=== PATIENT | female | born 1990 | race Caucasian/White ===

== ENCOUNTER → 2020-04-17 09:07 | Outpatient (CLI) | payer OTHER, SELFPAY ==
[2020-04-17 20:53] LABS: SARS-CoV-2 RNA PCR Negative
== END ==
PROVIDERS: PCP Family Medicine; Visit Provider Physician Assistant
DX: Z20.822 Contact with and (suspected) exposure to COVID-19 (principal); J02.9 Acute pharyngitis, unspecified; R05 Cough; R06.02 Shortness of breath; R07.89 Other chest pain; R09.81 Nasal congestion; R51.9 Headache, unspecified; R53.83 Other fatigue; R68.83 Chills (without fever)
CPT/HCPCS: C9803; U0003; U0005

== ENCOUNTER 2020-07-08 08:58 | Emergency (ER) | payer OTHER, SELFPAY ==
[2020-07-08 09:07] VITALS: BP 126/75; PULSE 73; RESP 16; TEMP 36.8; O2SAT 98
--- NOTE | 2020-07-08 09:12 | ED.URI ---
HPI - URI/Sore Throat General Chief Complaint: Upper Respiratory Infection Stated Complaint: SORE THROAT Time Seen by Provider: 07/08/20 09:12 Source: patient, RN notes reviewed and old records reviewed Mode of arrival: ambulatory Limitations: no limitations History of Present Illness HPI Narrative: 30 year old female accompanied by daughter presents to express care with complaints of sore throat discomfort for about 1 week duration, states usually mainly sore at night and in mornings. Patient admits to some sinus drainage, denies any cough, ear pain, sinus pressure, or headache pain. Patient reports that grandmother recently tested positive for strep pharyngitis about 2 weeks ago and had visited her during that time. Patient denies any known history of asthma, sinusitis, or history of allergies, does use tobacco daily. MD elicited complaint: sore throat and rhinorrhea Pertinent past history: other (tobacco use) Onset (ago): week(s) Consistency: progressively worsening Severity: mild Description of mucous: clear Able to tolerate fluids by mouth: Yes Exacerbating factors: nothing Relieving factors: nothing Context: sick contacts Associated symptoms: rhinorrhea, nasal congestion and sore throat Treatments prior to arrival: none Related Data Allergies Allergy/AdvReac Type Severity Reaction Status Date / Time cephalexin Allergy Unknown Unknown Verified 04/25/20 10:28 No Known Allergies Allergy Verified 04/25/20 10:28 Review of Systems Review of Systems: Narrative: CONSTITUTIONAL: Denies fever, chills, or sweats. EYES: Denies visual changes, redness, or discharge. ENT: positive rhinorrhea, no sinus congestion, positive sore throat, no otalgia. CARDIOVASCULAR: Denies chest pain, palpitations, or edema. RESPIRATORY: Denies cough or dyspnea. GASTROINTESTINAL: Denies abdominal pain, nausea, vomiting, or diarrhea. GENITOURINARY: Denies dysuria or hematuria. SKIN: Denies rash or itching. MUSCULOSKELETAL: Denies back pain, joint pain, or myalgia. NEUROLOGIC: Denies headache, numbness, or weakness. PSYCHIATRIC: Positive for history of anxiety or depression. All systems reviewed & are unremarkable except as noted in HPI and below PMFSH Past Medical History Medical History (Updated 07/08/20 @ 09:42 by Marian Morocho NP) Anxiety and depression Surgical History Surgical History (Updated 07/08/20 @ 09:17 by Marian Morocho NP) History of wisdom tooth extraction, class I edentulism Family History Family History Mother Depression Father Acute myocardial infarction, Onset Age: 50 Family history of cardiovascular disease Grandparent Family history of malignant neoplasm of breast Social History Social History (Updated 07/08/20 @ 09:40 by Marian Morocho NP) Smoking status: Current every day smoker Tobacco type: cigarettes Additional smoking assessment comments: 1 pack per day Alcohol intake: current Alcohol use details: social Substance use: never Living arrangements: with family Gender identity (if verbalized by the patient): Female Comments At time of signature, agree with nursing past medical, surgical, social and family history. There is no relevant family history pertinent to the presenting complaint Exam Narrative: Exam Narrative: GENERAL: Well-appearing, well-nourished, and in no acute distress. HEAD: Normocephalic, atraumatic. EYES: PERRLA and EOMI. ENT: Nares red with swollen turbinates, clear rhinorrhea no epistaxis. Mucous membranes moist.TM's normal with good light reflex, throat red with no lesions or exudates, no swelling of tonsils, moderate amount of post nasal drainage noted in back of throat. NECK: Supple. no lymphadenopathy CHEST: Clear to auscultation. No respiratory distress. no cough. SAO2 98% on room air HEART: Regular rate and rhythm. No murmur heard. Normal peripheral pulses. ABDOMEN: Soft, nontender, nondistended, n
== END 2020-07-08 09:49 | disposition home or self-care (01) ==
PROVIDERS: Emergency Provider Registered Nurse; PCP Family Medicine
DX: J06.9 Acute upper respiratory infection, unspecified (principal); F17.210 Nicotine dependence, cigarettes, uncomplicated; F41.9 Anxiety disorder, unspecified; F32.9 Major depressive disorder, single episode, unspecified
CPT/HCPCS: 87081; 87880; 99213; G0463

== ENCOUNTER → 2021-05-01 02:31 | Outpatient (CLI) | payer OTHER, SELFPAY ==
[2021-05-01 17:14] LABS: SARS-CoV-2 RNA PCR Negative
== END ==
PROVIDERS: PCP Family Medicine; Visit Provider Physician Assistant
DX: R06.02 Shortness of breath (principal); Z20.822 Contact with and (suspected) exposure to COVID-19
CPT/HCPCS: 71046; C9803; U0003; U0005

== ENCOUNTER 2021-05-01 09:19 | Outpatient (CLI) | payer OTHER, SELFPAY ==
--- NOTE | ~2021-05-01 | XR_ITS ---
EXAMINATION: XR chest 2V 05/01/2021 09:40 INDICATION: Shortness of breath. Chest pressure. PROCEDURE: 2 view chest COMPARISON: No prior studies for comparison. FINDINGS: The lungs are clear. The cardiomediastinal silhouette is within normal limits. There are no pleural effusions. There is no pneumothorax suspected. IMPRESSION: 1: NO ACUTE CARDIOPULMONARY DISEASE. Reviewed, dictated and finalized at location B. [employer]
== END 2021-05-01 09:20 | disposition home or self-care (01) ==
PROVIDERS: PCP Family Medicine; Visit Provider Physician Assistant
DX: R06.02 Shortness of breath (principal)
CPT/HCPCS: 71046

== ENCOUNTER 2023-01-03 14:38 | Outpatient (CLI) | payer OTHER, SELFPAY ==
[2023-01-06 14:26] LABS: FSH 6.5 mIU/mL (***)
[2023-01-09 22:47] LABS: Estradiol, Ultrasensitive 34 pg/mL
== END 2023-01-03 14:39 | disposition home or self-care (01) ==
LOC: ANHGOSHLAB 14:39
PROVIDERS: PCP Family Medicine; Visit Provider Obstetrics & Gynecology
DX: N92.6 Irregular menstruation, unspecified (principal)
CPT/HCPCS: 36415; 82670; 83001

== ENCOUNTER 2023-03-25 09:17 | Outpatient (CLI) | payer OTHER, SELFPAY ==
[2023-03-25 09:40] LABS: Hematocrit 45.7 % (37.0-47.0); Hemoglobin 14.5 g/dL (12.0-15.0); Mean Corpuscular HGB Conc 31.7 g/dl (32-36); Mean Corpuscular Volume 97.6 fl (80-100); Mean Platelet Volume 10.6 fl (7.4-10.4); Platelet Count Result 193 k/mm3 (150-375); Red Blood Count 4.68 M/mm3 (4.2-5.4); Red Cell Distribution Width 12.8 % (11.5-14.5); White Blood Count 7.7 K/mm3 (4.5-10.0)
== END 2023-03-25 09:18 | disposition home or self-care (01) ==
LOC: ANHSURGERY 09:18
PROVIDERS: PCP Family Medicine; Visit Provider Obstetrics & Gynecology
DX: Z01.818 Encounter for other preprocedural examination (principal); N94.89 Other specified conditions associated with female genital organs and menstrual cycle
CPT/HCPCS: 36415; 85027; 86850; 86900; 86901

== ENCOUNTER 2023-03-31 00:42 | Day surgery (SDC) | payer OTHER, SELFPAY ==
--- NOTE | 2023-03-22 17:32 | PC.NURSE ---
Report to the Outpatient Waiting Room, entrance under the green pavilion located off [facility], at time 0730 on date 03/31/23. Planned Procedure Time: 0930. Time changes happen often and if your time is changed the preop area will call you the afternoon before. - You and your visitor will be asked to self-screen and do not enter if you have any COVID symptoms. - A mask is optional within the hospital at this time. Patients may have clear liquids (water, carbonated beverages, clear teas, apple juice) until 3 hours prior to surgery with a maximum of 20 ounces. 0630 - No food from midnight until time of surgery - Infants may have breast milk until 4 hours before surgery, formula 6 hours prior to surgery. - Children will be allowed to drink immediately following surgery. If applicable, please bring a bottle or sippy cup to assist with drinking. Juice, water, soda, and popsicles are readily available. For infants on formula, please bring formula the day of surgery. Pacifiers are allowed. Take the following medications with a SIP of water the morning of surgery: buspirone DO NOT STOP ANY OF YOUR OTHER PRESCRIPTION MEDICATIONS PRIOR TO SURGERY ?EXCEPT THE FOLLOWING Medications to discontinue per physician none Date to take last dose Please no make-up, nail turkmen, hairspray, perfume, deodorant, or body powder the day of surgery. No jewelry (including any body piercings) or valuables the day of surgery, leave them at home. Please take a shower or bath the night before, or the morning of, surgery with an antibacterial soap. Wear comfortable, loose fitting clothing. Children are encouraged to wear pajamas. - Jewelry must be removed prior to entering the operating room. Rings and piercings that are not removed may be cut off. - The hospital will not accept responsibility for valuables. - Please leave all valuables, including medications, at home the day of surgery. If you are going home after surgery, a licensed local intermodal truck driver must drive you home. - NO public transportation without another adult if you receive anesthesia. - We recommend that an adult stay with you for 24 hours following discharge. - We also recommend that you do not drive, make important decision, drink alcoholic beverages, or take any drugs that were not prescribed by your health care provider for at least 24 hours after your discharge time. For Pediatric surgeries, we recommend two adults accompany the child home. Follow any additional instructions given to you from your surgeon. If you or anyone in your household have experienced Covid symptoms in the past week, please notify your surgeon or the nurse liaison at the phone number below for possible testing. Telephone instructions given to Patient- Ana Celaya and asked if any additional questions and then verbalized understanding. Patient advised to call surgeon office or pre surgery nurse liaison [phone] if any additional questions.
[2023-03-22 17:39] VITALS: BMI 31.0
--- NOTE | 2023-03-29 14:53 | PM.IMHP ---
H&P: HPI History of Present Illness Date/Time: 03/29/23 14:53 32-year-old 1 para 1001 female presents with complaints of pelvic pain and adnexal mass. She has had a longstanding history of midline cramping and discomfort as well as severe pelvic pain throughout the month, no relation to menstrual cycle (has minimal bleeding due to IUD in place) significant amount of left lower quadrant pain as well. Also has seen Urology for mixed incontinence picture, on medication currently. otherwise denies any urinary tract symptoms or change in bowel function. Ultrasound revealed uterus with no significant abnormalities, and left adnexal solid mass on the ovary of 1cm, unchanged over multiple exams. Chief Complaint: Pelvic pain Review of Systems Review of Systems: All systems reviewed & are unremarkable except as noted in HPI and below PMFSH Past Medical History Medical History (Updated 02/15/23 @ 08:42 by JIMMY Coburn) Abnormal Pap smear of cervix 08/08/2017 HGSIL +HPV; 08/15/2018 Lgsil +hpv 08-26-2020 Ascus hpv neg rpt pap in 1 year @ [facility] Anxiety and depression BRCA negative BRCA 1& 2 negative Encounter for IUD insertion 08/21/14 Mirena insertion 10/10/19 Mirena removal/reinsertion Encounter for IUD removal 10/10/19 Mirena removal/reinsertion Encounter for screening examination for sexually transmitted disease 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) Polyp at cervical os Surgical History Surgical History History of breast biopsy 10/24/19 MRI guided left breast biopsy--benign History of colposcopy with cervical biopsy 08/24/17 benign 09/13/18 benign History of wisdom tooth extraction, class I edentulism Family History Family History Mother Depression Family history of malignant neoplasm of breast Alcoholism Father Acute myocardial infarction, Onset Age: 50 Family history of cardiovascular disease Hypertension Grandparent Family history of malignant neoplasm of breast maternal grandmother Family history of cardiovascular disease paternal grandfather Malignant neoplasm of lung maternal grandfather Other Diabetes mellitus paternal aunt Hypertension paternal aunt Family history of cardiovascular disease paternal uncle Malignant tumor of ovary paternal aunt Family history of malignant neoplasm of breast paternal aunt maternal aunt Social History Social History (Updated 03/22/23 @ 17:41 by Violeta Nunez RN) Smoking packs per day: 0.5 Smoking cigarettes per day: 10.0 Years smoked: 18 Smoking pack-years: 9.00 Smoking status: Current every day smoker Tobacco type: cigarettes Second hand tobacco smoke exposure: No Additional smoking assessment comments: 1/2 pack per day Alcohol intake: current Alcohol use details: rare- 2x per month Substance use: former Substance use type: marijuana Last use: 3 months ago Lack of Transportation: No Lack of Food: Never True Current Housing: I Have Housing Concerned About Future Housing: No Difficulty Paying Gas/Electric Bills: No Difficulty Paying for Meds: No Currently Unemployed: No Education: High School Diploma/GED Difficulty w/ Childcare or Family Care: No Living arrangements: with family Additional living arrangements comments: single Occupation/Education: occupation Additional occupation/education comments: [employer] Gender identity (if verbalized by the patient): Female Sexual Orientation (if Verbalized by the Patient): Straight or Heterosexual Spiritual care concerns: No Meds Home Medications and Allergies Home Medications Medication Instructions Recorded Confirmed Type oxybutynin chloride 10 mg 10 mg PO HS 02/15/23 03/22/23 History tablet,extended release 24 hr buspirone 10 mg table
[2023-03-31] VITALS (14 sets, daily range): BP systolic 97–139; BP diastolic 52–92; PULSE 62–89; RESP 12–19; TEMP 36.1–36.9; O2SAT 94–100
--- NOTE | 2023-03-31 04:25 | WPDHPUPDATE1 ---
History and Physical Update Update Date/Time: 03/31/23 04:25 History and Physical has been reviewed, including an updated exam of the patient. There are NO changes in the patient's condition. Risks, benefits, and alternatives have been discussed and questions answered. Patient agrees to proceed with procedure.
[2023-03-31] MEDS: ACETAMINOPHEN 500 MG TABLET 1000 MG PO (06:24)
[2023-03-31] MEDS: LACTATED RINGERS 1,000 ML 30 ML IV CONT ×2 (07:06→09:27)
[2023-03-31] MEDS: KETOROLAC 15 MG/ML VIAL (*BKC) IV PUSH ×2 (07:07→10:34)
--- NOTE | 2023-03-31 07:31 | WPDANESEPPF ---
Anes - Initial Pre Proc Eval Procedure: Operation Date: 03/31/23 08:00 Proposed Procedures p Robotic Assisted Total Laparoscopic Hysterectomy, Right Salpingectomy, Left Salpingo-Oophorectomy - Phillip Stiles MD Date/Time: 03/31/23 07:31 Surgeon: Phillip Stiles MD Pre Op Diagnosis: pelvic pain, Left adnexal mass Patient Data Age: 32 Gender: F Height: 1.6 m Weight: 80.2 kg Last Vital Signs Temp 98.4 F 03/31/23 07:10 Pulse 62 03/31/23 07:10 Resp 16 03/31/23 07:10 BP 119/66 03/31/23 07:10 Pulse Ox 100 03/31/23 07:10 O2 Del Method Room Air 03/31/23 07:10 Allergies Allergy/AdvReac Type Severity Reaction Status Date / Time cephalexin AdvReac Severe Other Verified 03/31/23 06:22 Home Medications Medication Instructions Recorded Confirmed Type oxybutynin chloride 10 mg 10 mg PO HS 02/15/23 03/31/23 History tablet,extended release 24 hr buspirone 10 mg tablet 10 mg PO BID 03/22/23 03/31/23 History escitalopram oxalate 20 mg tablet 20 mg PO HS 03/22/23 03/31/23 History (Lexapro) ziprasidone HCl 20 mg capsule 40 mg PO HS 03/22/23 03/31/23 History Patient hx anesthesia problems: none Family hx anesthesia problems: none Results Review: All pre-operative results and documents have been reviewed as part of the pre-operative evaluation. [facility] Past Medical History Medical History (Updated 02/15/23 @ 08:42 by Hermila Schuler [facility]) Abnormal Pap smear of cervix 08/08/2017 HGSIL +HPV; 08/15/2018 Lgsil +hpv 08-26-2020 Ascus hpv neg rpt pap in 1 year @ [facility] Anxiety and depression BRCA negative BRCA 1& 2 negative Encounter for IUD insertion 08/21/14 Mirena insertion 10/10/19 Mirena removal/reinsertion Encounter for IUD removal 10/10/19 Mirena removal/reinsertion Encounter for screening examination for sexually transmitted disease 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) Polyp at cervical os Surgical History Surgical History History of breast biopsy 10/24/19 MRI guided left breast biopsy--benign History of colposcopy with cervical biopsy 08/24/17 benign 09/13/18 benign History of wisdom tooth extraction, class I edentulism Family History Family History Mother Depression Family history of malignant neoplasm of breast Alcoholism Father Acute myocardial infarction, Onset Age: 50 Family history of cardiovascular disease Hypertension Grandparent Family history of malignant neoplasm of breast maternal grandmother Family history of cardiovascular disease paternal grandfather Malignant neoplasm of lung maternal grandfather Other Diabetes mellitus paternal aunt Hypertension paternal aunt Family history of cardiovascular disease paternal uncle Malignant tumor of ovary paternal aunt Family history of malignant neoplasm of breast paternal aunt maternal aunt Social History Social History (Updated 03/22/23 @ 17:41 by Violeta Nunez RN) Smoking packs per day: 0.5 Smoking cigarettes per day: 10.0 Years smoked: 18 Smoking pack-years: 9.00 Smoking status: Current every day smoker Tobacco type: cigarettes Second hand tobacco smoke exposure: No Additional smoking assessment comments: 1/2 pack per day Alcohol intake: current Alcohol use details: rare- 2x per month Substance use: former Substance use type: marijuana Last use: 3 months ago Lack of Transportation: No Lack of Food: Never True Current Housing: I Have Housing Concerned About Future Housing: No Difficulty Paying Gas/Electric Bills: No Difficulty Paying for Meds: No Currently Unemployed: No Education: High School Diploma/GED Difficulty w/ Childcare or Family Care: No Living arrangements: with family Additional living arrangements comments: single Occupation/[employer]
[2023-03-31] MEDS: ceFAZolin 2 GM/D5W 50 ML 2 GM/50 ML BAG IVPB (08:02)
--- NOTE | 2023-03-31 09:08 | P.OP_ITS ---
Procedure Note - Detailed Date of Procedure 03/31/23 Pre-op Diagnosis pelvic pain, Left adnexal mass Post-op Diagnosis Same Procedure Performed 1. robotic hysterectomy with R salpingectomy 2. L salpingoophorectomy Surgeon Phillip Stiles MD Anesthesia General Findings Mildly enlarged uterus small left ovarian cyst Description of Procedure Patient prepped and draped in usual manner for this procedure. Cervical instruments were placed for uterine mobility throughout the case. Attention was then placed the abdomen and trocar sites were marked and placed under direct visualization and then attached to the de Felice system. Instruments were then placed through these trocars again under direct visualization. Attention was placed to the pelvis and findings were noted as above. Left infundibulopelvic ligament was cauterized and cut, and the right mesial salpinx was cauterized and cut and the right tube was removed separately. Round ligament was then cauterized cut and bladder flap was developed as well as the posterior leaf the broad ligament was incised. Uterine vessels were skeletonized cauterized and cut and once this was done the colpotomy incision was made posteriorly. This was carried circumferentially to separate the cervix from the vagina. Uterus was then delivered into the vagina without difficulty as well as the left tube and ovary. Vaginal cuff was then closed using V lock suture from the right angle to the left past midline. Right angle was then secured using V lock suture and this was again in a running manner carried past the midline to the right. Irrigation was undertaken, Brice was laced empirically. Gas was allow ed to escape incisions were approximated using 4-0 Monocryl after the trocars removed and the patient was sent to recovery room in stable condition. Estimated Blood Loss 100 Drains No Packing No Pathology Yes Complications No immediate complications Condition Stable Disposition PACU [facility] Billing Surgery - Charge Forward: Surgery Billing
[2023-03-31] MEDS: fentaNYL CITRATE INJ (*CRX) 100 MCG/2 ML VIAL 25 MCG IV PUSH ×8 (09:48→11:02)
[2023-03-31] MEDS: ONDANSETRON INJ 4 MG/2 ML VIAL IV PUSH (10:01)
[2023-03-31] MEDS: HYDROmorphone HCL INJ (*CRX) 1 MG/ML SYR 0.5 MG IV PUSH (11:10)
[2023-03-31] MEDS: diphenhydrAMINE HCl INJ 50 MG/ML VIAL 12.5 MG IV PUSH (12:15)
[2023-03-31] MEDS: HYDROcodone/acetaminophen (*CRX) 10-325 MG TABLET 1 TAB PO ×4 (13:37→23:38)
[2023-03-31] MEDS: IBUPROFEN 600 MG TABLET PO ×2 (13:37→19:44)
[2023-03-31] MEDS: SIMETHICONE 80 MG TAB.CHEW PO ×2 (15:40→18:48)
[2023-03-31] MEDS: ESCITALOPRAM OXALATE 10 MG TABLET 20 MG PO (19:45)
[2023-03-31] MEDS: busPIRone HCL 10 MG TABLET PO (19:45)
[2023-03-31] MEDS: ZIPRASIDONE HCL 20 MG CAPSULE 40 MG PO (19:45)
[2023-03-31] MEDS: oxyBUTYnin CHLORIDE XL 5 MG TAB.ER.24 10 MG PO (19:46)
[2023-04-01] MEDS: SIMETHICONE 80 MG TAB.CHEW PO ×2 (00:03→06:25)
[2023-04-01] MEDS: IBUPROFEN 600 MG TABLET PO (03:41)
[2023-04-01 03:50] VITALS: BP 99/54; PULSE 71; RESP 16; TEMP 37; O2SAT 93
[2023-04-01 04:46] LABS: Basophils Percent Auto 0.2 % (0.2-1.2); Eosinophils Absolute Auto 0.1 K/mm3 (0-0.3); Eosinophils Percent Auto 0.6 % (0-4.4); Hematocrit 38.2 % (37.0-47.0); Hemoglobin 12.4 g/dL (12.0-15.0); Immature Granulocyte Absolute 0.04 K/mm3 (0.00-0.031); Immature Granulocyte Percent A 0.3 % (0-0.5); Lymphocytes Absolute Auto 2.83 K/mm3 (0.9-3.2); Lymphocytes Percent Auto 19.6 % (18.3-44.2); Mean Corpuscular HGB Conc 32.5 g/dl (32-36); Mean Corpuscular Hemoglobin 31.5 pg (26-34); Mean Platelet Volume 10.8 fl (7.4-10.4); Monocytes Absolute Auto 0.6 K/mm3 (0.1-0.6); Monocytes Percent Auto 4.4 % (2.6-8.5); Neutrophils Absolute Auto 10.8 K/mm3 (1.3-6.7); Neutrophils Percent Auto 74.9 % (45.5-73.1); Platelet Count Result 209 k/mm3 (150-375); Red Blood Count 3.94 M/mm3 (4.2-5.4); Red Cell Distribution Width 12.2 % (11.5-14.5); White Blood Count 14.4 K/mm3 (4.5-10.0)
[2023-04-01] MEDS: HYDROcodone/acetaminophen (*CRX) 5-325 MG TABLET 1 TAB PO (06:25)
[2023-04-01 07:35] VITALS: BP 105/48; PULSE 68; RESP 16; TEMP 36.6; O2SAT 98
[2023-04-01] MEDS: busPIRone HCL 10 MG TABLET PO (07:39)
[2023-04-01 08:30] VITALS: BP 111/61; PULSE 77; RESP 18
== END 2023-04-01 08:40 | disposition home or self-care (01) ==
LOC: ANHSURGERY 06:10 → ANHOB2 11:33
PROVIDERS: PCP Family Medicine; Visit Provider Obstetrics & Gynecology
PROC: (CPT 58571; principal; 2023-03-31 08:00)
DX: N83.02 Follicular cyst of left ovary (principal); N72 Inflammatory disease of cervix uteri; R10.2 Pelvic and perineal pain; N92.6 Irregular menstruation, unspecified; N39.41 Urge incontinence; F41.8 Other specified anxiety disorders; F17.210 Nicotine dependence, cigarettes, uncomplicated
CPT/HCPCS: 58571; S2900; 36415; 85025; 88307; 99199; A9270; J0690; J1100; J1170; J1200; J1596; J1885; J2250; J2405; J2704; J2710; J3010; J7030; J7120

== ENCOUNTER 2023-04-07 19:01 | Inpatient (IN) | payer OTHER, SELFPAY ==
--- NOTE | ~2023-04-07 | CT_ITS ---
EXAMINATION: CT abdomen pelvis w con DATE: 04/07/2023 22:12 INDICATION: Vaginal discharge post hysterectomy TECHNIQUE: Computed tomography (CT) of the abdomen and pelvis was performed with 100 mL Omnipaque-350 intravenous contrast. Automated exposure control and iterative reconstruction technique were employe d. The dose-length product was 528.46 mGy-cm. COMPARISON: None FINDINGS: Minimal dependent atelectasis in the bilateral lower lobes. Heart size is normal. No pericardial or p leural effusion. Liver, gallbladder, spleen, pancreas, bilateral adrenal glands and kidneys are starla l. No bowel obstruction. Normal appendix. Uterus is not visualized consistent with reported history o f recent hysterectomy. There is mild peripheral enhancement surrounding a 5.4 x 6.2 x 4.1 cm fluid co llection with multiple small foci of gas at the hysterectomy bed which could represent a postoperativ e hematoma or abscess in the appropriate clinical setting. There are few small follicles at the right ovary. The left ovary is not visualized and may also be surgically absent. The there is wall thicken ing of the decompressed bladder with stranding to the immediately surrounding fat which raises concer n for cystitis. Tiny fat-containing umbilical hernia. No pathologically enlarged abdominal or pelvic lymphadenopathy. Bones are unremarkable. IMPRESSION: 1. 6.2 x 5.4 x 4.1 cm loculated fluid collection with multiple small foci of gas in the uterine fossa post reported recent hysterectomy which could represent a postoperative hematoma or abscess in the a ppropriate clinical setting. 2. Bladder is decompressed with wall thickening and prominent surrounding stranding which raises conc [place] for cystitis. Reviewed, dictated and finalized at location A. [employer]PER[employer] IMPRESSION: 1. 6.2 x 5.4 x 4.1 cm loculated fluid collection with multiple small foci of ga s in the uterine fossa post reported recent hysterectomy which could represent a postoperative hematoma or abscess in the appropriate clinical setting. 2. Bladder is decompressed with wall thickening and prominent surrounding stran ding which raises concern for cystitis.
--- NOTE | ~2023-04-07 | CT_ITS ---
EXAMINATION: CT guide absc cath placement DATE: 04/08/2023 13:26 INDICATION: Pelvic abscess. TECHNIQUE: The procedure including the risks, benefits, and alternatives was discussed with the patie nt. Risks discussed included bleeding and infection. The patient understood the risks and benefits an d agreed to proceed. The patient was confirmed to be receiving appropriate antibiotic coverage. The skin overlying the abdomen was prepped and draped in usual sterile fashion. Anesthetic was administe red with 1% lidocaine subcutaneously. Moderate sedation was achieved with 1 mg Versed IV and 100 mcg fentanyl IV. An 18 gauge trochar needle was inserted into the pelvic abscess with CT guidance. The ne edle was exchanged over a wire for 6 Congolese, 8 Congolese, and 9 Congolese dilators and then for an 8.5 Fren ch pigtail catheter. The catheter was stitched to the skin, and a sterile dressing was applied. The m A was adjusted according to patient size. Iterative reconstruction technique was employed. The dose-l ength product was 354.48 mGy-cm. There were no immediate complications. FINDINGS: CT images demonstrate the catheter within the fluid collection. 10 mL fluid was aspirated f or testing. IMPRESSION: 1. Successful CT-guided pelvic abscess drainage. 2. 10 mL yellow fluid was sent for aerobic and anaerobic cultures. Reviewed, dictated and finalized at location A. [employer]
[2023-04-07 19:08] VITALS: BP 141/64; PULSE 92; RESP 16; TEMP 36.9; O2SAT 99
[2023-04-07 19:49] LABS: Appearance Urine Clear (Clear); Bacteria Urine None Seen /hpf; Bilirubin Urine Negative (Negative); Blood Urine 2+ (Negative); Color Urine Yellow (Yellow); Glucose Urine UA Negative (Negative); Ketones Urine Negative (Negative); Leukocyte Esterase Ur 3+ LEU/UL (Negative); Nitrate Urine Negative (Negative); Non Pathogenic Casts 0-2; Protein Urine 1+ mg/dL (Negative); RBC Urine 0-2 /hpf (0-2); Specific Grav Ur 1.007 (1.001-1.035); Squamous Epithelial Cell Urine None seen /hpf (Few); Urobilinogen Urine 0.2 mg/dL (<2.0); WBC Urine 51-100 /hpf; pH Urine 6.5 (5.0-9.0)
[2023-04-07 19:51] LABS: Add Urine Microscopic? YES
--- NOTE | 2023-04-07 20:28 | ED.RECABL ---
HPI - Recheck/Abnormal Lab/Rx General Chief Complaint: Recheck/Abnormal Lab/Rx Stated Complaint: POST OP DRAINAGE S/P HYST Time Seen by Provider: 04/07/23 19:54 History of Present Illness HPI narrative: Patient is a 32-year-old female presenting with vaginal discharge. Patient states that she had a laparoscopic hysterectomy 1 week ago. States that she seemed to be doing well until this afternoon when she developed profuse vaginal discharge. States that it is watery and foul smelling. Complains of mild lower back pain that she has had since the procedure. No fevers or chills. No vaginal bleeding. Complain of mild right-sided abdominal pain. No further complaints. Related Data Home Medications Medication Instructions Recorded Confirmed oxybutynin chloride 10 mg 10 mg PO HS 02/15/23 04/08/23 tablet,extended release 24 hr buspirone 10 mg tablet 10 mg PO BID 03/22/23 04/08/23 escitalopram oxalate 20 mg tablet 20 mg PO HS 03/22/23 04/08/23 (Lexapro) ziprasidone HCl 20 mg capsule 40 mg PO HS 03/22/23 04/08/23 Allergies Allergy/AdvReac Type Severity Reaction Status Date / Time cephalexin AdvReac Severe Other Verified 04/07/23 19:55 Review of Systems Review of Systems: All systems reviewed & are unremarkable except as noted in HPI and below PMFSH Past Medical History Medical History Abnormal Pap smear of cervix 08/08/2017 HGSIL +HPV; 08/15/2018 Lgsil +hpv 08-26-2020 Ascus hpv neg rpt pap in 1 year @ [facility] Anxiety and depression BRCA negative BRCA 1& 2 negative Encounter for IUD insertion 08/21/14 Mirena insertion 10/10/19 Mirena removal/reinsertion Encounter for IUD removal 10/10/19 Mirena removal/reinsertion Encounter for screening examination for sexually transmitted disease Hematuria, unspecified 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) Polyp at cervical os Surgical History Surgical History History of breast biopsy 10/24/19 MRI guided left breast biopsy--benign History of colposcopy with cervical biopsy 08/24/17 benign 09/13/18 benign History of left oophorectomy History of left salpingo-oophorectomy History of robot-assisted laparoscopic hysterectomy History of wisdom tooth extraction, class I edentulism Family History Family History Mother Depression Family history of malignant neoplasm of breast Alcoholism Father Acute myocardial infarction, Onset Age: 50 Family history of cardiovascular disease Hypertension Grandparent Family history of malignant neoplasm of breast maternal grandmother Family history of cardiovascular disease paternal grandfather Malignant neoplasm of lung maternal grandfather Other Diabetes mellitus paternal aunt Hypertension paternal aunt Family history of cardiovascular disease paternal uncle Malignant tumor of ovary paternal aunt Family history of malignant neoplasm of breast paternal aunt maternal aunt Social History Social History Smoking packs per day: 0.5 Smoking cigarettes per day: 10.0 Years smoked: 18 Smoking pack-years: 9.00 Smoking status: Current every day smoker Second hand tobacco smoke exposure: No Additional smoking assessment comments: 1/2 pack per day Alcohol intake: current Alcohol use details: rare- 2x per month Substance use: former Substance use type: marijuana Last use: 3 months ago, socially Do You Feel Safe in your Home?: Yes Lack of Transportation: No Lack of Food: Never True Current Housing: I Have Housing Concerned About Future Housing: No Difficulty Paying Gas/Electric Bills: No Difficulty Paying for Meds: No Currently Unemployed: No Education: Don't Know Difficulty w/ Childcare or Family Car
[2023-04-07] MEDS: ONDANSETRON INJ 4 MG/2 ML VIAL IV PUSH (21:31)
[2023-04-07] MEDS: MORPHINE SULFATE (*CRX) 4 MG/ML INJ IV PUSH (21:32)
[2023-04-07] MEDS: KETOROLAC 30 MG/ML VIAL (*BKC) IV PUSH (21:32)
[2023-04-07] MEDS: SODIUM CHLORIDE 0.9% IV 1,000 ML 999 ML IV CONT ×2 (21:32→23:26)
[2023-04-07 21:43] LABS: Basophils Percent Auto 0.3 % (0.2-1.2); Eosinophils Absolute Auto 0.1 K/mm3 (0-0.3); Hematocrit 39.9 % (37.0-47.0); Hemoglobin 13.2 g/dL (12.0-15.0); Immature Granulocyte Absolute 0.05 K/mm3 (0.00-0.031); Immature Granulocyte Percent A 0.4 % (0-0.5); Lymphocytes Absolute Auto 2.11 K/mm3 (0.9-3.2); Lymphocytes Percent Auto 15.2 % (18.3-44.2); Mean Corpuscular HGB Conc 33.1 g/dl (32-36); Mean Corpuscular Hemoglobin 31.4 pg (26-34); Mean Corpuscular Volume 94.8 fl (80-100); Monocytes Absolute Auto 0.8 K/mm3 (0.1-0.6); Monocytes Percent Auto 5.9 % (2.6-8.5); Neutrophils Absolute Auto 10.7 K/mm3 (1.3-6.7); Neutrophils Percent Auto 77.2 % (45.5-73.1); Platelet Count Result 239 k/mm3 (150-375); Red Blood Count 4.21 M/mm3 (4.2-5.4); Red Cell Distribution Width 12.5 % (11.5-14.5); White Blood Count 13.9 K/mm3 (4.5-10.0)
[2023-04-07 21:53] LABS: Alanine Aminotransferase 20 U/L (6-35); Albumin Level 3.9 g/dL (3.5-5.1); Alkaline Phosphatase 89 U/L (38-126); Anion Gap 7 mmol/L (8-16); Aspartate Amino Transferase 21 U/L (14-36); Bilirubin,Total 0.4 mg/dL (0.2-1.3); Blood Urea Nitrogen 9 mg/dL (7-17); Calcium 9.6 mg/dL (8.4-10.2); Carbon Dioxide 29 mmol/L (22-30); Chloride 102 mmol/L (98-107); Estimated CRCL calculation 97 ml/min; Estimated Glomerular Filt Rate > 60; Glucose 96 mg/dL (65-110); Potassium 3.8 mmol/L (3.4-5.0); Sodium 138 mmol/L (137-145)
[2023-04-07] MEDS: PIPERACILLN/TAZ 3.375GM/NS50ML 3.375 GM/50 ML BAG IVPB (23:27)
[2023-04-08] VITALS (19 sets, daily range): BP systolic 98–122; BP diastolic 36–82; PULSE 61–85; RESP 14–184; TEMP 35.9–36.4; O2SAT 92–100; BMI 30.1; BMI 31.8
[2023-04-08] MEDS: HYDROmorphone HCL INJ (*CRX) 1 MG/ML SYR 0.5 MG IV PUSH (00:13)
--- NOTE | 2023-04-08 01:01 | ADMGEN ---
This patient, Monae Celaya, was admitted to 2 Medical Room 260-. Patient/family oriented to hospital policies and general routines including ID bracelet, bed and alarms, visiting hours, pain management, procedures, bathroom and other care routines, personal items, smoking policy, room service/diet, and visiting hours. Information on how to activate the Rapid Response Team has been discussed. Patient/Family are encouraged to report perceived risks to care and to ask questions if they do not understand what they are told or what they should do.
[2023-04-08] MEDS: ESCITALOPRAM OXALATE 10 MG TABLET 20 MG PO ×2 (02:56→20:40)
[2023-04-08] MEDS: HYDROcodone/acetaminophen (*CRX) 10-325 MG TABLET 1 TAB PO ×4 (02:56→21:37)
[2023-04-08] MEDS: busPIRone HCL 10 MG TABLET PO ×3 (02:56→17:50)
[2023-04-08] MEDS: oxyBUTYnin CHLORIDE XL 5 MG TAB.ER.24 10 MG PO ×2 (02:56→20:40)
[2023-04-08] MEDS: ZIPRASIDONE HCL 20 MG CAPSULE 40 MG PO ×2 (03:37→20:40)
[2023-04-08 05:42] LABS: Hematocrit 35.2 % (37.0-47.0); Mean Corpuscular HGB Conc 31.3 g/dl (32-36); Mean Corpuscular Hemoglobin 30.7 pg (26-34); Mean Corpuscular Volume 98.3 fl (80-100); Mean Platelet Volume 10.7 fl (7.4-10.4); Platelet Count Result 211 k/mm3 (150-375); Red Blood Count 3.58 M/mm3 (4.2-5.4); Red Cell Distribution Width 12.4 % (11.5-14.5); White Blood Count 10.2 K/mm3 (4.5-10.0)
[2023-04-08 10:01] LABS: INR 1.1; Prothrombin Time 14.4 Seconds (11.1-14.7)
--- NOTE | 2023-04-08 10:47 | PM.IMHP ---
H&P: HPI History of Present Illness Date/Time: 04/08/23 10:47 32-year-old female admitted to the hospital last night. She is 1 week status post laparoscopic hysterectomy. Underwent hysterectomy without issue and was discharged the 1st postoperative day with essentially normal white count and doing well. In the interim since that time had also been doing well until noted a significant amount of vaginal discharge, foul odor with no bleeding, 1st few hours prior to admission. No nausea vomiting constipation diarrhea though it has been a couple of days since her last bowel movement, and no urinary tract symptoms. Denies fevers chills. Chief Complaint: abdominal pain Review of Systems Review of Systems: All systems reviewed & are unremarkable except as noted in HPI and below PMFSH Past Medical History Medical History Abnormal Pap smear of cervix 08/08/2017 HGSIL +HPV; 08/15/2018 Lgsil +hpv 08-26-2020 Ascus hpv neg rpt pap in 1 year @ [facility] Anxiety and depression BRCA negative BRCA 1& 2 negative Encounter for IUD insertion 08/21/14 Mirena insertion 10/10/19 Mirena removal/reinsertion Encounter for IUD removal 10/10/19 Mirena removal/reinsertion Encounter for screening examination for sexually transmitted disease Hematuria, unspecified 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) Polyp at cervical os Surgical History Surgical History History of breast biopsy 10/24/19 MRI guided left breast biopsy--benign History of colposcopy with cervical biopsy 08/24/17 benign 09/13/18 benign History of left oophorectomy History of left salpingo-oophorectomy History of robot-assisted laparoscopic hysterectomy History of wisdom tooth extraction, class I edentulism Family History Family History Mother Depression Family history of malignant neoplasm of breast Alcoholism Father Acute myocardial infarction, Onset Age: 50 Family history of cardiovascular disease Hypertension Grandparent Family history of malignant neoplasm of breast maternal grandmother Family history of cardiovascular disease paternal grandfather Malignant neoplasm of lung maternal grandfather Other Diabetes mellitus paternal aunt Hypertension paternal aunt Family history of cardiovascular disease paternal uncle Malignant tumor of ovary paternal aunt Family history of malignant neoplasm of breast paternal aunt maternal aunt Social History Social History Smoking packs per day: 0.5 Smoking cigarettes per day: 10.0 Years smoked: 18 Smoking pack-years: 9.00 Smoking status: Current every day smoker Second hand tobacco smoke exposure: No Additional smoking assessment comments: 1/2 pack per day Alcohol intake: current Alcohol use details: rare- 2x per month Substance use: former Substance use type: marijuana Last use: 3 months ago, socially Do You Feel Safe in your Home?: Yes Lack of Transportation: No Lack of Food: Never True Current Housing: I Have Housing Concerned About Future Housing: No Difficulty Paying Gas/Electric Bills: No Difficulty Paying for Meds: No Currently Unemployed: No Education: Don't Know Difficulty w/ Childcare or Family Care: No Living arrangements: with family Additional living arrangements comments: single Occupation/Education: occupation Additional occupation/education comments: [employer] Gender identity (if verbalized by the patient): Female Sexual Orientation (if Verbalized by the Patient): Straight or Heterosexual Spiritual care concerns: No Meds Home Medications and Allergies Home Medications Medication Instructions Recorded Confirmed Type oxybutynin chloride 10 mg
--- NOTE | 2023-04-08 12:20 | WPDMODSED ---
Moderate Sedation Note-Pt Data Patient Data Diagnosis: Pelvic abscess. Present Complaint: Pelvic abscess. Procedure to be performed/Plan: CT-guided pelvis abscess drainage. Allergies Allergy/AdvReac Type Severity Reaction Status Date / Time cephalexin AdvReac Severe Other Verified 04/07/23 19:55 Home Medications Medication Instructions Recorded Confirmed Type oxybutynin chloride 10 mg 10 mg PO HS 02/15/23 04/08/23 History tablet,extended release 24 hr buspirone 10 mg tablet 10 mg PO BID 03/22/23 04/08/23 History escitalopram oxalate 20 mg tablet 20 mg PO HS 03/22/23 04/08/23 History (Lexapro) ziprasidone HCl 20 mg capsule 40 mg PO HS 03/22/23 04/08/23 History hydrocodone 5 mg-acetaminophen 325 1 tablet PO Q3H PRN Pain Rated 5 04/01/23 04/08/23 Rx mg tablet Or Less #20 tabs ibuprofen 600 mg tablet 600 mg PO Q6H PRN Cramping #30 tabs 04/01/23 04/08/23 Rx ondansetron 4 mg disintegrating 4 mg PO Q6H PRN nausea and 04/02/23 04/08/23 Rx tablet vomiting #30 tabs Current Medications: Active Medications Hydrocodone Bitart/Acetaminophen (Hydrocodone/Acetaminophen (*Crx) 5-325 Mg Tablet) 1 tab PO Q3H PRN PRN Reason: Pain Rated 5 Or Less Hydrocodone Bitart/Acetaminophen (Hydrocodone/Acetaminophen (*Crx) 10-325 Mg Tablet) 1 tab PO Q4H PRN PRN Reason: Pain Rated 7-10 Stop: 04/15/23 23:59 Last Admin: 04/08/23 08:55 Dose: 1 tab Buspirone HCl (Buspirone Hcl 10 Mg Tablet) 10 mg PO BID [facility] Last Admin: 04/08/23 08:56 Dose: 10 mg Escitalopram Oxalate (Escitalopram Oxalate 10 Mg Tablet) 20 mg PO HS [facility] Last Admin: 04/08/23 02:56 Dose: 20 mg Piperacillin/Tazobactam/Dextrose (Zosyn 3.375 Gm/Ns 50 Ml) 3.375 gm in 50 mls @ 100 mls/hr IVPB Q6H [facility] Ibuprofen (Ibuprofen 600 Mg Tablet) 600 mg PO Q6H PRN PRN Reason: Cramping Ondansetron HCl (Ondansetron Inj 4 Mg/2 Ml Vial) 4 mg IV PUSH Q4H PRN PRN Reason: Nausea Oxybutynin Chloride (Oxybutynin Chloride Xl 5 Mg Tab.Er.24) 10 mg PO HS [facility] Last Admin: 04/08/23 02:56 Dose: 10 mg Ziprasidone (Ziprasidone Hcl 20 Mg Capsule) 40 mg PO HS [facility] Last Admin: 04/08/23 03:37 Dose: 40 mg Sedation/Anesthesia: No previous sedation/anesthesia problems (including family history). 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) Polyp at cervical os Surgical History Surgical History History of breast biopsy 10/24/19 MRI guided left breast biopsy--benign History of colposcopy with cervical biopsy 08/24/17 benign 09/13/18 benign History of left oophorectomy History of left salpingo-oophorectomy History of robot-assisted laparoscopic hysterectomy History of wisdom tooth extraction, class I edentulism Family History Family History Mother Depression Family history of malignant neoplasm of breast Alcoholism Father Acute myocardial infarction, Onset Age: 50 Family history of cardiovascular disease Hypertension Grandparent Family history of malignant neoplasm of breast maternal grandmother Family history of cardiovascular disease paternal grandfather Malignant neoplasm of lung maternal grandfather Other Diabetes mellitus paternal aunt Hypertension paternal aunt Family history of cardiovascular disease paternal uncle Malignant tumor of ovary paternal aunt Famil
[2023-04-08] MEDS: ONDANSETRON INJ 4 MG/2 ML VIAL IV PUSH ×2 (13:34→23:15)
[2023-04-08] MEDS: PIPERACILLN/TAZ 3.375GM/NS50ML 3.375 GM/50 ML BAG IVPB ×3 (13:35→21:33)
[2023-04-08] MEDS: IBUPROFEN 600 MG TABLET PO ×2 (14:25→20:15)
[2023-04-08] MEDS: DEXTROSE 5%/0.45% SOD CHL 1,000 ML 999 ML IV CONT (20:06)
[2023-04-08] MEDS: DEXTROSE 5%/0.45% SOD CHL 1,000 ML 125 ML IV CONT (21:33)
[2023-04-09] MEDS: HYDROcodone/acetaminophen (*CRX) 5-325 MG TABLET 1 TAB PO ×4 (03:06→20:34)
[2023-04-09 06:09] LABS: Basophils Percent Auto 0.2 % (0.2-1.2); Eosinophils Absolute Auto 0.2 K/mm3 (0-0.3); Eosinophils Percent Auto 1.9 % (0-4.4); Hematocrit 33.4 % (37.0-47.0); Hemoglobin 10.6 g/dL (12.0-15.0); Immature Granulocyte Absolute 0.03 K/mm3 (0.00-0.031); Immature Granulocyte Percent A 0.3 % (0-0.5); Lymphocytes Percent Auto 22.3 % (18.3-44.2); Mean Corpuscular HGB Conc 31.7 g/dl (32-36); Mean Corpuscular Hemoglobin 31.4 pg (26-34); Mean Corpuscular Volume 98.8 fl (80-100); Mean Platelet Volume 10.5 fl (7.4-10.4); Monocytes Absolute Auto 0.5 K/mm3 (0.1-0.6); Monocytes Percent Auto 4.8 % (2.6-8.5); Neutrophils Absolute Auto 6.6 K/mm3 (1.3-6.7); Neutrophils Percent Auto 70.5 % (45.5-73.1); Platelet Count Result 215 k/mm3 (150-375); Red Blood Count 3.38 M/mm3 (4.2-5.4); Red Cell Distribution Width 12.2 % (11.5-14.5); White Blood Count 9.4 K/mm3 (4.5-10.0)
--- NOTE | 2023-04-09 07:59 | PM.GYNPNOP ---
DOUPER - A/P Postoperative Procedures: Procedures Operation Date: 04/08/23 12:00 Actual Procedure Side Surgeon p Radiology Procedure Mod.Sed.Rn- CT Abscess Drain Placement Ronald Yu MD Time Spent With Patient Time: Total time spent is greater than 50% in coordination of care (as documented) at patient's floor/unit and/or counseling patient: Time with patient: 15 - 25 minutes DOUPER- PN:Subj Post-Op Subjective Date/time seen: 04/09/23 07:59 Interval history: S: Tolerating regular diet, ambulation. Improved regarding abdominal/pelvic pain, as well as no longer with discharge, since drain placed/antibiotics. O: VSS afebrile abd soft nondistended good BS. Minimal tenderness labs noted A: HD2 posthysterectomy pelvic abscess...improving clinically, WBC N and drain continues with significant return purulent fluid P: continue current plan of drain/antibiotics DOUPER - PN: Obj Data Vital Signs Vital Signs: Vital Signs - 24 hr 04/08/23 12:10 04/08/23 12:40 04/08/23 13:00 Temperature Pulse Rate 65 64 66 Respiratory Rate 18 24 H 17 Blood Pressure 118/71 109/56 L 117/70 Pulse Oximetry 95 100 96 Oxygen Delivery Room Air Nasal Cannula Room Air Oxygen Flow Rate 4 04/08/23 12:25 04/08/23 12:30 04/08/23 12:35 Temperature Pulse Rate 66 67 61 Respiratory Rate 14 20 24 H Blood Pressure 112/57 L 116/60 107/53 L Pulse Oximetry 97 92 100 Oxygen Delivery Nasal Cannula Nasal Cannula Nasal Cannula Oxygen Flow Rate 2 4 4 04/08/23 12:45 04/08/23 12:50 04/08/23 12:55 Temperature Pulse Rate 65 64 63 Respiratory Rate 22 H 22 H 18 Blood Pressure 108/55 L 109/49 L 106/52 L Pulse Oximetry 100 100 100 Oxygen Delivery Nasal Cannula Nasal Cannula Nasal Cannula Oxygen Flow Rate 4 4 4 04/08/23 13:15 04/08/23 14:40 04/08/23 09:25 Temperature 97.5 F L Pulse Rate 69 70 Respiratory Rate 20 18 Blood Pressure 116/82 100/42 L Pulse Oximetry 95 92 Oxygen Delivery Room Air Room Air Oxygen Flow Rate 04/08/23 20:04 04/08/23 20:00 04/08/23 21:30 Temperature 97.6 F Pulse Rate 71 71 Respiratory Rate 18 18 Blood Pressure 98/36 L 115/42 L Pulse Oximetry 98 98 Oxygen Delivery Room Air Oxygen Flow Rate Intake/Output Intake/Output: Intake & Output 04/06/23 04/07/23 04/08/23 04/09/23 23:59 23:59 23:59 23:59 Intake Total 1000 1200 1000 Output Total 30 120 Balance 1000 1170 880 Meds/Results Medications: Active Medications Generic Name Dose Route Start Last Admin Trade Name Freq PRN Reason Stop Dose Admin Hydrocodone Bitart/Acetaminophen 1 tab 04/08/23 02:00 04/09/23 03:06 Hydrocodone/Acetaminophen (*Crx) 5-325 Mg Tablet PO 1 tab Q3H PRN Administration Pain Rated 5 Or Less Hydrocodone Bitart/Acetaminophen 1 tab 04/08/23 02:06 04/08/23 21:37 Hydrocodone/Acetaminophen (*Crx) 10-325 Mg Tablet PO 04/15/23 23:59 1 tab Q4H PRN Administration Pain Rated 7-10 Buspirone HCl 10 mg 04/08/23 02:01 04/08/23 17:50 Buspirone Hcl 10 Mg Tablet PO 10 mg BID [facility] Administration Escitalopram Oxalate 20 mg 04/08/23 02:01 04/08/23 20:40 Escitalopram Oxalate 10 Mg Tablet PO 20 mg HS [facility] Administration Piperacillin/Tazobactam/Dextrose 3.375 gm in 50 mls @ 100 mls/hr 04/08/23 14:00 04/08/23 23:10 Zosyn 3.375 Gm/Ns 50 Ml IVPB Infused Q6H [facility] Infusion Dextrose/Sodium Chloride 1,000 mls @ 125 mls/hr 04/08/23 18:55 04/08/23 21:33 Dextrose 5% Sodium Chloride 0.45% IV CONT 125 mls/hr .Q8H [facility] Administration Ibuprofen 600 mg 04/08/23 02:00 04/08/23 20:15 Ibuprofen 600 Mg Tablet PO 600 mg Q6H PRN Administration Cramping Ondansetron HCl 4 mg 04/07/23 23:49 04/08/23 23:15 Ondansetron Inj 4 Mg/2 Ml Vial IV PUSH 4 mg Q4H PRN Administration Nausea Oxybutynin Chloride 10 mg 04/08/23 02:02 04/08/23 20:40 Oxybutynin Chloride Xl 5 Mg Tab.Er.24 PO 10 mg HS [facility] Administration Ziprasidone 40 mg 02
[2023-04-09] MEDS: busPIRone HCL 10 MG TABLET PO ×2 (08:19→16:43)
[2023-04-09] MEDS: IBUPROFEN 600 MG TABLET PO ×2 (08:19→14:06)
[2023-04-09] MEDS: PIPERACILLN/TAZ 3.375GM/NS50ML 3.375 GM/50 ML BAG IVPB ×3 (08:19→20:33)
[2023-04-09] MEDS: DEXTROSE 5%/0.45% SOD CHL 1,000 ML 125 ML IV CONT ×2 (08:21→19:25)
[2023-04-09 09:45] VITALS: O2SAT 97
[2023-04-09 09:49] VITALS: BP 103/52; PULSE 56; RESP 16; TEMP 36.6; O2SAT 95
[2023-04-09 14:00] VITALS: BP 103/55; PULSE 71; RESP 16; TEMP 36.4; O2SAT 97
[2023-04-09] MEDS: oxyBUTYnin CHLORIDE XL 5 MG TAB.ER.24 10 MG PO (20:34)
[2023-04-09] MEDS: ESCITALOPRAM OXALATE 10 MG TABLET 20 MG PO (20:34)
[2023-04-09] MEDS: ZIPRASIDONE HCL 20 MG CAPSULE 40 MG PO (20:34)
[2023-04-09 21:35] VITALS: BP 114/64; PULSE 51; RESP 16; TEMP 36.4; O2SAT 99
[2023-04-10] MEDS: PIPERACILLN/TAZ 3.375GM/NS50ML 3.375 GM/50 ML BAG IVPB ×4 (02:10→19:10)
[2023-04-10] MEDS: HYDROcodone/acetaminophen (*CRX) 5-325 MG TABLET 1 TAB PO ×5 (02:16→20:56)
[2023-04-10] MEDS: DEXTROSE 5%/0.45% SOD CHL 1,000 ML 125 ML IV CONT (05:17)
[2023-04-10 06:00] VITALS: BP 113/63; PULSE 60; RESP 18; TEMP 36.6; O2SAT 99
[2023-04-10 06:05] LABS: Basophils Percent Auto 0.4 % (0.2-1.2); Eosinophils Absolute Auto 0.2 K/mm3 (0-0.3); Eosinophils Percent Auto 2.9 % (0-4.4); Hematocrit 32.9 % (37.0-47.0); Hemoglobin 10.6 g/dL (12.0-15.0); Immature Granulocyte Absolute 0.03 K/mm3 (0.00-0.031); Immature Granulocyte Percent A 0.4 % (0-0.5); Lymphocytes Percent Auto 31.4 % (18.3-44.2); Mean Corpuscular HGB Conc 32.2 g/dl (32-36); Mean Corpuscular Hemoglobin 31.3 pg (26-34); Mean Corpuscular Volume 97.1 fl (80-100); Mean Platelet Volume 10.9 fl (7.4-10.4); Monocytes Absolute Auto 0.4 K/mm3 (0.1-0.6); Monocytes Percent Auto 4.8 % (2.6-8.5); Neutrophils Absolute Auto 4.8 K/mm3 (1.3-6.7); Neutrophils Percent Auto 60.1 % (45.5-73.1); Platelet Count Result 226 k/mm3 (150-375); Red Blood Count 3.39 M/mm3 (4.2-5.4); Red Cell Distribution Width 12.2 % (11.5-14.5)
[2023-04-10] MEDS: busPIRone HCL 10 MG TABLET PO ×2 (08:22→17:08)
[2023-04-10] MEDS: ONDANSETRON INJ 4 MG/2 ML VIAL IV PUSH ×2 (09:47→19:09)
[2023-04-10 14:00] VITALS: BP 119/69; PULSE 60; RESP 16; TEMP 36.6; O2SAT 99
[2023-04-10] MEDS: IBUPROFEN 600 MG TABLET PO (14:45)
--- NOTE | 2023-04-10 15:07 | PM.GYNPNOP ---
[employer] - A/P Postoperative Procedures: Procedures Operation Date: 04/08/23 12:00 Actual Procedure Side Surgeon p Radiology Procedure Mod.Sed.Rn- CT Abscess Drain Placement Ronald Yu MD Time Spent With Patient Time: Total time spent is greater than 50% in coordination of care (as documented) at patient's floor/unit and/or counseling patient: Time with patient: 15 - 25 minutes [employer]- PN:Subj Post-Op Subjective Date/time seen: 04/10/23 15:07 S: Overall doing well. Some pressure/discomfort at drain site. O: VSS afebrile abd: soft/non distended. Inc c/d/i. drain site without erythema/mass A: doing well. Gm- , to be ID'ed, in wound culture as expected. P: cointinue current, will pull drain tomorrow and send home on oral antibiotics with close f/u. Discussed with patient and will await culture results which should be today/tomorrow. Interval history: S: Tolerating regular diet, ambulation. Improved regarding abdominal/pelvic pain, as well as no longer with discharge, since drain placed/antibiotics. O: VSS afebrile abd soft nondistended good BS. Minimal tenderness labs noted A: HD2 posthysterectomy pelvic abscess...improving clinically, WBC N and drain continues with significant return purulent fluid P: continue current plan of drain/antibiotics [employer] - PN: Obj Data Vital Signs Vital Signs: Vital Signs - 24 hr 04/09/23 21:35 04/10/23 06:00 Temperature 97.6 F 97.8 F Pulse Rate 51 L 60 Respiratory Rate 16 18 Blood Pressure 114/64 113/63 Pulse Oximetry 99 99 Intake/Output Intake/Output: Intake & Output 04/07/23 04/08/23 04/09/23 04/10/23 23:59 23:59 23:59 23:59 Intake Total 1000 1200 3390 1690 Output Total 30 150 Balance 1000 1170 3240 1690 Meds/Results Medications: Active Medications Generic Name Dose Route Start Last Admin Trade Name Freq PRN Reason Stop Dose Admin Hydrocodone Bitart/Acetaminophen 1 tab 04/08/23 02:00 04/10/23 12:14 Hydrocodone/Acetaminophen (*Crx) 5-325 Mg Tablet PO 1 tab Q3H PRN Administration Pain Rated 5 Or Less Hydrocodone Bitart/Acetaminophen 1 tab 04/08/23 02:06 04/08/23 21:37 Hydrocodone/Acetaminophen (*Crx) 10-325 Mg Tablet PO 04/15/23 23:59 1 tab Q4H PRN Administration Pain Rated 7-10 Buspirone HCl 10 mg 04/08/23 02:01 04/10/23 08:22 Buspirone Hcl 10 Mg Tablet PO 10 mg BID [facility] Administration Escitalopram Oxalate 20 mg 04/08/23 02:01 04/09/23 20:34 Escitalopram Oxalate 10 Mg Tablet PO 20 mg HS [facility] Administration Piperacillin/Tazobactam/Dextrose 3.375 gm in 50 mls @ 100 mls/hr 04/08/23 14:00 04/10/23 14:46 Zosyn 3.375 Gm/Ns 50 Ml IVPB 100 mls/hr Q6H [facility] Administration Ibuprofen 600 mg 04/08/23 02:00 04/10/23 14:45 Ibuprofen 600 Mg Tablet PO 600 mg Q6H PRN Administration Cramping Ondansetron HCl 4 mg 04/07/23 23:49 04/10/23 09:47 Ondansetron Inj 4 Mg/2 Ml Vial IV PUSH 4 mg Q4H PRN Administration Nausea Oxybutynin Chloride 10 mg 04/08/23 02:02 04/09/23 20:34 Oxybutynin Chloride Xl 5 Mg Tab.Er.24 PO 10 mg HS [facility] Administration Ziprasidone 40 mg 04/08/23 02:02 04/09/23 20:34 Ziprasidone Hcl 20 Mg Capsule PO 40 mg HS [facility] Administration Zolpidem Tartrate 5 mg 04/08/23 18:54 Zolpidem Tartrate (*Crx) 5 Mg Tablet PO HS PRN Insomnia Radiology Results: ITS Impressions Abdomen/Pelvis CT 04/07/23 22:16 IMPRESSION: 1. 6.2 x 5.4 x 4.1 cm loculated fluid collection with multiple small foci of gas in the uterine fossa post reported recent hysterectomy which could represent a postoperative hematoma or abscess in the appropriate clinical setting. 2. Bladder is decompressed with wall thickening and prominent surrounding stranding which raises concern for cystitis. Catheter Placement CT 04/08/23 13:51 IMPRESSION: 1. Successful CT-guided pelvic abscess drainage. 2. 10 mL yellow fluid was sent for aerobic and anaerobic cultures.
[2023-04-10] MEDS: oxyBUTYnin CHLORIDE XL 5 MG TAB.ER.24 10 MG PO (20:50)
[2023-04-10] MEDS: ESCITALOPRAM OXALATE 10 MG TABLET 20 MG PO (20:50)
[2023-04-10] MEDS: ZIPRASIDONE HCL 20 MG CAPSULE 40 MG PO (20:50)
[2023-04-10 22:00] VITALS: BP 117/63; PULSE 61; RESP 20; TEMP 36.4; O2SAT 97
[2023-04-11] MEDS: PIPERACILLN/TAZ 3.375GM/NS50ML 3.375 GM/50 ML BAG IVPB ×3 (02:04→15:05)
[2023-04-11 05:37] LABS: Basophils Percent Auto 0.6 % (0.2-1.2); Eosinophils Absolute Auto 0.3 K/mm3 (0-0.3); Eosinophils Percent Auto 3.6 % (0-4.4); Hematocrit 34.3 % (37.0-47.0); Immature Granulocyte Absolute 0.02 K/mm3 (0.00-0.031); Immature Granulocyte Percent A 0.3 % (0-0.5); Lymphocytes Absolute Auto 2.45 K/mm3 (0.9-3.2); Mean Corpuscular HGB Conc 32.1 g/dl (32-36); Mean Corpuscular Hemoglobin 31.2 pg (26-34); Mean Corpuscular Volume 97.2 fl (80-100); Mean Platelet Volume 10.2 fl (7.4-10.4); Monocytes Absolute Auto 0.3 K/mm3 (0.1-0.6); Monocytes Percent Auto 4.7 % (2.6-8.5); Neutrophils Absolute Auto 3.9 K/mm3 (1.3-6.7); Neutrophils Percent Auto 55.8 % (45.5-73.1); Platelet Count Result 239 k/mm3 (150-375); Red Blood Count 3.53 M/mm3 (4.2-5.4); Red Cell Distribution Width 12.2 % (11.5-14.5)
[2023-04-11 06:00] VITALS: BP 107/58; PULSE 60; RESP 20; TEMP 36; O2SAT 96
[2023-04-11] MEDS: HYDROcodone/acetaminophen (*CRX) 5-325 MG TABLET 1 TAB PO ×2 (06:06→10:26)
[2023-04-11] MEDS: busPIRone HCL 10 MG TABLET PO (10:27)
--- NOTE | 2023-04-11 10:41 | PM.DS ---
DS: Admitting Diagnosis Discharge Date 04/11/2023 Admitting Diagnosis post hysterectomy pelvic abscess DS: Discharge Diagnosis Discharge Diagnosis (1) Postoperative abscess of pelvis in female: Code(s): T81.49XA - Infection following a procedure, other surgical site, initial encounter; N73.9 - Female pelvic inflammatory disease, unspecified Status: Acute Plan 1. Discharge home today after drain is pulled 2. Bactrim DS and Flagyl b.i.d. for 10 days 3. Keep follow-up appointment in 1 week 4. Call for any significant increase in symptoms of fever discharge or pain DS: Summary Hospital Course Reason for hospitalization: antibiotics and percutaneous abscess drainage Hospital Course: 32-year-old female admitted 1 week status post robotic hysterectomy with diagnosis of pelvic abscess. During hospitalization she was on Zosyn every 6hours and on the 1st admission day had a drain placed in the abscess, which did drain over 200 cc of purulent fluid during the time the drain was in place. patient did well clinically once had been on antibiotics for 24hours, this was continued for 72hours. Drain was pulled prior to discharge with minimal output. Time Spent with Patient Time attestation: Total time spent providing and/or coordinating discharge services: DS: Data Data Completed and Pending Labs on day of discharge: Labs from last 24 hours 04/11/23 05:29 WBC 7.0 RBC 3.53 L Hgb 11.0 L Hct 34.3 L MCV 97.2 MCH 31.2 MCHC 32.1 RDW 12.2 Plt Count 239 MPV 10.2 Immature Gran % (Auto) 0.3 Neut % (Auto) 55.8 Lymph % (Auto) 35.0 [place] % (Auto) 4.7 Eos % (Auto) 3.6 Baso % (Auto) 0.6 Lymph # (Auto) 2.45 [place] # (Auto) 0.3 Eos # (Auto) 0.3 Baso # (Auto) 0.0 Abs Immat Gran (auto) 0.02 Absolute Neuts (auto) 3.9 Absolute Nucleated RBC 0.0 Nucleated RBC % 0.0 Preliminary micro results at discharge 04/08/23 13:11 Anaerobic Culture - Preliminary Abscess 04/07/23 23:54 Blood Culture - Preliminary Blood 04/07/23 23:54 Blood Culture - Preliminary Blood Discharge Plan Discharge Consulting providers: Hurford,Phillip M. Discharging Clinician: Phillip Stiles Patient Disposition: Home, Self-Care Activity: may shower, no straining and pelvic rest Diet: as tolerated Patient Instructions: Antibiotic Form, Pain Management (DC), Hemovac Drain Care (DC), Hysterectomy (DC) Stand Alone Forms: General Discharge Information Follow-up/Referrals: Phillip Stiles MD [Physician] - 1 Week Discharge Medications: Continued oxybutynin chloride 10 mg tablet extended release 24hr 10 mg PO HS ziprasidone HCl 20 mg capsule 40 mg PO HS Rx Instructions: give with food (meal/snack) buspirone 10 mg tablet 10 mg PO BID escitalopram oxalate [Lexapro] 20 mg tablet 20 mg PO HS hydrocodone-acetaminophen 5-325 mg Tablet 1 tablet PO Q3H PRN (Reason: Pain Rated 5 Or Less) Qty: 20 0RF ibuprofen 600 mg Tablet 600 mg PO Q6H PRN (Reason: Cramping) Qty: 30 0RF ondansetron 4 mg tablet,disintegrating 4 mg PO Q6H PRN (Reason: nausea and vomiting) Qty: 30 0RF sulfamethoxazole-trimethoprim [Bactrim DS] 800-160 mg tablet 1 tablet PO Q12H Qty: 20 0RF metronidazole 500 mg tablet 500 mg PO Q12H Qty: 20 0RF Date of admission: 04/10/23 15:14 Primary Care Provider: Gilberto Gupta Admitting Provider: Isabella Stanley Attending physician on admission: Isabella Stanley Condition: Stable [facility] Discharge Billing [facility] Discharge Hospital Discharge: 04126 Hosp D/C 30 Min
[2023-04-11 14:00] VITALS: BP 108/68; PULSE 60; RESP 16; TEMP 36.7; O2SAT 96
== END 2023-04-11 16:00 | disposition home or self-care (01) | DRG 711 ==
LOC: ANHED 04-08 00:45 → ANH2MED 04-08 00:50
PROVIDERS: Emergency Medicine; Obstetrics & Gynecology; Radiology Diagnostic Radiology; Admitting Provider Obstetrics & Gynecology; Emergency Provider Emergency Medicine; PCP Family Medicine; Visit Provider Obstetrics & Gynecology
PROC: 0W9J40Z Drainage of Pelvic Cavity with Drainage Device, Percutaneous Endoscopic Approach (ICD-10-PCS; principal; 2023-04-08 12:00)
DX: T81.43XA Infection following a procedure, organ and space surgical site, initial encounter (principal); K65.1 Peritoneal abscess; Z90.710 Acquired absence of both cervix and uterus; F41.8 Other specified anxiety disorders; F17.210 Nicotine dependence, cigarettes, uncomplicated
CPT/HCPCS: 36415; 74177; 75989; 80053; 81001; 85025; 85027; 85610; 85730; 87040; 87070; 87075; 87086; 87205; 96361; 96365; 96375; 99285; A9270; C1729; G0378; G0379; J1170; J1885; J2250; J2270; J2405; J2543; J3010; J7030; J7040; Q9967

== ENCOUNTER 2023-09-03 20:51 | Emergency (ER) | payer OTHER, SELFPAY ==
--- NOTE | ~2023-09-03 | XR_ITS ---
EXAMINATION: XR chest 2V DATE: 09/03/2023 21:46 INDICATION: Chest pain. Shortness of breath. TECHNIQUE: Frontal and lateral views of the chest were obtained. COMPARISON: Chest 2 views 05/01/2021 FINDINGS: There is no pneumonia, pleural effusion, or pneumothorax. The heart size is normal. IMPRESSION: 1. No acute cardiopulmonary disease. Reviewed, dictated and finalized at location E.
--- NOTE | 2023-09-03 20:51 | ECG_ITS ---
Test Date: 2023-09-03 20:58:25 Measurements Intervals [place] Rate: 62 P: 22 [place]: 132 QRS: 58 QRSD: 79 T: 32 QT: 372 QTc: 379 Interpretive Statements SINUS RHYTHM WITH SINUS ARRHYTHMIA No previous ECG available for comparison Electronically Signed On 09-04-2023 16:12:14 CDT by Mario Riley M.D.
[2023-09-03 20:56] VITALS: BP 149/92; PULSE 64; RESP 14; TEMP 36.7; O2SAT 98
[2023-09-03 21:08] LABS: Basophils Absolute Auto 0.1 K/mm3 (0.0-0.1); Basophils Percent Auto 0.5 % (0.2-1.2); Eosinophils Absolute Auto 0.2 K/mm3 (0-0.3); Eosinophils Percent Auto 1.4 % (0-4.4); Hematocrit 40.7 % (37.0-47.0); Immature Granulocyte Absolute 0.04 K/mm3 (0.00-0.031); Immature Granulocyte Percent A 0.3 % (0-0.5); Lymphocytes Percent Auto 32.1 % (18.3-44.2); Mean Corpuscular HGB Conc 34.4 g/dl (32-36); Mean Corpuscular Hemoglobin 32.8 pg (26-34); Mean Corpuscular Volume 95.3 fl (80-100); Mean Platelet Volume 10.8 fl (7.4-10.4); Monocytes Absolute Auto 0.7 K/mm3 (0.1-0.6); Monocytes Percent Auto 5.6 % (2.6-8.5); Neutrophils Absolute Auto 7.1 K/mm3 (1.3-6.7); Neutrophils Percent Auto 60.1 % (45.5-73.1); Platelet Count Result 214 k/mm3 (150-375); Red Blood Count 4.27 M/mm3 (4.2-5.4); Red Cell Distribution Width 13.2 % (11.5-14.5); White Blood Count 11.8 K/mm3 (4.5-10.0)
[2023-09-03 21:19] LABS: INR 0.9; Partial Thromboplastin Time 28.4 Seconds (22.3-36.8); Prothrombin Time 12.4 Seconds (11.1-14.7)
[2023-09-03 21:20] LABS: Alanine Aminotransferase 24 U/L (6-35); Albumin Level 4.2 g/dL (3.5-5.1); Alkaline Phosphatase 59 U/L (38-126); Anion Gap 6 mmol/L (4-12); Aspartate Amino Transferase 26 U/L (14-36); Bilirubin,Total 0.4 mg/dL (0.2-1.3); Blood Urea Nitrogen 12 mg/dL (7-17); Calcium 9.3 mg/dL (8.4-10.2); Carbon Dioxide 23 mmol/L (22-30); Chloride 108 mmol/L (98-107); Estimated CRCL calculation 87 ml/min; Estimated Glomerular Filt Rate > 60; Glucose 98 mg/dL (65-110); Lipase 63 U/L (23-300); Potassium 4.2 mmol/L (3.4-5.0); Sodium 137 mmol/L (137-145)
[2023-09-03 21:29] LABS: Troponin I < 0.012 ng/mL (0.000-0.034)
[2023-09-03] MEDS: BELLADONNA ALK/PHENOB ELIX 10 ML, MAG HYDROX/ALUMINUM HYD/SIMETH 30 ML, LIDOCAINE HCL 2... PO (21:32)
[2023-09-03 22:00] VITALS: BP 123/80; PULSE 66; PULSE 71; RESP 19; O2SAT 97
[2023-09-03 23:13] VITALS: BP 122/82; PULSE 65; RESP 19; O2SAT 97
--- NOTE | 2023-09-03 23:28 | ED.GENADULT ---
HPI - General Adult General Chief complaint: Chest Pain Stated complaint: chest pain Time Seen by Provider: 09/03/23 21:08 History of Present Illness HPI narrative: Patient 33-year-old female who presents emergency department with chief complaint of chest pain. Patient reports all throughout the day she has been having discomfort in her chest. The patient states that it feels like a pressure-like sensation and also had a sharp type component to it as well patient reports that it is some of the worst pain that she has felt similar to whenever she had a drain removed after she had a surgery in her pelvis. Patient does report that she still has her gallbladder patient reports that the symptoms are not improved by anything at home. Patient does report that she has family history for cardiac disease but she personally has not had any cardiac disease Related Data Home Medications Medication Instructions Recorded Confirmed oxybutynin chloride 10 mg 10 mg PO HS 02/15/23 05/30/23 tablet,extended release 24 hr buspirone 10 mg tablet 10 mg PO BID 03/22/23 05/30/23 escitalopram oxalate 20 mg tablet 20 mg PO HS 03/22/23 05/30/23 (Lexapro) ziprasidone HCl 20 mg capsule 40 mg PO HS 03/22/23 05/30/23 Allergies Allergy/AdvReac Type Severity Reaction Status Date / Time adhesive tape Allergy Severe Other Verified 05/30/23 10:31 sulfamethoxazole Allergy Severe Other Verified 05/30/23 10:31 [From Bactrim] trimethoprim [From Bactrim] Allergy Severe Other Verified 05/30/23 10:31 cephalexin AdvReac Severe Other Verified 05/30/23 10:31 Review of Systems Review of Systems: A 10 system review of systems was completed on the patient and is negative except for what is stated in the HPI. Nursing and ancillary documentation was reviewed. 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 L salpingoophorectomy History of wisdom tooth extraction, class I edentulism Family History Family History Mother Depression Family history of malignant neoplasm of breast Alcoholism Father Acute myocardial infarction, Onset Age: 50 Family history of cardiovascular disease Hypertension Grandparent Family history of malignant neoplasm of breast maternal grandmother Family history of cardiovascular disease paternal grandfather Malignant neoplasm of lung maternal grandfather Other Diabetes mellitus paternal aunt Hypertension paternal aunt Family history of cardiovascular disease paternal uncle Malignant tumor of ovary paternal aunt Family history of malignant neoplasm of breast paternal aunt maternal aunt Social History Social History Smoking packs per day: 0.5 Smoking cigarettes per day: 10.0 Years smoked: 18 Smoking pack-years: 9.00 Smoking status: Current every day smoker Second hand t
--- NOTE | 2023-09-03 23:51 | ECG_ITS ---
Test Date: 2023-09-03 23:44:51 Measurements Intervals Parker Rate: 59 P: 15 LA: 151 QRS: 62 QRSD: 95 T: 39 QT: 385 QTc: 383 Interpretive Statements SINUS BRADYCARDIA Compared to ECG 09/03/2023 20:58:25 Sinus rhythm no longer present Sinus arrhythmia no longer present Electronically Signed On 09-04-2023 16:14:01 CDT by Mario Riley M.D.
[2023-09-04 00:13] LABS: Troponin I < 0.012 ng/mL (0.000-0.034)
== END 2023-09-04 00:33 | disposition home or self-care (01) ==
PROVIDERS: Emergency Provider Emergency Medicine; PCP Family Medicine
DX: R07.89 Other chest pain (principal); F41.9 Anxiety disorder, unspecified; F32.A Depression, unspecified; F17.210 Nicotine dependence, cigarettes, uncomplicated; Z90.721 Acquired absence of ovaries, unilateral; Z90.79 Acquired absence of other genital organ(s); Z90.710 Acquired absence of both cervix and uterus; Z79.899 Other long term (current) drug therapy; R00.1 Bradycardia, unspecified
CPT/HCPCS: 36415; 71046; 80053; 83690; 84484; 85025; 85610; 85730; 93005; 99284; A9270

== ENCOUNTER 2023-10-25 08:23 | Outpatient (CLI) | payer OTHER, SELFPAY ==
--- NOTE | 2023-10-25 08:27 | EST_ITS ---
Patient Info Name: Monae Celaya Age: 33 years : 1990 Gender: Female Ht: 63 in Wt: 185 lbs BSA: 1.96 m2 HR: 74 bpm BP: 122 / 62 mmHg Exam Date: 10/25/2023 8:40 AM Exam Location: Echo Lab Patient Status: Outpatient Admit Date: 10/25/2023 Staff Ordering Physician: Ramona Gupta MD Wire Galvanizer: Mirtha Viera RDCS Attending Provider: TIARRA BLISS DO Referring Physician: Candy PRINCE; Exercise Technologist: Mirtha Viera RDCS Exercise Physician: Tiarra Bliss DO Exam Type: CA stress echo Study Info Treadmill exercise stress echocardiogram is performed. Summary 1. 1. Negative Nacho exercise stress test for ischemic ST changes by ECG criteria. 2. 2. Good functional capacity, achieving 10 METs of workload. 3. 3. Appropriate HR response to exercise. 4. 4. Appropriate HR recovery at 1 minute post exercise. 5. 5. Negative stress echocardiogram for ischemia by wall motion analysis. 6. 6. Patient informed of the above results. Stress Echo Findings Left Ventricle Appropriate increase in LV endocardial thickening with systole. Appropriate augmentation of contractility with systole. No wall motion abnormality. Left Ventricle Normal LV systolic function, no wall motion abnormality. Protocol: Nacho Stress ECG Details Stage: REST Duration (min): 0 min : 51 sec Speed (mph): 0.0 Grade (%): 0 HR (bpm): 71 SBP (mmHg): 122 DBP (mmHg): 62 METS: --- Stage: REST Duration (min): 1 min : 8 sec Speed (mph): 0.0 Grade (%): 0 HR (bpm): 77 SBP (mmHg): 122 DBP (mmHg): 62 METS: --- Stage: REST Duration (min): 6 min : 51 sec Speed (mph): 1.0 Grade (%): 0 HR (bpm): 70 SBP (mmHg): 122 DBP (mmHg): 62 METS: --- Stage: STAGE 1 Duration (min): 1 min : 0 sec Speed (mph): 1.7 Grade (%): 10 HR (bpm): 103 SBP (mmHg): 122 DBP (mmHg): 62 METS: --- Stage: STAGE 1 Duration (min): 2 min : 0 sec Speed (mph): 1.7 Grade (%): 10 HR (bpm): 108 SBP (mmHg): 122 DBP (mmHg): 62 METS: --- Stage: STAGE 1 Duration (min): 3 min : 0 sec Speed (mph): 1.7 Grade (%): 10 HR (bpm): 106 SBP (mmHg): 122 DBP (mmHg): 43 METS: --- Stage: STAGE 2 Duration (min): 1 min : 0 sec Speed (mph): 2.5 Grade (%): 12 HR (bpm): 126 SBP (mmHg): 122 DBP (mmHg): 43 METS: --- Stage: STAGE 2 Duration (min): 2 min : 0 sec Speed (mph): 2.5 Grade (%): 12 HR (bpm): 135 SBP (mmHg): 143 DBP (mmHg): 46 METS: --- Stage: STAGE 2 Duration (min): 3 min : 0 sec Speed (mph): 2.5 Grade (%): 12 HR (bpm): 139 SBP (mmHg): 143 DBP (mmHg): 46 METS: --- Stage: STAGE 3 Duration (min): 1 min : 0 sec Speed (mph): 3.4 Grade (%): 14 HR (bpm): 158 SBP (mmHg): 168 DBP (mmHg): 52 METS: --- Stage: STAGE 3 Duration (min): 2 min : 0 sec Speed (mph): 3.4 Grade (%): 14 HR (bpm): 168 SBP (mmHg): 168 DBP (mmHg): 52 METS: --- Stage: STAGE 3 Duration (min): 2 min : 1
== END 2023-10-25 08:24 | disposition home or self-care (01) ==
LOC: ANHCARD 08:24
PROVIDERS: PCP Family Medicine; Visit Provider Family Medicine
DX: R07.89 Other chest pain (principal); Z82.49 Family history of ischemic heart disease and other diseases of the circulatory system
CPT/HCPCS: 93351

== ENCOUNTER 2023-12-09 12:09 | Outpatient (CLI) | payer OTHER, SELFPAY ==
--- NOTE | ~2023-12-09 | XR_ITS ---
EXAMINATION: XR abdomen/kub 1V DATE: 12/09/2023 12:19 INDICATION: Change in bowel habits. TECHNIQUE: A supine view of the abdomen on 2 radiographs was obtained. COMPARISON: CT abdomen and pelvis 04/07/2023 FINDINGS: There are no dilated loops of bowel. There is a small volume of stool in the colon. There i s a phlebolith in the pelvis. IMPRESSION: 1. Normal bowel gas pattern. Reviewed, dictated and finalized at location A.
== END 2023-12-09 12:10 | disposition home or self-care (01) ==
LOC: ANHIMG 12:10
PROVIDERS: PCP Family Medicine; Visit Provider Nurse Practitioner Family
DX: R19.4 Change in bowel habit (principal); R19.7 Diarrhea, unspecified; R10.9 Unspecified abdominal pain; Z90.710 Acquired absence of both cervix and uterus
CPT/HCPCS: 74018

== ENCOUNTER 2023-12-09 12:41 | Outpatient (CLI) | payer OTHER, SELFPAY ==
[2023-12-09 16:14] LABS: Hemoglobin 14.3 g/dL (12.0-15.0); Mean Corpuscular HGB Conc 33.3 g/dl (32-36); Mean Corpuscular Hemoglobin 32.4 pg (26-34); Mean Corpuscular Volume 97.5 fl (80-100); Mean Platelet Volume 11.1 fl (7.4-10.4); Platelet Count Result 231 k/mm3 (150-375); Red Blood Count 4.41 M/mm3 (4.2-5.4); Red Cell Distribution Width 13.2 % (11.5-14.5); White Blood Count 12.3 K/mm3 (4.5-10.0)
[2023-12-09 16:24] LABS: Alanine Aminotransferase 41 U/L (6-35); Albumin Level 4.5 g/dL (3.5-5.1); Alkaline Phosphatase 60 U/L (38-126); Anion Gap 6 mmol/L (4-12); Aspartate Amino Transferase 30 U/L (14-36); Bilirubin,Total 0.4 mg/dL (0.2-1.3); Blood Urea Nitrogen 9 mg/dL (7-17); CRP < 0.5 mg/dL (<1.0); Calcium 9.4 mg/dL (8.4-10.2); Carbon Dioxide 28 mmol/L (22-30); Chloride 102 mmol/L (98-107); Estimated Glomerular Filt Rate > 60; Glucose 85 mg/dL (65-110); Potassium 3.9 mmol/L (3.4-5.0); Sodium 136 mmol/L (137-145)
[2023-12-09 17:07] LABS: Erythrocyte Sedimentation Rate 14 mm/hr (0-20)
[2023-12-14 03:38] LABS: Tissue Transglutaminase IgA Ab <1.0 U/mL; Tissue Transglutaminase IgG Ab <1.0 U/mL
== END 2023-12-09 12:42 | disposition home or self-care (01) ==
LOC: ANHGOSHLAB 12:43
PROVIDERS: PCP Family Medicine; Visit Provider Nurse Practitioner Family
DX: R10.9 Unspecified abdominal pain (principal); R19.4 Change in bowel habit; R19.7 Diarrhea, unspecified
CPT/HCPCS: 36415; 74018; 80053; 84443; 85027; 85652; 86140; 86364

== ENCOUNTER 2024-01-18 08:27 | Day surgery (SDC) | payer OTHER, SELFPAY ==
[2023-12-12 12:04] VITALS: BMI 32.6
[2024-01-02 11:33] VITALS: BMI 32.8
--- NOTE | 2024-01-18 06:45 | P.PNAN_ITS ---
Anes - Initial Pre Proc Eval Procedure: Operation Date: 01/18/24 10:30 Proposed Procedures p Diagnostic Colonoscopy - John Hernandez MD Date/Time: 01/18/24 06:45 Surgeon: John Hernandez MD Pre Op Diagnosis: Other Specified Diseases of Anus/Rectum.Unspec Abd Patient Data Age: 33 Gender: F Height: 1.6 m Weight: 84 kg Allergies Allergy/AdvReac Type Severity Reaction Status Date / Time adhesive tape Allergy Severe Other Verified 01/18/24 09:08 sulfamethoxazole Allergy Severe Other Verified 01/18/24 09:08 [From Bactrim] trimethoprim [From Bactrim] Allergy Severe Other Verified 01/18/24 09:08 cephalexin AdvReac Severe Other Verified 01/18/24 09:08 Home Medications Medication Instructions Recorded Confirmed Type oxybutynin chloride 10 mg 10 mg PO HS 02/15/23 01/18/24 History tablet,extended release 24 hr buspirone 10 mg tablet 10 mg PO BID 03/22/23 01/18/24 History escitalopram oxalate 20 mg tablet 20 mg PO HS 03/22/23 01/18/24 History (Lexapro) ibuprofen 600 mg tablet 600 mg PO Q6H PRN Cramping #30 tabs 04/01/23 01/18/24 Rx omeprazole 40 mg capsule,delayed 40 mg PO DAILY #90 caps 09/07/23 01/18/24 Rx release ziprasidone HCl 60 mg capsule 60 mg PO DAILY 12/08/23 01/18/24 History fluticasone propionate 50 2 spray intranasal DAILY PRN 01/02/24 01/18/24 History mcg/actuation nasal Allergy Symptoms spray,suspension (Flonase Allergy Relief) diclofenac sodium 50 mg 50 mg PO TID PRN pain #90 tabs 01/17/24 01/17/24 Rx tablet,delayed release methocarbamol 750 mg tablet 750 mg PO TID PRN muscle pain #30 01/17/24 01/17/24 Rx tabs Patient hx anesthesia problems: none Family hx anesthesia problems: none Results Review: All pre-operative results and documents have been reviewed as part of the pre-operative evaluation. 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 L salpingoophorectomy History of wisdom tooth extraction, class I edentulism Family History Family History Mother Depression Family history of malignant neoplasm of breast Alcoholism Father Acute myocardial infarction, Onset Age: 50 Family history of cardiovascular disease Hypertension Grandparent Family history of malignant neoplasm of breast maternal grandmother Family history of cardiovascular disease paternal grandfather Malignant neoplasm of lung maternal grandfather Other Diabetes mellitus paternal aunt Hypertension paternal aunt Family history of cardiovascular disease paternal uncle Malignant tumor of ovary paternal aunt Family history of malignant neoplasm of breast paternal aunt maternal aunt Social History Social History Smoking packs per day: 0.75 Smoking cigarettes per day: 15.0 Years smoked: 19 Smoking pack-years: 14.25 Smoking status: Current every day smoker Tobacco type: cigarettes Second hand tobacco smoke exposure: No Additional smoking assessment comments: 1/2 pack per day Alcohol intake: current Alcohol use details: 5 per month Substance use: current Substance use type: marijuana Other substance usage details: occasional Last use: 3 months ago, socially Do You Feel Safe in your Home?: Yes Lack of Transportation: No Lack of Food: Never True Current Housing: I Have Housing Concerned About Future Housing: No Difficulty Paying Gas/Electric Bills: No Difficulty Paying for Meds: No Currently Unemployed: No Education: Don't Know Difficulty w/ Childcare or Family Care: No Living arrangements: with family Additional living arrangements comments: single Occupation/Education: occupation Additional occupation/education comments: [employer] Gender identity (if verbalized by the patient): Female Sexual Orientation (if Verbalized by the Patient): Straight or Heterosexual Spiritual care concerns: No Anes - Eval Final PreProcedure Day of Procedure 01/18/24 06:45 Patient weight: obese Heart: regular rate and rhythm Lungs: clear to auscultation Airway: Mallampati scale class II Neurological: alert and oriented Last oral intake: >/= 8 hours ASA classification: III Emergent: no Anesthetic plan: proceed Anesthesia type and monitoring: general GIVS and standard monitoring Results Review: All pre-operative results and documents have been reviewed as part of the pre- operative evaluation. Informed Consent: The patient's anesthetic plan and its attendant risks and benefits were discussed with the patient/family/POA. Questions were solicited and answers provided to the satisfaction of the patient/family/POA.
[2024-01-18 09:12] VITALS: BP 127/79; PULSE 76; RESP 18; TEMP 36.6; O2SAT 98; BMI 32.3
--- NOTE | 2024-01-18 09:15 | PM.HPGS ---
History of Present Illness History of Present Illness Consent: Risks, benefits, and alternatives have been discussed and questions answered. Patient agrees to proceed with procedure. Chief complaint: Other Specified Diseases of Anus/Rectum.Unspec Abd Narrative: Monae Celaya is a 33 year old female this can be. Patient has a hysterectomy in March 1999 since then she has had some irregularity to her bowel habits with frequent diarrhea. She has low abdominal discomfort some rectal pain. Seen in GI office recently. A colonoscopy was requested. Patient denies any bleeding. She states diarrhea has begun to lessen over the last 2 weeks. Family history is noncontributory. 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 L salpingoophorectomy History of wisdom tooth extraction, class I edentulism Family History Family History Mother Depression Family history of malignant neoplasm of breast Alcoholism Father Acute myocardial infarction, Onset Age: 50 Family history of cardiovascular disease Hypertension Grandparent Family history of malignant neoplasm of breast maternal grandmother Family history of cardiovascular disease paternal grandfather Malignant neoplasm of lung maternal grandfather Other Diabetes mellitus paternal aunt Hypertension paternal aunt Family history of cardiovascular disease paternal uncle Malignant tumor of ovary paternal aunt Family history of malignant neoplasm of breast paternal aunt maternal aunt Social History Social History Smoking packs per day: 0.75 Smoking cigarettes per day: 15.0 Years smoked: 19 Smoking pack-years: 14.25 Smoking status: Current every day smoker Tobacco type: cigarettes Second hand tobacco smoke exposure: No Additional smoking assessment comments: 1/2 pack per day Alcohol intake: current Alcohol use details: 5 per month Substance use: current Substance use type: marijuana Other substance usage details: occasional Last use: 3 months ago, socially Do You Feel Safe in your Home?: Yes Lack of Transportation: No Lack of Food: Never True Current Housing: I Have Housing Concerned About Future Housing: No Difficulty Paying Gas/Electric Bills: No Difficulty Paying for Meds: No Currently Unemployed: No Education: Don't Know Difficulty w/ Childcare or Family Care: No Living arrangements: with family Additional living arrangements comments: single Occupation/Education: occupation Additional occupation/education comments: [employer] Gender identity (if verbalized by the patient): Female Sexual Orientation (if Verbalized by the Patient): Straight or Heterosexual Spiritual care concerns: No Meds Home Medications and Allergies Home Medications Medication Instructions Recorded Confirmed Type oxybutynin chloride 10 mg 10 mg PO HS 02/15/23 01/18/24 History tablet,extended release 24 hr buspirone 10 mg tablet 10 mg PO BID 03/22/23 01/18/24 History escitalopram oxalate 20 mg tablet 20 mg PO HS 03/22/23 01/18/24 History (Lexapro) ibuprofen 600 mg tablet 600 mg PO Q6H PRN Cramping #30 tabs 04/01/23 01/18/24 Rx omeprazole 40 mg capsule,delayed 40 mg PO DAILY #90 caps 09/07/23 01/18/24 Rx release ziprasidone HCl 60 mg capsule 60 mg PO DAILY 12/08/23 01/18/24 History fluticasone propionate 50 2 spray intranasal DAILY PRN 01/02/24 01/18/24 History mcg/actuation nasal Allergy Symptoms spray,suspension (Flonase Allergy Relief) diclofenac sodium 50 mg 50 mg PO TID PRN pain #90 tabs 01/17/24 01/17/24 Rx tablet,delayed release methocarbamol 750 mg tablet 750 mg PO TID PRN muscle pain #30 01/17/24 01/17/24 Rx tabs Allergies Allergy/AdvReac Type Severity Reaction Status Date / Time adhesive tape Allergy Severe Other Verified 01/18/24 09:08 sulfamethoxazole Allergy Severe Other Verified 01/18/24 09:08 [From Bactrim] trimethoprim [From Bactrim] Allergy Severe Other Verified 01/18/24 09:08 cephalexin AdvReac Severe Other Verified 01/18/24 09:08 Exam Narrative: Physical exam reveals patient signs stable. Exam is unremarkable. Patient is anicteric. Lungs are clear to auscultation and to percussion is without murmur or extra sounds. Abdomen bowel sounds are present soft nontender with no organomegaly. Digital external rectal exam normal. Assessment and Plan Assessment and plan (1) Rectal pain: Code(s): K62.89 - Other specified diseases of anus and rectum Status: Acute Assessment and Plan: Patient with rectal discomfort will be evaluated by colonoscopy. (2) Abdominal pain: Code(s): R10.9 - Unspecified abdominal pain Status: Acute Assessment and Plan: Abdominal pain since reported hysterectomy that persist. colonoscopy requested to investigate thoroughly. (3) Change in bowel habits: Code(s): R19.4 - Change in bowel habit Status: Acute Assessment and Plan: Patient with alteration of bowel habits since hysterectomy. May represent irritable bowel syndrome. Loose dark stools described. High-fiber diet is suggested. Colonoscopy to be performed today.
[2024-01-18] MEDS: LACTATED RINGERS 1,000 ML 150 ML IV CONT (09:24)
[2024-01-18 10:02] VITALS: BP 110/61; PULSE 67; RESP 16; O2SAT 98
[2024-01-18 10:12] VITALS: BP 119/67; PULSE 61; RESP 18; O2SAT 96
[2024-01-18 10:22] VITALS: BP 111/72; PULSE 60; RESP 16; O2SAT 100
--- NOTE | 2024-01-18 12:33 | WPDANESPN ---
Anes - Prog Note Post-Op Date/Time: 01/18/24 12:33 Cardiovascular status: normal Respiratory status: normal Airway patency: baseline Mental status: baseline Post-Op hydration status: normal Vital Signs: Last Vital Signs Temp 36.6 C 01/18/24 09:12 Pulse 60 01/18/24 10:22 Resp 16 01/18/24 10:22 BP 111/72 01/18/24 10:22 Pulse Ox 100 01/18/24 10:22 O2 Del Method Room Air 01/18/24 10:22 Pain Score (VAS): 0 I/O: Intake & Output 01/17/24 01/18/24 01/18/24 23:59 07:59 15:59 Intake Total 150 Balance 150 Post-procedural complaints: none Patient Feedback: Patient satisfied with anesthetic care. Other Findings: Patient vital signs back to baseline. Patient denies nausea and vomiting. Patient's pain under control. Patient OK for discharge.
== END 2024-01-18 10:31 | disposition home or self-care (01) ==
PROVIDERS: PCP Family Medicine; Visit Provider Internal Medicine Gastroenterology
PROC: 0DJD8ZZ Inspection of Lower Intestinal Tract, Via Natural or Artificial Opening Endoscopic (ICD-10-PCS; CPT 45378; principal; 2024-01-18 10:30)
DX: K62.89 Other specified diseases of anus and rectum (principal); R19.4 Change in bowel habit; D12.5 Benign neoplasm of sigmoid colon; K64.8 Other hemorrhoids
CPT/HCPCS: 45385

== ENCOUNTER 2024-01-18 10:50 | Outpatient (NON) | payer OTHER, SELFPAY | END 2024-01-18 10:51 | disposition home or self-care (01) | PROVIDERS: PCP Family Medicine; Visit Provider Internal Medicine Gastroenterology | DX: K63.5 Polyp of colon (principal) | CPT/HCPCS: 88305 ==

== ENCOUNTER 2024-02-13 09:43 | Outpatient (CLI) | payer OTHER, SELFPAY ==
--- NOTE | ~2024-02-13 | XR_ITS ---
Left Shoulder Technique: AP and scapular Y views were obtained. Clinical History: Pain Findings: No fracture or dislocation is seen. Osseous alignment is anatomic. The glenohumeral and acr omioclavicular joint spaces are preserved. Soft tissues are unremarkable. Impression: Unremarkable left shoulder radiographs. Reviewed, dictated and finalized at [facility]. NCIAL MANAGEMENT Impression: Unremarkable left shoulder radiographs.
--- NOTE | ~2024-02-13 | XR_ITS ---
[id number] Ordering provider: Rajni Roger History: . NO RECENT INJURY NECK AND LEFT SHOULDER PAIN FOR YEARS . Comparison: None. FINDINGS: VERTEBRAL BODIES: Normal height and alignment. No visible fracture or subluxation. The dens is intact . DISK SPACES: Well maintained. PARASPINOUS SOFT TISSUES: No prevertebral soft tissue swelling. IMPRESSION: No acute osseous abnormality cervical spine. Reviewed, dictated and finalized at location A. 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
--- NOTE | ~2024-02-13 | MR_ITS ---
MRI of the pelvis CLINICAL HISTORY: Pelvic pain TECHNIQUE: Coronal SSFSE ARC, WATER:coronal LAVA-FLEX, Coronal 2D FIESTA FatSat, Axial SSFSE BH ARC, Axial 3D DualEcho BH, Axial SSFSE-IR, Axial DWI b=500, Axial 2D FIESTA FatSat, pre and dynamic postco ntrast Axial LAVA ARC, postcontrast Coronal In and Opposed phase LAVA FLEX. Following intravenous adm inistration of 17 cc MultiHance gadolinium, T1-weighted fat-sat imaging was performed in the axial an d coronal planes. FINDINGS: Status post hysterectomy. Vaginal cuff appears unremarkable. Right ovary is unremarkable, w ith several small follicular cysts present. Left ovary not visualized. No abnormal adnexal mass seen. Urinary bladder unremarkable. No ascites. No pelvic lymphadenopathy identified. Visualized bowel loops are grossly unremarkable. Visualized osseous structures are intact. No abnormal postcontrast enhancement identified. IMPRESSION: Status post hysterectomy and presumed left oophorectomy. Right ovary unremarkable, with several small follicular cysts. Reviewed, dictated and finalized at location . 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
== END 2024-02-13 09:44 | disposition home or self-care (01) ==
PROVIDERS: PCP Family Medicine; Visit Provider Obstetrics & Gynecology
DX: M25.512 Pain in left shoulder (principal); M54.2 Cervicalgia; R10.2 Pelvic and perineal pain; N83.01 Follicular cyst of right ovary; Z90.710 Acquired absence of both cervix and uterus
CPT/HCPCS: 72040; 72197; 73030; A9577

== ENCOUNTER 2024-02-17 11:18 | Emergency (ER) | payer OTHER, SELFPAY ==
--- NOTE | ~2024-02-17 | CT_ITS ---
EXAMINATION: CT abdomen pelvis w con DATE: 02/17/2024 15:13 INDICATION: Chronic pelvic pain. TECHNIQUE: Computed tomography (CT) of the abdomen and pelvis was performed with 100 mL Omnipaque 350 intravenous contrast. Automated exposure control and iterative reconstruction technique were employe d. The dose-length product was 510.83 mGy-cm. COMPARISON: CT abdomen and pelvis 04/07/2023 FINDINGS: The visualized portions of the lung bases demonstrate mild atelectasis. No pleural effusion . The heart size is normal. No pericardial effusion. There is diffuse hepatic steatosis. The gallblad reba, spleen, pancreas, adrenal glands, and kidneys are normal. There are no dilated loops of bowel. T he appendix is normal. There are no pathologically enlarged lymph nodes. There is no free intraperito dany fluid. There is mild thoracic and lumbar spondylosis. IMPRESSION: 1. Diffuse hepatic steatosis. Reviewed, dictated and finalized at location A. SPOTTER
[2024-02-17 12:01] VITALS: BP 141/76; PULSE 90; RESP 18; TEMP 36.3; O2SAT 99
--- OUTSIDE RECORDS SUMMARY | 2024-02-17 12:37 | XMS_ITS | Continuity of Care Document ---
Author Organization [facility] Address [address] [place] [address] [address] [place] [address] Phone Care Team Providers Care Supply Chain Procurement Manager Name Role Phone Loera OD, John Unavailable Unavailable Procedures Procedure Date Office/outpatient Visit, Est Eye Exam Established Pt Advance Directives Directive Yes / No Effective Date File Name No Information Encounters Encounter Description Practice Location Reason(s) For Visit Diagnoses Date Provider Providers Copied on Encounter Office/outpat ient Visit, Est [facility], [id number] [place] [address] [address], [place], [place], [id number], [place] tel:[phone] [facility] No Information 6-200 7 Loera OD John. [address] , [address], [place], [address], [place]. tel:[phone] [facility], [address] [place] [address] [address], [place], [place], [id number], [place] tel:[phone] [facility] No Information 0-200 7 Loera OD John. [address] , [address], [place], [address], [place]. tel:[phone] Family History Family Member Type Diagnosis Age At Onset No Information Payers Payer name Insurance type Covered constitution party ID Authoriza tion(s) No Information Social History Type Description Quantity Date Captured Comments Sex Female Smoking Status No Information Chief Complaint And Reason For Visit No Information Reason For Referral Reason For Referral No Information History Of Present Illness Encounter Date Complaint History Of Prese nt Illness No Information Functional Status Date Functional Assessmen t No Information Instructions Date Instruction Additional Infor mation No Information Assessments Type Assessment Date No Information Patient Care Teams Name Effective Dates (start - stop) Status Members No Information
[2024-02-17 14:25] VITALS: BP 126/95; PULSE 66; RESP 18; TEMP 36.7; O2SAT 98
[2024-02-17 14:34] LABS: Basophils Percent Auto 0.4 % (0.2-1.2); Eosinophils Absolute Auto 0.1 K/mm3 (0-0.3); Eosinophils Percent Auto 1.4 % (0-4.4); Hematocrit 42.5 % (37.0-47.0); Hemoglobin 14.1 g/dL (12.0-15.0); Immature Granulocyte Absolute 0.03 K/mm3 (0.00-0.031); Immature Granulocyte Percent A 0.3 % (0-0.5); Lymphocytes Absolute Auto 2.62 K/mm3 (0.9-3.2); Lymphocytes Percent Auto 27.5 % (18.3-44.2); Mean Corpuscular HGB Conc 33.2 g/dl (32-36); Mean Corpuscular Volume 96.4 fl (80-100); Mean Platelet Volume 10.9 fl (7.4-10.4); Monocytes Absolute Auto 0.4 K/mm3 (0.1-0.6); Monocytes Percent Auto 4.1 % (2.6-8.5); Neutrophils Absolute Auto 6.3 K/mm3 (1.3-6.7); Neutrophils Percent Auto 66.3 % (45.5-73.1); Platelet Count Result 203 k/mm3 (150-375); Red Blood Count 4.41 M/mm3 (4.2-5.4); Red Cell Distribution Width 12.4 % (11.5-14.5); White Blood Count 9.5 K/mm3 (4.5-10.0)
[2024-02-17 14:38] LABS: Add Urine Microscopic? YES; Appearance Urine Cloudy (Clear); Bacteria Urine Rare /hpf; Bilirubin Urine Negative (Negative); Blood Urine Negative (Negative); Color Urine Yellow (Yellow); Glucose Urine UA Negative (Negative); Ketones Urine Negative (Negative); Leukocyte Esterase Ur Negative LEU/UL (Negative); Nitrate Urine Negative (Negative); Non Pathogenic Casts 0-2; Protein Urine Negative (Negative); RBC Urine 0-2 /hpf (0-2); Specific Grav Ur 1.012 (1.001-1.035); Squamous Epithelial Cell Urine Few /hpf (Few); Urobilinogen Urine 0.2 mg/dL (<2.0); WBC Urine 0-5 /hpf (0-3)
[2024-02-17 14:44] LABS: Alanine Aminotransferase 28 U/L (6-35); Albumin Level 4.2 g/dL (3.5-5.1); Alkaline Phosphatase 58 U/L (38-126); Anion Gap 3 mmol/L (4-12); Aspartate Amino Transferase 23 U/L (14-36); Bilirubin,Total 0.4 mg/dL (0.2-1.3); Blood Urea Nitrogen 9 mg/dL (7-17); Carbon Dioxide 26 mmol/L (22-30); Chloride 106 mmol/L (98-107); Estimated CRCL calculation 98 ml/min; Estimated Glomerular Filt Rate > 60; Glucose 111 mg/dL (65-110); Potassium 3.9 mmol/L (3.4-5.0); Sodium 135 mmol/L (137-145)
--- NOTE | 2024-02-17 14:48 | ED_ITS ---
HPI - Abdominal Pain General Chief Complaint: Abdominal Pain Stated Complaint: pelvic pain x 3 days Time Seen by Provider: 02/17/24 13:44 History of Present Illness HPI narrative: Patient has had abd/pelvic pain for years; underwent hysterectomy to try to fix it earlier this year, now feeling worse pain then ever, in lower abdomen. Had essentially normal pelvic MRI recently. Related Data Home Medications ?Medication ?Instructions ?Recorded ?Confirmed ?Last Taken ?Type oxybutynin chloride 10 mg 10 mg PO HS 02/15/23 01/18/24 01/17/24 History tablet,extended release 24 hr buspirone 10 mg tablet 10 mg PO BID 03/22/23 01/18/24 01/18/24 History escitalopram oxalate 20 mg tablet 20 mg PO HS 03/22/23 01/18/24 01/17/24 History (Lexapro) ziprasidone HCl 60 mg capsule 60 mg PO DAILY 12/08/23 01/18/24 01/17/24 History fluticasone propionate 50 2 spray intranasal DAILY PRN 01/02/24 01/18/24 01/17/24 History mcg/actuation nasal Allergy Symptoms spray,suspension (Flonase Allergy Relief) Allergies Allergy/AdvReac Type Severity Reaction Status Date / Time adhesive tape Allergy Severe Other Verified 01/18/24 09:08 sulfamethoxazole (From Allergy Severe Other Verified 01/18/24 09:08 Bactrim) trimethoprim (From Bactrim) Allergy Severe Other Verified 01/18/24 09:08 cephalexin AdvReac Severe Other Verified 01/18/24 09:08 Review of Systems 2 Review of Systems: All systems reviewed & are unremarkable except as noted in HPI and below PMFSH Past Medical History Medical History Abdominal pain Abnormal Pap smear of cervix 08/08/2017 HGSIL +HPV; 08/15/2018 Lgsil +hpv 08-26-2020 Ascus hpv neg rpt pap in 1 year @ [facility] Anxiety and depression BRCA negative BRCA 1& 2 negative Change in bowel habits Encounter for IUD insertion 08/21/14 Mirena insertion 10/10/19 Mirena removal/reinsertion Encounter for IUD removal 10/10/19 Mirena removal/reinsertion Hematuria, unspecified 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 L salpingoophorectomy History of wisdom tooth extraction, class I edentulism Family History Family History Mother Depression Family history of malignant neoplasm of breast Alcoholism Father Acute myocardial infarction, Onset Age: 50 Family history of cardiovascular disease Hypertension Grandparent Family history of malignant neoplasm of breast maternal grandmother Family history of cardiovascular disease paternal grandfather Malignant neoplasm of lung maternal grandfather Other Diabetes mellitus paternal aunt Hypertension paternal aunt Family history of cardiovascular disease paternal uncle Malignant tumor of ovary paternal aunt Family history of malignant neoplasm of breast paternal aunt maternal aunt Social History Social History Smoking packs per day: 0.75 Smoking cigarettes per day: 15.0 Years smoked: 19 Smoking pack-years: 14.25 Smoking status: Current every day smoker Tobacco type: cigarettes Second hand tobacco smoke exposure: No Additional smoking assessment comments: 1/2 pack per day Alcohol intake: current Alcohol use details: 5 per month Substance use: current Substance use type: marijuana Other substance usage details: occasional Last use: 3 months ago, socially Do You Feel Safe in your Home?: Yes Lack of Transportation: No Lack of Food: Never True Current Housing: I Have Housing Concerned About Future Housing: No Difficulty Paying Gas/Electric Bills: No Difficulty Paying for Meds: No Currently Unemployed: No Education: Don't Know Difficulty w/ Childcare or Family Care: No Living arrangements: with family Additional living arrangements comments: single Occupation/Education: occupation Additional occupation/education comments: [employer] Gender identity (if verbalized by the patient): Female Sexual Orientation (if Verbalized by the Patient): Straight or Heterosexual Spiritual care concerns: No Exam 2 Narrative: EXAMINATION OF ORGAN SYSTEMS/BODY AREAS: Constitutional: Vital signs per nursing GENERAL:[No acute distress, non-toxic appearing.] HEAD: Normal with no signs of head trauma. EYES: EOMI, conjunctiva normal ENT: Hearing grossly intact LUNGS: Nonlabored breathing. HEART: [Regular rate and rhythm] ABD: [Soft], [nontender to palpation] EXT: Normal range of motion SKIN: [No rashes or lesions.] NEURO: [Alert and oriented x 3. No gross focal sensory or strength deficits.] PSYCH: Normal affect Course Vital Signs Vital signs: Vital Signs Temperature 97.4 F L 02/17/24 12:01 Pulse Rate 90 02/17/24 12:01 Respiratory Rate 18 02/17/24 12:01 Blood Pressure 141/76 H 02/17/24 12:01 Pulse Oximetry 99 02/17/24 12:01 Oxygen Delivery Room Air 02/17/24 12:01 Temperature 98.0 F 02/17/24 14:25 Pulse Rate 66 02/17/24 14:25 Respiratory Rate 18 02/17/24 14:25 Blood Pressure 126/95 H 02/17/24 14:25 Pulse Oximetry 98 02/17/24 14:25 Oxygen Delivery Room Air 02/17/24 14:25 MDM - Abdominal Pain MDM Narrative Medical decision making narrative: Patient presents here with chronic abdominal pain for years, she wants to have a CT abdomen/pelvis to see if there is anything out of the ordinary. Well-appearing common normal labs including urinalysis, CT abdomen/pelvis only shows fatty liver, have discussed this diagnosis with the patient/ at bedside, doubt this is causing the pain, but that it is important to make lifestyle changes to prevent liver disease in the future. She has follow-up with her OB in the next few days, return precautions discussed Lab Data 02/17/24 14:22 02/17/24 14:22 Labs: Lab Results 02/17/24 Range/Units 14:22 WBC 9.5 (4.5-10.0) K/mm3 RBC 4.41 (4.2-5.4) M/mm3 Hgb 14.1 (12.0-15.0) g/dL Hct 42.5 (37.0-47.0) % MCV 96.4 (80-100) fl MCH 32.0 (26-34) pg MCHC 33.2 (32-36) g/dl RDW 12.4 (11.5-14.5) % Plt Count 203 (150-375) k/mm3 MPV 10.9 H (7.4-10.4) fl Immature Gran % (Auto) 0.3 (0-0.5) % Neut % (Auto) 66.3 (45.5-73.1) % Lymph % (Auto) 27.5 (18.3-44.2) % [place] % (Auto) 4.1 (2.6-8.5) % Eos % (Auto) 1.4 (0-4.4) % Baso % (Auto) 0.4 (0.2-1.2) % Lymph # (Auto) 2.62 (0.9-3.2) K/mm3 [place] # (Auto) 0.4 (0.1-0.6) K/mm3 Eos # (Auto) 0.1 (0-0.3) K/mm3 Baso # (Auto) 0.0 (0.0-0.1) K/mm3 Abs Immat Gran (auto) 0.03 (0.00-0.031) K/mm3 Absolute Neuts (auto) 6.3 (1.3-6.7) K/mm3 Absolute Nucleated RBC 0.000 (0.0-0.012) K/mm3 Nucleated RBC % 0.0 (0.0-0.2) % Sodium 135 L (137-145) mmol/L Potassium 3.9 (3.4-5.0) mmol/L Chloride 106 (98-107) mmol/L Carbon Dioxide 26 (22-30) mmol/L Anion Gap 3 L (4-12) mmol/L BUN 9 (7-17) mg/dL Creatinine 0.70 (0.7-1.0) mg/dL Estim Creat Clear Calc 98 ml/min Estimated GFR > 60 (59 - ) Glucose 111 H (65-110) mg/dL Calcium 9.0 (8.4-10.2) mg/dL Total Bilirubin 0.4 (0.2-1.3) mg/dL AST 23 (14-36) U/L ALT 28 (6-35) U/L Alkaline Phosphatase 58 (38-126) U/L Total Protein 7.0 (6.3-8.2) g/dL Albumin 4.2 (3.5-5.1) g/dL Urine Color Yellow (Yellow) Urine Appearance Cloudy H (Clear) Urine pH 6.0 (5.0-9.0) Ur Specific [place] 1.012 (1.001-1.035) Urine Protein Negative (Negative) mg/dL Urine Glucose (UA) Negative (Negative) mg/dL Urine Ketones Negative (Negative) mg/dL Ur Blood (Man) Negative (Negative) Urine Nitrate Negative (Negative) Urine Bilirubin Negative (Negative) Urine Urobilinogen 0.2 (<2.0) mg/dL Leukocyte Esterase Rfl Negative (Negative) REBECA/UL Urine RBC 0-2 (0-2) /hpf Urine WBC 0-5 (0-3) /hpf Ur Squamous Epith Cells Few (Few) /hpf Urine Bacteria Rare /hpf Urine Casts 0-2 Imaging Data Radiologist's impression: ITS Impressions Abdomen/Pelvis CT 02/17/24 15:14 IMPRESSION: 1. Diffuse hepatic steatosis. Discharge Plan Discharge Clinical Impression: Pelvic pain Patient Disposition: Home, Self-Care Condition: Stable Instructions: Abdominal Pain (ED) Additional Instructions: Please follow up with your OBGYN; you can always return to the ER for any further issues. Patient Language: Mohawk Prescriptions: New dicyclomine 20 mg tablet 20 mg PO TID PRN (Reason: abdominal pain) Qty: 30 0RF No Action oxybutynin chloride 10 mg tablet extended release 24hr 10 mg PO HS omeprazole 40 mg capsule,delayed release(DR/EC) 40 mg PO DAILY Qty: 90 1RF ziprasidone HCl 60 mg capsule 60 mg PO DAILY diclofenac sodium 50 mg tablet,delayed release (DR/EC) 50 mg PO TID PRN (Reason: pain) Qty: 90 2RF methocarbamol 750 mg tablet 750 mg PO TID PRN (Reason: muscle pain) Qty: 30 0RF buspirone 10 mg tablet 10 mg PO BID escitalopram oxalate [Lexapro] 20 mg tablet 20 mg PO HS ibuprofen 600 mg Tablet 600 mg PO Q6H PRN (Reason: Cramping) Qty: 30 0RF fluticasone propionate [Flonase Allergy Relief] 50 mcg/actuation spray,suspension 2 spray intranasal DAILY PRN (Reason: Allergy Symptoms) Rx Instructions: administer into each nostril Follow-up/Referrals: Gilberto Gupta MD [Primary Care Provider] -
--- OUTSIDE RECORDS SUMMARY | 2024-02-21 01:55 | XMS_ITS | Encounter Summary ---
Author Organization [facility] Address [address] [facility] [place] [address] Care Team Providers Care Cafe Helper Name Role Phone Gilberto Gupta MD Primary Care Provider [phone] Encounter Details Date Type Department Care Team (Latest Contact Info) Description 01/09/2024 Travel Social History Tobacco Use Types Packs/Day Years Used Date Smoking Tobacco: Every Day Cigarettes 1 11 Smokeless Tobacco: Never Alcohol Use Standard Drinks/Week Comments Yes 5 (1 standard drink = 0.6 oz pur e alcohol) socially Sex and Gender Information Value Date Recorded Sex Assigned at Not on file Gender Identity Not on file Sexual Orientation Not on file documented as of this encounter Plan of Treatment Upcoming Encounters Date Type Department Care Team (Late st Contact Info) Description 03/05/2024 1:00 PM SYSTEM SAFETY ENGINEER Office Visit [facility] - Urology [address] [facility] [facility] [place] [id number] Joshua Del Angel PA [address] [place] [id number] documented as of this encounter Visit Diagnoses Not on filedocumented in this encounter Care Teams Cafe Helper Relationship Specialty Start Date End Date Gilberto Gupta MD [address] [place] [id number] PCP - General Family Medicine 11/02/23 documented as of this encounter
--- OUTSIDE RECORDS SUMMARY | 2024-02-21 01:55 | XMS_ITS | Continuity of Care Document ---
Author Organization [facility] Address [address] [place] [address] [address] [place] [address] Phone Care Team Providers Care Finish Opener Name Role Phone Loera OD, John Unavailable Unavailable Procedures Procedure Date Office/outpatient Visit, Est Eye Exam Established Pt Advance Directives Directive Yes / No Effective Date File Name No Information Encounters Encounter Description Practice Location Reason(s) For Visit Diagnoses Date Provider Providers Copied on Encounter Office/outpat ient Visit, Est [facility], [address], [place], [place], [id number], [place] tel:[phone] [facility] No Information 6-200 7 Loera OD John. [address] , [address], [place], [address], [place]. tel:[phone] [facility], [address] [place] [address] [address], [place], [place], [id number], [place] tel:[phone] [facility] No Information 0-200 7 Loera OD John. [address] , [address], [place], [address], [place]. tel:[phone] Family History Family Member Type Diagnosis Age At Onset No Information Payers Payer name Insurance type Covered green party ID Authoriza tion(s) No Information Social [...]
--- OUTSIDE RECORDS SUMMARY | 2024-02-21 01:55 | XMS_ITS | Patient Health Summary ---
Author Organization [facility] Address [address] [place] [address] Care Team Providers Care Affirmative Action Specialist Name Role Phone Gilberto Gupta MD Primary Care Provider [phone] Note from [facility],non-owned Affiliates and Associated Physician Practices is amultiple site organization consisting of ambulatory clinics and hospital sitesin [place], [place], [place] and [place]. This disclosure is being madepursuant to the Care Everywhere program and may not contain all information available regarding this patient. Last updated 17.[facility] Allergies * Bactrim Ds(Rash) -Medium Criticality * Cephalexin(Other) Medications * Be aware that medications may not be up to date on this document. Alwaysverify current medications with the patient. * busPIRone (BUSPAR) 10 MG tablet(Started 08/28/2018) Take 1 (one) tablet by mouth 2 times daily * ziprasidone (GEODON) 20 MG capsule(Started 08/31/2018) Take 1 (one) capsule by mouth 2 times daily with morning and evening meal * escitalopram (LEXAPRO) 20 MG tablet(Started 02/24/2019) Take 1 (one) tablet by mouth once daily * levonorgestrel (MIRENA) 20 MCG/24HR IUD 1 (one) device by Intrauterine route as directed * oxyBUTYnin CR 24hr (Ditropan-XL) 10 MG tablet(Started 07/27/2023) Take 1 (one) tablet by mouth once daily 3 refills by 07/26/2024 Active Problems Problem Noted Date Diagnosed Date Anxiety 09/06/2018 Depressive disorder 09/06/2018 Bilateral nipple discharge 09/06/2018 Family history of breast cancer in mother Social History Tobacco Use Types Packs/Day Years Used Date Smoking Tobacco: Every Day Cigarettes 1 11 Smokeless Tobacco: Never Tobacco Cessation:Ready to Q uit: Not Asked; Counseling Given: Not Answered Alcohol Use Standard Drinks/Week Comments Yes 5 (1 standard drink = 0.6 oz pur e alcohol) socially Sex and Gender Information Value Date Recorded Sex Assigned at Not on file Gender Identity Not on file Sexual Orientation Not on file Last Filed Vital Signs Vital Sign Reading Time Taken Comments Blood Pressure 125/67 07/27/2023 1:37 PM CDT Pulse 85 07/27/2023 1:37 PM CDT Temperature 36.4 ??C (97.5 ??F) 07/27/2023 1:37 PM CD T Respiratory Rate 19 01/26/2023 2:34 PM [employer] Oxygen Saturation 99% 07/27/2023 1:37 PM CDT Inhaled Oxygen Concentration - - Weight 85.3 kg (188 lb) 07/27/2023 1:37 PM CDT Height 160 cm (5' 3 ) 07/27/2023 1:37 PM CDT Body Mass Index 33.3 07/27/2023 1:37 PM CDT Medical Devices Implanted Type Area Applications Support Engineer Device Identifier Shelf Expiration Date Model / Serial / Lot Mrkr Mri Gd Rgd Trimark Brstbio Cork Ti Implanted:Qty: 1 on 10/22/2020 by Sneha Neal MD at [facility] Right: Breast [employer] 11/12/2021 TRIMARK TD 13MR / / [id number] Procedures * MRI BREAST BILAT SCREENING WWO(Performed 01/09/2024) Performed for Family history of breast cancer in mother * CREATININE - POCT INTERFACED(Performed 01/09/2024) * MAMMO BILAT SCREENING W ALANNA(Performed 06/27/2023) Performed for Family history of breast cancer in mother * MRI BREAST BILAT SCREENING WWO(Performed 12/27/2022) Performed for Family history of breast cancer in mother * CREATININE - POCT INTERFACED(Performed 12/27/2022) * MAMMO BILAT SCREENING W LAANNA(Performed 06/28/2022) Performed for Family history of breast cancer in mother * MRI BREAST BILAT WWO CONTRAST(Performed 11/23/2021) Performed for Family history of breast cancer in mother * CREATININE - POCT INTERFACED(Performed 11/23/2021) * MAMMO BILAT SCREENING W ALANNA(Performed 05/11/2021) Performed for Encounter for screening mammogram for malignant neoplasm of breast * US BREAST LEFT LTD(Performed 04/02/2021) Performed for Left axillary pain * MAMMO RIGHT POST CLIP OR WIRE(Performed 10/22/2020) Performed for Increased risk of breast cancer * MRI BREAST RIGHT BIOPSY(Performed 10/22/2020) Performed for Increased risk of breast cancer * PATHOLOGY TISSUE(Performed 10/22/2020) Performed for Increased risk of breast cancer * US BREAST BILATERAL LTD(Performed 10/02/2020) Performed for Family history of breast cancer in mother * MRI BREAST BILAT WWO CONTRAST(Performed 10/02/2020) Performed for Increased risk of breast cancer * CREATININE - POCT INTERFACED(Performed 10/02/2020) * US BREAST BILATERAL COMPLETE(Performed 06/02/2020) Performed for Family history of breast cancer in mother * MAMMO BILAT SCREENING(Performed 06/02/2020) Performed for Family history of breast cancer in mother * US BREAST RIGHT LTD(Performed 11/20/2019) Performed for Increased risk of breast cancer, Lump or mass in breast * MAMMO RIGHT DIAGNOSTIC(Performed 11/20/2019) Performed for Abnormal mammogram * MAMMO LEFT DIAGNOSTIC(Performed 10/24/2019) Performed for Abnormal mammogram * MRI BREAST LEFT BIOPSY(Performed 10/24/2019) Performed for Increased risk of breast cancer, Lump or mass in breast * PATHOLOGY TISSUE EXAM (STL)(Performed 10/24/2019) Performed for Increased risk of breast cancer, Lump or mass in breast * CREATININE BLOOD - POINT OF CARE (IP)(Performed 10/24/2019) Performed for Lump or mass in breast * US BREAST BILATERAL LTD(Performed 09/24/2019) Performed for Abnormal MRI, breast * MAMMO BILAT DIAGNOSTIC(Performed 09/24/2019) Performed for Abnormal MRI, breast * MRI BREAST BILAT WWO CONTRAST(Performed 09/18/2019) Performed for Bilateral nipple discharge * CREATININE - POCT INTERFACED(Performed 09/18/2019) * MAMMO BILAT DIAGNOSTIC(Performed 03/21/2019) Performed for Increased risk of breast cancer * MRI BREAST BILAT WWO CONTRAST(Performed 09/21/2018) Performed for Bloody discharge from nipple, Bilateral nipple discharge * CREATININE BLOOD - POCT (IP) SLH(Performed 09/21/2018) Performed for Bloody discharge from nipple * US BREAST BILATERAL LTD(Performed 09/06/2018) Performed for Bloody discharge from nipple * MAMMO BILAT DIAGNOSTIC(Performed 09/06/2018) Performed for Bloody discharge from nipple Results * MRI BREAST BILAT SCREENING WWO (01/09/2024 9:03 AM [employer]) Only the most recent of2 resultswithin the time period is included. Anatomical Region Laterality Modality Breast Bilateral Magnetic Resonan ce 01/09/2024 9:38 AM [employer] Impressions 01/09/2024 9:56 AM [employer] IMPRESSION: No bilateral breast MRI evidence of malignancy. ?? RECOMMENDATION: ?? 1. Screening mammography is due in June 2024. 2. Given the elevated lifetime risk of developing breast cancer of greater than 20 %, continued annual breast MRI is recommended for supplemental screening, next due in 1 year. ? Patient will receive breast MRI results from Dr. Carmona. OVERALL ASSESSMENT: ??BI-RADS CATEGORY 2: BENIGN. > Interpreting Provider: Sneha Neal MD, FACR on 01/09/2024 9:56 AM Narrative 01/09/2024 9:56 AM [employer] EXAM: ??BILATERAL SCREENING BREAST MRI WITH AND WITHOUT CONTRAST WITH DYNACAD ANALYSIS LOCATION: [facility] EXAM DATE: ??01/09/2024 HISTORY: High-risk screening. This is a 33-year-old woman with a family history of bilateral breast cancer in her mother at age 61, maternal grandmother at age 50, and 2 maternal great aunts, 2 maternal second cousins, and paternal great aunts as well as BRCA+ breast cancer in paternal aunt at age 50. Patient has history of benign bilateral breast biopsies. Patient has an elevated risk of developing breast cancer of 32% from risk assessment performed 06/27/2023. Last menstrual period: Patient reports she still has cycles. COMPARISON: ?? Mammogram 06/27/2023. Also compare with rest MRI scans 12/27/2022, 11/23/2021, 10/02/2020 and 09/18/2019. CONTRAST: ??16 cc Dotarem IV. TECHNICAL INFORMATION: ??Study performed on a 3.0 Saritha magnet. A breast coil was utilized. ??Bilateral axial T1 and axial STIR series obtained, followed by axial 3-D gradient T1 fat sat and sagittal 3-D gradient T1 fat-sat series precontrast. After the administration of contrast, 2 postcontrasted 3D gradient axial T1 fat sat ??series were obtained dynamically, one at 90 seconds and the other at 5-6 minutes after contrast administration. Between the two 3-D axial T1 weighted fat-sat postcontrasted images, a sagittal 3-D gradient T1 fat-sat series was performed of each breast. Subtraction was performed of the 2 axial 3-D gradient T1 weighted postcontrast images Images were reviewed on a workstation with 3D post processing and Fanvibe was utilized. FINDINGS: Parenchymal breast pattern: Scattered fibroglandular tissue. Background parenchymal enhancement: Mild ?Enhancement is Symmetric. Right breast: In the lower outer quadrant of the breast, posterior depth and best seen on the axial images at table position -38.73 and on the sagittal images at table position -90.10, is susceptibility artifact from prior tissue marker. There is no suspicious enhancement or evidence of malignancy. No abnormal enhancement of the nipple areolar complex or the visualized chest wall. No enlarged axillary or internal mammary lymph nodes. Left breast: In the upper outer quadrant of the breast, best seen on the sagittal images at table position 89.90, is susceptibility artifact from tissue marker. There is no suspicious enhancement or evidence of malignancy. No abnormal enhancement of the nipple areolar complex or the visualized chest wall. No enlarged axillary or internal mammary lymph nodes. Alison Carmona MD MR ORDERABLES * CREATININE - POCT INTERFACED (01/09/2024 8:29 AM [employer]) Only the most recent of5 resultswithin the time period is included. Creatinine POCT 0.47 0.30 - 1.30 mg/dL 01/09/2024 8:31 AM [facility] eGFR >90 >=90 mL/min/1.7 3 m2 01/09/2024 8:31 AM [facility] Blood BLOOD SPECIMEN / Unknown 01/09/2024 8:29 AM [employer] 01/09/2024 8:31 AM [employer] Alison Carmona MD LAB - POINT OF CARE ORDERABLES [facility] [address] [place] [address], [facility] [phone] * MAMMO BILAT SCREENING W ALANNA (06/27/2023 9:15 AM CDT) Only the most recent of3 resultswithin the time period is included. Anatomical Region Laterality Modality Breast Bilateral Mammography 06/27/2023 9:19 AM CDT Impressions 06/27/2023 9:32 AM CDT : ??Benign mammogram, without evidence of malignancy. RECOMMENDATION: ?? 1. Screening mammography in one year, pending no interval breast concerns. 2. Annual screening breast MRI is recommended, given the elevated lifetime risk of breast cancer of greater than 20%, according to the [place] [employer] guidelines. Her next exam is due in December 2023. Patient notified of results at time of exam and has an appointment with Dr. Carmona in the breast clinic today. OVERALL ASSESSMENT: BI-RADS CATEGORY 2: BENIGN. This study was dictated by radiology special procedure tech Eric Barkley MD and reviewed and edited by the attending. Joey Dickson DO (resident) participated in interpretation of this study. I, Sneha Neal MD have personally reviewed and interpreted this examination/study. > Interpreting Provider: Sneha Neal MD on 06/27/2023 9:32 AM Narrative 06/27/2023 9:32 AM CDT EXAMINATIONS: ??BILATERAL DIGITAL SCREENING MAMMOGRAM AND BILATERAL BREAST TOMOSYNTHESIS WITH CAD LOCATION: [facility] EXAM DATE: ??06/27/2023 HISTORY: ??Screening. Patient has history of benign bilateral breast biopsies. Patient has history of bilateral breast cancer in mother at age 61, maternal grandmother at age 50, and 2 maternal great aunts, 2 maternal second cousins, and paternal great aunts as well as BRCA+ breast cancer in paternal aunt at age 50. RISK ASSESSMENT CALCULATION: Patient completed a breast cancer risk assessment during her appointment 06/27/2023. ??Based upon the information she provided and her mammographic breast density, her lifetime risk of developing breast cancer is 32% ??(Average Risk <15%; Intermediate / Moderate Risk 15-19%; High Risk > 20%). Given the elevated lifetime risk of breast cancer greater than 20%, consultation in the [facility] is recommended. Should she wish to schedule an appointment, the phone number [phone]. The [place] [employer] recommends annual screening breast MRI in addition to mammograms for women who have a 20% or greater lifetime risk of developing breast cancer. This can be managed through the high risk breast clinic. Risk assessment based upon the Tyrer-Cuzick v8 model. COMPARISON: Compare with prior breast imaging studies back to 07/25/2015., with the most recent dated 06/28/2022. TECHNIQUE: Tomosynthesis (3D) and reconstructed synthetic 2-D images acquired and reviewed in the bilateral craniocaudal and mediolateral oblique projections. ??A total of 4 images obtained. Computer-aided detection (CAD) was utilized. ?? BREAST PARENCHYMAL COMPOSITION: Category B: There are scattered areas of fibroglandular density. FINDINGS: There are no suspicious findings or evidence of malignancy on mammography. Biopsy clips are noted in both breasts. ??There is no significant change from the prior. Alison Carmona MD MAMMO ORDERABLES * MRI BREAST BILAT WWO CONTRAST (11/23/2021 11:19 AM CDT) Only the most recent of4 resultswithin the time period is included. Anatomical Region Laterality Modality Breast Bilateral Magnetic Resonan ce 11/23/2021 12:0 8 PM CDT Impressions 11/23/2021 12:33 PM CDT IMPRESSION: ??No suspicious findings or evidence of malignancy on bilateral breast MRI. ?? RECOMMENDATION: 1. Screening mammography is due in May 2022. 2. Given her elevated lifetime risk of developing breast cancer of greater than 20 %, screening breast MRI is recommended in 1 year. Breast MRI findings discussed with Dr. Carmona at 12:25 PM on 11/23/2021. She will see the patient in the clinic at this time and discuss the results with her. OVERALL ASSESSMENT: ??BI-RADS CATEGORY 2: BENIGN. > Interpreting Provider: Sneha Neal MD on 11/23/2021 12:33 PM Narrative 11/23/2021 12:33 PM CDT EXAM: ??BILATERAL SCREENING BREAST MRI WITH AND WITHOUT CONTRAST WITH DYNACAD ANALYSIS DATE OF EXAM: ??11/23/2021 11:19 AM HISTORY: ?31-year-old female with elevated lifetime risk of developing breast cancer. History of MRI guided breast biopsy 10/22/2020 of the right breast. Family history of breast cancer in her mother as well as to enhance in a cousin. Family history of BRCA2 gene mutation in an aunt and cousin. Last menstrual period: Patient states she is not having menstrual cycles. COMPARISON: ?? Prior breast MRI 10/02/2020 and 09/18/2019 as well as prior breast MRI biopsy 10/22/2020. Compare with the most recent mammogram 05/11/2021. ? CONTRAST: ??16 cc IV Dotarem. TECHNICAL INFORMATION: ??Study performed on a 3.0 Saritha magnet. A breast coil was utilized. ??Bilateral axial T1 and axial STIR images, followed by 3D axial T1 fat sat images precontrast and 3 postcontrasted 3D axial fat sat series dynamically. ??Subtraction was performed on all postcontrast images. Sagittal reformatted images obtained. ??Images were reviewed on a workstation with 3D post processing and DynaCAD was utilized. FINDINGS: Parenchymal breast pattern: Scattered fibroglandular tissue. Background parenchymal enhancement: Minimal ?Enhancement is Symmetric. Right breast: ??Biopsy clip artifact noted in the lower outer quadrant of the breast, seen at table position -33.45. Previously noted small enhancing 0.3 cm mass in this region is no longer identified, status post the interval biopsy. No suspicious enhancement or evidence of malignancy. No enlarged axillary lymph nodes. Left breast: ??No suspicious findings or enhancement. No enlarged axillary lymph nodes. Alison Carmona MD MR ORDERABLES * US BREAST LEFT LTD (04/02/2021 10:00 AM [employer]ELS PL[employer]) Anatomical Region Laterality Modality Breast Left Mammography 04/02/2021 9:28 AM [employer]S [employer] Impressions 04/02/2021 9:41 AM [employer]ELS [employer] IMPRESSION: No targeted sonographic evidence for malignancy with attention to the area of clinical concern in the left axillary region. The targeted ultrasound is normal. RECOMMENDATION: 1. Patient will follow-up with Dr. Carmona in the breast clinic today. 2. Pending no interval breast concerns, screening mammography is due in May 2021. 3. Given her elevated lifetime risk of breast cancer, annual screening breast MRI is recommended and her next exam could be performed in December 2021. Patient was notified of the results. She will see Dr. Carmona in the breast clinic today. OVERALL ASSESSMENT: ??BI-RADS CATEGORY 1: NEGATIVE. Report drafted by Phuc Vanessa (resident). Laurie Skinner (resident) also assisted in the interpretation of this examination. I, Dr. SNEHA NEAL M.D. have personally reviewed and interpreted this examination/study. This report was electronically signed by SNEHA NEAL M.D. ??on 04/02/2021 9:41 AM . Narrative 04/02/2021 9:41 AM [employer] EXAMINATION: LIMITED LEFT BREAST ULTRASOUND DATE OF EXAM: ??04/02/2021 9:09 AM HISTORY: ??This is a 30-year-old female with lumpiness in the left axillary region. Patient has an elevated lifetime risk of developing breast cancer of 51 percent for risk assessment performed 06/02/2020. Patient is status post benign right MRI guided breast biopsy 10/22/2020. COMPARISON: Prior left axillary breast ultrasound 10/02/2020, screening mammogram 06/02/2020 and breast MRI scan 10/02/2020. FINDINGS: ?? Limited ultrasound performed of the left breast. Targeted ultrasound performed of the left axillary tail and left axilla by the bottle and glass inspector. The ultrasound is normal, without mass. There are no enlarged axillary lymph nodes. Alison Carmona MD US ORDERABLES * MAMMO RIGHT POST CLIP OR WIRE (10/22/2020 3:45 PM CDT) Anatomical Region Laterality Modality Breast Right Mammography 10/22/2020 3:29 PM CDT Addenda Addendum by Sneha Neal MD on 10/24/2020 3:15 PM CDT ORIGINAL REPORT EXAM: MRI GUIDED VACUUM-ASSISTED CORE NEEDLE BIOPSY AND POST BIOPSY DIGITAL MAMMOGRAM ??RIGHT BREAST HISTORY: 0.3 cm enhancing focus in the lower outer quadrant of the right breast. Elevated lifetime risk of developing breast cancer. COMPARISON: Prior breast MRI scan 10/02/2020. CONTRAST: 8 cc of Gadovist. TECHNIQUE AND FINDINGS: Preprocedure images were reviewed. The procedure and its risks and benefits were discussed with the patient, including, but not limited to, bleeding, infection, allergy, and a nondiagnostic specimen. Written and verbal informed consent was obtained and documented. After confirming the correct breast for biopsy, this breast was marked with a marking pen. ??Prior to the procedure a hospital ??timeout procedure was performed, including verification of the laterality of the breast for biopsy. The patient was then placed in a prone position on the MRI table. Patient was imaged in the dedicated breast coil with a compression side plate and localization grid in place. Fiducial marker was placed in the appropriate region of the grid for localization. Multiplanar multisequence MR imaging of both breasts before and following the administration of intravenous gadolinium contrast was performed. Dynamic phase imaging was performed. The exam was processed and interpreted on the MRI HiperScanacad workstation for biopsy purposes. MRI FINDINGS: Contrast exam again demonstrates a tiny 0.3 cm enhancing focus/lesion in the lower outer quadrant of the right breast, best seen at table position -45.14. This is in the mid to posterior depth. Utilizing the DynaCAD workstation, the appropriate location on the sideplate grid was calculated and identified. The overlying skin was cleaned with ChloraPrep and and draped in the usual sterile fashion. Local anesthesia was given with 5 cc of 1% Lidocaine buffered with Sodium Bicarbonate ??within the skin and deeper anesthesia with 20 cc of 1% Lidocaine with Epinephrine, buffered withSodium Bicarbonate. Through the compression grid guidance device, a trocar introducer was inserted to the calculated depth. An MR visible blunt tipped trocar was inserted through the introducer. Axial acquisition and sagittal reconstruction MRI was obtained to confirm location of the trocar within the targeted lesion. Subsequently, the trocar was removed and the 9-gauge vacuum assisted core biopsy device was inserted to the appropriate depth. ??Multiple samples were obtained through the area of concern. A post biopsy axial T1 weighted series demonstrated a biopsy cavity within the area of the enhancement and no significant hematoma. Through the introducer, a phil marker clip was placed within the biopsy cavity. The tissue samples were placed in formalin and delivered to the pathology department by the technologist. Hemostasis was achieved, and the small wound was closed with Exofin. The patient was then accompanied by our nurse to the breast imaging department for her postprocedure mammogram. Estimated blood loss: Minimal Postbiopsy mammogram for clip placement: A two-view right digital mammogram with craniocaudal and true lateral projections was obtained to check clip placement. Breast Composition: Category B: Scattered areas of fibroglandular density. The clip is in good position at the biopsy site. Assessment: Post procedure mammogram for marker placement An ice pack was applied over the dressing on the breast. The patient tolerated the procedures well, with no immediate post biopsy complications. The patient was given verbal, as well as written post-procedure instructions (including Exofin instructions) and was released from the department in good condition. The attending physician, Sneha Neal MD, was present for and performed the entire procedure. IMPRESSION: 1. ??Technically successful, uncomplicated diagnostic MRI and subsequent MRI guided vacuum assisted core needle biopsy of a 0.3 cm enhancing lesion/focus in the lower outer quadrant of the right breast. 2. ??Phil-shaped tissue marker clip placed at the biopsy site. 3. ??Pathology results are pending. Patient will receive her pathology results from and follow up with Dr. Carmona. ??An addendum will be rendered to this report when the pathology results are made available. This report was electronically signed by SNEHA NEAL M.D. ??on 10/22/2020 3:33 PM . ADDENDUM #1 ADDENDUM: PATHOLOGY RESULTS Pathology report per Dr. Olivia Ojeda demonstrates benign breast tissue. ??There is no atypia or malignancy. This is a benign lesion. The pathology report is concordant with the imaging findings. Recommend screening mammography is due in May 2021 and screening breast MRI is recommended in [address] Carmona will notify the patient of the biopsy findings and recommendations. Results were also provided to the referring physician via [employer]. This report was electronically signed by SNEHA NEAL M.D. ??on 10/24/2020 3:12 PM . Impressions 10/22/2020 3:33 PM CDT IMPRESSION: 1. ??Technically successful, uncomplicated diagnostic MRI and subsequent MRI guided vacuum assisted core needle biopsy of a 0.3 cm enhancing lesion/focus in the lower outer quadrant of the right breast. 2. ??Phil-shaped tissue marker clip placed at the biopsy site. 3. ??Pathology results are pending. Patient will receive her pathology results from and follow up with Dr. Carmona. ??An addendum will be rendered to this report when the pathology results are made available. This report was electronically signed by SNEHA NEAL M.D. ??on 10/22/2020 3:33 PM . Narrative 10/22/2020 3:33 PM CDT EXAM: MRI GUIDED VACUUM-ASSISTED CORE NEEDLE BIOPSY AND POST BIOPSY DIGITAL MAMMOGRAM ??RIGHT BREAST HISTORY: 0.3 cm enhancing focus in the lower outer quadrant of the right breast. Elevated lifetime risk of developing breast cancer. COMPARISON: Prior breast MRI scan 10/02/2020. CONTRAST: 8 cc of Gadovist. TECHNIQUE AND FINDINGS: Preprocedure images were reviewed. The procedure and its risks and benefits were discussed with the patient, including, but not limited to, bleeding, infection, allergy, and a nondiagnostic specimen. Written and verbal informed consent was obtained and documented. After confirming the correct breast for biopsy, this breast was marked with a marking pen. ??Prior to the procedure a hospital ??timeout procedure was performed, including verification of the laterality of the breast for biopsy. The patient was then placed in a prone position on the MRI table. Patient was imaged in the dedicated breast coil with a compression side plate and localization grid in place. Fiducial marker was placed in the appropriate region of the grid for localization. Multiplanar multisequence MR imaging of both breasts before and following the administration of intravenous gadolinium contrast was performed. Dynamic phase imaging was performed. The exam was processed and interpreted on the MRI Dynacad workstation for biopsy purposes. MRI FINDINGS: Contrast exam again demonstrates a tiny 0.3 cm enhancing focus/lesion in the lower outer quadrant of the right breast, best seen at table position -45.14. This is in the mid to posterior depth. Utilizing the DynaCAD workstation, the appropriate location on the sideplate grid was calculated and identified. The overlying skin was cleaned with ChloraPrep and and draped in the usual sterile fashion. Local anesthesia was given with 5 cc of 1% Lidocaine buffered with Sodium Bicarbonate ??within the skin and deeper anesthesia with 20 cc of 1% Lidocaine with Epinephrine, buffered withSodium Bicarbonate. Through the compression grid guidance device, a trocar introducer was inserted to the calculated depth. An MR visible blunt tipped trocar was inserted through the introducer. Axial acquisition and sagittal reconstruction MRI was obtained to confirm location of the trocar within the targeted lesion. Subsequently, the trocar was removed and the 9-gauge vacuum assisted core biopsy device was inserted to the appropriate depth. ??Multiple samples were obtained through the area of concern. A post biopsy axial T1 weighted series demonstrated a biopsy cavity within the area of the enhancement and no significant hematoma. Through the introducer, a phil marker clip was placed within the biopsy cavity. The tissue samples were placed in formalin and delivered to the pathology department by the technologist. Hemostasis was achieved, and the small wound was closed with Exofin. The patient was then accompanied by our nurse to the breast imaging department for her postprocedure mammogram. Estimated blood loss: Minimal Postbiopsy mammogram for clip placement: A two-view right digital mammogram with craniocaudal and true lateral projections was obtained to check clip placement. Breast Composition: Category B: Scattered areas of fibroglandular density. The clip is in good position at the biopsy site. Assessment: Post procedure mammogram for marker placement An ice pack was applied over the dressing on the breast. The patient tolerated the procedures well, with no immediate post biopsy complications. The patient was given verbal, as well as written post-procedure instructions (including Exofin instructions) and was released from the department in good condition. The attending physician, Sneha Neal MD, was present for and performed the entire procedure. Procedure Note Sneha Neal MD - 10/22/2020 EXAM: MRI GUIDED VACUUM-ASSISTED CORE NEEDLE BIOPSY AND POST BIOPSY DIGITAL MAMMOGRAM RIGHT BREAST HISTORY: 0.3 cm enhancing focus in the lower outer quadrant of the right breast. Elevated lifetime risk of developing breast cancer. COMPARISON: Prior breast MRI scan 10/02/2020. CONTRAST: 8 cc of Gadovist. TECHNIQUE AND FINDINGS: Preprocedure images were reviewed. The procedure and its risks and benefits were discussed with the patient, including,but not limited to, bleeding, infection, allergy, and a nondiagnostic specimen. Written and verbal informed consent was obtained anddocumented. After confirming the correct breast for biopsy, this breast was marked with a marking pen. Prior to the procedure a hospital timeoutprocedure was performed, including verification of the laterality of the breastfor biopsy. The patient was then placed in a prone position on the MRI table.Patient was imaged in the dedicated breast coil with a compression side plateand localization grid in place. Fiducial marker was placed in theappropriate region of the grid for localization. Multiplanar multisequence MR imaging of both breasts before andfollowing the administration of intravenous gadolinium contrast was performed. Dynamic phase imaging was performed. The exam was processed and interpreted on the MRI Dynacad workstation for biopsy purposes. MRI FINDINGS: Contrast exam again demonstrates a tiny 0.3 cm enhancing focus/lesion in the lower outer quadrant of the right breast, best seenat table position -45.14. This is in the mid to posterior depth. Utilizing the DynaCAD workstation, the appropriate location on the sideplate grid was calculated and identified. The overlying skin was cleaned with ChloraPrep and and draped in theusual sterile fashion. Local anesthesia was given with 5 cc of 1% Lidocaine buffered with Sodium Bicarbonate within the skin and deeper anesthesia with 20 cc of 1% Lidocaine with Epinephrine, buffered withSodium Bicarbonate. Through the compression grid guidance device, a trocar introducer was inserted to the calculated depth. An MR visible blunt tipped trocar was inserted through the introducer. Axial acquisition and sagittal reconstruction MRI was obtained toconfirm location of the trocar within the targeted lesion. Subsequently, the trocar was removed and the 9-gauge vacuum assisted core biopsy devicewas inserted to the appropriate depth. Multiple samples were obtainedthrough the area of concern. A post biopsy axial T1 weighted series demonstrateda biopsy cavity within the area of the enhancement and no significant hematoma. Through the introducer, a phil marker clip was placed within the biopsy cavity. The tissue samples were placed in formalin and delivered to thepathology department by the technologist. Hemostasis was achieved, and the small wound was closed with Exofin. The patient was then accompanied by our nurse to the breast imagingdepartment for her postprocedure mammogram. Estimated blood loss: Minimal Postbiopsy mammogram for clip placement: A two-view right digital mammogram with craniocaudal and true lateral projections was obtained to check clip placement. Breast Composition: Category B: Scattered areas of fibroglandulardensity. The clip is in good position at the biopsy site. Assessment: Post procedure mammogram for marker placement An ice pack was applied over the dressing on the breast. The patient tolerated the procedures well, with no immediate post biopsy complications. The patient was given verbal, as well as written post-procedure instructions (including Exofin instructions) and was released from the department in good condition. The attending physician, Sneha Neal MD, was present for and performed the entire procedure. IMPRESSION: 1. Technically successful, uncomplicated diagnostic MRI and subsequent MRI guided vacuum assisted core needle biopsy of a 0.3 cm enhancing lesion/focus in the lower outer quadrant of the right breast. 2. Phil-shaped tissue marker clip placed at the biopsy site. 3. Pathology results are pending. Patient will receive her pathology results from and follow up with Dr. Carmona. An addendum will berendered to this report when the pathology results are made available. This report was electronically signed by SNEHA NEAL M.D. on10/22/2020 3:33 PM . Alison Carmona MD MAMMO ORDERABLES * MRI BREAST RIGHT BIOPSY (10/22/2020 3:19 PM CDT) Anatomical Region Laterality Modality Breast Right Magnetic Resonan ce 10/22/2020 3:29 PM CDT Addenda Addendum by Sneha Neal MD on 10/24/2020 3:15 PM CDT ORIGINAL REPORT EXAM: MRI GUIDED VACUUM-ASSISTED CORE NEEDLE BIOPSY AND POST BIOPSY DIGITAL MAMMOGRAM ??RIGHT BREAST HISTORY: 0.3 cm enhancing focus in the lower outer quadrant of the right breast. Elevated lifetime risk of developing breast cancer. COMPARISON: Prior breast MRI scan 10/02/2020. CONTRAST: 8 cc of Gadovist. TECHNIQUE AND FINDINGS: Preprocedure images were reviewed. The procedure and its risks and benefits were discussed with the patient, including, but not limited to, bleeding, infection, allergy, and a nondiagnostic specimen. Written and verbal informed consent was obtained and documented. After confirming the correct breast for biopsy, this breast was marked with a marking pen. ??Prior to the procedure a hospital ??timeout procedure was performed, including verification of the laterality of the breast for biopsy. The patient was then placed in a prone position on the MRI table. Patient was imaged in the dedicated breast coil with a compression side plate and localization grid in place. Fiducial marker was placed in the appropriate region of the grid for localization. Multiplanar multisequence MR imaging of both breasts before and following the administration of intravenous gadolinium contrast was performed. Dynamic phase imaging was performed. The exam was processed and interpreted on the MRI DocRund workstation for biopsy purposes. MRI FINDINGS: Contrast exam again demonstrates a tiny 0.3 cm enhancing focus/lesion in the lower outer quadrant of the right breast, best seen at table position -45.14. This is in the mid to posterior depth. Utilizing the DynaCAD workstation, the appropriate location on the sideplate grid was calculated and identified. The overlying skin was cleaned with ChloraPrep and and draped in the usual sterile fashion. Local anesthesia was given with 5 cc of 1% Lidocaine buffered with Sodium Bicarbonate ??within the skin and deeper anesthesia with 20 cc of 1% Lidocaine with Epinephrine, buffered withSodium Bicarbonate. Through the compression grid guidance device, a trocar introducer was inserted to the calculated depth. An MR visible blunt tipped trocar was inserted through the introducer. Axial acquisition and sagittal reconstruction MRI was obtained to confirm location of the trocar within the targeted lesion. Subsequently, the trocar was removed and the 9-gauge vacuum assisted core biopsy device was inserted to the appropriate depth. ??Multiple samples were obtained through the area of concern. A post biopsy axial T1 weighted series demonstrated a biopsy cavity within the area of the enhancement and no significant hematoma. Through the introducer, a phil marker clip was placed within the biopsy cavity. The tissue samples were placed in formalin and delivered to the pathology department by the technologist. Hemostasis was achieved, and the small wound was closed with Exofin. The patient was then accompanied by our nurse to the breast imaging department for her postprocedure mammogram. Estimated blood loss: Minimal Postbiopsy mammogram for clip placement: A two-view right digital mammogram with craniocaudal and true lateral projections was obtained to check clip placement. Breast Composition: Category B: Scattered areas of fibroglandular density. The clip is in good position at the biopsy site. Assessment: Post procedure mammogram for marker placement An ice pack was applied over the dressing on the breast. The patient tolerated the procedures well, with no immediate post biopsy complications. The patient was given verbal, as well as written post-procedure instructions (including Exofin instructions) and was released from the department in good condition. The attending physician, Sneha Neal MD, was present for and performed the entire procedure. IMPRESSION: 1. ??Technically successful, uncomplicated diagnostic MRI and subsequent MRI guided vacuum assisted core needle biopsy of a 0.3 cm enhancing lesion/focus in the lower outer quadrant of the right breast. 2. ??Phil-shaped tissue marker clip placed at the biopsy site. 3. ??Pathology results are pending. Patient will receive her pathology results from and follow up with Dr. Carmona. ??An addendum will be rendered to this report when the pathology results are made available. This report was electronically signed by SNEHA NEAL M.D. ??on 10/22/2020 3:33 PM . ADDENDUM #1 ADDENDUM: PATHOLOGY RESULTS Pathology report per Dr. Olivia Ojeda demonstrates benign breast tissue. ??There is no atypia or malignancy. This is a benign lesion. The pathology report is concordant with the imaging findings. Recommend screening mammography is due in May 2021 and screening breast MRI is recommended in [address] Carmona will notify the patient of the biopsy findings and recommendations. Results were also provided to the referring physician via [employer]. This report was electronically signed by SNEHA NEAL M.D. ??on 10/24/2020 3:12 PM . Impressions 10/22/2020 3:33 PM CDT IMPRESSION: 1. ??Technically successful, uncomplicated diagnostic MRI and subsequent MRI guided vacuum assisted core needle biopsy of a 0.3 cm enhancing lesion/focus in the lower outer quadrant of the right breast. 2. ??Phil-shaped tissue marker clip placed at the biopsy site. 3. ??Pathology results are pending. Patient will receive her pathology results from and follow up with Dr. Carmona. ??An addendum will be rendered to this report when the pathology results are made available. This report was electronically signed by SNEHA NEAL M.D. ??on 10/22/2020 3:33 PM . Narrative 10/22/2020 3:33 PM CDT EXAM: MRI GUIDED VACUUM-ASSISTED CORE NEEDLE BIOPSY AND POST BIOPSY DIGITAL MAMMOGRAM ??RIGHT BREAST HISTORY: 0.3 cm enhancing focus in the lower outer quadrant of the right breast. Elevated lifetime risk of developing breast cancer. COMPARISON: Prior breast MRI scan 10/02/2020. CONTRAST: 8 cc of Gadovist. TECHNIQUE AND FINDINGS: Preprocedure images were reviewed. The procedure and its risks and benefits were discussed with the patient, including, but not limited to, bleeding, infection, allergy, and a nondiagnostic specimen. Written and verbal informed consent was obtained and documented. After confirming the correct breast for biopsy, this breast was marked with a marking pen. ??Prior to the procedure a hospital ??timeout procedure was performed, including verification of the laterality of the breast for biopsy. The patient was then placed in a prone position on the MRI table. Patient was imaged in the dedicated breast coil with a compression side plate and localization grid in place. Fiducial marker was placed in the appropriate region of the grid for localization. Multiplanar multisequence MR imaging of both breasts before and following the administration of intravenous gadolinium contrast was performed. Dynamic phase imaging was performed. The exam was processed and interpreted on the MRI HiperScanacad workstation for biopsy purposes. MRI FINDINGS: Contrast exam again demonstrates a tiny 0.3 cm enhancing focus/lesion in the lower outer quadrant of the right breast, best seen at table position -45.14. This is in the mid to posterior depth. Utilizing the DynaCAD workstation, the appropriate location on the sideplate grid was calculated and identified. The overlying skin was cleaned with ChloraPrep and and draped in the usual sterile fashion. Local anesthesia was given with 5 cc of 1% Lidocaine buffered with Sodium Bicarbonate ??within the skin and deeper anesthesia with 20 cc of 1% Lidocaine with Epinephrine, buffered withSodium Bicarbonate. Through the compression grid guidance device, a trocar introducer was inserted to the calculated depth. An MR visible blunt tipped trocar was inserted through the introducer. Axial acquisition and sagittal reconstruction MRI was obtained to confirm location of the trocar within the targeted lesion. Subsequently, the trocar was removed and the 9-gauge vacuum assisted core biopsy device was inserted to the appropriate depth. ??Multiple samples were obtained through the area of concern. A post biopsy axial T1 weighted series demonstrated a biopsy cavity within the area of the enhancement and no significant hematoma. Through the introducer, a phil marker clip was placed within the biopsy cavity. The tissue samples were placed in formalin and delivered to the pathology department by the technologist. Hemostasis was achieved, and the small wound was closed with Exofin. The patient was then accompanied by our nurse to the breast imaging department for her postprocedure mammogram. Estimated blood loss: Minimal Postbiopsy mammogram for clip placement: A two-view right digital mammogram with craniocaudal and true lateral projections was obtained to check clip placement. Breast Composition: Category B: Scattered areas of fibroglandular density. The clip is in good position at the biopsy site. Assessment: Post procedure mammogram for marker placement An ice pack was applied over the dressing on the breast. The patient tolerated the procedures well, with no immediate post biopsy complications. The patient was given verbal, as well as written post-procedure instructions (including Exofin instructions) and was released from the department in good condition. The attending physician, Sneha Neal MD, was present for and performed the entire procedure. Alison Carmona MD MR ORDERABLES * PATHOLOGY TISSUE (10/22/2020 3:05 PM CDT) Case Report Surgical Pathology Report ? Case: [id number] ? Authorizing Provider: ??Alison Carmona MD ? Collected: ? 10/22/2020 03:05 PM ? Ordering Location: ? [facility] Received: ?10/23/2020 06:04 AM ? CENTER ? Pathologist: ? Olivia Ojeda MD ? Specimen: ?Breast, Right, CC Dr Sneha Neal/ 0.3 cm enhancing lesion lower outer quadrant right ? breast on MRI low suspicion of malignancy High risk patient MRI Biopsy last year ? 10/24/2020 11:57 AM [facility] Final Diagnosis Breast, right, lower outer quadrant, core biopsy (A): - Benign breast tissue 10/24/2020 11:57 AM [facility] Microscopic Description and Comment Microscopic examination substantiates the final diagnosis. 10/24/2020 11:57 AM [facility] Clinical History The patient is a 30 year old woman with an extensive family history of breast cancer presenting with intermittent bilateral nipple discharge for the last 4 years since the of her daughter (intermittent milky and sometimes bloody nipple discharge) with Mammo showing 0.3 cm enhancing focus in the lower outer quadrant of the right breast. 10/24/2020 11:57 AM [facility] Gross Description The requisition and specimen(s) are identified with the patient's name Monae Celaya. Received in formalin, specimen A , is a 7.5 x 2.5 x 0.3 cm aggregate of yellow-edwards fibroadipose tissue is submitted entirely in cassette [id number]. DF Specimen processing times on 10/22/2020 and 10/23/2020 are as follows: Time of excision 1505 Time specimen is placed in formalin: 1508 Total formalin fixation time: 4 hours 12 min Total cold ischemia time: 3 minutes 10/24/2020 11:57 AM CDT [facility] Disclaimer The performance characteristics of all immunohistochemical and indirect immunofluorescence stains (if any) cited in this report were determined by the [facility]opathology Laboratory of [facility]. Some of these tests were developed by our own laboratory and have not been cleared or approved by the US Food and Drug Administration. The FDA does not require this test to go through premarket FDA review. These tests are used for clinical purposes. They should not be regarded as investigational or for research. This laboratory is certified under the Clinical Laboratory Improvement Amendments (CLIA) as qualified to perform high complexity clinical laboratory testing. This case has been personally reviewed and interpreted by the attending (teaching) pathologist. 10/24/2020 11:57 AM CDT [facility] Embedded Images 10/24/2020 11:57 AM CDT [facility] Pathology/Cytolo gy (Breast, Right) 10/22/2020 3:05 PM CDT 10/23/2020 6:04 AM CDT Alison Carmona MD LAB - PATHOLOGY/CYT OLOGY ORDERABLES Performing Organization Address City/State/[facility] Co de Phone Number [facility] [address] [phone] * (ABNORMAL) US BREAST BILATERAL LTD (10/02/2020 11:28 AM CDT) Only the most recent of3 resultswithin the time period is included. Anatomical Region Laterality Modality Breast Bilateral Mammography 10/02/2020 12:0 5 PM CDT Addenda Addendum by Sneha Neal MD on 10/02/2020 2:02 PM CDT ORIGINAL REPORT EXAMINATION: LIMITED RIGHT BREAST ULTRASOUND DATE OF EXAM: ??10/02/2020 11:28 AM HISTORY: ??Abnormal screening mammogram with small 0.3 cm enhancing focus in the lower outer quadrant of the right breast. COMPARISON: Breast MRI 10/02/2020. FINDINGS: ?? Limited ultrasound performed of the right breast. Ultrasound of the lower outer quadrant of the breast was performed. Scanning performed from the 6-[address] Neal also scanned the patient. The ultrasound is normal. There is no cystic or solid lesion. No abnormalities noted to correspond with the small enhancing focus on the MRI. IMPRESSION: Unremarkable targeted ultrasound of the lower outer quadrant of the right breast. No abnormality is identified in the area of enhancement on the MRI. RECOMMENDATION: ??Given her elevated lifetime risk of developing breast cancer, MRI guided breast biopsy is recommended. Dr. Neal discussed the examination findings and recommendations with the patient at the time of the examination. MRI biopsy is tentatively scheduled for 10/22/2020. Right breast ultrasound BI-RADS Category 1: Negative OVERALL ASSESSMENT: ??BI-RADS CATEGORY 4: SUSPICIOUS. (SUBSET CATEGORY 4A: LOW SUSPICION FOR MALIGNANCY). ?Based on MRI findings This report was electronically signed by SNEHA NEAL M.D. ??on 10/02/2020 12:21 PM . ADDENDUM #1 ADDENDUM: PLEASE SEE UNDERLINED TEXT EXAMINATION: LIMITED BILATERAL - RIGHT AND LEFT BREAST ULTRASOUND DATE OF EXAM: ??10/02/2020 11:28 AM HISTORY: ??Abnormal screening mammogram with small 0.3 cm enhancing focus in the lower outer quadrant of the right breast. COMPARISON: Breast MRI 10/02/2020. FINDINGS: ?? Limited ultrasound performed of the bilateral breast. Right side: Ultrasound of the lower outer quadrant of the breast was performed. Scanning performed from the 6-[address] Neal also scanned the patient. The ultrasound is normal. There is no cystic or solid lesion. No abnormalities noted to correspond with the small enhancing focus on the MRI. Left side: Targeted ultrasound of the left breast: Targeted ultrasound performed with attention to the axillary tail and axilla in the area of pain and clinical concern. The breast was also scanned from the 12-[address] Neal also scanned the patient. The ultrasound is unremarkable. There is no mass or suspicious finding. IMPRESSION: 1. Unremarkable targeted ultrasound of the lower outer quadrant of the right breast. No abnormality is identified in the area of enhancement on the MRI. 2. Normal targeted ultrasound the left breast with attention to the area of clinical concern in the axillary tail and upper outer quadrant. RECOMMENDATION: ??Given her elevated lifetime risk of developing breast cancer, MRI guided breast biopsy is recommended. Dr. Neal discussed the examination findings and recommendations with the patient at the time of the examination. MRI biopsy is tentatively scheduled for 10/22/2020. Bilateral breast ultrasound BI-RADS Category 1: Negative OVERALL ASSESSMENT: ??BI-RADS CATEGORY 4: SUSPICIOUS. (SUBSET CATEGORY 4A: LOW SUSPICION FOR MALIGNANCY). ?Based on MRI findings This report was electronically signed by SNEHA NEAL M.D. ??on 10/02/2020 1:59 PM . Impressions 10/02/2020 12:21 PM CDT IMPRESSION: Unremarkable targeted ultrasound of the lower outer quadrant of the right breast. No abnormality is identified in the area of enhancement on the MRI. RECOMMENDATION: ??Given her elevated lifetime risk of developing breast cancer, MRI guided breast biopsy is recommended. Dr. Neal discussed the examination findings and recommendations with the patient at the time of the examination. MRI biopsy is tentatively scheduled for 10/22/2020. Right breast ultrasound BI-RADS Category 1: Negative OVERALL ASSESSMENT: ??BI-RADS CATEGORY 4: SUSPICIOUS. (SUBSET CATEGORY 4A: LOW SUSPICION FOR MALIGNANCY). ?Based on MRI findings This report was electronically signed by SNEHA NEAL M.D. ??on 10/02/2020 12:21 PM . Narrative 10/02/2020 12:21 PM CDT EXAMINATION: LIMITED RIGHT BREAST ULTRASOUND DATE OF EXAM: ??10/02/2020 11:28 AM HISTORY: ??Abnormal screening mammogram with small 0.3 cm enhancing focus in the lower outer quadrant of the right breast. COMPARISON: Breast MRI 10/02/2020. FINDINGS: ?? Limited ultrasound performed of the right breast. Ultrasound of the lower outer quadrant of the breast was performed. Scanning performed from the 6-[address] Neal also scanned the patient. The ultrasound is normal. There is no cystic or solid lesion. No abnormalities noted to correspond with the small enhancing focus on the MRI. Procedure Note Sneha Neal MD - 10/02/2020 EXAMINATION: LIMITED RIGHT BREAST ULTRASOUND DATE OF EXAM: 10/02/2020 11:28 AM HISTORY: Abnormal screening mammogram with small 0.3 cm enhancing focus in the lower outer quadrant of the right breast. COMPARISON: Breast MRI 10/02/2020. FINDINGS: Limited ultrasound performed of the right breast. Ultrasound of the lower outer quadrant of the breast was performed. Scanning performed from the 6-[address] Neal also scanned the patient. The ultrasound is normal. There is no cystic or solid lesion. No abnormalities noted to correspond with the small enhancing focus on the MRI. IMPRESSION: Unremarkable targeted ultrasound of the lower outer quadrant of the right breast. No abnormality is identified in the area of enhancement on the MRI. RECOMMENDATION: Given her elevated lifetime risk of developing breast cancer, MRI guided breast biopsy is recommended. Dr. Neal discussed the examination findings and recommendations withthe patient at the time of the examination. MRI biopsy is tentatively scheduled for 10/22/2020. Right breast ultrasound BI-RADS Category 1: Negative OVERALL ASSESSMENT: BI-RADS CATEGORY 4: SUSPICIOUS. (SUBSET [id number]: LOW SUSPICION FOR MALIGNANCY). Based on MRI findings This report was electronically signed by SNEHA NEAL M.D. on10/02/2020 12:21 PM . Alison Carmona MD US ORDERABLES * US BREAST BILATERAL COMPLETE (06/02/2020 10:18 AM CDT) Anatomical Region Laterality Modality Breast Bilateral Mammography 06/02/2020 9:59 AM CDT Impressions 06/02/2020 10:20 AM CDT IMPRESSION: ??No bilateral mammographic or sonographic evidence for malignancy. RECOMMENDATION: 1. Screening mammography in one year, pending no interval breast concerns. 2. Breast MRI scan is recommended in September 2020, to follow-up the previously noted enhancement in both the right and left breast on the MRI 09/18/2019. I discussed the mammogram findings and recommendations with the patient the time of her exam. She is scheduled to see Dr. Carmona at this time. OVERALL FINAL BI-RADS CATEGORY 2: BENIGN. This report was electronically signed by SNEHA NEAL M.D. ??on 06/02/2020 10:20 AM . Narrative 06/02/2020 10:20 AM CDT EXAMS: 1. DIGITAL MAMMO BILAT SCREENING WITH 3-D AND WITH CAD AND 2. BILATERAL COMPLETE BREAST ULTRASOUND (RIGHT BREAST AND LEFT BREAST)- COMBINED REPORT DATE OF EXAM: ??06/02/2020 10:03 AM HISTORY: ??Screening. ??Family history of breast cancer. Previous benign right breast biopsy. RISK ASSESSMENT CALCULATION: Patient completed a breast cancer risk assessment during her appointment. Based upon the information she provided and her mammographic breast density, her lifetime risk of developing breast cancer is 51 % ??(Average Risk <15%; Intermediate / Moderate Risk 15-19%; High Risk > 20%). The [place] [employer] recommends MRI screening in addition to mammograms for women who are at increased risk. The patient has been notified and given information for the [facility], should she wish to schedule a consultation. COMPARISON: Prior 09/06/2018, 03/21/2019 and 09/24/2019. MAMMOGRAM TECHNIQUE: ??Tomosynthesis (3-D) and reconstructed C - view (synthetic 2-D) ??images acquired and reviewed in the bilateral craniocaudal and mediolateral oblique projections. Images reviewed with CAD. BREAST COMPOSITION: Category B: Scattered areas of fibroglandular density. FINDINGS: ??No suspicious microcalcifications, focal dominant masses, or areas of architectural distortion on mammography. Biopsy clip in the left breast. A previously noted focal asymmetry in the right breast is no longer identified. No significant change from the prior. BILATERAL COMPLETE BREAST ULTRASOUND TECHNIQUE: Complete bilateral high resolution breast ultrasound performed, including all 4 quadrants, the subareolar regions, and the axillae. Right side: Normal ultrasound, without mass or suspicious finding. ??No enlarged right axillary lymph nodes. Left side: Normal ultrasound, without mass or suspicious finding. No enlarged left axillary lymph nodes. Alison Carmona MD US ORDERABLES * MAMMO BILAT SCREENING (06/02/2020 10:03 AM CDT) Anatomical Region Laterality Modality Breast Bilateral Mammography 06/02/2020 9:59 AM CDT Impressions 06/02/2020 10:20 AM CDT IMPRESSION: ??No bilateral mammographic or sonographic evidence for malignancy. RECOMMENDATION: 1. Screening mammography in one year, pending no interval breast concerns. 2. Breast MRI scan is recommended in September 2020, to follow-up the previously noted enhancement in both the right and left breast on the MRI 09/18/2019. I discussed the mammogram findings and recommendations with the patient the time of her exam. She is scheduled to see Dr. Carmona at this time. OVERALL FINAL BI-RADS CATEGORY 2: BENIGN. This report was electronically signed by NSEHA NEAL M.D. ??on 06/02/2020 10:20 AM . Narrative 06/02/2020 10:20 AM CDT EXAMS: 1. DIGITAL MAMMO BILAT SCREENING WITH 3-D AND WITH CAD AND 2. BILATERAL COMPLETE BREAST ULTRASOUND (RIGHT BREAST AND LEFT BREAST)- COMBINED REPORT DATE OF EXAM: ??06/02/2020 10:03 AM HISTORY: ??Screening. ??Family history of breast cancer. Previous benign right breast biopsy. RISK ASSESSMENT CALCULATION: Patient completed a breast cancer risk assessment during her appointment. Based upon the information she provided and her mammographic breast density, her lifetime risk of developing breast cancer is 51 % ??(Average Risk <15%; Intermediate / Moderate Risk 15-19%; High Risk > 20%). The [place] [employer] recommends MRI screening in addition to mammograms for women who are at increased risk. The patient has been notified and given information for the [facility], should she wish to schedule a consultation. COMPARISON: Prior 09/06/2018, 03/21/2019 and 09/24/2019. MAMMOGRAM TECHNIQUE: ??Tomosynthesis (3-D) and reconstructed C - view (synthetic 2-D) ??images acquired and reviewed in the bilateral craniocaudal and mediolateral oblique projections. Images reviewed with CAD. BREAST COMPOSITION: Category B: Scattered areas of fibroglandular density. FINDINGS: ??No suspicious microcalcifications, focal dominant masses, or areas of architectural distortion on mammography. Biopsy clip in the left breast. A previously noted focal asymmetry in the right breast is no longer identified. No significant change from the prior. BILATERAL COMPLETE BREAST ULTRASOUND TECHNIQUE: Complete bilateral high resolution breast ultrasound performed, including all 4 quadrants, the subareolar regions, and the axillae. Right side: Normal ultrasound, without mass or suspicious finding. ??No enlarged right axillary lymph nodes. Left side: Normal ultrasound, without mass or suspicious finding. No enlarged left axillary lymph nodes. Alison Carmona MD MAMMO ORDERABLES * US BREAST RIGHT LTD (11/20/2019 1:21 PM CDT) Anatomical Region Laterality Modality Breast Right Mammography 11/20/2019 12:5 3 PM CDT Impressions 11/20/2019 1:09 PM CDT IMPRESSION: The right breast hematoma has resolved. No evidence of malignancy in the right breast. ASSESSMENT: BI-RADS Category 2: Benign finding(s). RECOMMENDATION: Attention to this area on annual high risk screening breast MRI September, is recommended. Annual screening mammography also recommended, due to high risk status. Findings discussed with the patient by Dr. Croft. ??Result letter not given to the patient due to COVID contact precautions. This report was electronically signed by ELIO CROFT M.D. ??on 11/20/2019 1:09 PM . Narrative 11/20/2019 1:09 PM CDT RIGHT DIAGNOSTIC MAMMOGRAM LIMITED RIGHT BREAST ULTRASOUND TECHNIQUE: Images were performed using 3D tomosynthesis images with reconstructed/synthetic 2D images. ??CAD analysis was performed. DATE: 11/20/2019. HISTORY: 29-year-old with a family history of breast cancer. She was initially referred for bilateral breast MRI 09/18/2019 for high-risk screening. Breast MRI demonstrated left breast nonmass enhancement. MR guided biopsy was recommended and performed with results of benign breast tissue, no atypia or malignancy. Findings considered benign and concordant with the imaging assessment. The 09/18/2019 breast MRI also demonstrated a mass in the outer right breast. Second look mammography and ultrasound 09/24/2019 demonstrated a mammographic asymmetry in the upper outer right breast with corresponding 1 cm area of echogenicity likely representing hematoma and favored to correspond to the MRI finding. She is referred for follow-up of this finding. COMPARISON: Breast MRI 09/18/2019. Mammogram and ultrasound 09/24/2019. BREAST COMPOSITION: The breasts are heterogeneously dense, which may obscure small masses. FINDINGS: The previously described focal asymmetry in the right breast has resolved. It likely corresponded to a hematoma. Ultrasound performed for confirmation. Follow-up performed by the bottle and glass inspector. In the right breast at 9:30, 7 cm from the nipple, in the area of previously described 1 cm area of echogenicity, there is normal tissue. The previously described echogenic finding has resolved. No suspicious solid or cystic mass. Alison Carmona MD US ORDERABLES * MAMMO RIGHT DIAGNOSTIC (11/20/2019 1:04 PM CDT) Anatomical Region Laterality Modality Breast Right Mammography 11/20/2019 12:5 3 PM CDT Impressions 11/20/2019 1:09 PM CDT IMPRESSION: The right breast hematoma has resolved. No evidence of malignancy in the right breast. ASSESSMENT: BI-RADS Category 2: Benign finding(s). RECOMMENDATION: Attention to this area on annual high risk screening breast MRI September, is recommended. Annual screening mammography also recommended, due to high risk status. Findings discussed with the patient by Dr. Croft. ??Result letter not given to the patient due to COVID contact precautions. This report was electronically signed by ELIO CROFT M.D. ??on 11/20/2019 1:09 PM . Narrative 11/20/2019 1:09 PM CDT RIGHT DIAGNOSTIC MAMMOGRAM LIMITED RIGHT BREAST ULTRASOUND TECHNIQUE: Images were performed using 3D tomosynthesis images with reconstructed/synthetic 2D images. ??CAD analysis was performed. DATE: 11/20/2019. HISTORY: 29-year-old with a family history of breast cancer. She was initially referred for bilateral breast MRI 09/18/2019 for high-risk screening. Breast MRI demonstrated left breast nonmass enhancement. MR guided biopsy was recommended and performed with results of benign breast tissue, no atypia or malignancy. Findings considered benign and concordant with the imaging assessment. The 09/18/2019 breast MRI also demonstrated a mass in the outer right breast. Second look mammography and ultrasound 09/24/2019 demonstrated a mammographic asymmetry in the upper outer right breast with corresponding 1 cm area of echogenicity likely representing hematoma and favored to correspond to the MRI finding. She is referred for follow-up of this finding. COMPARISON: Breast MRI 09/18/2019. Mammogram and ultrasound 09/24/2019. BREAST COMPOSITION: The breasts are heterogeneously dense, which may obscure small masses. FINDINGS: The previously described focal asymmetry in the right breast has resolved. It likely corresponded to a hematoma. Ultrasound performed for confirmation. Follow-up performed by the bottle and glass inspector. In the right breast at 9:30, 7 cm from the nipple, in the area of previously described 1 cm area of echogenicity, there is normal tissue. The previously described echogenic finding has resolved. No suspicious solid or cystic mass. Elio Croft MD MAMMO ORDERABLES * TRACI DIAG DIRECT DIG IMAGE UNI LEFT [id number] (10/24/2019 10:03 AM CDT) Anatomical Region Laterality Modality Breast Left Mammography 10/24/2019 10:5 5 AM CDT Addenda Addendum by Tabatha Virgen MD on 10/29/2019 9:44 AM CDT Pathology is consistent with benign breast tissue. There is no atypia or malignancy. Findings are benign and concordant. Follow-up imaging of the right breast with possible right breast biopsy is recommended for diagnostic mammogram and ultrasound report [facility] 09/24/2019. Patient was informed of these findings and recommendations by Dr. Virgen *Addending Radiologist: Isa Virgen on 10/29/2019 at 9:40 AM Impressions 10/24/2019 11:05 AM CDT Successful MRI guided core biopsy of nonmass enhancement in the upper slightly outer left breast. Samples were sent to pathology; report will be addended when pathology results are available for imaging/pathology concordance. Follow-up recommendations based on pathology report will be given in the addendum. *Reading Radiologist: Isa Virgen on 10/24/2019 at 11:05 AM Narrative 10/24/2019 11:05 AM CDT MRI GUIDED BREAST BIOPSY - LEFT BREAST HISTORY: 29-year-old female at increased risk for breast cancer presents for MRI guided biopsy of nonmass enhancement upper slightly outer left breast. Recent diagnostic mammogram and ultrasound of the left breast demonstrated no mammographic/ultrasound correlate COMPARISON: Prior imaging most recently bilateral diagnostic mammogram and ultrasound [facility] 09/24/2019 and [facility] breast MRI 09/18/2019 TECHNIQUE: ??Sagittal T1 weighted localization images were performed. Subsequently, high resolution 2D axial gradient echo T1 weighted images were obtained prior to and following the intravenous administration of 18 cc of Dotarem using a limited field of view for the purposes of focused target identification. FINDINGS: ??The procedure was explained in detail to the patient, all questions were answered, and written informed consent was obtained. ??A pre-procedure time-out was performed using two patient identifiers, confirming patient identity and procedure to be performed. ??The correct side was marked. The nonmass enhancement seen in the upper slightly outer left breast on the diagnostic study is again identified. Using sterile technique, local anesthesia was achieved with 1% lidocaine. ??Under MR guidance, using a vacuum-assisted biopsy device, multiple core biopsies were obtained of the nonmass enhancement in the left breast and sent to pathology. Approach was from lateral. An X tissue marker was subsequently placed at the site of biopsy. The needle was then removed and hemostasis achieved. Post-procedure mammography of the left breast was performed to document deployment of the tissue marker. Tissue marker lies in the expected position. The patient tolerated the procedure well with no immediate complications and was discharged to home with the standard post-core biopsy instruction sheet. Procedure Note Tabatha Virgen MD - 10/24/2019 MRI GUIDED BREAST BIOPSY - LEFT BREAST HISTORY: 29-year-old female at increased risk for breast cancer presents for MRI guided biopsy of nonmass enhancement upper slightly outer left breast. Recent diagnostic mammogram and ultrasound of the left breast demonstrated no mammographic/ultrasound correlate COMPARISON: Prior imaging most recently bilateral diagnostic mammogram and ultrasound [facility] 09/24/2019 and [facility] breast MRI 09/18/2019 TECHNIQUE: Sagittal T1 weighted localization images were performed. Subsequently, high resolution 2D axial gradient echo T1 weighted images were obtained prior to and following the intravenous administration of 18 cc of Dotarem using a limited field of view for the purposes of focused target identification. FINDINGS: The procedure was explained in detail to the patient, all questions were answered, and written informed consent was obtained. A pre-procedure time-out was performed using two patient identifiers, confirming patient identity and procedure to be performed. The correct side was marked. The nonmass enhancement seen in the upper slightly outer left breast on the diagnostic study is again identified. Using sterile technique, local anesthesia was achieved with 1% lidocaine. Under MR guidance, using a vacuum-assisted biopsy device, multiple core biopsies were obtained of the nonmass enhancement in the left breast and sent to pathology. Approach was from lateral. An X tissue marker was subsequently placed at the site of biopsy. The needle was then removed and hemostasis achieved. Post-procedure mammography of the left breast was performed to document deployment of the tissue marker. Tissue marker lies in the expected position. The patient tolerated the procedure well with no immediate complications and was discharged to home with the standard post-core biopsy instruction sheet. IMPRESSION Successful MRI guided core biopsy of nonmass enhancement in the upper slightly outer left breast. Samples were sent to pathology; report will be addended when pathology results are available for imaging/pathology concordance. Follow-up recommendations based on pathology report will be given in the addendum. *Reading Radiologist: Isa Virgen on 10/24/2019 at 11:05 AM Tabatha Virgen MD MAMMO ORDERABLES * MRI BREAST LEFT BIOPSY (10/24/2019 9:45 AM CDT) Anatomical Region Laterality Modality Breast Left Magnetic Resonan ce 10/24/2019 10:5 5 AM CDT Addenda Addendum by Tabatha Virgen MD on 10/29/2019 9:44 AM CDT Pathology is consistent with benign breast tissue. There is no atypia or malignancy. Findings are benign and concordant. Follow-up imaging of the right breast with possible right breast biopsy is recommended for diagnostic mammogram and ultrasound report [facility] 09/24/2019. Patient was informed of these findings and recommendations by Dr. Virgen *Addending Radiologist: Isa Virgen on 10/29/2019 at 9:40 AM Impressions 10/24/2019 11:05 AM CDT Successful MRI guided core biopsy of nonmass enhancement in the upper slightly outer left breast. Samples were sent to pathology; report will be addended when pathology results are available for imaging/pathology concordance. Follow-up recommendations based on pathology report will be given in the addendum. *Reading Radiologist: Isa Virgen on 10/24/2019 at 11:05 AM Narrative 10/24/2019 11:05 AM CDT MRI GUIDED BREAST BIOPSY - LEFT BREAST HISTORY: 29-year-old female at increased risk for breast cancer presents for MRI guided biopsy of nonmass enhancement upper slightly outer left breast. Recent diagnostic mammogram and ultrasound of the left breast demonstrated no mammographic/ultrasound correlate COMPARISON: Prior imaging most recently bilateral diagnostic mammogram and ultrasound [facility] 09/24/2019 and [facility] breast MRI 09/18/2019 TECHNIQUE: ??Sagittal T1 weighted localization images were performed. Subsequently, high resolution 2D axial gradient echo T1 weighted images were obtained prior to and following the intravenous administration of 18 cc of Dotarem using a limited field of view for the purposes of focused target identification. FINDINGS: ??The procedure was explained in detail to the patient, all questions were answered, and written informed consent was obtained. ??A pre-procedure time-out was performed using two patient identifiers, confirming patient identity and procedure to be performed. ??The correct side was marked. The nonmass enhancement seen in the upper slightly outer left breast on the diagnostic study is again identified. Using sterile technique, local anesthesia was achieved with 1% lidocaine. ??Under MR guidance, using a vacuum-assisted biopsy device, multiple core biopsies were obtained of the nonmass enhancement in the left breast and sent to pathology. Approach was from lateral. An X tissue marker was subsequently placed at the site of biopsy. The needle was then removed and hemostasis achieved. Post-procedure mammography of the left breast was performed to document deployment of the tissue marker. Tissue marker lies in the expected position. The patient tolerated the procedure well with no immediate complications and was discharged to home with the standard post-core biopsy instruction sheet. Procedure Note Tabatha Virgen MD - 10/24/2019 MRI GUIDED BREAST BIOPSY - LEFT BREAST HISTORY: 29-year-old female at increased risk for breast cancer presents for MRI guided biopsy of nonmass enhancement upper slightly outer left breast. Recent diagnostic mammogram and ultrasound of the left breast demonstrated no mammographic/ultrasound correlate COMPARISON: Prior imaging most recently bilateral diagnostic mammogram and ultrasound [facility] 09/24/2019 and [facility] breast MRI 09/18/2019 TECHNIQUE: Sagittal T1 weighted localization images were performed. Subsequently, high resolution 2D axial gradient echo T1 weighted images were obtained prior to and following the intravenous administration of 18 cc of Dotarem using a limited field of view for the purposes of focused target identification. FINDINGS: The procedure was explained in detail to the patient, all questions were answered, and written informed consent was obtained. A pre-procedure time-out was performed using two patient identifiers, confirming patient identity and procedure to be performed. The correct side was marked. The nonmass enhancement seen in the upper slightly outer left breast on the diagnostic study is again identified. Using sterile technique, local anesthesia was achieved with 1% lidocaine. Under MR guidance, using a vacuum-assisted biopsy device, multiple core biopsies were obtained of the nonmass enhancement in the left breast and sent to pathology. Approach was from lateral. An X tissue marker was subsequently placed at the site of biopsy. The needle was then removed and hemostasis achieved. Post-procedure mammography of the left breast was performed to document deployment of the tissue marker. Tissue marker lies in the expected position. The patient tolerated the procedure well with no immediate complications and was discharged to home with the standard post-core biopsy instruction sheet. IMPRESSION Successful MRI guided core biopsy of nonmass enhancement in the upper slightly outer left breast. Samples were sent to pathology; report will be addended when pathology results are available for imaging/pathology concordance. Follow-up recommendations based on pathology report will be given in the addendum. *Reading Radiologist: Isa Virgen on 10/24/2019 at 11:05 AM Alison Carmona MD MR ORDERABLES * PATHOLOGY TISSUE EXAM (STL) (10/24/2019 9:20 AM CDT) Case Report Surgical Pathology Report ? Case: [id number] ? Authorizing Provider: ??Alison Carmona MD ? Collected: ? 10/24/2019 09:20 AM ? Ordering Location: ? [facility] ? Received: ?10/24/2019 10:31 AM ? Pathologist: ? Majo Sabillon MD ? Specimen: ?Breast, Left MRI guided Breast biopsy ? 10/26/2019 3:30 PM T [facility] Final Diagnosis Breast, left, biopsy (A): - Benign breast tissue 10/26/2019 3:30 PM [facility] Clinical History The patient is a 29-year-old female who underwent breast biopsy of a left non-mass enhancement in a high risk female. 10/26/2019 3:30 PM [facility] Gross Description Received in one container for gross and microscopic examination, labeled with the patient's name, Monae Celaya, and left MRI guided breast are multiple fragments of yellow-white fibrofatty breast tissue measuring 3.5 x 2.0 x 0.3 cm in aggregate. The specimen is submitted entirely in cassette A1. / Breast specimen processing times for specimen A. The specimen is collected from the patient at 9:20 am on 10/24/2019 and placed in formalin immediately thereafter. Total cold ischemia time is less than 1 minute. Total formalin fixation time is 9 hours 40 minutes. 10/26/2019 3:30 PM [facility] Microscopic Description Sections of the breast biopsy specimen show benign breast tissue without microcalcifications or proliferative breast epithelium. 10/26/2019 3:30 PM [facility] Disclaimer All histochemical and/or immunohistochemical results are interpreted with controls that demonstrate appropriate staining reactions before reporting results. Note on use of immunocytochemistry reagents: This test was developed and its performance characteristic determined by [facility], Department of Laboratory Medicine. It has not been cleared or approved by the U.S. Food and Drug Administration (FDA). The FDA has determined that such clearance or approval is not necessary. The test is used for clinical purpose. It should not be regarded as investigational or for research. This laboratory is certified to perform high complexity testing. The performance characteristics of the IHC/KEHINDE assays have been validated on formalin-fixed paraffin embedded tissues only. The assays have not been validated on decalcified tissues. Results should be interpreted with caution. 10/26/2019 3:30 PM CDT [facility] Embedded Images 10/26/2019 3:30 PM CDT [facility] Pathology/Cytolo gy ENTIRE BREAST / Unknown 10/24/2019 9:20 AM CDT 10/24/2019 10:31 AM CDT Alison Carmona MD LAB - PATHOLOGY/CYT OLOGY ORDERABLES [facility] [address] [place] [address] * (ABNORMAL) CREATININE BLOOD - POINT OF CARE (IP) (10/24/2019 8:15 AM CDT) Creatinine POCT 0.63(A) 0.7 - 1.2 mg/dL [facility] POCT TEST[facility] QC Verified Yes Yes [facility] POC T TESTING Blood BLOOD SPECIMEN / Unknown 10/24/2019 8:15 AM CDT Alison Carmona MD LAB - POINT OF CARE ORDERABLES Performing Organization Address City/[facility] Co de Phone Number [facility] POCT TESTING [address] [place] [address] * (ABNORMAL) MAMMO BILAT DIAGNOSTIC (09/24/2019 1:45 PM CDT) Only the most recent of3 resultswithin the time period is included. Anatomical Region Laterality Modality Breast Bilateral Mammography 09/24/2019 1:55 PM CDT Impressions 09/24/2019 2:21 PM CDT IMPRESSION: Mammographic asymmetry in the upper outer right breast with corresponding 1 cm area of echogenicity likely represents hematoma. Recommend short-term follow-up in 6-8 weeks with ultrasound to evaluate for resolution. If findings do not resolve, ultrasound guided biopsy is recommended. No mammographic or sonographic findings in the left breast to correspond with the nonmass enhancement seen on recent breast MRI, which may represent hormonal changes, however cannot exclude atypia or DCIS. A short-term left breast MRI follow-up in 3-6 months may be considered for reevaluation, with possible biopsy at that time. If there is high clinical concern, MRI guided biopsy could also be performed at this time. ASSESSMENT: BI-RADS Category 3: ??Probably benign finding, short interval follow up suggested. RECOMMENDATION: Short-term ultrasound follow-up of the right breast in 6-8 weeks. Repeat left breast MRI in 3-6 months versus MRI guided biopsy. Findings discussed with the patient by Dr. Raymundo. Dictated by Emili Lopes MD (vice president of development). I, Dr. MARIE RAYMUNDO M.D. have personally reviewed and interpreted this examination/study. This report was electronically signed by MARIE RAYMUNDO M.D. ??on 09/24/2019 2:21 PM . Narrative 09/24/2019 2:21 PM CDT BILATERALLY DIAGNOSTIC MAMMOGRAM BILATERAL LIMITED BREAST ULTRASOUND TECHNIQUE: Images were performed using 3D tomosynthesis images with reconstructed/synthetic 2D images. ??CAD analysis was performed. The operating room technologist performed limited sonographic evaluation of the bilateral breasts. DATE: 09/24/2019. HISTORY: 29-year-old female with strong family history of breast cancer, prior history of bilateral bloody nipple discharge, and abnormal findings on recent breast MRI. No breast complaints at this time. COMPARISON: Bilateral diagnostic mammogram from 03/21/2019, bilateral breast MRI from 09/18/2019 BREAST COMPOSITION: The breasts are heterogeneously dense, which may obscure small masses. FINDINGS: Bilateral diagnostic mammogram: There is focal asymmetry in the upper outer right breast with partial fat density. This is seen on spot compressed craniocaudal 3-D slice / and spot compressed mediolateral oblique 3-D slice . Otherwise there is no suspicious mass, clustered microcalcification, or architectural distortion in either breast on 2D or 3D images. Limited bilateral breast ultrasound: There is approximately 1 cm area of echogenicity at at the 9:30 position in the right breast, possibly representing hematoma an corresponding to the mammographic finding. This likely corresponds to the focal area of enhancement in the outer right breast on MRI. There are no abnormal sonographic findings in the left breast. Alison Carmona MD MAMMO ORDERABLES * CREATININE BLOOD - POCT (IP) [facility] (09/21/2018 5:17 PM CDT) Creatinine POCT 1.04 0.3 - 1.3 mg/dL [facility] POCT TESTING eGFR POCT 60 60 ml/min [facility] POCT TEST[facility] Blood BLOOD SPECIMEN / Unknown 09/21/2018 5:17 PM CDT Alison Carmona MD LAB - POINT OF CARE ORDERABLES [facility] POCT TESTING [address] [phone] Care Teams Affirmative Action Specialist Relationship Specialty Start Date End Date Gilberto Gupta MD [address] [place] [phone] PCP - General Family Medicine 11/02/23
--- OUTSIDE RECORDS SUMMARY | 2024-02-21 01:55 | XMS_ITS | Encounter Summary ---
Author Organization [facility] Address [address] [facility] [place] [address] Care Team Providers Care Gas Controller Name Role Phone Gilberto Gupta MD Primary Care Provider [phone] Reason for Referral * Radiology Services (Routine) - Closed Specialty Diagnoses / Procedures Referred By Contac t Referred To Contact Mammography Diagnoses Family history of breast cancer in mother Procedures MRI BREAST BILAT SCREENING Alison Naqvi MD [address] [place] [address] [facility] [place] [address] [place] [address] Referral ID Status Reason Start Date Expiration Date Visits Re quested Visits Authorized [id number] Closed 01/02/2024 06/30/2024 1 1 E AIDE Reason for Visit * Radiology Services (Routine) - Closed Specialty Diagnoses / Procedures Referred By Contac t Referred To Contact Mammography Diagnoses Family history of breast cancer in mother Procedures MRI BREAST BILAT SCREENING Alison Naqvi MD [address] [place] [address] [facility] [address] [place] [address] Referral ID Status Reason Start Date Expiration Date Visits Re quested Visits Authorized [id number] Closed 01/02/2024 06/30/2024 1 1 Encounter Details Date Type Department Care Team (Latest Contact Info) Description 01/09/2024 8:08 AM ROUTE AIDE - 01/09/2024 11:59 PM ROUTE AIDE Hospital Encounter [facility] MRI [address] [place] [phone] Alison Carmona MD [address] [facility] [place] [address] Discharge Disposition: Home or Self Care Social History Tobacco Use Types Packs/Day Years [...] on file documented as of this encounter Medications at Time of Discharge Medication Sig Dispensed Refills Start Date End Date busPIRone (BUSPAR) 10 MG tablet Take 1 (one) tablet by mouth 2 times daily 08/28/2018 escitalopram (LEXAPRO) 20 MG tablet Take 1 (one) tablet by mouth once daily 02/24/2019 levonorgestrel (MIRENA) 20 MCG/24HR IUD 1 (one) device by Intrauterine route as directed oxyBUTYnin CR 24hr (Ditropan-XL) 10 MG tablet Take 1 (one) tablet by mouth once daily 90 tablet 3 07/27/2023 ziprasidone (GEODON) 20 MG capsule Take 1 (one) capsule by mouth 2 times daily with morning and evening meal 08/31/2018 documented as of this encounter Plan of Treatment Upcoming Encounters Date Type Department Care Team (Late st Contact Info) Description 03/05/2024 1:00 PM ROUTE AIDE Office Visit [facility] - Urology [address] [facility] [place] [phone] Joshua Del Angel PA [address] [place] [address] documented as of this encounter Procedures Procedure Name Priority Date/Time Associated Diagnosis Comments MRI BREAST BILAT SCREENING WWO Routine 01/09/2024 9:03 AM ROUTE AIDE Family history of breast cancer in mother CREATININE - POCT INTERFACED Routine 01/09/2024 8:29 AM ROUTE AIDE documented in this encounter Results * MRI BREAST BILAT SCREENING WWO (01/09/2024 9:03 AM ROUTE AIDE) Anatomical Region Laterality Modality Breast Bilateral Magnetic Resonan ce 01/09/2024 9:38 AM ROUTE AIDE Impressions 01/09/2024 9:56 AM ROUTE AIDE IMPRESSION: No bilateral breast MRI evidence of [...] CATEGORY 2: BENIGN. > Interpreting Provider: Sneha Buckley MD, FACR on 01/09/2024 9:56 AM Narrative 01/09/2024 9:56 AM ROUTE AIDE EXAM: ??BILATERAL SCREENING BREAST MRI WITH AND WITHOUT CONTRAST WITH DYNACAD ANALYSIS LOCATION: [facility] EXAM DATE: ??01/09/2024 HISTORY: High-risk screening. This [...] a workstation with 3D post processing and [employer] was utilized. FINDINGS: Parenchymal breast pattern: Scattered [...] CREATININE - POCT INTERFACED (01/09/2024 8:29 AM ROUTE AIDE) Creatinine POCT 0.47 0.30 - 1.30 mg/dL 01/09/2024 8:31 AM [facility] eGFR >90 >=90 mL/min/1.7 3 m2 01/09/2024 8:31 AM [facility] Blood BLOOD SPECIMEN / Unknown 01/09/2024 8:29 AM ROUTE AIDE 01/09/2024 8:31 AM ROUTE AIDE Alison Carmona MD LAB - POINT OF CARE ORDERABLES [address] [phone], [facility] [phone] documented in this encounter Visit Diagnoses Diagnosis Family history of breast cancer in mother Family history of malignant neoplasm of breast documented in this encounter Administered Medications Inactive Administered Medications - up to 3 most recent administrations Medication Order MAR Action Action Date Dose Rate Site gadoterate meglumine (Dotarem/Clariscan) injection Intravenous, CONTRAST ONCE, Starting on 01/09/24 at 0839, Until Tue01/10/24 at 0121 $ Given - Contrast 01/09/2024 8:52 AM ROUTE AIDE 16 mL documented in this encounter Care Teams Gas Controller Relationship Specialty Start Date End Date Gilberto Gupta MD [address] [place] [phone] PCP - General Family Medicine 11/02/23 documented as of this encounter
--- OUTSIDE RECORDS SUMMARY | 2024-02-21 01:55 | XMS_ITS | Encounter Summary ---
Author Organization [facility] Address [address] [facility] [place] [address] Care Team Providers Care Information Specialist Name Role Phone Beryl Lynch MD Primary Care Provider [phone] Reason for Visit * Reason Comments Establish Care 3 month follow up Encounter Details Date Type Department Care Team (Late st Contact Info) Description 07/27/2023 1:45 PM CDT Office Visit [facility] - Urology [address] [place] [phone] Dionte Mccoy MD Urge incontinence (Primary Dx); JANIE (stress urinary incontinence, female) Social History Tobacco Use Types Packs/Day Years [...] on file documented as of this encounter Last Filed Vital Signs Vital Sign Reading Time Taken Comments Blood Pressure 125/67 07/27/2023 1:37 PM CDT Pulse 85 07/27/2023 1:37 PM CDT Temperature 36.4 ??C (97.5 ??F) 07/27/2023 1:37 PM CD T Respiratory Rate - - Oxygen Saturation 99% 07/27/2023 1:37 PM CDT Inhaled Oxygen Concentration - - Weight 85.3 kg (188 lb) 07/27/2023 1:37 PM CDT Height 160 cm (5' 3 ) 07/27/2023 1:37 PM CDT Body Mass Index 33.3 07/27/2023 1:37 PM CDT documented in this encounter Patient Instructions * Patient Instructions* Geraldo Hector MD - 07/27/2023 2:01 PM CDT You were seen today for incontinence. You empty your bladder well Continue kegel exercises Continue Ditropan 10mg xL daily Please make appointment in 1 year with Vida Ortiz NP. Call back sooner with any issues or if you would like to change around medications! documented in this encounter Progress Notes * Geraldo Hector MD - 07/27/2023 2:03 PM CDT [facility] Division of Urologic Surgery Dionte Mccoy MD Date of Visit: 07/27/2023 Patient Name: Monae Celaya : 1990 Medical Record: [id number] Contact (home) Age: [age] year old Sex: female Referring Physician: No referring provider defined for this encounter. Chief Complaint: OAB History of Present Illness: Monae Celaya is a 33 year old female seen previously with complaints of urge incontinence (typically after laugh) that had been an issue for her since childhood. Also had some mild janie, but thiswas not bothersome to her. She elected for medical treatment last visit - magda written for jeannette dominguez, eventually ended up on ditropan xl 10 mg daily. Here for f/u. Last seen 04/2023. Incontinence has resolved. Minimal dry mouth only side effect. Still with some urgency and a sensation of incomplete emptying at times, but overall she is currently happy with treatment. No new issues. Continues to work on kegel exercises as well. Has hx of hysterectomy and she has recovered well from this. PVR today 50cc Past Medical History; Past Medical History: Diagnosis Date Anxiety Depression Family history of breast cancer in mother Past Surgical History: Past Surgical History: Procedure Laterality Date BIOPSY BREAST Left 2019 Benign MRI BREAST LEFT BIOPSY Left 10/24/2019 MRI BREAST LEFT BIOPSY 10/24/2019 [facility] MRI MRI BREAST RIGHT BIOPSY Right 10/22/2020 MRI BREAST RIGHT BIOPSY 10/22/[address] [facility] MRI Current Medications: Current Outpatient Medications Medication Sig Dispense Refill busPIRone (BUSPAR) 10 MG tablet Take 1 (one) tablet by mouth 2 times daily escitalopram (LEXAPRO) 20 MG tablet Take 1 (one) tablet by mouth once daily levonorgestrel (MIRENA) 20 MCG/24HR IUD 1 (one) device by Intrauterine route as directed (Patient not taking: Reported on 04/27/2023) oxyBUTYnin CR 24hr (Ditropan-XL) 10 MG tablet Take 1 (one) tablet by mouth once daily 90 tablet 3 ziprasidone (GEODON) 20 MG capsule Take 1 (one) capsule by mouth 2 times daily with morning and evening meal No current facility-administered medications for this visit. Allergies; Keflex [cephalexin] and Bactrim ds Family History: Family History Problem Relation Name Age of Onset Cancer - Breast Mother 61 Bilateral breast cancer, underwent bilateral mastectomies 2017 Alcohol abuse Mother CAD (Coronary Artery Disease) Father Hypertension Father Cancer - Breast Maternal Grandmother 50 Cancer - Lung Maternal Grandfather CAD (Coronary Artery Disease) Paternal Grandfather Cancer - Breast Other Breast cancer in 2 maternal great aunts, 2 maternal second cousins, and paternal great aunts as well Cancer - Breast Paternal Aunt 50 BRCA+ Cancer - Breast Maternal Aunt 42 Cancer - Ovarian Paternal Aunt BRCA+ Diabetes - Type 2 Paternal Aunt Hypertension Paternal Aunt Other - Genetic Cousin Paternal cousin, no cancer, carrier of BRCA gene CAD (Coronary Artery Disease) Paternal Uncle Fam history is noncontributory to this problem. Social History: Social History Socioeconomic History Marital status: Single Spouse name: Not on file Number of children: Not on file Years of education: Not on file Highest education level: Not on file Occupational History Not on file Tobacco Use Smoking status: Every Day Packs/day: 1.00 Years: 11.00 Additional pack years: 0.00 Total pack years: 11.00 Types: Cigarettes Smokeless tobacco: Never Vaping Use Vaping Use: Some days Substance and Sexual Activity Alcohol use: Yes Alcohol/week: 5.0 standard drinks of alcohol Types: 5 Cans of beer per week Comment: socially Drug use: No Sexual activity: Not on file Other Topics Concern Not on file Social History Narrative Not on file Social Determinants of Health Financial Resource Strain: Not on file Food Insecurity: Not on file Transportation Needs: Not on file Stress: Not on file Housing Stability: Not on file Review of Systems: See above Physical Exam: Vital Signs: BP 125/67 (BP Location: Left arm, Patient Position: Sitting) Pulse 85 Temp 97.5 ??F (36.4 ??C) (Temporal) Ht 1.6 m (5' 3 ) Wt 85.3 kg (188 lb) SpO2 99% Gen - WN, WD female in NAD HEENT - NC/AT, EOMI Chest - normal respiratory rate and effort Abd - nondistended Ext - no c/c/e Skin - no rash/erythema noted, good skin turgor Neuro - normal gait, normal speech, A&Ox3 PVR with bladder scanner 50cc Diagnosis: OAB (urgency, urge incontinence, sensation of incomplete emptying) Recommendations: Overall doing well. JANIE now resolved UUI also resolved. For her feelings of incomplete emptying, explained that she empties her bladder well and she likely has some residual urgency/frequency post-void. Offered no intervention, or can increase to Ditropan 15mg xL, knowing that she may have increased anticholinergic side effects Elects to keep same regimen. RTC in 1 year. Call back sooner with any issues. Geraldo Hector MD 07/27/2023 2:03 PM Associated attestation - Dionte Mccoy MD - 07/27/2023 2:11 PM CDT Pt seen/examined. Agree with resident documentation. Pt with mixed incontinence, urge>stress. Has resolved with kegels and introduction of a low dose anticholinergic. Happy with current results. Does have a sensation of incomplete emptying, but pvr is minimal by bladder scan. Discussed with her that this sensation is also a feature of OAB - we could increase her medication at the expense of more side effects (as well as actually causing and increase in pvr). Pt elects for no change at this time. May follow up with urology [employer] in one year. 20 min total spent in patient encounter to include review of records, assessment and counseling of patient, and documentation of patient visit. Dionte Mccoy MD documented in this encounter Plan of Treatment Upcoming Encounters Date Type Department Care Team (Late st Contact Info) Description 03/05/2024 1:00 PM CLINICAL APPLICATION CONSULTANT Office Visit [facility] - Urology [address] [facility] [place] [phone] Joshua Del Angel PA [address] [place] [phone] documented as of this encounter Visit Diagnoses Diagnosis Urge incontinence- Primary JANIE (stress urinary incontinence, female) Female stress incontinence documented in this encounter Care Teams Information Specialist Relationship Specialty Start Date End Date Beryl Lynch MD [address] [place] [id number] PCP - General 09/06/18 11/01/23 documented as of this encounter
--- OUTSIDE RECORDS SUMMARY | 2024-02-21 01:55 | XMS_ITS | Clinical Summary ---
Author Organization [facility] Address [address] [place] [address] Care Team Providers Care Optical Fabricator Name Role Phone Gilberto Gupta MD Primary Care Provider [phone] Source Comments [facility],non-owned Affiliates and Associated Physician Practices is amultiple site organization consisting of ambulatory clinics and hospital sitesin [place], [place], [place] and [place]. This disclosure is being madepursuant to the Care Everywhere program and may not contain all information available regarding this patient. Last updated 17.[facility] Allergies Active Allergy Reactions Criticality Noted Date Comments Bactrim Ds Rash Medium 04/27/2023 Cephalexin Other 06/28/2022 Causes UTI Medications * Be aware that medications may not be up to date on this document. Alwaysverify current medications with the patient. Medication Sig Dispensed Refills Start Date End Date Status busPIRone (BUSPAR) 10 MG tablet Take 1 (one) tablet by mouth 2 times daily 08/28/2018 Active ziprasidone (GEODON) 20 MG capsule Take 1 (one) capsule by mouth 2 times daily with morning and evening meal 08/31/2018 Active escitalopram (LEXAPRO) 20 MG tablet Take 1 (one) tablet by mouth once daily 02/24/2019 Active levonorgestrel (MIRENA) 20 MCG/24HR IUD 1 (one) device by Intrauterine route as directed Active oxyBUTYnin CR 24hr (Ditropan-XL) 10 MG tablet Take 1 (one) tablet by mouth once daily 90 tablet 3 07/27/2023 Active Active Problems Problem Noted Date Diagnosed Date Anxiety 09/06/2018 Depressive disorder 09/06/2018 Bilateral nipple discharge 09/06/2018 Family history of breast cancer in mother Encounters Date Type Department Care Team Description 01/09/2024 8:08 AM TRANSPORTATION DEPARTMENT HEAD - 01/09/2024 11:59 PM [facility] Hospital Encounter [facility] MRI [address] [place] [address] Alison Carmona MD Discharge Disposition: Home or Self Care 01/09/2024 Travel from Last 3 Months Family History Medical History Relation Name Comments Other - Genetic Cousin Paternal cou sin, no cancer, carrier of BRCA gene CAD (Coronary Artery Disease) Father Hypertension Father Cancer - Breast Maternal Aunt Cancer - Lung Maternal Grandfather Cancer - Breast Maternal Grandmother Alcohol abuse Mother Cancer - Breast Mother Bilateral br east cancer, underwent bilateral mastectomies 2017 Cancer - Breast Other Breast cance r in 2 maternal great aunts, 2 maternal second cousins, and paternal great aunts as well Cancer - Breast Paternal Aunt 1 BRCA+ Cancer - Ovarian Paternal Aunt 2 BRCA+ Diabetes - Type 2 Paternal Aunt 2 Hypertension Paternal Aunt 2 CAD (Coronary Artery Disease) Paternal Grandfather CAD (Coronary Artery Disease) Paternal Uncle Relation Name Status Comments Cousin Father Maternal Aunt Maternal Grandfather Maternal Grandmother Mother Alive Other Paternal Aunt 1 Paternal Aunt 2 Paternal Grandfather Paternal Uncle Social History Tobacco Use Types Packs/Day Years [...] T Respiratory Rate 19 01/26/2023 2:34 PM TRANSPORTATION DEPARTMENT HEAD Oxygen Saturation 99% 07/27/2023 1:37 PM CDT Inhaled Oxygen Concentration - - Weight 85.3 kg (188 lb) 07/27/2023 1:37 PM CDT Height 160 cm (5' 3 ) 07/27/2023 1:37 PM CDT Body Mass Index 33.3 07/27/2023 1:37 PM CDT Plan of Treatment Upcoming Encounters Date Type Department Care Team (Late st Contact Info) Description 03/05/2024 1:00 PM TRANSPORTATION DEPARTMENT HEAD Office Visit [facility] - Urology [address] [facility] [place] [address] Joshua Del Angel PA [address] [place] [address] Health Maintenance Due Date Last Done Comments PAP SMEAR 1989 PNEUMOCOCCAL VACCINE (1 of 2 - PCV) 06/18/1995 HIV SCREENING 2004 HEPATITIS C SCREENING 06/13/2007 DTAP/TDAP/TD VACCINES (1 - Tdap) 2008 HEPATITIS B VACCINE (1 of 3 - 19+ 3-dose series) 2008 DEPRESSION SCREENING 03/07/2023 COVID-19 VACCINE ( - 2023-2 5 season) 2023 INFLUENZA VACCINE (#1) 2023 ZOSTER VACCINE (1 of 2) 06/18/2039 HIB VACCINE Aged Out No longer eligi ble based on patient's age to complete this topic HPV VACCINE Aged Out No longer eligi ble based on patient's age to complete this topic MENINGOCOCCAL VACCINE Aged Out No erum soraya eligible based on patient's age to complete this topic Medical Devices Implanted Type Area Carpenter And Joiner Device Identifier Shelf Expiration Date Model / Serial / Lot Mrkr Mri Gd Rgd Trimark Brstbio Cork Ti Implanted:Qty: 1 on 10/22/2020 by Sneha Buckley MD at [facility] Right: Breast [employer] 11/12/2021 TRIMARK TD 13MR / / [id number] Procedures Procedure Name Priority Date/Time Associated Diagnosis Comments MRI BREAST BILAT SCREENING WWO Routine 01/09/2024 9:03 AM TRANSPORTATION DEPARTMENT HEAD Family history of breast cancer in mother CREATININE - POCT INTERFACED Routine 01/09/2024 8:29 AM TRANSPORTATION DEPARTMENT HEAD from Last 3 Months Results * MRI BREAST BILAT SCREENING WWO (01/09/2024 9:03 AM TRANSPORTATION DEPARTMENT HEAD) Anatomical Region Laterality Modality Breast Bilateral Magnetic Resonan ce 01/09/2024 9:38 AM TRANSPORTATION DEPARTMENT HEAD Impressions 01/09/2024 9:56 AM TRANSPORTATION DEPARTMENT HEAD IMPRESSION: No bilateral breast MRI evidence of [...] 01/09/2024 9:56 AM Narrative 01/09/2024 9:56 AM TRANSPORTATION DEPARTMENT HEAD EXAM: ??BILATERAL SCREENING BREAST MRI WITH AND WITHOUT CONTRAST WITH DYNACAD ANALYSIS LOCATION: [facility] EXAM DATE: ??01/09/2024 HISTORY: High-risk screening. [...] a workstation with 3D post processing and [employer] was utilized. FINDINGS: Parenchymal breast pattern: Scattered [...] CREATININE - POCT INTERFACED (01/09/2024 8:29 AM TRANSPORTATION DEPARTMENT HEAD) Creatinine POCT 0.47 0.30 - 1.30 mg/dL 01/09/2024 8:31 AM TRANSPORTATION DEPARTMENT HEAD [facility] eGFR >90 >=90 mL/min/1.7 3 m2 01/09/2024 8:31 AM TRANSPORTATION DEPARTMENT HEAD [facility] Blood BLOOD SPECIMEN / Unknown 01/09/2024 8:29 AM TRANSPORTATION DEPARTMENT HEAD 01/09/2024 8:31 AM TRANSPORTATION DEPARTMENT HEAD Alison Carmona MD LAB - POINT OF CARE ORDERABLES [address] [address], [facility] [phone] from Last 3 Months Care Teams Optical Fabricator Relationship Specialty Start Date End Date Gilberto Gupta MD [address] [place] [address] [phone] PCP - General Family Medicine 11/02/23
--- OUTSIDE RECORDS SUMMARY | 2024-02-21 01:55 | XMS_ITS | Referral Summary ---
Author Organization [facility] Address [address] [facility] [place] [address] Care Team Providers Care Rivet Machine Operator Name Role Phone Gilberto Gupta MD Primary Care Provider [phone]- [phone] [facility],non-owned Affiliates and Associated Physician Practices is amultiple site organization consisting of ambulatory clinics and hospital sitesin [place], [place], [place] and [place]. This disclosure is being madepursuant to the Care Everywhere program and may not contain all information available regarding this patient. Last updated 17.[facility] Encounters Date Type Department Care Team Description 01/09/2024 Travel 01/09/2024 8:08 AM METROLOGY ENGINEER - 01/09/2024 11:59 PM [facility] Hospital Encounter [facility] [address] [place] [address] Alison Carmona MD Discharge Disposition: Home or Self Care from Last 3 Months Allergies Active Allergy Reactions Criticality Noted Date [...] T Respiratory Rate 19 01/26/2023 2:34 PM METROLOGY ENGINEER Oxygen Saturation 99% 07/27/2023 1:37 PM CDT Inhaled Oxygen Concentration - - Weight 85.3 kg (188 lb) 07/27/2023 1:37 PM CDT Height 160 cm (5' 3 ) 07/27/2023 1:37 PM CDT Body Mass Index 33.3 07/27/2023 1:37 PM CDT Plan of Treatment Upcoming Encounters Date Type Department Care Team (Late st Contact Info) Description 03/05/2024 1:00 PM METROLOGY ENGINEER Office Visit [facility] - Urology [address] [facility] [place] [address] Joshua Del Angel PA [address] [place] [address] Medical Devices Implanted Type Area Limousine And Hearse Upholsterer Device Identifier Shelf Expiration Date Model / Serial / Lot Mrkr Mri Gd Rgd Trim[employer] Brst[employer] Cork Ti Implanted:Qty: 1 on 10/22/2020 by Sneha Buckley MD at [facility] Right: Breast [employer] 11/12/2021 TRIMARK TD 13MR / / [id number] Procedures Procedure Name Priority Date/Time Associated Diagnosis Comments MRI BREAST BILAT SCREENING WWO Routine 01/09/2024 9:03 AM METROLOGY ENGINEER Family history of breast cancer in mother CREATININE - POCT INTERFACED Routine 01/09/2024 8:29 AM METROLOGY ENGINEER from Last 3 Months Results * MRI BREAST BILAT SCREENING WWO (01/09/2024 9:03 AM METROLOGY ENGINEER) Anatomical Region Laterality Modality Breast Bilateral Magnetic Resonan ce 01/09/2024 9:38 AM METROLOGY ENGINEER Impressions 01/09/2024 9:56 AM METROLOGY ENGINEER IMPRESSION: No bilateral breast MRI evidence of [...] 01/09/2024 9:56 AM Narrative 01/09/2024 9:56 AM METROLOGY ENGINEER EXAM: ??BILATERAL SCREENING BREAST MRI WITH AND WITHOUT CONTRAST WITH DYNACAD ANALYSIS LOCATION: [facility] EXAM DATE: ??01/09/2024 HISTORY: High-risk screening. This [...] a workstation with 3D post processing and [employer] was utilized. FINDINGS: Parenchymal breast pattern: Scattered [...] CREATININE - POCT INTERFACED (01/09/2024 8:29 AM METROLOGY ENGINEER) Creatinine POCT 0.47 0.30 - 1.30 mg/dL 01/09/2024 8:31 AM METROLOGY ENGINEER [facility] eGFR >90 >=90 mL/min/1.7 3 m2 01/09/2024 8:31 AM [facility] Blood BLOOD SPECIMEN / Unknown 01/09/2024 8:29 AM METROLOGY ENGINEER 01/09/2024 8:31 AM METROLOGY ENGINEER Alison Carmona MD LAB - POINT OF CARE ORDERABLES Performing Organization Address City/State/[facility] Co de Phone Number [facility] [address] [place] [address], [facility] [phone] from Last 3 Months Care Teams Rivet Machine Operator Relationship Specialty Start Date End Date Gilberto Gupta MD [address] [place] [address] [phone] PCP - General Family Medicine 11/02/23
--- OUTSIDE RECORDS SUMMARY | 2024-02-21 01:56 | XMS_ITS | Encounter Summary ---
Author Organization [facility] Address [address] [facility] [address] Care Team Providers Care Fish Hatchery Supervisor Name Role Phone Beryl Lynch MD Primary Care Provider [phone] Reason for Referral * Radiology Services (Routine) - Closed Specialty Diagnoses / Procedures Referred By Contmaile t Referred To Contact Mammography Diagnoses Increased risk of breast cancer Procedures MRI BREAST BILAT WWO CONTRAST Alison Carmona MD [address] [phone] [facility] Op [address] [place] [address] Referral ID Status Reason Start Date Expiration Date Visits Re quested Visits Authorized [id number] Closed 09/29/2020 03/24/2021 1 1 Reason for Visit * Reason Comments Breast Problem Increased lifetime r isk breast cancer Encounter Details Date Type Department Care Team (Late st Contact Info) Description 06/02/2020 10:30 AM CDT Office Visit [facility] Surgery [address] [place] [address] Alison Carmona MD [address] [facility] [place] [address] [address] Increased risk of breast cancer (Primary Dx) Social History Tobacco Use Types Packs/Day Years Used Date Smoking Tobacco: Every Day Cigarettes 1 11 Smokeless Tobacco: Never Alcohol Use Standard Drinks/Week Comments Yes 5 (1 standard drink = 0.6 oz pur e alcohol) denies daily drinking Sex and Gender Information Value Date Recorded Sex Assigned at Not on file Gender Identity Not on file Sexual Orientation Not on file COVID-19 Exposure Response Date Recorded In the last month, have you been in contact with someone who was confirmed or suspected to have Coronavirus / COVID-19? No / Unsure 05/08/2020 2:31 PM PHYSICAL TESTING SUPERVISOR documented as of this encounter Last Filed Vital Signs Vital Sign Reading Time Taken Comments Blood Pressure 123/79 06/02/2020 10:30 AM CDT Pulse 68 06/02/2020 10:30 AM CDT Temperature 36.7 ??C (98.1 ??F) 06/02/2020 10:30 AM C DT Respiratory Rate - - Oxygen Saturation 99% 06/02/2020 10:30 AM CDT Inhaled Oxygen Concentration - - Weight 83.9 kg (185 lb) 06/02/2020 10:30 AM CDT Height 157.5 cm (5' 2 ) 06/02/2020 10:30 AM CDT Body Mass Index 33.84 06/02/2020 10:30 AM CDT documented in this encounter Patient Instructions * Patient Instructions* Tracie Duran RN - 06/02/2020 11:12 AM CDT Follow up with Dr. Carmona in September 2020, before visit with Dr. Carmona. documented in this encounter Progress Notes * Alison Carmona MD - 06/02/2020 10:30 AM CDT Patient Name: Monae Celaya : 1990 Chief Complaint Patient presents with ??? Breast Problem Increased lifetime risk breast cancer HISTORY OF PRESENT ILLNESS: Monae Celaay is a 29 year old female with elevated lifetime risk of breast cancer (estimated 34%) who presents for 6 month follow up. Last visit was 11/[address] Fleming in 12/2019 to discuss reconstruction following prophylactic mastectomies. They discussed the need to stop smoking prior to undergoing surgery. She has had a very stressful few months and is still smoking. She has also not been unable to undergo genetic testing. Today she has no new breast masses, nipple discharge, or skin changes. She is very excited about her upcoming trip to [place] to surprise her daughter for her birthday in June! She presents today for clinical exam, bilateral mammogram and ultrasound and high risk surveillance visit.. ALLERGIES: No Known Allergies PAST MEDICAL HISTORY: Past Medical History: Diagnosis Date ??? Anxiety ??? Depression ??? Family history of breast cancer in mother PAST SURGICAL HISTORY: Past Surgical History: Procedure Laterality Date ??? BIOPSY BREAST Left 2019 Benign ??? MRI BREAST LEFT BIOPSY Left 10/24/2019 MRI BREAST LEFT BIOPSY 10/24/2019 [facility] MRI MEDICATIONS: Current Outpatient Medications Medication Sig Dispense Refill ??? busPIRone (BUSPAR) 10 MG tablet Take 10 mg by mouth 2 times daily ??? escitalopram (LEXAPRO) 20 MG tablet Take 1 tablet by mouth once daily ??? levonorgestrel (MIRENA) 20 MCG/24HR IUD 1 device by Intrauterine route as directed ??? ziprasidone (GEODON) 20 MG capsule Take 20 mg by mouth 2 times daily with morning and evening meal FAMILY HISTORY: Family History Problem Relation Name Age of Onset ??? Cancer - Breast Mother 61 Bilateral breast cancer, underwent bilateral mastectomies 2017 ??? Alcohol abuse Mother ??? CAD (Coronary Artery Disease) Father ??? Hypertension Father ??? Cancer - Breast Maternal Grandmother 50 ??? Cancer - Lung Maternal Grandfather ??? CAD (Coronary Artery Disease) Paternal Grandfather ??? Cancer - Breast Other Breast cancer in 2 maternal great aunts, 2 maternal second cousins, and paternal great aunts as well ??? Cancer - Breast Paternal Aunt 50 BRCA+ ??? Cancer - Breast Maternal Aunt 42 ??? Cancer - Ovarian Paternal Aunt BRCA+ ??? Diabetes - Type 2 Paternal Aunt ??? Hypertension Paternal Aunt ??? Other - Genetic Cousin Paternal cousin, no cancer, carrier of BRCA gene ??? CAD (Coronary Artery Disease) Paternal Uncle SOCIAL HISTORY: Social History Tobacco Use ??? Smoking status: Current Every Day Smoker Packs/day: 1.00 Years: 11.00 Pack years: 11.00 Types: Cigarettes ??? Smokeless tobacco: Never Used Substance Use Topics ??? Alcohol use: Yes Alcohol/week: 5.0 standard drinks Types: 5 Cans of beer per week Comment: denies daily drinking ??? Drug use: No GYNECOLOGIC HISTORY: Menarche at age??11 Menopause at age??- premenopausal ??with first delivery at age 23 History of ???Yes for 3.5 months History of OCP use???Yes from age [age], then used NuvaRing from age [age]. Now with IUD after of daughter. History of HRT use???no REVIEW OF SYSTEMS See HPI PHYSICAL EXAM BP 123/79 (BP SITE: LEFT ARM, BP POSITION: SITTING, BP CUFF SIZE: 10) Pulse 68 Temp 98.1 ??F (36.7 ??C) (Temporal) Ht 5' 2 (1.575 m) Wt 185 lb (83.9 kg) SpO2 99% BMI 33.84 kg/m2 General: alert, cooperative, in no distress Eyes: conjunctiva and lids normal ENT/Mouth: neck supple, no visible oral lesions Respiratory: unlabored respirations CV: regular heart rate Abd: soft, non-tender, non-distended Musculoskeletal: warm with no deformities On breast exam in both the upright and supine positions, she has symmetrical breasts that are of normal contour and shape. No dominant masses in either breast. No nipple retraction or discharge. No cervical, supraclavicular or axillary lymphadenopathy bilaterally. RADIOLOGY REVIEW: Bilateral diagnostic mammogram and ultrasound 06/02/2020 -- no mammographic or sonographic evidence of malignancy BIRADS-2 Bilateral breast MRI 09/18/2019: Right: Somewhat irregular appearing mass in the outer right breast adjacent to a vascular structurenear 10:00 at middle depth Left: Segmental non-mass enhancement in the upper central left breast near 12:00 at anterior depth,measures approximately 3.5x1.5cm BIRADS-4b ?? Bilateral diagnostic mammogram 09/24/2019: Right: Focal asymmetry in the upper outer breast with partial fat density Left: No mammographic correlate for MRI findings BIRADS-3 ?? Bilateral breast ultrasound 09/24/2019: Right: Mammographic asymmetry in the upper outer right breast with 1cm area of echogenicity likely represents hematoma. Recommend ultrasound in 6-8 weeks to evaluate for resolution Left: No sonographic correlate BIRADS-3 ?? Right breast ultrasound 11/20/2019: Resolution of right breast hematoma BIRADS-2 PATHOLOGY: MRI guided biopsy of left breast 10/24/2019: Benign breast tissue (concordant) DIAGNOSIS: 29 year old female with increased lifetime risk of breast cancer estimated at 34% PLAN: -- All pertinent records and reports available to me reviewed and summarized -- She has no concerning findings today on clinical exam -- Mammogram and ultrasound from today were reviewed and there were no suspicious findings identified (BIRADS-2). -- I sent a message to Dr Evelyn Cordero for her to have genetic testing -- We again reviewed high risk screening with twice yearly clinical exams and yearly mammograms andbreast MRIs. We also discussed surgical risk reduction again. She is interested in prophylactic surgery and we discussed the goal of smoking cessation. She is motivated to stop smoking and will work towards complete cessation this summer -- Screening breast MRI due 09/2020 -- Return to clinic in September 2020 for clinical exam and breast MRI -- She can see Dr. Fleming at that time as well as she cancelled her upcoming appointment since she is still smoking -- She understands to call to return sooner if she notices any changes or with any other questions or concerns. 40 minutes were spent in review of records, evaluation, review of imaging, treatment, counseling, and documentation. Alison Carmona MD 06/02/2020 5:40 PM documented in this encounter Plan of Treatment Upcoming Encounters Date Type Department Care Team (Late st Contact Info) Description 03/05/2024 1:00 PM PHYSICAL TESTING SUPERVISOR Office Visit [facility] - Urology [address] [facility] [place] [address] Joshua Del Angel PA [address] [place] [address] documented as of this encounter Results * (ABNORMAL) MRI BREAST BILAT WWO CONTRAST (10/02/2020 8:41 AM CDT) Anatomical Region Laterality Modality Breast Bilateral Magnetic Resonan ce 10/02/2020 10:0 7 AM CDT Impressions 10/02/2020 12:05 PM CDT IMPRESSION: 1. New 0.3 cm enhancing ??rounded focus in the lower outer quadrant of the right breast with progressive enhancement curve is at a low-level suspicion for malignancy. 2. Bilateral breast MRI and axillary MRI is otherwise unremarkable. No abnormality in the left axillary region. RECOMMENDATION: ??Follow-up right breast ultrasound with attention to the MRI findings. ??If no abnormalities identified on ultrasound, then MRI guided biopsy of the right breast is recommended, given her family history. I discussed the breast MRI findings and recommendations with the patient and Dr. Carmona following the exam. The ultrasound will be done today. Left breast MRI: ??BI-RADS category: 2: Benign Right breast MRI: ??BI-RADS category: 4: Suspicious (subset category 4A: Low suspicion for malignancy) OVERALL ASSESSMENT: ??BI-RADS CATEGORY 4: SUSPICIOUS. (SUBSET CATEGORY 4A: LOW SUSPICION FOR MALIGNANCY). This report was electronically signed by CORNELIA NEAL M.D. ??on 10/02/2020 12:05 PM . Narrative 10/02/2020 12:05 PM CDT EXAM: ??BILATERAL DIAGNOSTIC BREAST MRI WITH AND WITHOUT CONTRAST WITH DYNACAD ANALYSIS DATE OF EXAM: ??10/02/2020 8:41 AM HISTORY: ?Family history of breast cancer. Elevated lifetime risk of developing breast cancer. Of note, patient reports possible enlarged lymph node under the left arm. Family history of breast cancer in her mother at age 62. Family history of BRCA gene mutation and a paternal aunt. Last menstrual period: Unknown per the patient COMPARISON: ?? Prior breast MRI scan 09/18/2019 and 09/21/2018. Also compare with a mammogram 09/24/2019. ? CONTRAST: ??8 cc IV Gadavist. TECHNICAL INFORMATION: ??Study performed on a 3.0 Saritha magnet. A breast coil was utilized. ??Bilateral axial T1 and axial STIR images, followed by 3D axial T1 fat sat images precontrast and 5 postcontrasted 3D axial fat sat series dynamically. ??Subtraction was performed on all postcontrast images. ??Images were reviewed on a workstation with 3D post processing and [employer] was utilized. FINDINGS: Parenchymal breast pattern: Scattered fibroglandular tissue. Background parenchymal enhancement: Moderate ?Enhancement is Symmetric. Right breast: ??In the lower outer quadrant, best seen on the axial images at table position -51.14 and -52.74 is a tiny 0.3 cm focus of enhancement with benign appearing progressive enhancement curve. This is approximately proximally 6 cm from the nipple in the mid to posterior depth of the breast. This is not noted on the prior to breast MRI scans. Remainder of the breast MRI scan is unremarkable. No enlarged axillary lymph nodes. Left breast: ??No suspicious enhancement or evidence of malignancy. No enlarged axillary lymph nodes. No abnormality noted in the left axillary region were patient feels possible prominent lymph node. Alison Carmona MD MR ORDERABLES documented in this encounter Visit Diagnoses Diagnosis Increased risk of breast cancer- Primary Other specified personal history presenting hazards to health Increased risk of breast cancer Other specified personal history presenting hazards to health documented in this encounter Care Teams Fish Hatchery Supervisor Relationship Specialty Start Date End Date Beryl Lynch MD [address] [place] [id number] PCP - General 09/06/18 11/01/23 documented as of this encounter
--- OUTSIDE RECORDS SUMMARY | 2024-02-21 01:56 | XMS_ITS | Encounter Summary ---
Author Organization [facility] Address [address] [facility] [place] [address] Care Team Providers Care Exchange Floor Manager Name Role Phone Beryl Lynch MD Primary Care Provider [phone] Reason for Visit * Reason Onset Date Comments Results 02/09/2023 Encounter Details Date Type Department Care Team (Late st Contact Info) Description 02/09/2023 Telephone [facility] - Genetics [address] [place] [address] Gia Mclaughlin GC [address] [place] [address] Results Social History Tobacco Use Types Packs/Day Years [...] on file documented as of this encounter Miscellaneous Notes * Telephone Encounter - Gia Mclaughlin GC - 02/09/2023 3:25 PM CST LVM requesting call back to discuss genetic test results. Provided my direct line for call back. Gia Mclaughlin, MS, [facility] Genetic Counselor DESIGNER documented in this encounter Plan of Treatment Upcoming Encounters Date Type Department Care Team (Late st Contact Info) Description 03/05/2024 1:00 PM UX DESIGNER Office Visit [facility] - Urology [address] [facility], [place] [phone] Joshua Del Angel PA [address] [place] [phone] documented as of this encounter Visit Diagnoses Not on filedocumented in this encounter Care Teams Exchange Floor Manager Relationship Specialty Start Date End Date Beryl Lynch MD [address] [place] [address] PCP - General 09/06/18 11/01/23 documented as of this encounter
--- OUTSIDE RECORDS SUMMARY | 2024-02-21 01:56 | XMS_ITS | Encounter Summary ---
Author Organization [facility] Address [address] [facility] [place] [address] Care Team Providers Care Mobility Scooter Repairer Name Role Phone Beryl Lynch MD Primary Care Provider [phone] Reason for Visit * Reason Onset Date Comments Follow-up 10/25/2019 Encounter Details Date Type Department Care Team (Late Contact Info) Description 10/25/2019 Telephone [facility] Breast Care [address] [facility] [address] [place] [address] Swapna Jenkins, TAMMY Follow-up Social History Tobacco Use Types Packs/Day Years [...] have Coronavirus / COVID-19? No / Unsure 10/05/2019 2:27 PM CDT documented as of this encounter Plan of Treatment Upcoming Encounters Date Type Department Care Team (Late Contact Info) Description 03/05/2024 1:00 PM IT PROGRAM ENGAGEMENT DIRECTOR Office Visit [facility] - Urology [address] [place] [phone] Joshua Del Angel PA [address] [place] [address] documented as of this encounter Visit Diagnoses Not on filedocumented in this encounter Care Teams Mobility Scooter Repairer Relationship Specialty Start Date End Date Beryl Lynch MD [address] [place], [place] [id number] PCP - General 09/06/18 11/01/23 documented as of this encounter
--- OUTSIDE RECORDS SUMMARY | 2024-02-21 01:56 | XMS_ITS | Encounter Summary ---
Author Organization [facility] Address [address] [place] [address] Care Team Providers Care E Commerce Architect Name Role Phone Beryl Lynch MD Primary Care Provider [phone] Reason for Referral * Consultation (Routine) - Closed Specialty Diagnoses / Procedures Referred By Wagner rosado Referred To Contact Diagnoses Family history of breast cancer in mother Alison Carmona MD [address] [place] [address] Gia Mclaughlin, [address] [place] [address] Referral ID Status Reason Start Date Expiration Date V isits Requested Visits Authorized [id number] Closed Specialty Services Required 12/27/2022 12/27/2023 1 1 Scheduling Instructions Increased risk. NOT urgent. * Radiology Services (Routine) - Closed Specialty Diagnoses / Procedures Referred By Wagner rosado Referred To Contact Mammography Diagnoses Family history of breast cancer in mother Procedures MAMMO BILAT SCREENING W Alison Evans MD [address] [place] [address] [facility] [place] [address] [place] [id number] Referral ID Status Reason Start Date Expiration Date Visits Re quested Visits Authorized [id number] Closed 12/27/2022 12/27/2023 1 1 Reason for Visit * Reason Comments Follow-up Increased lifetime r isk of breast cancer Encounter Details Date Type Department Care Team (Late st Contact Info) Description 12/27/2022 10:00 AM CDT Office Visit [facility] - General Surgery [address] [place] [address] Alison Carmona MD [address] [facility] [place] [address] Family history of breast cancer in mother (Primary Dx) Social History Tobacco Use Types [...] Sign Reading Time Taken Comments Blood Pressure 121/68 12/27/2022 8:46 AM CDT Pulse 85 12/27/2022 8:46 AM CDT Temperature 36.6 ??C (97.9 ??F) 12/27/2022 8:46 AM CD T Respiratory Rate - - Oxygen Saturation 99% 12/27/2022 8:46 AM CDT Inhaled Oxygen Concentration - - Weight 83.9 kg (185 lb) 12/27/2022 8:46 AM CDT Height 157.5 cm (5' 2 ) 12/27/2022 8:46 AM CDT Body Mass Index 33.84 12/27/2022 8:46 AM CDT documented in this encounter Progress Notes * Alison Carmona MD - 12/27/2022 10:00 AM CDT Patient Name: Monae Celaya : 1990 CC: Increased lifetime risk of breast cancer Chief Complaint Patient presents with ??? Follow-up Increased lifetime risk of breast cancer HISTORY OF PRESENT ILLNESS: Monae Celaya is a 32 year old female with elevated lifetime risk of breast cancer (estimated 34%). She underwent right MRI guided biopsy on 10/22/2020 -- this showed benign breast tissue (concordant). Last visit was 06/28/2022. Today she has no breast masses, nipple discharge, or skin changes. She still has left axillary pain.She mentioned that she wants to proceed with genetic testing and would like a referral. Also said she is calling her director of social work because she thinks she might be entering early menopause. She presents today for clinical exam, breast MRI, and high risk surveillance visit. ALLERGIES: Allergies Allergen Reactions ??? Keflex [Cephalexin] Other Causes UTI PAST MEDICAL HISTORY: Past Medical History: Diagnosis Date ??? Anxiety ??? Depression ??? Family history of breast cancer in mother PAST SURGICAL HISTORY: Past Surgical History: Procedure Laterality Date ??? BIOPSY BREAST Left 2019 Benign ??? MRI BREAST LEFT BIOPSY Left 10/24/2019 MRI BREAST LEFT BIOPSY 10/24/2019 [facility] MRI ??? MRI BREAST RIGHT BIOPSY Right 10/22/2020 MRI BREAST RIGHT BIOPSY 10/22/2020 [facility] MRI MEDICATIONS: Current Outpatient Medications Medication Sig Dispense Refill ??? busPIRone (BUSPAR) 10 MG tablet Take 1 (one) tablet by mouth 2 times daily ??? escitalopram (LEXAPRO) 20 MG tablet Take 1 (one) tablet by mouth once daily ??? levonorgestrel (MIRENA) 20 MCG/24HR IUD 1 (one) device by Intrauterine route as directed ??? ziprasidone (GEODON) 20 MG capsule Take 1 (one) capsule by mouth 2 times daily with morning andevening meal FAMILY HISTORY: Family History Problem Relation [...] Social History Tobacco Use ??? Smoking status: Every Day Packs/day: 1.00 Years: 11.00 Additional pack years: 0.00 Total pack years: 11.00 Types: Cigarettes ??? Smokeless tobacco: Never Vaping Use ??? Vaping Use: Some days Substance Use Topics ??? Alcohol use: Yes Alcohol/week: 5.0 standard drinks of alcohol Types: 5 Cans of beer per week Comment: socially ??? Drug use: No GYNECOLOGIC HISTORY: Menarche at age??11 Menopause at age??- premenopausal ??with first delivery at age 23 History of ???Yes for 3.5 months History of OCP use???Yes from age [age], then used NuvaRing from age [age]. Now with IUD after of daughter. History of HRT use???no REVIEW OF SYSTEMS See HPI PHYSICAL EXAM (stable except as noted) BP 121/68 Pulse 85 Temp 97.9 ??F (36.6 ??C) Ht 1.575 m (5' 2 ) Wt 83.9 kg (185 lb) SpO2 99% General: alert, cooperative, in no distress Eyes: conjunctiva and lids normal ENT/Mouth: neck supple, no visible oral lesions Respiratory: unlabored respirations CV: regular heart rate Musculoskeletal: warm with no deformities On breast exam in both the upright and supine positions, she has symmetrical breasts that are of normal contour and shape. No dominant masses in either breast -- dense tissue in the lateral bilateralbreasts with tenderness in the left upper outer breast. No nipple retraction or discharge. No cervical, supraclavicular or axillary lymphadenopathy bilaterally. RADIOLOGY REVIEW: Bilateral breast MRI 12/27/2022 -- marked background enhancement; no suspicious areas of enhancement. BIRADS-2 DIAGNOSIS: 32 year old female with increased lifetime risk of breast cancer estimated at 34% PLAN: -- All pertinent records and reports available to me reviewed and summarized -- She has no suspicious findings on clinical exam -- Bilateral breast MRI performed today reviewed and shows no suspicious findings (BIRADS-2) -- Referral placed to genetics -- Will continue high risk screening with twice yearly clinical exams and yearly mammograms and breast MRIs. -- Return to clinic in 6 months for clinical exam and mammogram -- She understands that she can call to return at any time with any other questions or concerns 30 minutes were spent in review of records, evaluation, treatment, counseling, and documentation. Alison Carmona MD 12/27/2022 7:26 PM documented in this encounter Plan of Treatment Upcoming Encounters Date Type Department Care Team (Late st Contact Info) Description 03/05/2024 1:00 PM GENERATOR OPERATOR STRAIGHT BEVEL GEAR Office Visit [facility] - Urology [address] [facility] [place] [address] Joshua Del Angel PA [address] [place] [phone] Scheduled Referrals Name Type Priority Associated Diagnoses Order Schedule AMB REFERRAL TO GENETICS Outpatient Referral Routine Family history of breast cancer in mother 1 Occurrences starting 12/27/2022 until 12/28/2023 documented as of this encounter Results * MAMMO BILAT SCREENING W ALANNA (06/27/2023 9:15 AM CDT) Anatomical Region Laterality Modality Breast Bilateral Mammography 06/27/2023 9:19 AM CDT Impressions 06/27/2023 9:32 AM CDT : ??Benign mammogram, without evidence of malignancy. RECOMMENDATION: ?? 1. Screening mammography in one year, pending no interval breast concerns. 2. Annual screening breast MRI is recommended, given the elevated lifetime risk of breast cancer of greater than 20%, according to the [place] [employer] guidelines. Her next exam is due in December 2023. Patient notified of results at time of exam and has an appointment with Dr. Carmona in the breast clinic today. OVERALL ASSESSMENT: BI-RADS CATEGORY 2: BENIGN. This study was dictated by vice president of nursing Eric Barkley MD and reviewed and edited by the attending. Joey Dickson DO (resident) participated in interpretation of this study. I, Sneha Buckley MD have personally reviewed and interpreted this examination/study. > Interpreting Provider: Sneha Buckley MD on 06/27/2023 9:32 AM Narrative 06/27/2023 9:32 AM CDT EXAMINATIONS: ??BILATERAL DIGITAL SCREENING MAMMOGRAM AND BILATERAL BREAST TOMOSYNTHESIS WITH CAD LOCATION: [facility] EXAM DATE: ??06/27/2023 HISTORY: ??Screening. Patient has [...] cancer greater than 20%, consultation in the [facility] Breast Surgery [facility] Risk [facility] is recommended. Should she wish to schedule an appointment, the phone number [phone]. The [place] [employer] recommends annual screening breast MRI [...] the prior. Alison Carmona MD MAMMO ORDERABLES documented in this encounter Visit Diagnoses Diagnosis Family history of breast cancer in mother- Primary Family history of malignant neoplasm of breast Family history of breast cancer in mother Family history of malignant neoplasm of breast documented in this encounter Care Teams E Commerce Architect Relationship Specialty Start Date End Date Beryl Lynch MD [address] [place] [address] PCP - General 09/06/18 11/01/23 documented as of this encounter
--- OUTSIDE RECORDS SUMMARY | 2024-02-21 01:56 | XMS_ITS | Encounter Summary ---
Author Organization [facility] Address [address] [place] [address] Care Team Providers Care Molding Utility Worker Name Role Phone Beryl Lynch MD Primary Care Provider Reason for Referral * Consultation (Routine) - Closed Specialty Diagnoses / Procedures Referred By Wagner rosado Referred To Contact Diagnoses Family history of breast cancer in mother Alison Carmona MD [address] [place] [address] Gia Mclaughlin, [address] [place] [address] Referral ID Status Reason Start Date Expiration Date V isits Requested Visits Authorized [id number] Closed Specialty Services Required 12/27/2022 12/27/2023 1 1 Scheduling Instructions Increased risk. NOT urgent. IT ADMINISTRATION SPECIALIST Reason for Visit * Consultation (Routine) - Closed Specialty Diagnoses / Procedures Referred By Wagner rosado Referred To Contact Diagnoses Family history of breast cancer in mother Alison Carmona MD [address] [place] [address] Gia Mclaughlin [address] [place] [address] Referral ID Status Reason Start Date Expiration Date V isits Requested Visits Authorized [id number] Closed Specialty Services Required 12/27/2022 12/27/2023 1 1 Encounter Details Date Type Department Care Team (Latest Contact Info) Description 01/13/2023 10:19 AM CREDIT ADMINISTRATION SPECIALIST - 01/13/2023 11:59 PM CREDIT ADMINISTRATION SPECIALIST Hospital Encounter [facility] Breast Care [address] [place], [place] [phone] Discharge Disposition: Home or Self Care Social [...] (one) device by Intrauterine route as directed ziprasidone (GEODON) 20 MG capsule Take 1 (one) capsule by mouth 2 times daily with morning and evening meal 08/31/2018 documented as of this encounter Progress Notes * Gia Mcalughlin, - 01/13/2023 12:55 PM CST NAME: Monae Celaya : 1990 DATE SEEN: 01/13/2023 SITE: [facility], [facility]Telehealth Cancer Genetic Counseling Evaluation Reason for Referral: Monae Celaya is a 32 yo woman with a family history of breast cancers. She was referred to discuss her genetic testing options related to this history. Pertinent Medical History: First period occurred at age 11. She is with at age 23, and she did breastfeed x6 months. She is premenopausal with uterus and ovaries intact. She did take OCPs x4-5 years in her teens. Most recent mammogram was completed in 06/2022, and most recent breast MRI was completed in 12/2022, both wn. Following with Dr. Carmona for high risk breast cancer status. Prior history of benign breast biopsy x2 (left in 2019 and right in 2020). She has 1 drink/week on average and has smoked 1ppd x11 years including currently. Family History: Complete pedigree is in Medical Genetics file. Patient-reported cancer history is provided below. Children One daughter (8) without cancers Siblings One brother (39) without cancers or GT Maternal Mother-- breast cancer dx 61, now 66 with h/o negative GT ~5 years ago Aunt--breast cancer dx 39, d.40 no GT Grandmother--breast cancer dx >50, d.69 Great aunt--possible breast cancer dx >50 First cousin once-removed--breast cancer dx >50 with h/o negative GT ~10 years ago Grandfather--lung cancer dx 64, d.64 Paternal Father--no cancers, 67 Aunt--breast cancer dx 61, now 70 with h/o BRCA1 mutation, now s/p andrade MTx and DREW/BSO Cousin--no cancers, 40s with BRCA1 mutation now s/p andrade MTx Aunt--ovarian cancer dx >50, now in 70s with dementia, unsure if genetic testing Grandmother (d.93), grandfather (d.41), and one uncle (79) without histories of cancer or GT No other known history of autism, defects, GI polyps, benign tumors, cancers diagnosed <50, or genetic testing for hereditary cancer risk. No known consanguinity or Jainism ancestry. Assessment/Genetic Counseling Monae Celaya is a 32 year old woman with a paternal family history of breast and ovarian cancersand a reported BRCA1 mutation, as well as a maternal family history of breast cancer and negative genetic testing 5+ years ago in multiple affected relatives. She meets criteria for genetic testing of hereditary breast cancer risk genes (NCCN v2.2024) based on these histories. We discussed that genetic testing is indicated for Monae first and foremost because of the reported mutation in the paternal history, and we discussed that it would be helpful to obtain a copy ofone of her relatives test results to share with the testing lab. We discussed that if Monae is positive, this would confirm obligate carrier status for her father, and it was recommended that sheconsider discussing this possibility with him, as well as how it may impact family dynamics should this be information that he does not want to know for himself. Risks and management recommendations for BRCA1 mutation carriers were discussed today. Regarding the maternal family history, we discussed that the negative results could suggest that those cancers are multifactorial in nature or that they are due to a genetic cause that could not be identified on genetic testing at the time that it was completed due to limitations in technology or knowledge at that time. We discussed that updated testing could potentially reveal a mutation that was missed by older technology, though this is a small chance, or that a mutation could be identified in a gene that was not included on previous testing. It is typically recommended to begin genetic testing with an individual in the family who has had cancer, and this would generally include recommend ations for updated testing as well, however, given that Monae is already recommended to undergotesting due to her paternal history, we can pursue a panel with RNA analysis and all of the genes currently known to be associated with breast cancer. In the event that a mutation to explain the maternal history is not identified, it would be helpful to review a copy of her mother???s test result to determine if her mother may still benefit from updated testing to potentially clarify if she carries something that was not passed to Monae. In the event that Monae???s testing is completelynegative and a mutation is not identified in maternal relatives, her breast management would continue to be based on family history. We discussed the pros and cons of multi-gene testing. For most of the included genes, a positive result would impact medical management. This information may also help to better define risk to other family members. Limitations of multi- gene panels include uncertainty regarding level of risk and current lack of medical management guidelines for some of the included genes, as well as an increased chance of identifying variants of uncertain significance or unanticipated results. We also discussed that the Genetic Information Nondiscrimination Act ([place]) is federal legislation that prohibits health insurance and employment discrimination on the basis of genetic information ora genetic test result. However, [place] does not cover life, disability, or fpc care insurance. Monae opted to move forward with genetic testing. The genetic testing lab???s billing policy was discussed. A test requisition and directions to the [facility] facility, contracted with [facility] to provide blood draws with genetic testing with RNA analysis will be sent via email. Plan: 1. Genetic testing with the [facility] Multi-Cancer panel with RNA analysis 2. Monae to work on obtaining results from paternal aunt or cousin and mother 3. TAT is 3-4 weeks from date of sample submission. I will call with results when available, and additional genetic counseling will be provided at that time. Gia Mclaughlin MS, [facility] Genetic Counselor Today's visit was conducted virtually. The patient has given verbal consent to have today's visit conducted virtually and understands the risks, benefits and alternatives associated with telemedicine. Patient location: home This encounter was performed using: audio/video Total time spent on visit on date of encounter is: 60 minutes were spent with the patient, >50% of which were spent on education and counseling. IT ADMINISTRATION SPECIALIST documented in this encounter Plan of Treatment Upcoming Encounters Date Type Department Care Team (Late st Contact Info) Description 03/05/2024 1:00 PM CREDIT ADMINISTRATION SPECIALIST Office Visit [facility] - Urology [address] [facility] [place] [phone] Joshua Del Angel PA [address] [place] [phone] Scheduled Referrals Name Type Priority Associated Diagnoses Order Schedule AMB REFERRAL TO GENETICS Outpatient Referral Routine Family history of breast cancer in mother 1 Occurrences starting 01/13/2023 until 01/13/2023 documented as of this encounter Visit Diagnoses Diagnosis Family history of breast cancer in mother Family history of malignant neoplasm of breast documented in this encounter Care Teams Molding Utility Worker Relationship Specialty Start Date End Date Beryl Lynch MD [address] [place] [address] PCP - General 09/06/18 11/01/23 documented as of this encounter
--- OUTSIDE RECORDS SUMMARY | 2024-02-21 01:56 | XMS_ITS | Encounter Summary ---
Author Organization [facility] Address [address] [facility] [address] Care Team Providers Care Poultry Cutter Name Role Phone Beryl Lynch MD Primary Care Provider [phone] Reason for Visit * Reason Onset Date Comments MEDICATION REFILL 02/02/2023 Encounter Details Date Type Department Care Team (Late st Contact Info) Description 02/02/2023 Telephone [facility] - [facility] [place] [address] Angelita Liang LPN MEDICATION REFILL Social History Tobacco Use Types Packs/Day Years [...] as of this encounter Miscellaneous Notes * Addendum Note - Zuleima Goodrich RN - 02/04/2023 7:54 AM CSTAddended by: ZULEIMA GOODRICH on: 02/04/2023 07:54 AM Modules accepted: Orders HERIZATION AND HOUSING INSPECTOR * Telephone Encounter - Angelita Liang LPN - 02/02/2023 10:33 AM WEATHERIZATION AND HOUSING INSPECTOR Prior auth for myrbetriq has been denied. Patient would like to try another anticholinergic. Request to provider HERIZATION AND HOUSING INSPECTOR documented in this encounter Plan of Treatment Upcoming Encounters Date Type Department Care Team (Late st Contact Info) Description 03/05/2024 1:00 PM WEATHERIZATION AND HOUSING INSPECTOR Office Visit [facility] - Urology [address] [facility] [place] [address] Joshua Del Angel PA [address] [place] [address] documented as of this encounter Visit Diagnoses Not on filedocumented in this encounter Care Teams Poultry Cutter Relationship Specialty Start Date End Date Beryl Lynch MD [address] [place] [address] PCP - General 09/06/18 11/01/23 documented as of this encounter
--- OUTSIDE RECORDS SUMMARY | 2024-02-21 01:56 | XMS_ITS | Encounter Summary ---
Author Organization [facility] Address [address] [facility] [place] [address] Care Team Providers Care Guide Visitor Name Role Phone Beryl Lynch MD Primary Care Provider [phone] Reason for Referral * Radiology Services (Routine) - Closed Specialty Diagnoses / Procedures Referred By Contac t Referred To Contact MRI Diagnoses Increased risk of breast cancer Lump or mass in breast Procedures MRI BREAST LEFT BIOPSY Alison Carmona MD [address] [place] [address] Referral ID Status Reason Start Date Expiration Date Visits Re quested Visits Authorized [id number] Closed 09/28/2019 09/27/2020 2 2 Reason for Visit * Radiology Services (Routine) - Closed Specialty Diagnoses / Procedures Referred By Contac t Referred To Contact MRI Diagnoses Increased risk of breast cancer Lump or mass in breast Procedures MRI BREAST LEFT BIOPSY Alison Carmona MD [address] [facility] [place] [address] Referral ID Status Reason Start Date Expiration Date Visits Re quested Visits Authorized [id number] Closed 09/28/2019 09/27/2020 2 2 Encounter Details Date Type Department Care Team (Latest Contact Info) Description 10/24/2019 7:45 AM CDT - 10/24/2019 9:55 AM CDT Hospital Encounter [facility] Health Imaging Services - MRI [address] [place] [address] Alison Carmona MD [address] [facility] [place] [address] Discharge Disposition: Home or Self Care Social [...] PM CDT documented as of this encounter Last Filed Vital Signs Vital Sign Reading Time Taken Comments Blood Pressure 123/71 10/24/2019 8:35 AM CDT Pulse 82 10/24/2019 8:35 AM CDT Temperature 37 ??C (98.6 ??F) 10/24/2019 8:35 AM CDT Respiratory Rate 16 10/24/2019 8:35 AM CDT Oxygen Saturation - - Inhaled Oxygen Concentration - - Weight - - Height - - Body Mass Index - - documented in this encounter Discharge Instructions * Discharge Instructions* Swapna Jenkins RN - 10/24/2019 9:58 AM CDT Why am I receiving these instructions? The following instructions are intended to help you care for yourself after an image-guided breast needle biopsy. What to expect after biopsy ??? You received local anesthesia (numbing medicine) during your biopsy today. This will usually last for about 1-2 hours and then will wear off. It is normal to feel increased pain, soreness, or tenderness after the numbing medicine has worn off. ??? A small amount of continued bleeding at the biopsy site can be normal. Apply pressure to the area with the palm of your hand for 10 minutes at a time. ??? You may feel a lump at the biopsy site, even if you did not feel one before. This is usually because there is a small bruise inside your breast. ??? Bruising of the breast, even away from where the biopsy was done, can be normal. ??? If you had a biopsy of your breast near the nipple, you may see some bloody nipple discharge. Biopsy site care A very small incision was made in your skin during the biopsy. To help your incision heal, you may have either Steri-strips (small pieces of tape) or skin adhesive at your biopsy site. If you have Steri-strips: ??? After 24 hours you may remove the gauze dressing (the cloth bandage over the Steri-strips) and shower. ??? Steri-strips should remain on until they fall off (usually about 5-10 days). The ends may curl up but do not pull them off. ??? Avoid scrubbing them. ??? Avoid using any lotions or lanolin-based soaps at the site of the steri- strips. The use of these products will cause the Steri-strips to come off prematurely. If you have skin glue: ??? You may shower in 24 hours. ??? The site should not be scrubbed or soaked until after the film has fallen off naturally and thebiopsy site has completely healed. ??? The film will usually fall/slough off in about 5 to 10 days. Activity In general, try to take it easy after your breast biopsy and increase your activity level as you feel able. ??? Use the ice pack that was given to you. Place it over the biopsy site for 15-20 minutes at a time several times today then if needed for swelling and tenderness. ??? Wear a supportive bra for 24 hours (like a sports bra) if comfortable. ??? Try not to do anything strenuous (running, aerobics, etc) for several days. ??? Avoid submerging area of biopsy in swimming pool, hot tub, ronquillo or river for approximately 10 days . Okay to do once steri-stips/glue area is healed (closed). Diet You may resume your usual diet as before your breast biopsy. Medication ??? Take Acetaminophen (Tylenol) or Ibuprofen as needed: follow package directions how to take themthe rest of today. ??? Please ask your doctor or nurse when to begin taking anticoagulants (blood thinners) if you areon these. ??? You may continue the rest of your home medications as you normally would. Results The results of your biopsy are generally available in 2-4 business days. You will be called by either your doctor or our Nurse Navigator with the results of your biopsy when they are available. At that time, you will also be advised of any further follow-up needed or when you should return for yournext breast imaging examination. If you have not received a call with results in 6 business days, please call our office. When to call your doctor If you experience any of the following, you should call our office: Nurse Navigator ??? Temperature greater than 101.5 . You may take Tylenol for mild fever lower than that. ??? Bleeding at biopsy site that does not stop with holding pressure for 10 minutes at a time, for a total of 2 hours. Post-biopsy mammogram As part of your procedure today, a mammogram was done to determine that the clip we placed was positioned correctly. This clip placement was discussed with you at the time of your biopsy procedure. The mammogram today is to document clip placement and does not take the place of your yearly mammogram. We are required by [place] law to inform you of the following information: If your mammogram demonstrates that you have dense breast tissue, which could hide abnormalities, and you have other risk factors for breast cancer that have been identified, you might benefit from supplemental screening tests that may be suggested by your ordering physician. Dense breast tissue, in and of itself, is a relatively common condition. A report of your mammography results will be sent to you and your physician. You should contact your physician if you have any questions or concerns regarding this report. Swapna Jenkins RN [phone] documented in this encounter Medications at Time of Discharge [...] as of this encounter Progress Notes * Swapna Jenkins RN - 10/24/2019 8:15 AM CDT Manual pressure applied to incision site for an additional 5 minutes due to oozing of blood. Final outcome - no redness, drainage or hematoma. Adhesive dressing and ice pack applied. Patient tolerated procedure without complaints. Discharge instructions reviewed with patient and a copy given to her. documented in this encounter Plan of Treatment Upcoming Encounters Date Type Department Care Team (Late st Contact Info) Description 03/05/2024 1:00 PM PROGRAMMER OPERATOR NUMERICAL CONTROL Office Visit [facility] - Urology [address] [facility] [place] [address] Joshua Del Angel PA [address] [place] [phone] documented as of this encounter Procedures Procedure Name Priority Date/Time Associated Diagnosis Comments MRI BREAST LEFT BIOPSY Routine 10/24/2019 9:45 AM CDT Increased risk of breast cancer Lump or mass in breast PATHOLOGY TISSUE EXAM (STL) Routine 10/24/2019 9:20 AM CDT Increased risk of breast cancer Lump or mass in breast CREATININE BLOOD - POINT OF CARE (IP) Routine 10/24/2019 8:15 AM CDT Lump or mass in breast documented in this encounter Results * MRI BREAST LEFT BIOPSY (10/24/2019 9:45 [...] recommended for diagnostic mammogram and ultrasound report [facility] 09/24/2019. Patient was informed of these findings [...] most recently bilateral diagnostic mammogram and ultrasound [facility] breast Center 09/24/2019 and [facility] breast MRI 09/18/2019 TECHNIQUE: ??Sagittal T1 weighted [...] most recently bilateral diagnostic mammogram and ultrasound [facility] breast Center 09/24/2019 and [facility] breast MRI 09/18/2019 TECHNIQUE: Sagittal T1 weighted [...] Case Report Surgical Pathology Report ? Case: [id number] ? Authorizing Provider: ??Alison Carmona MD ? Collected: ? 10/24/2019 09:20 AM ? Ordering Location: ? [facility] ? Received: ?10/24/2019 10:31 AM ? Pathologist: ? Majo Sabillon MD ? Specimen: ?Breast, Left MRI guided Breast biopsy ? 10/26/2019 3:30 PM CDT [facility] Final Diagnosis Breast, left, biopsy (A): - Benign breast tissue 10/26/2019 3:30 PM CDT [facility] Clinical History The patient is a 29-year-old female who underwent breast biopsy of a left non-mass enhancement in a high risk female. 10/26/2019 3:30 PM CDT [facility] Gross Description Received in one container for gross and microscopic examination, labeled with the patient's name, Monae Celaya, and left MRI guided breast are multiple fragments of yellow-white fibrofatty breast tissue measuring 3.5 x 2.0 x 0.3 cm in aggregate. The specimen is submitted entirely in cassette A1. KH/ns Breast specimen processing times for specimen A. The specimen is collected from the patient at 9:20 am on 10/24/2019 and placed in formalin immediately thereafter. Total cold ischemia time is less than 1 minute. Total formalin fixation time is 9 hours 40 minutes. 10/26/2019 3:30 PM CDT [facility] Microscopic Description Sections of the breast biopsy specimen show benign breast tissue without microcalcifications or proliferative breast epithelium. 10/26/2019 3:30 PM CDT [facility] Disclaimer All histochemical and/or immunohistochemical results are interpreted with controls that demonstrate appropriate staining reactions before reporting results. Note on use of immunocytochemistry reagents: This test was developed and its performance characteristic determined by [facility], Department of Laboratory Medicine. [...] with caution. 10/26/2019 3:30 PM CDT [facility] Embedded Images 10/26/2019 3:30 PM CDT [facility] Pathology/Cytolo gy ENTIRE BREAST / Unknown 10/24/2019 9:20 AM CDT 10/24/2019 10:31 AM CDT Alison Carmona MD LAB - PATHOLOGY/CYT OLOGY ORDERABLES [facility] [address] [place] [address] * (ABNORMAL) CREATININE BLOOD - POINT OF CARE (IP) (10/24/2019 8:15 AM CDT) Creatinine POCT 0.63(A) 0.7 - 1.2 mg/dL [facility] QC Verified Yes Yes HC POC T TESTING Blood BLOOD SPECIMEN / Unknown 10/24/2019 8:15 AM CDT Alison Carmona MD LAB - POINT OF CARE ORDERABLES [facility] POCT TESTING [address] [phone] documented in this encounter Visit Diagnoses Diagnosis Increased risk of breast cancer Other specified personal history presenting hazards to health Lump or mass in breast documented in this encounter Administered Medications Inactive Administered Medications - up to 3 most recent administrations Medication Order MAR Action Action Date Dose Rate Site gadoterate meglumine (DOTAREM) injection Intravenous, CONTRAST ONCE, Starting on Tue10/24/19 at 1000, Until Tue10/25/19 at 0121 $ Given 10/24/2019 10:01 AM CDT 19 mL documented in this encounter Care Teams Guide Visitor Relationship Specialty Start Date End Date Beryl Lynch MD [address] [place] [address] PCP - General 09/06/18 11/01/23 documented as of this encounter
--- OUTSIDE RECORDS SUMMARY | 2024-02-21 01:56 | XMS_ITS | Encounter Summary ---
Author Organization [facility] Address [address] [facility] [place] [address] Care Team Providers Care Supervisor Harvesting Name Role Phone Beryl Lynch MD Primary Care Provider [phone] Reason for Visit * Radiology Services (Routine) - Closed Specialty Diagnoses / Procedures Referred By Contac t Referred To Contact Mammography Diagnoses Abnormal MRI, breast Procedures US BREAST BILATERAL LTD US BREAST RIGHT LTD US BREAST BILATERAL LTD Alison Carmona MD [address] [place] [address] [facility] [address] Breast [facility] Op [address] [place] [address] Referral ID Status Reason Start Date Expiration Date Visits Re quested Visits Authorized [id number] Closed 09/18/2019 09/17/2020 1 1 Encounter Details Date Type Department Care Team (Latest Contact Info) Description 09/24/2019 1:08 PM CDT Hospital Encounter [facility] [address] [place] [address] Alison Carmona MD [address] [place] [address] Discharge Disposition: Home or Self [...] or suspected to have Coronavirus / COVID-19? Unable to assess 09/19/2019 7:45 AM CDT documented as of this encounter Medications at [...] st Contact Info) Description 03/05/2024 1:00 PM AUTOCLAVE OPERATOR Office Visit [facility] - Urology [address] [facility] [place] [address] Joshua Del Angel PA [address] [place] [phone] documented as of this encounter Procedures Procedure Name Priority Date/Time Associated Diagnosis Comments US BREAST BILATERAL LTD Routine 09/24/2019 1:56 PM CDT Abnormal MRI, breast documented in this encounter Results * US BREAST BILATERAL LTD (09/24/2019 1:56 PM CDT) Anatomical Region Laterality Modality Breast Bilateral [...] Dr. Raymundo. Dictated by Emili Lopes MD (fixed income trading vice president). I, Dr. MARIE RAYMUNDO M.D. have personally reviewed and interpreted this examination/study. This report was electronically signed by MARIE RAYMUNDO M.D. ??on 09/24/2019 2:21 PM . Narrative 09/24/2019 2:21 PM CDT BILATERALLY DIAGNOSTIC MAMMOGRAM BILATERAL LIMITED BREAST ULTRASOUND TECHNIQUE: Images were performed using 3D tomosynthesis images with reconstructed/synthetic 2D images. ??CAD analysis was performed. The operating room surgical technologist performed limited sonographic evaluation of the [...] seen on spot compressed craniocaudal 3-D slice and spot compressed mediolateral oblique 3-D slice [...] in the left breast. Alison Carmona MD ORDERABLES documented in this encounter Visit Diagnoses Diagnosis Abnormal MRI, breast Other (abnormal) findings on radiological examination of breast documented in this encounter Care Teams Supervisor Harvesting Relationship Specialty Start Date End Date Beryl Lynch MD [address] [place] [address] PCP - General 09/06/18 11/01/23 documented as of this encounter
--- OUTSIDE RECORDS SUMMARY | 2024-02-21 01:56 | XMS_ITS | Encounter Summary ---
Author Organization [facility] Address [address] [facility] [place] [address] Care Team Providers Care Telephone Maintenance Mechanic Name Role Phone Beryl Lynch MD Primary Care Provider [phone] Encounter Details Date Type Department Care Team (Latest Contact Info) Description 11/20/2019 Travel Social History Tobacco Use Types Packs/Day [...] have Coronavirus / COVID-19? Unable to assess 11/20/2019 9:27 AM CDT documented as of this encounter Plan of Treatment Upcoming Encounters Date Type Department Care Team (Late st Contact Info) Description 03/05/2024 1:00 PM AMPOULE FILLER AND SEALER Office Visit [facility] U[facility] [address] [facility] [place] [address] Joshua Del Angel PA [address] [place] [phone] documented as of this encounter Visit Diagnoses Not on filedocumented in this encounter Care Teams Telephone Maintenance Mechanic Relationship Specialty Start Date End Date Beryl Lynch MD [address] [place] [address] PCP - General 09/06/18 11/01/23 documented as of this encounter
--- OUTSIDE RECORDS SUMMARY | 2024-02-21 01:56 | XMS_ITS | Encounter Summary ---
Author Organization [facility] Address [address] [facility] [place] [address] Care Team Providers Care Planer Setup Operator Name Role Phone Beryl Lynch MD Primary Care Provider [phone] Reason for Visit * Reason Onset Date Comments Scheduling 10/05/2019 Encounter Details Date Type Department Care Team (Late st Contact Info) Description 10/05/2019 Telephone [facility] Breast Care [address] [facility] [address] [place], [place] [id number] Swapna Jenkins, RN Scheduling Social History Tobacco Use Types Packs/Day Years [...] PM CDT documented as of this encounter Patient Instructions * Patient Instructions* Swapna Jenkins RN - 10/05/2019 2:30 PM CDT Pt scheduled for MRI Left Breast Biopsy on 10/24/19 at 0815. Pt was tested Covid negative but is currently under quarantine till 10/15/19. Pt understands she will be screened for Covid day of procedureand will need to wear a mask while here. Explained procedure and all questions answered. Pt to eat,take medications and wear a supportive bra day of procedure. Given my contact information for any fu rther questions. documented in this encounter Plan of Treatment Upcoming Encounters Date Type Department Care Team (Late st Contact Info) Description 03/05/2024 1:00 PM SUPERVISOR CAR INSTALLATIONS Office Visit [facility] - Urology [address] [facility], [place] [address] Joshua Del Angel PA [address] [place] [address] documented as of this encounter Visit Diagnoses Not on filedocumented in this encounter Care Teams Planer Setup Operator Relationship Specialty Start Date End Date Beryl Lynch MD [address] [place] [address] PCP - General 09/06/18 11/01/23 documented as of this encounter
--- OUTSIDE RECORDS SUMMARY | 2024-02-21 01:56 | XMS_ITS | Encounter Summary ---
Author Organization [facility] Address [address] [facility] [place] [address] Care Team Providers Care Buncher Machine Name Role Phone Beryl Lynch MD Primary Care Provider Reason for Referral * Radiology Services (Routine) - Closed Specialty Diagnoses / Procedures Referred By Contmaile t Referred To Contact Mammography Diagnoses Family history of breast cancer in mother Procedures US BREAST BILATERAL COMPLETE Alison Carmona MD [address] [place] [address] [facility] Op [address] [place] [address] Referral ID Status Reason Start Date Expiration Date Visits Re quested Visits Authorized [id number] Closed 11/20/2019 11/19/2020 1 1 Reason for Visit * Radiology Services (Routine) - Closed Specialty Diagnoses / Procedures Referred By Contac t Referred To Contact Mammography Diagnoses Family history of breast cancer in mother Procedures US BREAST BILATERAL COMPLETE Alison Carmona MD [address] [place] [address] [facility] Breast Center Op [address] [place] [address] Referral ID Status Reason Start Date Expiration Date Visits Re quested Visits Authorized [id number] Closed 11/20/2019 11/19/2020 1 1 Encounter Details Date Type Department Care Team (Latest Contact Info) Description 06/02/2020 9:11 AM CDT - 06/02/2020 11:59 PM CDT Hospital Encounter [facility] [address] [place] [address] Alison Carmona MD [address] [place] [address] Discharge Disposition: Home or Self Care Social [...] COVID-19? No / Unsure 05/08/2020 2:31 PM CORPORATE ETHICS OFFICER documented as of this encounter Medications at [...] st Contact Info) Description 03/05/2024 1:00 PM CORPORATE ETHICS OFFICER Office Visit [facility] - Urology [address] [place] [address], [facility] [place] [phone] Joshua Del Angel PA [address] [place] [address] documented as of this encounter Procedures Procedure Name Priority Date/Time Associated Diagnosis Comments US BREAST BILATERAL COMPLETE Routine 06/02/2020 10:18 AM CDT Family history of breast cancer in mother documented in this encounter Results * US BREAST BILATERAL COMPLETE (06/02/2020 10:18 [...] BENIGN. This report was electronically signed by CORNELIA NEAL M.D. ??on 06/02/2020 10:20 AM . [...] Risk 15-19%; High Risk > 20%). The [place] [employer] recommends MRI screening in addition to mammograms for women who are at increased risk. The patient has been notified and given information for the [facility], should she [...] left axillary lymph nodes. Alison Carmona MD ORDERABLES documented in this encounter Visit Diagnoses Diagnosis Family history of breast cancer in mother Family history of malignant neoplasm of breast documented in this encounter Care Teams Buncher Machine Relationship Specialty Start Date End Date Beryl Lynch MD [address] [place] [address] PCP - General 09/06/18 11/01/23 documented as of this encounter
--- OUTSIDE RECORDS SUMMARY | 2024-02-21 01:56 | XMS_ITS | Encounter Summary ---
Author Organization [facility] Address [address] [facility] [place] [address] Care Team Providers Care Concrete Pump Operator Name Role Phone Beryl Lynch MD Primary Care Provider [phone] Reason for Visit * Reason Onset Date Comments Appointment 10/01/2019 Encounter Details Date Type Department Care Team (Late st Contact Info) Description 10/01/2019 Telephone [facility] General Surgery [address] [place] [address] Tracie Guthrie, RN Appointment Social History Tobacco Use Types Packs/Day Years [...] have Coronavirus / COVID-19? Unable to assess 10/01/2019 12:13 PM CDT documented as of this encounter Miscellaneous Notes * Telephone Encounter - Tracie Duran RN - 10/01/2019 12:20 PM CDT Message left for pt regarding appointments scheduled on 11/13/19. She is scheduled at 1pm in the breast imaging center for right breast short term follow up and visit with Dr. Carmona at 2:15 to follow. Pt is aware that she will receive a call from Swapna at [place] with a date and time for left breast MRI guided biopsy. documented in this encounter Plan of Treatment Upcoming Encounters Date Type Department Care Team (Late st Contact Info) Description 03/05/2024 1:00 PM CLINICAL RESOURCE DIRECTOR Office Visit [facility] - Urology [address] [facility] [place] [address] Joshua Del Angel PA [address] [place] [phone] documented as of this encounter Visit Diagnoses Not on filedocumented in this encounter Care Teams Concrete Pump Operator Relationship Specialty Start Date End Date Beryl Lynch MD [address] [place] [address] PCP - General 09/06/18 11/01/23 documented as of this encounter
--- OUTSIDE RECORDS SUMMARY | 2024-02-21 01:56 | XMS_ITS | Encounter Summary ---
Author Organization [facility] Address [address] [facility] [place] [address] Care Team Providers Care Scheduling Analyst Name Role Phone Beryl Lynch MD Primary Care Provider [phone] Encounter Details Date Type Department Care Team (Latest Contact Info) Description 10/02/2020 Travel Social History Tobacco Use Types Packs/Day [...] have Coronavirus / COVID-19? No / Unsure 10/02/2020 7:42 AM CDT documented as of this encounter Plan of Treatment Upcoming Encounters Date Type Department Care Team (Late st Contact Info) Description 03/05/2024 1:00 PM PETROLEUM GEOLOGY FACULTY MEMBER Office Visit [facility] - Urology [address] [facility], [facility] [place] [address] Joshua Del Angel PA [address] [place] [phone] documented as of this encounter Visit Diagnoses Not on filedocumented in this encounter Care Teams Scheduling Analyst Relationship Specialty Start Date End Date Beryl Lynch MD [address] [place] [address] PCP - General 09/06/18 11/01/23 documented as of this encounter
--- OUTSIDE RECORDS SUMMARY | 2024-02-21 01:56 | XMS_ITS | Encounter Summary ---
Author Organization [facility] Address [address] [place] [address] Care Team Providers Care Lime Hide Inspector Name Role Phone Beryl Lynch MD Primary Care Provider [phone] Reason for Referral * Radiology Services (Routine) - Closed Specialty Diagnoses / Procedures Referred By Wagner rosado Referred To Contact Mammography Diagnoses Family history of breast cancer in mother Procedures MAMMO BILAT SCREENING W Alison Evans MD [address] [address] [facility] Op [address] [place] [address] Referral ID Status Reason Start Date Expiration Date Visits Re quested Visits Authorized [id number] Closed 11/23/2021 11/23/2022 1 1 Reason for Visit * Reason Comments Follow-up Encounter Details Date Type Department Care Team (Late st Contact Info) Description 11/23/2021 11:30 AM CDT Office Visit [facility] Surgery [address] [place] [address] Alison Carmona MD [address] [place] [address] [place] [address] Family history of breast cancer [...] Exposure Response Date Recorded In the last 10 days, have doe u been in contact with someone who was confirmed or suspected to have Coronavirus/COVID-19? No / Unsure 11/23/2021 12:30 PM CDT documented as of this encounter Last Filed Vital Signs Vital Sign Reading Time Taken Comments Blood Pressure 119/76 11/23/2021 11:38 AM CDT Pulse 66 11/23/2021 11:38 AM CDT Temperature 36.8 ??C (98.2 ??F) 11/23/2021 11:38 AM C DT Respiratory Rate - - Oxygen Saturation 96% 11/23/2021 11:38 AM CDT Inhaled Oxygen Concentration - - Weight 87.8 kg (193 lb 9.6 oz) 11/23/2021 11:38 AM CDT Height 160 cm (5' 3 ) 11/23/2021 11:38 AM CDT Body Mass Index 34.29 11/23/2021 11:38 AM CDT documented in this encounter Patient Instructions * Patient Instructions* Tracie Duran RN - 11/23/2021 12:29 PM CDT Follow up with Dr. Carmona in 6 months with a mammogram before visit. documented in this encounter Progress Notes * Alisno Carmona MD - 11/23/2021 11:30 AM CDT Patient Name: Monae Celaya : 1990 CC: Increased lifetime risk and follow up left axillary pain Chief Complaint Patient presents with ??? Follow-up HISTORY OF PRESENT ILLNESS: Monae Cealya is a 31 year old female with elevated lifetime risk of breast cancer (estimated 34%). She underwent right MRI guided biopsy on 10/22/2020 -- this showed benign breast tissue (concordant). Last visit was 05/11/2021. Today she has no breast masses, nipple discharge, or skin changes. She had a right axillary lump that she thinks may have been an ingrown hair and is now completely gone. The left axillary pain is significantly better. She ended up keeping a journal of the pain and thinks it was linked to stress at her job. 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 She presents today for clinical exam, breast MRI, and high risk surveillance visit. ALLERGIES: No Known Allergies PAST MEDICAL HISTORY: Past Medical History: Diagnosis Date ??? Anxiety ??? Depression ??? Family history of breast cancer in mother PAST SURGICAL HISTORY: Past Surgical History: Procedure Laterality Date ??? BIOPSY BREAST Left 2019 Benign ??? MRI BREAST LEFT BIOPSY Left 10/24/2019 MRI BREAST LEFT BIOPSY 10/24/2019 [facility] MRI ??? MRI BREAST RIGHT BIOPSY Right 10/22/2020 MRI BREAST RIGHT BIOPSY 10/22/2020 [facility] MRI MEDICATIONS: Current Outpatient Medications Medication Sig [...] Types: Cigarettes ??? Smokeless tobacco: Never Used Vaping Use ??? Vaping Use: Some days [...] PHYSICAL EXAM (stable except as noted) BP 119/76 (BP SITE: LEFT ARM) Pulse 66 Temp 98.2 ??F (36.8 ??C) Ht 5' 3 (1.6 m) Wt 193 lb 9.6 oz (87.8 kg) SpO2 96% General: alert, cooperative, in no distress Eyes: conjunctiva and lids normal ENT/Mouth: neck supple, no visible oral lesions Respiratory: unlabored respirations CV: regular heart rate Musculoskeletal: warm with no deformities On breast exam in both the upright and supine positions, she has symmetrical breasts that are of normal contour and shape. No dominant masses in either breast -- dense tissue in the lateral bilateralbreasts. No nipple retraction or discharge. No cervical, supraclavicular or axillary lymphadenopathy bilaterally. RADIOLOGY REVIEW: Bilateral breast MRI 11/23/2021 -- no suspicious findings in either breast; previously noted small enhancing 0.3cm mass is no longer identified. BIRADS-2 Bilateral screening mammogram 05/11/2021 -- no suspicious microcalcifications, dominant masses, or architectural distortion, BIRADS-1 Left breast ultrasound 04/02/2021 -- No suspicious mass in the area of clinical concern, BIRADS-1 Bilateral breast MRI 10/02/2020 -- new 0.3cm enhancing rounded focus in the lower outer right breast. No left breast masses, BIRADS-4a DIAGNOSIS: 31 year old female with increased lifetime risk of breast cancer estimated at 34% PLAN: -- All pertinent records and reports available to me reviewed and summarized -- She has no suspicious findings on clinical exam -- The left axillary pain is much improved despite no intervention. She will let us know if it worsens -- Bilateral breast MRI performed today shows no suspicious findings (BIRADS-2) -- Will continue high risk screening with twice yearly clinical exams and yearly mammograms and breast MRIs. -- Mammogram in 6 months -- Return to clinic in 6 months for clinical exam and mammogram -- She understands that she can call to return at any time with any other questions or concerns 30 minutes were spent in review of records, evaluation, treatment, counseling, and documentation. Alison Carmona MD 11/23/2021 3:00 PM documented in this encounter Plan of Treatment Upcoming Encounters Date Type Department Care Team (Late st Contact Info) Description 03/05/2024 1:00 PM COMPLIANCE LEAD Office Visit [facility] - Urology [address] [facility] [place] [address] Joshua Del Angel PA [address] [place] [phone] documented as of this encounter Results * MAMMO BILAT SCREENING W ALANNA (06/28/2022 10:42 AM CDT) Anatomical Region Laterality Modality Breast Bilateral Mammography 06/28/2022 10:3 6 AM CDT Impressions 06/28/2022 10:40 AM CDT : ??No mammographic evidence of malignancy. RECOMMENDATION: ??Screening mammography in one year, pending no interval breast concerns. Patient was notified of the results at the time of her exam. OVERALL ASSESSMENT: BI-RADS CATEGORY 1: NEGATIVE. > Interpreting Provider: Ramona Anders MD on 06/28/2022 10:40 AM Narrative 06/28/2022 10:40 AM CDT EXAMINATION: DIGITAL MAMMO BILAT SCREENING W ALANNA AND WITH CAD DATE: ??06/28/2022 HISTORY: Screening mammography in a patient with a strong family history of breast cancer and elevated risk of developing breast cancer. RISK ASSESSMENT CALCULATION: Patient completed a breast cancer risk assessment during her appointment. Based upon the information she provided and her mammographic breast density, her lifetime risk of developing breast cancer is ?? 50 ??% ??(Average Risk <15%; Intermediate / Moderate Risk 15-19%; High Risk > 20%). The [place] [employer] recommends MRI screening in addition to mammograms for women who have a 20% or greater lifetime risk of developing breast cancer. COMPARISON: Multiple prior studies dating back to 2019 TECHNIQUE: Tomosynthesis (3D) and reconstructed synthetic 2-D images acquired and reviewed in the bilateral craniocaudal and mediolateral oblique projections, with a total of 5 images obtained. Computer-aided detection (CAD) was utilized. ?? BREAST PARENCHYMAL COMPOSITION: Category B: There are scattered areas of fibroglandular density. FINDINGS: ??There are no suspicious findings or evidence of malignancy on mammography. There is no significant change from the prior. ?? Alison Carmona MD MAMMO ORDERABLES documented in this encounter Visit Diagnoses Diagnosis Family history of breast cancer in mother- Primary Family history of malignant neoplasm of breast Family history of breast cancer in mother Family history of malignant neoplasm of breast documented in this encounter Care Teams Lime Hide Inspector Relationship Specialty Start Date End Date Beryl Lynch MD [address] [place], [place] [id number] PCP - General 09/06/18 11/01/23 documented as of this encounter
--- OUTSIDE RECORDS SUMMARY | 2024-02-21 01:56 | XMS_ITS | Encounter Summary ---
Author Organization [facility] Address [address] [facility] [place] [address] Care Team Providers Care Electrical Wirer Name Role Phone Beryl Lynch MD Primary Care Provider [phone] Encounter Details Date Type Department Care Team (Latest Contact Info) Description 11/23/2021 Travel Social History Tobacco Use Types Packs/Day [...] Recorded In the last 10 days, have yo u been in contact with someone who was confirmed or suspected to have Coronavirus/COVID-19? No / Unsure 11/23/2021 12:30 PM CDT documented as of this encounter Plan of Treatment Upcoming Encounters Date Type Department Care Team (Late st Contact Info) Description 03/05/2024 1:[address] CLEANING EQUIPMENT OPERATOR Office Visit [facility] - Urology [address] [facility] [place] [address] Joshua Del Angel PA [address] [place] [address] documented as of this encounter Visit Diagnoses Not on filedocumented in this encounter Care Teams Electrical Wirer Relationship Specialty Start Date End Date Beryl Lynch MD [address] [place] [address] PCP - General 09/06/18 11/01/23 documented as of this encounter
--- OUTSIDE RECORDS SUMMARY | 2024-02-21 01:56 | XMS_ITS | Encounter Summary ---
Author Organization [facility] Address [address] [facility] [place] [address] Care Team Providers Care Plasma Center Nurse Name Role Phone Beryl Lynch MD Primary Care Provider [phone] Reason for Visit * Reason Comments Establish Care High risk follow up Encounter Details Date Type Department Care Team (Late st Contact Info) Description 10/02/2020 9:30 AM CDT Office Visit [facility] Surgery [address] [place] [address] Alison Carmona MD [address] [facility] [place] [address] Family history of breast cancer in mother (Primary Dx); Abnormal MRI, breast Social History Tobacco Use Types Packs/Day Years [...] AM CDT documented as of this encounter Last Filed Vital Signs Vital Sign Reading Time Taken Comments Blood Pressure 122/80 10/02/2020 8:58 AM CDT Pulse 79 10/02/2020 8:58 AM CDT Temperature 36.6 ??C (97.8 ??F) 10/02/2020 8:58 AM CD T Respiratory Rate - - Oxygen Saturation 96% 10/02/2020 8:58 AM CDT Inhaled Oxygen Concentration - - Weight 86.2 kg (190 lb) 10/02/2020 8:58 AM CDT Height 157.5 cm (5' 2 ) 10/02/2020 8:58 AM CDT Body Mass Index 34.75 10/02/2020 8:58 AM CDT documented in this encounter Patient Instructions * Patient Instructions* Tracie Duran RN - 10/02/2020 11:17 AM CDT You will be contacted with MRI biopsy results. Further management recommendations will be made at that time. documented in this encounter Progress Notes * Alison Carmona MD - 10/02/2020 9:30 AM CDT Patient Name: Monae Celaya : 1990 Chief Complaint Patient presents with ??? Establish Care High risk follow up HISTORY OF PRESENT ILLNESS: Monae Celaya is a 30 year old female with elevated lifetime risk of breast cancer (estimated 34%) who presents for 6 month follow up. Last visit was May 2020. She has been having left breast pain that goes down her arm. She cannot recall any injury. She alsothinks she noticed a mass in the left outer breast. She has not had any nipple discharge or skin changes. She saw Dr. Fleming but she is not ready to quit smoking so will postpone prophylactic surgery. She was also unable to have her appointment with Dr. Evelyn Cordero. She presents today for clinical exam, bilateral breast MRI, and ultrasound and high risk surveillance visit.. ALLERGIES: No Known Allergies PAST MEDICAL HISTORY: Past Medical History: Diagnosis Date ??? Anxiety ??? Depression ??? Family history of breast cancer in mother PAST SURGICAL HISTORY: Past Surgical History: Procedure Laterality Date ??? BIOPSY BREAST Left 2019 Benign ??? MRI BREAST LEFT BIOPSY Left 10/24/2019 MRI BREAST LEFT BIOPSY 10/24/2019 [facility] MRI MEDICATIONS: Current Outpatient Medications Medication [...] OF SYSTEMS See HPI PHYSICAL EXAM BP 122/80 Pulse 79 Temp 97.8 ??F (36.6 ??C) (Temporal) Ht 5' 2 (1.575 m) Wt 190 lb (86.2 kg) SpO2 96% BMI 34.75 kg/m2 General: alert, cooperative, in no distress [...] breast -- dense tissue in the lateral left breast at the site of the palpable concern without defined mass. No right breast masses. No nipple retraction or discharge. No cervical, supraclavicular or axillary lymphadenopathy bilaterally. RADIOLOGY REVIEW: Bilateral breast MRI 10/02/2020 -- new 0.3cm enhancing rounded focus in the lower outer left breast.No left breast masses, BIRADS-4a Bilateral breast ultrasound 10/02/2020 -- no sonographic correlate for right breast mass seen on MRI, left breast without solid or cystic lesion at the area of concern Bilateral diagnostic mammogram and ultrasound 06/02/2020 -- [...] breast 10/24/2019: Benign breast tissue (concordant) DIAGNOSIS: 30 year old female with increased lifetime risk of breast cancer estimated at 34% PLAN: -- All pertinent records and reports available to me reviewed and summarized -- The area of palpable concern for her in the left lateral breast is consistent with dense tissue clinically and sonographically -- Otherwise she has no concerning findings on clinical exam -- Breast MRI performed today shows a new 0.3cm right breast mass that is suspicious -- Second look ultrasound performed today after clinic shows no sonographic correlate -- MRI biopsy is recommended of the right breast and scheduled for 10/22/2020 -- We discussed the left arm pain and that the etiology is unclear and unlikely to be caused from the breast. She plans to discuss this with her primary doctor -- She is not at a point where she can quit smoking right now so will not proceed with surgery at this time -- Will call her with the results of the right breast biopsy 40 minutes were spent in review of records, evaluation, discussion with breast radiologist, review of imaging, treatment, counseling, and documentation. Alison Carmona MD 10/03/2020 4:44 PM documented in this encounter Plan of Treatment Upcoming Encounters Date Type Department Care Team (Late st Contact Info) Description 03/05/2024 1:00 PM INFORMATION ASSURANCE ANALYST Office Visit [facility] [address] [facility], [place] [phone] Joshua Del Angel PA [address] [place] [phone] documented as of this encounter Visit Diagnoses Diagnosis Family history of breast cancer in mother- Primary Family history of malignant neoplasm of breast Abnormal MRI, breast Other (abnormal) findings on radiological examination of breast documented in this encounter Care Teams Plasma Center Nurse Relationship Specialty Start Date End Date Beryl Lynch MD [address] [place] [address] PCP - General 09/06/18 11/01/23 documented as of this encounter
--- OUTSIDE RECORDS SUMMARY | 2024-02-21 01:56 | XMS_ITS | Encounter Summary ---
Author Organization [facility] Address [address] [facility] [place] [address] Care Team Providers Care Green Prize Packer Name Role Phone Beryl Lynch MD Primary Care Provider [phone] Reason for Referral * Radiology Services (Routine) - Closed Specialty Diagnoses / Procedures Referred By Contac t Referred To Contact Mammography Diagnoses Left axillary pain Procedures US BREAST LEFT LTD Alison Carmona MD [address] [place] [address] [facility] [address] [place] [address] Referral ID Status Reason Start Date Expiration Date Visits Re quested Visits Authorized [id number] Closed 03/17/2021 03/17/2022 1 1 L ALIGNMENT MECHANIC Reason for Visit * Radiology Services (Routine) - Closed Specialty Diagnoses / Procedures Referred By Contac t Referred To Contact Mammography Diagnoses Left axillary pain Procedures US BREAST LEFT LTD Alison Carmona MD [address] [place] [address] [facility] Breast Jessie Op [address] [place] [address] Referral ID Status Reason Start Date Expiration Date Visits Re quested Visits Authorized [id number] Closed 03/17/2021 03/17/2022 1 1 Encounter Details Date Type Department Care Team (Latest Contact Info) Description 04/02/2021 9:00 AM WHEEL ALIGNMENT MECHANIC - 04/02/2021 11:59 PM WHEEL ALIGNMENT MECHANIC Hospital Encounter [facility] [address] [place] [address] Alison Carmona MD [address] [facility] [place] [address] Radiology Diagnostic Discharge Disposition: Home or Self Care Social [...] have Coronavirus / COVID-19? No / Unsure 04/02/2021 9:05 AM WHEEL ALIGNMENT MECHANIC documented as of this encounter Medications at [...] st Contact Info) Description 03/05/2024 1:00 PM WHEEL ALIGNMENT MECHANIC Office Visit [facility] - Urology [address] [facility], [place] [address] Joshua Del Angel PA [address] [place] [address] documented as of this encounter Procedures Procedure Name Priority Date/Time Associated Diagnosis Comments US BREAST LEFT LTD Routine 04/02/2021 10 :00 AM WHEEL ALIGNMENT MECHANIC Left axillary pain documented in this encounter Results * US BREAST LEFT LTD (04/02/2021 10:00 AM WHEEL ALIGNMENT MECHANIC) Anatomical Region Laterality Modality Breast Left Mammography 04/02/2021 9:28 AM WHEEL ALIGNMENT MECHANIC Impressions 04/02/2021 9:41 AM WHEEL ALIGNMENT MECHANIC IMPRESSION: No targeted sonographic evidence for malignancy [...] the interpretation of this examination. I, Dr. CORNEILA NEAL M.D. have personally reviewed and interpreted this examination/study. This report was electronically signed by CORNELIA NEAL M.D. ??on 04/02/2021 9:41 AM . Narrative 04/02/2021 9:41 AM WHEEL ALIGNMENT MECHANIC EXAMINATION: LIMITED LEFT BREAST ULTRASOUND DATE OF [...] axillary tail and left axilla by the air tube releaser. The ultrasound is normal, without mass. There are no enlarged axillary lymph nodes. Alison Carmona MD US ORDERABLES documented in this encounter Visit Diagnoses Diagnosis Left axillary pain Pain in limb documented in this encounter Care Teams Green Prize Packer Relationship Specialty Start Date End Date Beryl Lynch MD [address] [place] [address] PCP - General 09/06/18 11/01/23 documented as of this encounter
--- OUTSIDE RECORDS SUMMARY | 2024-02-21 01:56 | XMS_ITS | Encounter Summary ---
Author Organization [facility] Address [address] [facility] [place] [address] Care Team Providers Care Senior Linux Systems Engineer Name Role Phone Beryl Lynch MD Primary Care Provider [phone] Encounter Details Date Type Department Care Team (Latest Contact Info) Description 06/28/2022 Travel Social History Tobacco Use Types Packs/Day [...] suspected to have Coronavirus/COVID-19? No / Unsure 06/28/2022 11:08 AM CDT documented as of this encounter Plan of Treatment Upcoming Encounters Date Type Department Care Team (Late st Contact Info) Description 03/05/2024 1:00 PM INSEMINATION WORKER Office Visit [facility] - Urology [address] [facility] [place] [address] Joshua Del Angel PA [address] [place] [phone] documented as of this encounter Visit Diagnoses Not on filedocumented in this encounter Care Teams Senior Linux Systems Engineer Relationship Specialty Start Date End Date Beryl Lynch MD [address] [place] [address] PCP - General 09/06/18 11/01/23 documented as of this encounter"
--- OUTSIDE RECORDS SUMMARY | 2024-02-21 01:56 | XMS_ITS | Encounter Summary ---
Author Organization [facility] Address [address] [facility] [place] [address] Care Team Providers Care Casing Worker Name Role Phone Beryl Lynch MD Primary Care Provider [phone] Encounter Details Date Type Department Care Team (Latest Contact Info) Description 10/05/2019 Travel Social History Tobacco Use Types Packs/Day [...] st Contact Info) Description 03/05/2024 1:00 PM LIVESTOCK NUTRITION TERRITORY MANAGER Office Visit [facility] - [facility]rology [address] [facility] [place] [address] Joshua Del Angel PA [address] [place] [phone] documented as of this encounter Visit Diagnoses Not on filedocumented in this encounter Care Teams Casing Worker Relationship Specialty Start Date End Date Beryl Lynch MD [address] [place] [address] PCP - General 09/06/18 11/01/23 documented as of this encounter
--- OUTSIDE RECORDS SUMMARY | 2024-02-21 01:56 | XMS_ITS | Encounter Summary ---
Author Organization [facility] Address [address] [facility] [place] [address] Care Team Providers Care International Manager Name Role Phone Beryl Lynch MD Primary Care Provider [phone] Reason for Referral * Radiology Services (Routine) - Closed Specialty Diagnoses / Procedures Referred By Contmaile t Referred To Contact MRI Diagnoses Family history of breast cancer in mother Procedures MRI BREAST BILAT WWO CONTRAST Alison Carmona MD [address] [facility] [address] [place] [address] [facility] [address] [place] [address] Referral ID Status Reason Start Date Expiration Date Visits Re quested Visits Authorized [id number] Closed 11/13/2021 02/11/2022 1 1 Reason for Visit * Radiology Services (Routine) - Closed Specialty Diagnoses / Procedures Referred By Contmaile t Referred To Contact MRI Diagnoses Family history of breast cancer in mother Procedures MRI BREAST BILAT WWO CONTRAST Alison Carmona MD [address] [facility] 2[address] [place] [address] [facility] [address] [place] [address] Referral ID Status Reason Start Date Expiration Date Visits Re quested Visits Authorized [id number] Closed 11/13/2021 02/11/2022 1 1 Encounter Details Date Type Department Care Team (Latest Contact Info) Description 11/23/2021 10:30 AM CDT - 11/23/2021 11:59 PM CDT Hospital Encounter [facility] MRI [address] [place] [phone] Alison Carmona MD [address] [facility] [place] [address] Discharge Disposition: Home or Self [...] PM CDT documented as of this encounter Medications [...] st Contact Info) Description 03/05/2024 1:00 PM BALLPOINT PEN CARTRIDGE TESTER Office Visit [facility] - Urology [address] [facility], [place] [address] Joshua Del Angel PA [address] [place] [phone] documented as of this encounter Procedures Procedure Name Priority Date/Time Associated Diagnosis Comments MRI BREAST BILAT WWO CONTRAST Routine 11/23/2021 11:19 AM CDT Family history of breast cancer in mother CREATININE - POCT INTERFACED Routine 11/23/2021 10:48 AM CDT documented in this encounter Results * MRI BREAST BILAT WWO CONTRAST (11/23/2021 11:19 AM CDT) Anatomical Region Laterality Modality Breast [...] 2: BENIGN. > Interpreting Provider: Sneha Buckley MD on 11/23/2021 12:33 PM Narrative 11/23/2021 [...] a workstation with 3D post processing and [employer] was utilized. FINDINGS: Parenchymal breast pattern: Scattered [...] MR ORDERABLES * CREATININE - POCT INTERFACED (11/23/2021 10:48 AM CDT) Creatinine POCT 0.81 0.30 - 1.30 mg/dL 11/23/2021 10:51 AM CDT [facility] eGFR >90 >90 mL/min/1.7 3 m2 11/23/2021 10:51 AM CDT [facility] Blood BLOOD SPECIMEN / Unknown 11/23/2021 10:48 AM CDT 11/23/2021 10:51 AM CDT Alison Carmona MD LAB - POINT OF CARE ORDERABLES Performing Organization Address City/State/[facility] Co de Phone Number [address] [address], [facility] [phone] documented in this encounter Visit Diagnoses Diagnosis Family history of breast cancer in mother Family history of malignant neoplasm of breast documented in this encounter Administered Medications Inactive Administered Medications - up to 3 most recent administrations Medication Order MAR Action Action Date Dose Rate Site gadoterate meglumine (Dotarem/Clariscan) injection Intravenous, CONTRAST ONCE, Starting on Tue11/23/21 at 1104, Until Tue11/24/21 at 0121 $ Given - Contrast 11/23/2021 11:07 AM CDT 16 mL documented in this encounter Care Teams International Manager Relationship Specialty Start Date End Date Beryl Lynch MD [address] [place] [address] PCP - General 09/06/18 11/01/23 documented as of this encounter
--- OUTSIDE RECORDS SUMMARY | 2024-02-21 01:56 | XMS_ITS | Encounter Summary ---
Author Organization [facility] Address [address] [place] [address] Care Team Providers Care Network Liaison Name Role Phone Beryl Lynch MD Primary Care Provider [phone] Reason for Referral * Radiology Services (Routine) - Closed Specialty Diagnoses / Procedures Referred By Contac t Referred To Contact Mammography Diagnoses Increased risk of breast cancer Procedures MRI BREAST BILAT WWO CONTRAST Alison Carmona MD [address] [place] [address] [facility] Op [address] [place] [address] Referral ID Status Reason Start Date Expiration Date Visits Re quested Visits Authorized [id number] Closed 09/29/2020 03/24/2021 1 1 Reason for Visit * Radiology Services (Routine) - Closed Specialty Diagnoses / Procedures Referred By Contac t Referred To Contact Mammography Diagnoses Increased risk of breast cancer Procedures MRI BREAST BILAT WWO CONTRAST Alison Carmona MD [address] [place] [address] [facility] Op [address] [place] [address] Referral ID Status Reason Start Date Expiration Date Visits Re quested Visits Authorized [id number] Closed 09/29/2020 03/24/2021 1 1 Encounter Details Date Type Department Care Team (Latest Contact Info) Description 10/02/2020 7:30 AM CDT - 10/02/2020 10:40 AM CDT Hospital Encounter [facility] MRI [address] [place] [phone] Alison Carmona MD [address] [facility] [place] [address] Discharge Disposition: Home or Self [...] st Contact Info) Description 03/05/2024 1:00 PM PRIVATE BRANCH EXCHANGE REPAIRER Office Visit [facility]rology [address] [facility], [place] [phone] Joshua Del Angel PA [address] [place] [address] documented as of this encounter Procedures Procedure Name Priority Date/Time Associated Diagnosis Comments MRI BREAST BILAT WWO CONTRAST Routine 10/02/2020 8:41 AM CDT Increased risk of breast cancer CREATININE - POCT INTERFACED Routine 10/02/2020 8:02 AM CDT documented in this encounter Results * (ABNORMAL) MRI BREAST [...] a workstation with 3D post processing and [address] was utilized. FINDINGS: Parenchymal breast pattern: Scattered [...] lymph node. Alison Carmona MD MR ORDERABLES * CREATININE - POCT INTERFACED (10/02/2020 8:02 AM CDT) Creatinine POCT 0.50 0.30 - 1.30 mg/dL 10/02/2020 8:04 AM CDT [facility] eGFR >60 >60 mL/min/1.7 3 m2 10/02/2020 8:04 AM T [facility] Blood BLOOD SPECIMEN / Unknown 10/02/2020 8:02 AM CDT 10/02/2020 8:04 AM CDT Alison Carmona MD LAB - POINT OF CARE ORDERABLES [address] [address], [facility] [phone] documented in this encounter Visit Diagnoses Diagnosis Increased risk of breast cancer Other specified personal history presenting hazards to health documented in this encounter Administered Medications Inactive Administered Medications - up to 3 most recent administrations Medication Order MAR Action Action Date Dose Rate Site gadobutrol (Gadavist) injection Intravenous, CONTRAST ONCE, Starting on Noy 10/02/20 at 0759, Until 10/03/20 at 0121 $ Given - Contrast 10/02/2020 8:31 AM CDT 8 mL documented in this encounter Care Teams Network Liaison Relationship Specialty Start Date End Date Beryl Lynch MD [address] [place] [address] PCP - General 09/06/18 11/01/23 documented as of this encounter
--- OUTSIDE RECORDS SUMMARY | 2024-02-21 01:56 | XMS_ITS | Encounter Summary ---
Author Organization [facility] Address [address] [facility] [address] Care Team Providers Care Plate Grainer Name Role Phone Beryl Lynch MD Primary Care Provider [phone] Encounter Details Date Type Department Care Team (Latest Contact Info) Description 04/27/2023 Travel Social History Tobacco Use Types Packs/Day [...] st Contact Info) Description 03/05/2024 1:00 PM SAWMILL MANAGER Office Visit [facility] - Urology [address] [facility], [place] [phone] Joshua Del Angel PA [address] [place] [phone] documented as of this encounter Visit Diagnoses Not on filedocumented in this encounter Care Teams Plate Grainer Relationship Specialty Start Date End Date Beryl Lynch MD [address] [place] [address] PCP - General 09/06/18 11/01/23 documented as of this encounter
--- OUTSIDE RECORDS SUMMARY | 2024-02-21 01:56 | XMS_ITS | Encounter Summary ---
Author Organization [facility] Address [address] [place] [address] Care Team Providers Care Bone Crusher Name Role Phone Beryl Lynch MD Primary Care Provider [phone] Reason for Referral * Radiology Services (Routine) - Closed Specialty Diagnoses / Procedures Referred By Wagner t Referred To Contact Mammography Diagnoses Encounter for screening mammogram for malignant neoplasm of breast Procedures MAMMO BILAT SCREENING W ALANNA MAMMO BILAT SCREENING Alison Carmona MD [address] [address] [facility] Breast Center Op [address] [place] [address] Referral ID Status Reason Start Date Expiration Date Visits Re quested Visits Authorized [id number] Closed 10/24/2020 10/24/2021 1 1 Reason for Visit * Reason Onset Date Comments Results 10/24/2020 Encounter Details Date Type Department Care Team (Late st Contact Info) Description 10/24/2020 Telephone [facility] [address] [place] [address] Tracie Guthrie, RN Results Social History Tobacco Use Types Packs/Day [...] have Coronavirus / COVID-19? No / Unsure 10/22/2020 1:36 PM CDT documented as of this encounter Miscellaneous Notes * Telephone Encounter - Tracie Duran RN - 10/24/2020 3:33 PM CDT Message left for pt with negative right breast biopsy results. No further intervention needed at this time. She will follow up in May [address] Carmona and her annual mammogram. documented in this encounter Plan of Treatment Upcoming Encounters Date Type Department Care Team (Late st Contact Info) Description 03/05/2024 1:00 PM GEOLOGICAL SCIENCE TEACHER Office Visit [facility] - Urology [address] [facility] [place] [address] Joshua Del Angel PA [address] [place] [address] documented as of this encounter Results * MAMMO BILAT SCREENING W ALANNA (05/11/2021 10:21 AM GEOLOGICAL SCIENCE TEACHER) Anatomical Region Laterality Modality Breast Bilateral Mammography 05/11/2021 10:1 8 AM GEOLOGICAL SCIENCE TEACHER Impressions 05/11/2021 10:27 AM GEOLOGICAL SCIENCE TEACHER IMPRESSION: ??No mammographic evidence of malignancy. No suspicious change from the prior. RECOMMENDATION: ??Screening mammography in one year, pending no interval breast concerns. The patient is also on annual screening MRI breast schedule. Patient will be notified of the results by Dr. Carmona. OVERALL ASSESSMENT: BI-RADS CATEGORY 1: NEGATIVE. This report was electronically signed by MANOJ LARA ??on 05/11/2021 10:27 AM . Narrative 05/11/2021 10:27 AM GEOLOGICAL SCIENCE TEACHER EXAM: DIGITAL MAMMO BILAT SCREENING ??WITH TOMOSYNTHESIS AND WITH CAD DATE OF EXAM: ??05/11/2021 10:21 AM HISTORY: ??Screening. ??This is a 30-year-old female status post MRI guided breast biopsy on the right side on 10/22/2020 with the pathology results benign breast tissue. The biopsy was done for a 3 mm enhancing focus in the lower outer quadrant of the right breast in a patient with elevated lifetime risk of developing breast cancer. RISK ASSESSMENT CALCULATION: Patient completed a breast cancer risk assessment during her appointment. Based upon the information she provided and her mammographic breast density, her lifetime risk of developing breast cancer is 50 % ??(Average Risk <15%; Intermediate / Moderate Risk 15-19%; High Risk > 20%). COMPARISON: ??Postbiopsy right mammogram dated 10/22/2020, bilateral mammograms dated 06/02/2020, 10/02/2019, 03/21/2019 and 09/06/2018 from this institution. TECHNIQUE: ??Tomosynthesis (3-D) and reconstructed C - view (synthetic 2-D) images acquired and reviewed in the bilateral craniocaudal and mediolateral oblique projections. Images reviewed with CAD. BREAST COMPOSITION: Category B: There are scattered areas of fibroglandular density. FINDINGS: The biopsy marker in the lower outer quadrant of the right breast is similar to the 10/22/2020 examination and the previously seen surrounding soft tissue air and density after biopsy, have resolved in the interval. No suspicious microcalcifications, focal dominant masses, or areas of architectural distortion on mammography. No significant change from the prebiopsy mammograms. Alison Carmona MD MAMMO ORDERABLES documented in this encounter Visit Diagnoses Diagnosis Encounter for screening mammogram for malignant neoplasm of breast- Primary Other screening mammogram Encounter for screening mammogram for malignant neoplasm of breast Other screening mammogram documented in this encounter Care Teams Bone Crusher Relationship Specialty Start Date End Date Beryl Lynch MD [address] [place] [address] PCP - General 09/06/18 11/01/23 documented as of this encounter
--- OUTSIDE RECORDS SUMMARY | 2024-02-21 01:56 | XMS_ITS | Encounter Summary ---
Author Organization [facility] Address [address] [facility] [place] [address] Care Team Providers Care Plant Quality Manager Name Role Phone Beryl Lynch MD Primary Care Provider Reason for Referral * Radiology Services (Routine) - Closed Specialty Diagnoses / Procedures Referred By Wagner rosado Referred To Contact Diagnoses Abnormal mammogram Procedures MAMMO RIGHT DIAGNOSTIC Elio Croft MD [address] [facility] FIRST [place]EL [place] [address] Referral ID Status Reason Start Date Expiration Date Visits Re quested Visits Authorized [id number] Closed 11/20/2019 11/19/2020 1 1 Reason for Visit * Radiology Services (Routine) - Closed Specialty Diagnoses / Procedures Referred By Wagner rosado Referred To Contact Diagnoses Abnormal mammogram Procedures MAMMO RIGHT DIAGNOSTIC Elio Croft MD [address] [facility] [place] [address] Referral ID Status Reason Start Date Expiration Date Visits Re quested Visits Authorized [id number] Closed 11/20/2019 11/19/2020 1 1 Encounter Details Date Type Department Care Team (Latest Contact Info) Description 11/20/2019 12:30 PM CDT - 11/20/2019 12:32 PM CDT Hospital Encounter [facility] [address] [place] [address] Elio Croft MD [address] [facility] [place] [address] Discharge Disposition: Home or Self Care Social [...] st Contact Info) Description 03/05/2024 1:00 PM NEUROLOGY PHYSICIAN Office Visit [facility] - Urology [address] [facility] [place] [address] Joshua Del Angel PA [address] [place] [phone] documented as of this encounter Procedures Procedure Name Priority Date/Time Associated Diagnosis Comments MAMMO RIGHT DIAGNOSTIC Routine 11/20/2019 1:04 PM CDT Abnormal mammogram documented in this encounter Results * MAMMO RIGHT DIAGNOSTIC (11/20/2019 1:04 PM [...] performed for confirmation. Follow-up performed by the vmware systems administrator. In the right breast at 9:30, 7 cm from the nipple, in the area of previously described 1 cm area of echogenicity, there is normal tissue. The previously described echogenic finding has resolved. No suspicious solid or cystic mass. Elio Croft MD MAMMO ORDERABLES documented in this encounter Visit Diagnoses Diagnosis Abnormal mammogram Abnormal mammogram, unspecified documented in this encounter Care Teams Plant Quality Manager Relationship Specialty Start Date End Date Beryl Lynch MD [address] [place] [address] PCP - General 09/06/18 11/01/23 documented as of this encounter
--- OUTSIDE RECORDS SUMMARY | 2024-02-21 01:56 | XMS_ITS | Encounter Summary ---
Author Organization [facility] Address [address] [facility] [place] [address] Care Team Providers Care Spring Fitter Helper Name Role Phone Beryl Lynch MD Primary Care Provider [phone] Reason for Referral * Radiology Services (Routine) - Closed Specialty Diagnoses / Procedures Referred By Contac t Referred To Contact Ultrasound Diagnoses Increased risk of breast cancer Lump or mass in breast Procedures US BREAST RIGHT LTD Alison Carmona MD [address] [facility] [place] [address] [place] [address] [place] [address] Referral ID Status Reason Start Date Expiration Date Visits Re quested Visits Authorized [id number] Closed 09/28/2019 09/27/2020 1 1 Reason for Visit * Radiology Services (Routine) - Closed Specialty Diagnoses / Procedures Referred By Contac t Referred To Contact Ultrasound Diagnoses Increased risk of breast cancer Lump or mass in breast Procedures US BREAST RIGHT LTD Alison Carmona MD [address] [facility] [place] [address] [address] [place] [place] [address] Referral ID Status Reason Start Date Expiration Date Visits Re quested Visits Authorized [id number] Closed 09/28/2019 09/27/2020 1 1 Encounter Details Date Type Department Care Team (Latest Contact Info) Description 11/20/2019 12:33 PM CDT Hospital Encounter [facility] [address] [place] [address] Alison Carmona MD [address] [facility] [place] [address] Discharge Disposition: Home or Self Care Social [...] st Contact Info) Description 03/05/2024 1:00 PM VIDEOGAME TESTER Office Visit [facility] - [facility]rology [address] [facility], [place] [address] Joshua Del Angel PA [address] [place] [address] documented as of this encounter Procedures Procedure Name Priority Date/Time Associated Diagnosis Comments US BREAST RIGHT LTD Routine 11/20/2019 1 :21 PM CDT Increased risk of breast cancer Lump or mass in breast documented in this encounter Results * US BREAST RIGHT LTD (11/20/2019 1:21 [...] performed for confirmation. Follow-up performed by the lens coater. In the right breast at 9:30, 7 cm from the nipple, in the area of previously described 1 cm area of echogenicity, there is normal tissue. The previously described echogenic finding has resolved. No suspicious solid or cystic mass. Alison Carmona MD US ORDERABLES documented in this encounter Visit Diagnoses Diagnosis Increased risk of breast cancer Other specified personal history presenting hazards to health Lump or mass in breast documented in this encounter Care Teams Spring Fitter Helper Relationship Specialty Start Date End Date Beryl Lynch MD [address] [place] [address] PCP - General 09/06/18 11/01/23 documented as of this encounter
--- OUTSIDE RECORDS SUMMARY | 2024-02-21 01:56 | XMS_ITS | Encounter Summary ---
Author Organization [facility] Health Address [address] [facility] [place] [address] Care Team Providers Care Sword Swallower Name Role Phone Beryl Lynch MD Primary Care Provider Reason for Visit * Reason Comments Positive Family History high risk Encounter Details Date Type Department Care Team (Late st Contact Info) Description 04/02/2021 10:00 AM PACKER INSULATION Office Visit [facility] General Surgery [address] [place] [address] Alison Carmona MD [address] [facility] [place] [address] Left axillary pain (Primary Dx); Family history of breast cancer in mother [...] COVID-19? No / Unsure 04/02/2021 9:05 AM PACKER INSULATION documented as of this encounter Last Filed Vital Signs Vital Sign Reading Time Taken Comments Blood Pressure 139/75 04/02/2021 9:41 AM PACKER INSULATION Pulse 70 04/02/2021 9:41 AM PACKER INSULATION Temperature 36.9 ??C (98.5 ??F) 04/02/2021 9:41 AM CS T Respiratory Rate - - Oxygen Saturation 97% 04/02/2021 9:41 AM PACKER INSULATION Inhaled Oxygen Concentration - - Weight 89.8 kg (198 lb) 04/02/2021 9:41 AM PACKER INSULATION Height 160 cm (5' 3 ) 04/02/2021 9:41 AM PACKER INSULATION Body Mass Index 35.07 04/02/2021 9:41 AM PACKER INSULATION documented in this encounter Patient Instructions * Patient Instructions* Tracie Duran RN - 04/02/2021 10:03 AM PACKER INSULATION Follow up with Dr. Carmona in May as scheduled. Evening [place] Oil 1000 mg once daily. (over the counter) Voltaren Gel as needed. (over the counter.) ER INSULATION documented in this encounter Progress Notes * Alison Carmona MD - 04/02/2021 10:00 AM CST Patient Name: Monae Celaya : 1990 CC: Increased lifetime risk and left axillary pain Chief Complaint Patient presents with ??? Positive Family History high risk HISTORY OF PRESENT ILLNESS: Monae Celaya is a 30 year old female with elevated lifetime risk of breast cancer (estimated 34%). Last visit was 10/02/2020. She underwent right MRI guided biopsy on 10/22/2020 -- this showed benign breast tissue (concordant) Today she presents sooner than her scheduled visit reporting continued left axillary pain. She thinks the pain occurs about every other day or so. She also wondered if it could be an old shoulder injury. She says it no longer radiates down her arm. She thinks wearing an underwire bra and increased activity may increase the pain. She thinks she may feel a mass in her left axilla -- no breast masses or nipple discharge. She presents today for clinical exam, left axillary ultrasound, and high risksurveillance visit.. ALLERGIES: No Known Allergies PAST MEDICAL HISTORY: Past Medical History: Diagnosis Date ??? Anxiety ??? Depression ??? Family history of breast cancer in mother PAST SURGICAL HISTORY: Past Surgical History: Procedure Laterality Date ??? BIOPSY BREAST Left 2019 Benign ??? MRI BREAST LEFT BIOPSY Left 10/24/2019 MRI BREAST LEFT BIOPSY 10/24/2019 [facility] MRI ??? MRI BREAST RIGHT BIOPSY Right 10/22/2020 MRI BREAST RIGHT BIOPSY 10/22/2020 [facility] MRI MEDICATIONS: Current Outpatient Medications Medication Sig [...] OF SYSTEMS See HPI PHYSICAL EXAM BP 139/75 (BP SITE: RIGHT ARM) Pulse 70 Temp 98.5 ??F (36.9 ??C) Ht 5' 3 (1.6 m) Wt 198 lb (89.8 kg) SpO2 97% BMI 35.07 kg/m2 General: alert, cooperative, in no distress [...] dense tissue in the lateral left breast and axillary tail. No right breast masses. No nipple retraction or discharge. No cervical, supraclavicular or axillary lymphadenopathy bilaterally. RADIOLOGY REVIEW: Left breast ultrasound 04/02/2020 -- No suspicious mass in the area [...] risk of breast cancer estimated at 34% -- presents with left axillary pain PLAN: -- All pertinent records and reports available to me reviewed and summarized -- She has no suspicious findings on clinical exam or left axillary ultrasound -- We discussed keeping a journal of the pain and any aggravating or alleviating factors -- She will try wearing a sports bra rather than an underwire bra -- She may use evening primrose oil daily and discussed this takes 6 weeks or so to see a change -- She may also use voltaren gel as needed for the pain -- She is still smoking and cannot stop at this time -- Bilateral mammogram due in May 2021 -- Follow up in May 2021 for clinical exam and mammogram -- She understands that she can call to return at any time with any other questions or concerns Alison Carmona MD 04/02/2021 8:48 PM ER INSULATION documented in this encounter Plan of Treatment Upcoming Encounters Date Type Department Care Team (Late st Contact Info) Description 03/05/2024 1:00 PM PACKER INSULATION Office Visit [facility] - Urology [address] [facility] [place] [address] Joshua Del Angel PA [address] [place] [phone] documented as of this encounter Visit Diagnoses Diagnosis Left axillary pain- Primary Pain in limb Family history of breast cancer in mother Family history of malignant neoplasm of breast documented in this encounter Care Teams Sword Swallower Relationship Specialty Start Date End Date Beryl Lynch MD [address] [place] [address] PCP - General 7/3/19 8/27/24 documented as of this encounter
--- OUTSIDE RECORDS SUMMARY | 2024-02-21 01:56 | XMS_ITS | Encounter Summary ---
Author Organization [facility] Address [address] [place] [address] Care Team Providers Care Stave Log Cut Off Saw Operator Name Role Phone Beryl Lynch MD Primary Care Provider [phone] Reason for Referral * Radiology Services (Routine) - Closed Specialty Diagnoses / Procedures Referred By Contmaile t Referred To Contact Mammography Diagnoses Left axillary pain Procedures US BREAST LEFT LTD Alison Carmona MD [address] [address] [facility] Breast Center Op [address] [place] [address] Referral ID Status Reason Start Date Expiration Date Visits Re quested Visits Authorized [id number] Closed 03/17/2021 03/17/2022 1 1 WARE DEVELOPMENT INTERN Encounter Details Date Type Department Care Team (Late st Contact Info) Description 03/17/2021 Orders Only [facility] General Surgery [address] [place] [address] Tracie Guthrie, RN Left axillary pain Social History Tobacco Use Types Packs/Day Years [...] on file documented as of this encounter Progress Notes * Tracie Duran RN - 03/17/2021 8:39 AM CST Call from pt to report left axilla swelling and pain that has increased over the past month. [facility]axilla [facility] followed by visit with Dr. Carmona. WARE DEVELOPMENT INTERN documented in this encounter Plan of Treatment Upcoming Encounters Date Type Department Care Team (Late st Contact Info) Description 03/05/2024 1:00 PM SOFTWARE DEVELOPMENT INTERN Office Visit [facility] - Urology [address] [facility], [place] [address] Joshua Del Angel PA [address] [place] [address] documented as of this encounter Results * US BREAST LEFT LTD (04/02/2021 10:00 AM SOFTWARE DEVELOPMENT INTERN) Anatomical Region Laterality Modality Breast Left Mammography 04/02/2021 9:28 AM SOFTWARE DEVELOPMENT INTERN Impressions 04/02/2021 9:41 AM SOFTWARE DEVELOPMENT INTERN IMPRESSION: No targeted sonographic evidence for malignancy [...] the interpretation of this examination. I, Dr. CORNELIA NEAL M.D. have personally reviewed and interpreted this examination/study. This report was electronically signed by CORNELIA NEAL M.D. ??on 04/02/2021 9:41 AM . Narrative 04/02/2021 9:41 AM SOFTWARE DEVELOPMENT INTERN EXAMINATION: LIMITED LEFT BREAST ULTRASOUND DATE OF [...] axillary tail and left axilla by the sales consulting director. The ultrasound is normal, without mass. There are no enlarged axillary lymph nodes. Alison Carmona MD US ORDERABLES documented in this encounter Visit Diagnoses Diagnosis Left axillary pain- Primary Pain in limb Left axillary pain Pain in limb documented in this encounter Care Teams Stave Log Cut Off Saw Operator Relationship Specialty Start Date End Date Beryl Lynch MD [address] [place] [address] PCP - General 09/06/18 11/01/23 documented as of this encounter
--- OUTSIDE RECORDS SUMMARY | 2024-02-21 01:56 | XMS_ITS | Encounter Summary ---
Author Organization [facility] Address [address] [facility] [place] [address] Care Team Providers Care Armature Repairer Name Role Phone Beryl Lynch MD Primary Care Provider [phone] Reason for Referral * Radiology Services (Routine) - Closed Specialty Diagnoses / Procedures Referred By Contac t Referred To Contact MRI Diagnoses Increased risk of breast cancer Procedures MRI BREAST RIGHT BIOPSY Alison Carmona MD [address] [facility] [address] [place] [address] [address] [place] [address] Referral ID Status Reason Start Date Expiration Date Visits Re quested Visits Authorized [id number] Closed 10/02/2020 10/02/2021 1 1 Reason for Visit * Radiology Services (Routine) - Closed Specialty Diagnoses / Procedures Referred By Contac t Referred To Contact MRI Diagnoses Increased risk of breast cancer Procedures MRI BREAST RIGHT BIOPSY Alison Carmona MD [address] [facility] [address] [place] [address] [facility] Mri [address] [place] [address] Referral ID Status Reason Start Date Expiration Date Visits Re quested Visits Authorized [id number] Closed 10/02/2020 10/02/2021 1 1 Encounter Details Date Type Department Care Team (Latest Contact Info) Description 10/22/2020 1:30 PM CDT - 10/22/2020 11:59 PM CDT Hospital Encounter [facility] MRI [address] [place] [phone] Discharge Disposition: Home or Self Care Social [...] st Contact Info) Description 03/05/2024 1:00 PM UTILITY AIRCREWMAN Office Visit [facility] - Urology [address] [facility] [place] [phone] Joshua Del Angel PA [address] [place] [address] documented as of this encounter Procedures Procedure Name Priority Date/Time Associated Diagnosis Comments MRI BREAST RIGHT BIOPSY Routine 10/22/2020 3:19 PM CDT Increased risk of breast cancer documented in this encounter Results * MRI BREAST RIGHT BIOPSY (10/22/2020 3:19 PM CDT) Anatomical Region Laterality Modality Breast Right Magnetic Resonan ce 10/22/2020 3:29 PM CDT Addenda Addendum by Cornelia Neal MD on 10/24/2020 3:15 PM CDT [...] department in good condition. The attending physician, Cornelia Neal MD, was present for and performed [...] available. This report was electronically signed by CORNELIA NEAL M.D. ??on 10/22/2020 3:33 PM . [...] also provided to the referring physician via [email or web address]. This report was electronically signed by CORNELIA NEAL M.D. ??on 10/24/2020 3:12 PM . [...] available. This report was electronically signed by CORNELIA NEAL M.D. ??on 10/22/2020 3:33 PM . [...] department in good condition. The attending physician, Cornelia Neal MD, was present for and performed the entire procedure. Alison Carmona MD MR ORDERABLES documented in this encounter Visit Diagnoses Diagnosis Increased risk of breast cancer Other specified personal history presenting hazards to health documented in this encounter Care Teams Armature Repairer Relationship Specialty Start Date End Date Beryl Lynch MD [address] [place] [address] PCP - General 09/06/18 11/01/23 documented as of this encounter
--- OUTSIDE RECORDS SUMMARY | 2024-02-21 01:56 | XMS_ITS | Encounter Summary ---
Author Organization [facility] Address [address] [place] [address] Care Team Providers Care Set Key Driver Name Role Phone Beryl Lynch MD Primary Care Provider [phone] Reason for Visit * Radiology Services (Routine) - Closed Specialty Diagnoses / Procedures Referred By Wagner t Referred To Contact Diagnoses Family history of breast cancer in mother Procedures US BREAST BILATERAL LTD US BREAST RIGHT LTD Alison Carmona MD [address] [place] [address] Referral ID Status Reason Start Date Expiration Date Visits Re quested Visits Authorized [id number] Closed 10/02/2020 10/02/2021 1 1 Encounter Details Date Type Department Care Team (Latest Contact Info) Description 10/02/2020 10:41 AM CDT - 10/02/2020 11:59 PM CDT Hospital Encounter [facility] [address] [place] [address] Alison Carmona MD [address] [facility] [place] [address] Discharge Disposition: Home or Self Care Social [...] st Contact Info) Description 03/05/2024 1:00 PM WOOD SKI MAKER Office Visit [facility] - Urology [address] [facility] [place] [place] [address] Joshua Del Angel PA [address] [place] [phone] documented as of this encounter Procedures Procedure Name Priority Date/Time Associated Diagnosis Comments US BREAST BILATERAL LTD Routine 10/02/2020 11:28 AM CDT Family history of breast cancer in mother documented in this encounter Results * (ABNORMAL) US BREAST BILATERAL LTD (10/02/2020 11:28 AM CDT) Anatomical Region Laterality Modality Breast Bilateral Mammography 10/02/2020 12:0 5 PM CDT Addenda Addendum by Cornelia Neal MD on 10/02/2020 2:02 PM CDT [...] findings This report was electronically signed by CORNELIA NEAL M.D. ??on 10/02/2020 12:21 PM . [...] findings This report was electronically signed by CORNELIA NEAL M.D. ??on 10/02/2020 1:59 PM . [...] findings This report was electronically signed by CORNELIA NEAL M.D. ??on 10/02/2020 12:21 PM . [...] enhancing focus on the MRI. Procedure Note Cornelia Neal MD - 10/02/2020 EXAMINATION: LIMITED RIGHT [...] OVERALL ASSESSMENT: BI-RADS CATEGORY 4: SUSPICIOUS. (SUBSET [id number]: LOW SUSPICION FOR MALIGNANCY). Based on MRI findings This report was electronically signed by CORNELIA NEAL M.D. on10/02/2020 12:21 PM . Alison Carmona MD ORDERABLES documented in this encounter Visit Diagnoses Diagnosis Family history of breast cancer in mother Family history of malignant neoplasm of breast documented in this encounter Care Teams Set Key Driver Relationship Specialty Start Date End Date Beryl Lynch MD [address] [place] [address] PCP - General 09/06/18 11/01/23 documented as of this encounter
--- OUTSIDE RECORDS SUMMARY | 2024-02-21 01:56 | XMS_ITS | Encounter Summary ---
Author Organization [facility] Address [address] [place] [address] Care Team Providers Care Research Attorney Name Role Phone Beryl Lynch MD Primary Care Provider [phone] Encounter Details Date Type Department Care Team (Latest Contact Info) Description 01/04/2023 Travel Social History Tobacco Use Types Packs/Day [...] st Contact Info) Description 03/05/2024 1:00 PM RETORT COOLER Office Visit [facility] [address] [facility], [place] [phone] Joshua Del Angel PA [address] [place] [phone] documented as of this encounter Visit Diagnoses Not on filedocumented in this encounter Care Teams Research Attorney Relationship Specialty Start Date End Date Beryl Lynch MD [address] [place] [address] PCP - General 09/06/18 11/01/23 documented as of this encounter
--- OUTSIDE RECORDS SUMMARY | 2024-02-21 01:56 | XMS_ITS | Encounter Summary ---
Author Organization [facility] Address [address] [facility] [place] [address] Care Team Providers Care Rougher Helper Name Role Phone Beryl Lynch MD Primary Care Provider [phone] Reason for Referral * Radiology Services (Routine) - Closed Specialty Diagnoses / Procedures Referred By Wagner rosado Referred To Contact Mammography Diagnoses Family history of breast cancer in mother Procedures MAMMO BILAT SCREENING Alison Carmona MD [address] [place] [address] [facility] Op [address] [place] [address] Referral ID Status Reason Start Date Expiration Date Visits Re quested Visits Authorized [id number] Closed 11/20/2019 11/19/2020 1 1 Reason for Visit * Radiology Services (Routine) - Closed Specialty Diagnoses / Procedures Referred By Contmaile t Referred To Contact Mammography Diagnoses Family history of breast cancer in mother Procedures MAMMO BILAT SCREENING Alison Carmona MD [address] [place] [address] [facility] Breast Center Op [address] [place] [address] Referral ID Status Reason Start Date Expiration Date Visits Re quested Visits Authorized [id number] Closed 11/20/2019 11/19/2020 1 1 Encounter Details Date Type Department Care Team (Latest Contact Info) Description 06/02/2020 9:00 AM CDT - 06/02/2020 9:10 AM CDT Hospital Encounter [facility] [address] [place] [address] Alison Carmona MD [address] [facility] [place] [address] Discharge Disposition: Home or Self Care Social [...] COVID-19? No / Unsure 05/08/2020 2:31 PM CAKE WRINGER documented as of this encounter Medications at [...] st Contact Info) Description 03/05/2024 1:00 PM CAKE WRINGER Office Visit [facility] - Urology [address] [place] [address], [facility] [place] [phone] Joshua Del Angel PA [address] [place] [address] documented as of this encounter Procedures Procedure Name Priority Date/Time Associated Diagnosis Comments MAMMO BILAT SCREENING Routine 06/02/2020 10:03 AM CDT Family history of breast cancer in mother documented in this encounter Results * MAMMO BILAT SCREENING (06/02/2020 10:03 AM [...] Risk 15-19%; High Risk > 20%). The [place] [employer] recommends MRI screening in addition to mammograms for women who are at increased risk. The patient has been notified and given information for the [facility], should she [...] lymph nodes. Alison Carmona MD MAMMO ORDERABLES documented in this encounter Visit Diagnoses Diagnosis Family history of breast cancer in mother Family history of malignant neoplasm of breast documented in this encounter Care Teams Rougher Helper Relationship Specialty Start Date End Date Beryl Lynch MD [address] [place] [address] PCP - General 09/06/18 11/01/23 documented as of this encounter
--- OUTSIDE RECORDS SUMMARY | 2024-02-21 01:56 | XMS_ITS | Encounter Summary ---
Author Organization [facility] Address [address] [facility] [place] [address] Care Team Providers Care Cardiovascular Operating Room Nurse Name Role Phone Beryl Lynch MD Primary Care Provider [phone] Encounter Details Date Type Department Care Team (Latest Contact Info) Description 12/27/2022 Travel Social History Tobacco Use Types Packs/Day [...] st Contact Info) Description 03/05/2024 1:00 PM VACUUM SPINDLE SANDER Office Visit [facility] [address] [facility] [place] [address] Joshua Del Angel PA [address] [place] [phone] documented as of this encounter Visit Diagnoses Not on filedocumented in this encounter Care Teams Cardiovascular Operating Room Nurse Relationship Specialty Start Date End Date Beryl Lynch MD [address] [place] [address] PCP - General 09/06/18 11/01/23 documented as of this encounter
--- OUTSIDE RECORDS SUMMARY | 2024-02-21 01:56 | XMS_ITS | Encounter Summary ---
Author Organization [facility] Address [address] [facility] [place] [address] Care Team Providers Care Personal Banking Assistant Name Role Phone Beryl Lynch MD Primary Care Provider [phone] Encounter Details Date Type Department Care Team (Latest Contact Info) Description 05/08/2020 Travel Social History Tobacco Use Types Packs/Day [...] COVID-19? No / Unsure 05/08/2020 2:31 PM SLABBER LIGHT documented as of this encounter Plan of Treatment Upcoming Encounters Date Type Department Care Team (Late st Contact Info) Description 03/05/2024 1:00 PM SLABBER LIGHT Office Visit [facility] - [facility] [address] [facility] [place] [address] Joshua Del Angel PA [address] [place] [address] documented as of this encounter Visit Diagnoses Not on filedocumented in this encounter Care Teams Personal Banking Assistant Relationship Specialty Start Date End Date Beryl Lynch MD [address] [place] [address] PCP - General 09/06/18 11/01/23 documented as of this encounter
--- OUTSIDE RECORDS SUMMARY | 2024-02-21 01:56 | XMS_ITS | Encounter Summary ---
Author Organization [facility] Address [address] [place] [address] Care Team Providers Care Pharmacy Salesperson Name Role Phone Beryl Lynch MD Primary Care Provider [phone] Reason for Visit * Reason Onset Date Comments Biopsy 10/05/2019 Encounter Details Date Type Department Care Team (Late Contact Info) Description 10/05/2019 Telephone [facility] Breast Care [address] [facility] [address] [place], [place] [phone] Swapna Jenkins RN Biopsy Social History Tobacco Use Types Packs/Day Years [...] (Late Contact Info) Description 03/05/2024 1:00 PM CERTIFIED NOVELL ENGINEER Office Visit [facility] - Urology [address] [place] [address], [place] [phone] Joshua Del Angel PA [address] [place] [address] documented as of this encounter Visit Diagnoses Not on filedocumented in this encounter Care Teams Pharmacy Salesperson Relationship Specialty Start Date End Date Beryl Lynch MD [address] [place] [address] PCP - General 09/06/18 11/01/23 documented as of this encounter
--- OUTSIDE RECORDS SUMMARY | 2024-02-21 01:56 | XMS_ITS | Encounter Summary ---
Author Organization [facility] Address [address] [facility] [place] [address] Care Team Providers Care Ambulance Operations Supervisor Name Role Phone Beryl Lynch MD Primary Care Provider [phone] Encounter Details Date Type Department Care Team (Latest Contact Info) Description 10/22/2020 Travel Social History Tobacco Use Types Packs/Day [...] st Contact Info) Description 03/05/2024 1:00 PM MEMBERSHIP SOLICITOR Office Visit [facility] [address] [facility] [place] [address] Joshua Del Angel PA [address] [place] [phone] documented as of this encounter Visit Diagnoses Not on filedocumented in this encounter Care Teams Ambulance Operations Supervisor Relationship Specialty Start Date End Date Beryl Lynch MD [address] [place] [address] PCP - General 09/06/18 11/01/23 documented as of this encounter
--- OUTSIDE RECORDS SUMMARY | 2024-02-21 01:56 | XMS_ITS | Encounter Summary ---
Author Organization [facility] Address [address] [facility] [place] [address] Care Team Providers Care Electric Car Operator Name Role Phone Beryl Lynch MD Primary Care Provider [phone] Encounter Details Date Type Department Care Team (Latest Contact Info) Description 03/17/2021 Travel Social History Tobacco Use Types Packs/Day [...] have Coronavirus / COVID-19? No / Unsure 03/17/2021 11:13 AM MINE EXPERT documented as of this encounter Plan of Treatment Upcoming Encounters Date Type Department Care Team (Late st Contact Info) Description 03/05/2024 1:00 PM MINE EXPERT Office Visit [facility] [address] [facility] [place] [address] Joshua Del Angel PA [address] [place] [phone] documented as of this encounter Visit Diagnoses Not on filedocumented in this encounter Care Teams Electric Car Operator Relationship Specialty Start Date End Date Beryl Lynch MD [address] [place] [address] PCP - General 09/06/18 11/01/23 documented as of this encounter
--- OUTSIDE RECORDS SUMMARY | 2024-02-21 01:56 | XMS_ITS | Encounter Summary ---
Author Organization [facility] Health Address [address] [place] [address] Care Team Providers Care Yarn Polishing Machine Operator Name Role Phone Beryl Lynch MD Primary Care Provider [phone] Reason for Visit * Reason Comments Establish Care Encounter Details Date Type Department Care Team (Late st Contact Info) Description 04/27/2023 1:45 PM GENERAL ENGINEERING TEACHER Office Visit [facility] [place] [address] Dionte Mccoy MD Overactive bladder (Primary Dx); Urinary urgency; Urge incontinence; Feeling of incomplete bladder emptying Social History Tobacco Use Types Packs/Day Years [...] Sign Reading Time Taken Comments Blood Pressure 128/83 04/27/2023 1:56 PM GENERAL ENGINEERING TEACHER Pulse 97 04/27/2023 1:56 PM GENERAL ENGINEERING TEACHER Temperature 36.1 ??C (97 ??F) 04/27/2023 1:56 PM GENERAL ENGINEERING TEACHER Respiratory Rate - - Oxygen Saturation 95% 04/27/2023 1:56 PM GENERAL ENGINEERING TEACHER Inhaled Oxygen Concentration - - Weight 81.8 kg (180 lb 6.4 oz) 04/27/2023 1:56 P M GENERAL ENGINEERING TEACHER Height 160 cm (5' 3 ) 04/27/2023 1:56 PM GENERAL ENGINEERING TEACHER Body Mass Index 31.96 04/27/2023 1:56 PM GENERAL ENGINEERING TEACHER documented in this encounter Progress Notes * Dionte Mccoy MD - 04/27/2023 3:03 PM CST [facility] Dionte Mcocy MD Date of Visit: 04/27/2023 Patient Name: Monae Celaya : 1990 Medical Record: [id number] Contact (home) Age: [age] year old Sex: female Referring Physician: No referring provider defined for this encounter. Chief Complaint: OAB History of Present Illness: 32 y.o. female seen previously with complaints of urge incontinence (typically after laugh) that had been an issue for her since childhood. Also had some mild janie, but this was not bothersome to her.She elected for medical treatment last visit - myrbetriq written for but not covered, eventually ended up on ditropan xl 10 mg daily. Incontinence has resolved. Minimal dry mouth only side effect. Still with some urgency and a sensation of incomplete emptying at times - however, she has had a recent hysterectomy and is unsure if that is related to her postop course. She is currently happy with treatment. No new issues. Continues to work on kegel exercises as well. Past Medical History; Past Medical History: Diagnosis Date ??? Anxiety ??? Depression ??? Family history of breast cancer in mother Past Surgical History: Past Surgical History: Procedure Laterality Date ??? BIOPSY BREAST Left 2019 Benign ??? MRI BREAST LEFT BIOPSY Left 10/24/2019 MRI BREAST LEFT BIOPSY 10/24/2019 [facility] MRI ??? MRI BREAST RIGHT BIOPSY Right 10/22/2020 MRI BREAST RIGHT BIOPSY 10/22/2020 [facility] MRI Current Medications: Current Outpatient Medications Medication Sig Dispense Refill ??? busPIRone (BUSPAR) 10 MG tablet Take 1 (one) tablet by mouth 2 times daily ??? escitalopram (LEXAPRO) 20 MG tablet Take 1 (one) tablet by mouth once daily ??? levonorgestrel (MIRENA) 20 MCG/24HR IUD 1 (one) device by Intrauterine route as directed (Patient not taking: Reported on 04/27/2023) ??? oxyBUTYnin CR 24hr (Ditropan-XL) 10 MG tablet Take 1 (one) tablet by mouth once daily 90 tablet3 ??? ziprasidone (GEODON) 20 MG capsule Take 1 (one) capsule by mouth 2 times daily with morning andevening meal No current facility-administered medications for this [...] ??? CAD (Coronary Artery Disease) Paternal Uncle Fam history is noncontributory to this problem. Social History: Social History Socioeconomic History ??? Marital status: Single Spouse name: Not on file ??? Number of children: Not on file ??? Years of education: Not on file ??? Highest education level: Not on file Occupational History ??? Not on file Tobacco Use ??? Smoking status: Every Day Packs/day: 1.00 Years: 11.00 Additional pack years: 0.00 Total pack years: 11.00 Types: Cigarettes ??? Smokeless tobacco: Never Vaping Use ??? Vaping Use: Some days Substance and Sexual Activity ??? Alcohol use: Yes Alcohol/week: 5.0 standard drinks of alcohol Types: 5 Cans of beer per week Comment: socially ??? Drug use: No ??? Sexual activity: Not on file Other Topics Concern ??? Not on file Social History Narrative ??? Not on file Social Determinants of Health Financial Resource Strain: Not on file Food Insecurity: Not on file Transportation Needs: Not on file Stress: Not on file Housing Stability: Not on file Review of Systems: See above Physical Exam: Vital Signs: BP 128/83 (BP SITE: LEFT ARM) Pulse 97 Temp 97 ??F (36.1 ??C) (Temporal) Ht 1.6 m (5' 3 ) Wt 81.8 kg (180 lb 6.4 oz) SpO2 95% Gen - WN, WD female in NAD HEENT - NC/AT, EOMI Chest - normal respiratory rate and effort Abd - nondistended Ext - no c/c/e Skin - no rash/erythema noted, good skin turgor Neuro - normal gait, normal speech, A&Ox3 Diagnosis: OAB (urgency, urge incontinence, sensation of incomplete emptying) Recommendations: Pt elects to continue ditropan xl 10 mg daily. Medication refilled. Will follow up in 3 months to reassess sx. Continue pelvic floor exercises. Discussed use of biotene to help with dry mouth. Pt understands and agrees with plan. 20 min total spent in patient encounter to include review of records,assessment and counseling of patient, and documentation of patient visit. Dionte Mccoy MD 04/27/2023 3:03 PM RAL ENGINEERING TEACHER documented in this encounter Plan of Treatment Upcoming Encounters Date Type Department Care Team (Late st Contact Info) Description 03/05/2024 1:00 PM GENERAL ENGINEERING TEACHER Office Visit [facility] - [facility]rology [address] [facility] [place] [address] Joshua Del Angel PA [address] [place] [address] documented as of this encounter Visit Diagnoses Diagnosis Overactive bladder- Primary Hypertonicity of bladder Urinary urgency Urgency of urination Urge incontinence Feeling of incomplete bladder emptying Incomplete bladder emptying documented in this encounter Care Teams Yarn Polishing Machine Operator Relationship Specialty Start Date End Date Beryl Lynch MD [address] [place] [address] PCP - General 09/06/18 11/01/23 documented as of this encounter
--- OUTSIDE RECORDS SUMMARY | 2024-02-21 01:56 | XMS_ITS | Encounter Summary ---
Author Organization [facility] Address [address] [place] [address] Care Team Providers Care Finance Associate Name Role Phone Beryl Lynch MD Primary Care Provider [phone] Encounter Details Date Type Department Care Team (Latest Contact Info) Description 10/30/2019 Travel Social History Tobacco Use Types Packs/Day [...] st Contact Info) Description 03/05/2024 1:00 PM HYDROMETEOROLOGIST Office Visit [facility] - [facility]rology [address] [facility] [place] [address] Joshua Del Angel PA [address] [place] [phone] documented as of this encounter Visit Diagnoses Not on filedocumented in this encounter Care Teams Finance Associate Relationship Specialty Start Date End Date Beryl Lynch MD [address] [place] [address] PCP - General 09/06/18 11/01/23 documented as of this encounter
--- OUTSIDE RECORDS SUMMARY | 2024-02-21 01:56 | XMS_ITS | Encounter Summary ---
Author Organization [facility] Address [address] [facility] [place] [address] Care Team Providers Care Filenet Architect Name Role Phone Beryl Lynch MD Primary Care Provider Reason for Referral * Radiology Services (Routine) - Closed Specialty Diagnoses / Procedures Referred By Wagner rosado Referred To Contact MRI Diagnoses Family history of breast cancer in mother Procedures MRI BREAST BILAT SCREENING WWO MRI BREAST BILAT WWO CONTRAST Alison Carmona MD [address] [place] [address] [facility] [address] [place] [address] Referral ID Status Reason Start Date Expiration Date Visits Re quested Visits Authorized [id number] Closed 12/17/2022 03/17/2023 1 1 Reason for Visit * Reason Comments Follow-up Follow up increased lifetime risk of breast cancer Encounter Details Date Type Department Care Team (Late st Contact Info) Description 06/28/2022 10:30 AM CDT Office Visit [facility] General Surgery [address] [place] [address] Alison Carmona MD [address] [place] [address] Family history of breast cancer in mother [...] Sign Reading Time Taken Comments Blood Pressure 121/78 06/28/2022 10:44 AM CDT Pulse 72 06/28/2022 10:44 AM CDT Temperature 36.7 ??C (98 ??F) 06/28/2022 10:44 AM CDT Respiratory Rate - - Oxygen Saturation 97% 06/28/2022 10:44 AM CDT Inhaled Oxygen Concentration - - Weight 81.2 kg (179 lb) 06/28/2022 10:44 AM CDT Height 157.5 cm (5' 2 ) 06/28/2022 10:44 AM CDT Body Mass Index 32.74 06/28/2022 10:44 AM CDT documented in this encounter Patient Instructions * Patient Instructions* Tracie Guthrie RN - 06/28/2022 11:10 AM CDT Follow up with Dr. Carmona in December 2022 with a breast MRI before visit. documented in this encounter Progress Notes * Alison Carmona MD - 06/28/2022 10:30 AM CDT Patient Name: Monae Celaya : 1990 CC: Increased lifetime risk of breast cancer Chief Complaint Patient presents with ??? Follow-up Follow up increased lifetime risk of breast cancer HISTORY OF PRESENT ILLNESS: Monae Celaya is a 32 year old female with elevated lifetime risk of breast cancer (estimated 34%). She underwent right MRI guided biopsy on 10/22/2020 -- this showed benign breast tissue (concordant). Last visit was 11/23/2021. Today she has no breast masses, nipple discharge, or skin changes. 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 She reports intermittent left axillary pain but this is not bothersome. She never had a recurrence of the right axillary lump. She is not ready to do genetic testing at this point. She presents today for clinical exam, mammogram, and high risk surveillance visit. ALLERGIES: Allergies Allergen Reactions ??? Keflex [Cephalexin] Other Causes UTI PAST MEDICAL HISTORY: Past Medical History: Diagnosis Date ??? Anxiety ??? Depression ??? Family history of breast cancer in mother PAST SURGICAL HISTORY: Past Surgical History: Procedure Laterality Date ??? BIOPSY BREAST Left 2019 Benign ??? MRI BREAST LEFT BIOPSY Left 10/24/2019 MRI BREAST LEFT BIOPSY 10/24/2019 [facility] MRI ??? MRI BREAST RIGHT BIOPSY Right 10/22/2020 MRI BREAST RIGHT BIOPSY 10/22/2020 [facility] MRI MEDICATIONS: Current Outpatient Medications Medication Sig [...] status: Every Day Packs/day: 1.00 Years: 11.00 Pack years: 11.00 Types: Cigarettes ??? Smokeless tobacco: Never Vaping Use ??? Vaping status: Some Days Substance Use Topics ??? Alcohol use: Yes [...] PHYSICAL EXAM (stable except as noted) BP 121/78 Pulse 72 Temp 98 ??F (36.7 ??C) Ht 1.575 m (5' 2 ) Wt 81.2 kg (179 lb) SpO2 97% General: alert, cooperative, in no distress Eyes: [...] or axillary lymphadenopathy bilaterally. RADIOLOGY REVIEW: Bilateral screening mammogram 06/28/2022 -- no suspicious masses or evidence of malignancy; no significant change from prior. BIRADS-1 DIAGNOSIS: 32 year old female with increased lifetime risk of breast cancer estimated at 34% PLAN: -- All pertinent records and reports available to me reviewed and summarized -- She has no suspicious findings on clinical exam -- Overall her symptoms of breast pain and left axillary pain have significantly improved and she believes it is decreased stress with her new job -- Bilateral mammogram performed today shows no suspicious findings or evidence of malignancy (BIRADS-1) -- Discussed genetics again but she is not ready at this time -- Will continue high risk screening with twice yearly clinical exams and yearly mammograms and breast MRIs. -- Return to clinic in 6 months for clinical exam and breast MRI -- She understands that she can call to return at any time with any other questions or concerns 35 minutes were spent in review of records, evaluation, treatment, counseling, and documentation. Alison Carmona MD 06/28/2022 5:35 PM documented in this encounter Plan of Treatment Upcoming Encounters Date Type Department Care Team (Late st Contact Info) Description 03/05/2024 1:00 PM PHYSICAL THERAPY PROFESSOR Office Visit [facility] [address] [facility] [place] [address] Joshua Del Angel PA [address] [place] [id number] documented as of this encounter Results * MRI BREAST BILAT SCREENING WWO (12/27/2022 8:10 AM CDT) Anatomical Region Laterality Modality Breast Bilateral Magnetic Resonan ce 12/27/2022 9:51 AM CDT Impressions 12/27/2022 10:14 AM CDT : 1. No bilateral breast MRI evidence of malignancy. 2. Moderate background enhancement, diminishing the sensitivity and specificity of the breast MRI. RECOMMENDATION: ?? 1. Screening mammography is due in June 2023. 2. Given the elevated lifetime risk of developing breast cancer of greater than 20 %, screening breast MRI is recommended in 1 year. Patient will receive breast MRI results from Dr. Carmona. ??She will see Dr. Carmona in the breast clinic today. OVERALL ASSESSMENT: ??BI-RADS CATEGORY 2: BENIGN. > Interpreting Provider: Sneha Buckley MD on 12/27/2022 10:14 AM Narrative 12/27/2022 10:14 AM CDT EXAM: ??BILATERAL SCREENING BREAST MRI WITH AND WITHOUT CONTRAST WITH DYNACAD ANALYSIS LOCATION: [facility] EXAM DATE: ??12/27/2022 HISTORY: ?This is a 32-year-old female with family history of breast cancer in her mother at age 59, aunt at age 42, grandmother at age 58 and another aunt at age 52. Family history of BRCA2 gene mutation. Patient has prior history of right breast MRI biopsy 10/22/2020 and left MRI breast biopsy 10/24/2019, both biopsies demonstrating benign results. Last menstrual period: Patient reports she still has cycles and has a Mirena ring. COMPARISON: ?? Prior breast MRI scans dated 11/23/2021, 10/22/2020, 10/02/2020, 09/24/2019, and 09/21/2018. Compare with mammogram 06/28/2022. CONTRAST: ??16 cc Dotarem IV. TECHNICAL INFORMATION: ??Study performed on a 3.0 Saritha magnet. A breast coil was utilized. ??Bilateral axial T1 and axial STIR images obtained, followed by axial 3-D gradient T1 fat sat and sagittal 3-D gradient T1 fat-sat images precontrast. Due to poor fat saturation, Daniel series were utilized. After the administration of contrast, 2 postcontrasted 3D gradient axial T1 fat Daniel sat -series were obtained dynamically, one at 90 seconds and the other at 5-6 minutes after contrast administration. Between the two 3-D axial Daniel T1 weighted fat-sat postcontrasted images, a sagittal 3-D gradient T1 fat-sat series was performed of each breast. Subtraction was performed of the 2 axial 3-D gradient Daniel T1 weighted postcontrast images. Images were reviewed on a workstation with 3D post processing and DynaCAD was utilized. FINDINGS: Parenchymal breast pattern: Scattered fibroglandular tissue. Background parenchymal enhancement: Moderate this decreases the sensitivity and specificity of breast MRI. Enhancement is Symmetric. Right breast: ??There is no suspicious enhancement or evidence of malignancy. Biopsy clip artifact in the lower outer quadrant of the breast. No areas of washout enhancement. No areas of washout enhancement. No abnormal enhancement of the nipple areolar complex or the visualized chest wall. No enlarged axillary lymph nodes. Left breast: ??There is no suspicious enhancement or evidence of malignancy. No abnormal enhancement of the nipple areolar complex or the visualized chest wall. No enlarged axillary lymph nodes. Alison Carmona MD MR ORDERABLES documented in this encounter Visit Diagnoses Diagnosis Family history of breast cancer in mother- Primary Family history of malignant neoplasm of breast Family history of breast cancer in mother Family history of malignant neoplasm of breast documented in this encounter Care Teams Filenet Architect Relationship Specialty Start Date End Date Beryl Lynch MD [address] [place], [place] [id number] PCP - General 09/06/18 11/01/23 documented as of this encounter
--- OUTSIDE RECORDS SUMMARY | 2024-02-21 01:56 | XMS_ITS | Encounter Summary ---
Author Organization [facility] Address [address] [place] [address] Care Team Providers Care Oven Worker Name Role Phone Beryl Lynch MD Primary Care Provider [phone] Encounter Details Date Type Department Care Team (Latest Contact Info) Description 05/11/2021 Travel Social History Tobacco Use Types Packs/Day [...] have Coronavirus / COVID-19? No / Unsure 05/11/2021 9:46 AM WORK DISTRIBUTOR documented as of this encounter Plan of Treatment Upcoming Encounters Date Type Department Care Team (Late st Contact Info) Description 03/05/2024 1:00 PM WORK DISTRIBUTOR Office Visit [facility] - Urology [address] [facility], [facility] [place] [address] Joshua Del Angel PA [address] [place] [phone] documented as of this encounter Visit Diagnoses Not on filedocumented in this encounter Care Teams Oven Worker Relationship Specialty Start Date End Date Beryl Lynch MD [address] [place] [address] PCP - General 09/06/18 11/01/23 documented as of this encounter
--- OUTSIDE RECORDS SUMMARY | 2024-02-21 01:56 | XMS_ITS | Encounter Summary ---
Author Organization [facility] Address [address] [place] [address] Care Team Providers Care Instrumentation And Controls Technician Name Role Phone Beryl Lynch MD Primary Care Provider [phone] Encounter Details Date Type Department Care Team (Latest Contact Info) Description 04/02/2021 Travel Social History Tobacco Use Types Packs/Day [...] COVID-19? No / Unsure 04/02/2021 9:05 AM FLATWORK IRONER documented as of this encounter Plan of Treatment Upcoming Encounters Date Type Department Care Team (Late st Contact Info) Description 03/05/2024 1:00 PM FLATWORK IRONER Office Visit [facility] - [facility] [address] [facility], [facility] [place] [address] Joshua Del Angel PA [address] [place] [phone] documented as of this encounter Visit Diagnoses Not on filedocumented in this encounter Care Teams Instrumentation And Controls Technician Relationship Specialty Start Date End Date Beryl Lynch MD [address] [place] [address] PCP - General 09/06/18 11/01/23 documented as of this encounter
--- OUTSIDE RECORDS SUMMARY | 2024-02-21 01:56 | XMS_ITS | Encounter Summary ---
Author Organization [facility] Health Address [address] [place] [address] Care Team Providers Care Manager Cardiology Name Role Phone Beryl Lynch MD Primary Care Provider [phone] Reason for Visit * Reason Comments Surgery Consult Encounter Details Date Type Department Care Team (Late st Contact Info) Description 12/12/2019 11:30 AM CDT Office Visit [facility] [address] [place] [address], [place] [phone] Elijah Felming MD [address] [place] [address] [place] [address] Increased risk of breast cancer (Primary Dx); Family history of breast cancer Social History Tobacco Use Types Packs/Day Years [...] Sign Reading Time Taken Comments Blood Pressure 120/78 12/12/2019 11:36 AM CDT Pulse 68 12/12/2019 11:36 AM CDT Temperature 36.7 ??C (98 ??F) 12/12/2019 11:36 AM CDT Respiratory Rate - - Oxygen Saturation 97% 12/12/2019 11:36 AM CDT Inhaled Oxygen Concentration - - Weight 79.8 kg (176 lb) 12/12/2019 11:36 AM CDT Height 157.5 cm (5' 2 ) 12/12/2019 11:36 AM CDT Body Mass Index 32.19 12/12/2019 11:36 AM CDT documented in this encounter Progress Notes * Elijah Fleming MD - 12/12/2019 7:03 PM CDT Patient seen and examined with Resident. Please see note for further details. I confirm history, exam, assessment and plan. In addition I note: Brief History: Patient is a pleasant 29-year-old female who presents to our clinic to discuss breast reconstruction. She has been referred to our clinic by Dr. Carmona. Patient has had a history of nipple discharge (milky/bloody) which has been going on off and on for about the last 4 years. She did have multiple biopsies without any evidence of breast cancer. She does have a significant family history of breast cancer. She does have a lifetime risk of breast cancer of about 34%. She will be seeing medical genetics soon. On account of increased risk of breast cancer, patient is interested in bilateral phylactic mastectomies and bilateral immediate breast reconstruction. Her current bra size is 36C she would like to be the same size, slightly bigger terms of her breastreconstruction. She is an active smoker, smoking about half a pack a day Examination: BP 120/78 Pulse 68 Temp 98 ??F (36.7 ??C) Ht 5' 2 (1.575 m) Wt 176 lb (79.8 kg) SpO2 97% BMI 32.19kg/m2 general: Resting comfortably psych: Normal affect CVS: RRR respiration: Normal respiratory effort Breasts: She has grade 2 ptosis bilaterally. No palpable breast masses appreciated currently. No axillary lymphadenopathy appreciated bilaterally. Right (in cm) Left (in cm) Sternal notch to nipple 25 26 Nipple to IMF 9 10 Breast width 13 13 abdomen: Soft, nondistended, nontender extremities: Warm and well-perfused Assessment and plan: 29-year-old female with a strong family history of breast cancer and increasedlifetime risk of breast cancer who is interested in bilateral prophylactic mastectomies and bilateral immediate breast reconstruction - patient is interested in bilateral prophylactic mastectomies for risk reduction purposes and is interested in bilateral immediate breast reconstruction at the time of her mastectomies - She needs skin sparing mastectomies, not a candidate for nipple sparing mastectomy as she has hadnipple discharge off and on for the last 4 years - We did discuss various reconstructive options in detail including autologous reconstruction (TRAM/ Bilateral Latissimus dorsi flap) and tissue street light cleaner/implant reconstruction with & without AlloDerm. - After considering the various reconstructive options she decided to proceed with tissue street light cleaner/implant reconstruction with AlloDerm - We did discuss the staged nature of the reconstruction involving the initial stage with tissue street light cleaner/AlloDerm placement at the time of mastectomy with serial expansion in the office followed by another surgery for implant exchange. - We did discuss the risks of surgery including bleeding/hematoma requiring re- operation, mastectomy skin flap necrosis, infection requiring return to the OR with the removal of the implant/exchange and subsequent surgery [place] later date for replacement of the implant/street light cleaner, scarring, wound healing complications like wound dehiscence, asymmetry from one side to another requiring matching procedures for symmetry and need for revisional surgery in the future - We discussed the option of choosing saline vs silicone implant with the recommendation of MRI at 3 yrs and then every 2 yrs if she proceeds with silicone implants as per the current FDA recommendations. - We also discussed the option of nipple reconstruction and fat grafting at a later date for any contour abnormalities - Finally, we did discuss the topic of breast radiation. In her case, it will not affect her reconstruction as she is having B/L prophylactic mastectomies and will not be getting radiation - ideally I would like to defer her mastectomy and breast reconstruction till the patient has quit smoking, patient is working on quitting smoking and is not planning on having any surgery till June2020 - she will be seeing Dr. Carmona with repeat imaging in May 2020, I will see her in the clinic around that time and will land surgery with , hopefully she would have quit smoking by then Elijah Fleming MD, FACS [facility] Pager: Date of service: 12/12/2019 * Liss Menon MD - 12/12/2019 11:55 AM CDT Plastic Surgery History and Physical 12/12/2019 11:55 AM HPI Monae Celaya is a 29 year old female with past medical history of bilateral nipple discharge and extensive family history of breast cancer who was referred by Dr. Carmona to discuss reconstruction after bilateral prophylactic mastectomy. History of milky/bloody, occurring for the past 4 years.No palpable masses. Workup with no definite cancer diagnosis but estimated 34% lifetime cancer risk. Referred to genetics but not yet with genetic tasting. Workup has included MRIs and diagnostic mammogram. Had biopsy which was benign. Currently a size 36C. Would like to be a size CD. History of prior breast surgeries: left breast biopsy. She does not take asa, blood thinners, or steroids. She does smoke 0.5 ppd. Body mass index is32.19 kg/m??. GYNECOLOGIC HISTORY: Menarche at age??11 Menopause at age??- premenopausal ??with first delivery at age 23 History of ???Yes for 3.5 months History of OCP use???Yes from age [age], then used NuvaRing from age [age]. Now with IUD after of daughter. History of HRT use???no FAMILY HISTORY bilateral breast cancer in her mother (diagnosed at age 62), breast cancer in two maternal great aunts, two maternal second cousins, and in two paternal aunts and ovarian cancer in one paternal aunt.One paternal aunt that was diagnosed with the BRCA mutation and one paternal cousin carries the mutation but has not been diagnosed with cancer. REVIEW OF SYSTEMS (BOLD IS POSITIVE) Constitutional: weight loss, fatigue, weakness, fever, chills, night sweats Neurological: headaches, paresthesias, tremors, seizures HEENT: headache, visual changes, hearing loss, ear/throat pain, epistaxis Cardiovascular: chest pain, palpitations, dyspnea on exertion, hypertension Respiratory: shortness of breath, cough, wheeze Gastrointestinal: pain, nausea/vomiting, hematemesis, hematochezia Genitourinary: dysuria, urgency, hematuria, nocturia, incontinence Hematologic: anemia, easy bruising, petechiae MSK: joint pain/swelling, muscle pain, weakness, decreased ROM Endocrine: heat/cold intolerance, thyroid problems, diabetes Past Medical History: Diagnosis Date ??? Anxiety ??? Depression ??? Family history of breast cancer in mother Past Surgical History: Procedure Laterality Date ??? MRI BREAST LEFT BIOPSY Left 10/24/2019 MRI BREAST LEFT BIOPSY 10/24/2019 [facility] MRI Outpatient Medications Marked as Taking for the 12/12/19 encounter (Office Visit) with Elijah Fleming MD Medication Sig ??? busPIRone (BUSPAR) 10 MG tablet Take 10 mg by mouth 2 times daily ??? escitalopram (LEXAPRO) 20 MG tablet Take 1 tablet by mouth once daily ??? levonorgestrel (MIRENA) 20 MCG/24HR IUD 1 device by Intrauterine route as directed ??? ziprasidone (GEODON) 20 MG capsule Take 20 mg by mouth 2 times daily with morning and evening meal No Known Allergies Social History Socioeconomic History ??? Marital status: Single Spouse name: Not on file ??? Number of children: Not on file ??? Years of education: Not on file ??? Highest education level: Not on file Occupational History ??? Not on file Social Needs ??? Financial resource strain: Not on file ??? Food insecurity Worry: Not on file Inability: Not on file ??? Transportation needs Medical: Not on file Non-medical: Not on file Tobacco Use ??? Smoking status: Current Every Day Smoker Packs/day: 1.00 Years: 11.00 Pack years: 11.00 Types: Cigarettes ??? Smokeless tobacco: Never Used Substance and Sexual Activity ??? Alcohol use: Yes Alcohol/week: 5.0 standard drinks Types: 5 Cans of beer per week Comment: denies daily drinking ??? Drug use: No ??? Sexual activity: Not on file Lifestyle ??? Physical activity Days per week: Not on file Minutes per session: Not on file ??? Stress: Not on file Relationships ??? Social connections Talks on phone: Not on file Gets together: Not on file Attends bahai service: Not on file Active member of club or organization: Not on file Attends meetings of clubs or organizations: Not on file Relationship status: Not on file ??? Intimate partner violence Fear of current or ex partner: Not on file Emotionally abused: Not on file Physically abused: Not on file Forced sexual activity: Not on file Other Topics Concern ??? Not on file Social History Narrative ??? Not on file Family History Problem Relation Name Age of [...] ??? CAD (Coronary Artery Disease) Paternal Uncle PHYSICAL EXAM BP 120/78 Pulse 68 Temp 98 ??F (36.7 ??C) Ht 5' 2 (1.575 m) Wt 176 lb (79.8 kg) SpO2 97% BMI 32.19kg/m2 General: Alert, NAD HEENT: NC, AT, EOMI CV: RRR Pulm: Breathing non-labored Abdomen: Soft, NT, ND Neuro: AAOx3 Ext: WWP Breasts: symmetric bilaterally Grade I ptosis No masses, lumps or lesions No associated skin changes No nipple discharge Measurements below in (cm). RIGHT BREAST LEFT BREAST SN to Nipple 25 26 Nipple to IMF 9 10 Breast Width 13 13 Data Review: Labs: CBC: No results for input(s): WBC, HGB, HCT, PLTCOUNT in the last 63044 hours. CHEMISTRY: No results for input(s): SODIUM, POTASSIUM, CHLORIDE, BUN, CREATININE, GLUCOSE, ALBUMIN, PREALBUMIN, ALT, AST, CALCIUMION, CALCIUMIONAD in the last 60520 hours. Coagulation: No results for input(s): PT, INR, APTT in the last 94299 hours. Inflammatory Markers: No results for input(s): SEDRATE, CRP in the last 36460 hours. Imaging: Bilateral breast MRI 09/18/2019: Right: Somewhat irregular [...] 11/20/2019: Resolution of right breast hematoma BIRADS-2 Patjp;pgu MRI guided biopsy of left breast 10/24/2019: Benign breast tissue (concordant) Assessment/Plan Monae Celaya is a 29 year old female with increased risk of breast cancer here to discuss prophylactic mastectomies -We discussed multiple options including implant-based and autologous methods. -For the implant-based methods, we discussed the details of two-stage tissue street light cleaner followed by implant as well as the role of Alloderm to create a naturally appearing breast shape. -The risks and benefits of the procedures were explained which include: infection, implant rupture,capsular contracture and the increased incidence of infection and seroma with the use of AlloDerm. The length of operating time, hospitalization and recovery were discussed. -Autologous methods including the latissimus dorsi flap as well as abdominally- based methods like the pedicled TRAM, free TRAM and ISMAEL flap were spoken of as well. The risks including for the latissimus dorsi flap, seroma,shoulder weakness and partial flap loss were mentioned as well as the increase in operative time, hospital stay and recovery over implant-based methods. At the end of the consultation, all of the patient's questions were answered, and she elected for implant based reconstruction. Unfortunately, this patient is still smoking. We will defer mastectomies and reconstruction at thistime until she quits smoking. We will see her back in 3-6 months to monitor this progress. Liss Menon MD 12/12/2019 11:55 AM Plastic Surgery Resident, PGY-4 Pager: [phone] Nights (5pm-7am) and weekends, please call [phone] and ask the mash filter press operator to page the plastic surgery resident conference reservationist. documented in this encounter Plan of Treatment Upcoming Encounters Date Type Department Care Team (Late st Contact Info) Description 03/05/2024 1:00 PM COCONUT CANDY MAKER Office Visit [facility] - Urology [address] [facility], [place] [address] Joshua Del Angel PA [address] [place] [address] documented as of this encounter Visit Diagnoses Diagnosis Increased risk of breast cancer- Primary Other specified personal history presenting hazards to health Family history of breast cancer Family history of malignant neoplasm of breast documented in this encounter Care Teams Manager Cardiology Relationship Specialty Start Date End Date Beryl Lynch MD [address] [place], [place] [id number] PCP - General 09/06/18 11/01/23 documented as of this encounter
--- OUTSIDE RECORDS SUMMARY | 2024-02-21 01:56 | XMS_ITS | Encounter Summary ---
Author Organization [facility] Address [address] [place] [address] Care Team Providers Care Legal Billing Clerk Name Role Phone Beryl Lynch MD Primary Care Provider [phone] Encounter Details Date Type Department Care Team (Latest Contact Info) Description 06/27/2023 Travel Social History Tobacco Use Types Packs/Day [...] st Contact Info) Description 03/05/2024 1:00 PM PERSONAL DRIVER Office Visit [facility] [address] [facility], [place] [phone] Joshua Del Angel PA [address] [place] [phone] documented as of this encounter Visit Diagnoses Not on filedocumented in this encounter Care Teams Legal Billing Clerk Relationship Specialty Start Date End Date Beryl Lynch MD [address] [place] [address] PCP - General 09/06/18 11/01/23 documented as of this encounter
--- OUTSIDE RECORDS SUMMARY | 2024-02-21 01:56 | XMS_ITS | Encounter Summary ---
Author Organization [facility] Address [address] [place] [address] Care Team Providers Care Cement Finisher Helper Name Role Phone Beryl Lynch MD Primary Care Provider [phone] Encounter Details Date Type Department Care Team (Latest Contact Info) Description 07/29/2022 Travel Social History Tobacco Use Types Packs/Day [...] suspected to have Coronavirus/COVID-19? No / Unsure 07/29/2022 8:43 AM CDT documented as of this encounter Plan of Treatment Upcoming Encounters Date Type Department Care Team (Late st Contact Info) Description 03/05/2024 1:00 PM NON EMERGENCY SERVICES AMBULANCE DRIVER Office Visit [facility] [address] [facility], [place] [address] Joshua Del Angel PA [address] [place] [phone] documented as of this encounter Visit Diagnoses Not on filedocumented in this encounter Care Teams Cement Finisher Helper Relationship Specialty Start Date End Date Beryl Lynch MD [address] [place] [address] PCP - General 09/06/18 11/01/23 documented as of this encounter
--- OUTSIDE RECORDS SUMMARY | 2024-02-21 01:56 | XMS_ITS | Encounter Summary ---
Author Organization [facility] Address [address] [facility] [place] [address] Care Team Providers Care Senior Technical Support Analyst Name Role Phone Beryl Lynch MD Primary Care Provider [phone] Reason for Referral * Radiology Services (Routine) - Closed Specialty Diagnoses / Procedures Referred By Contac t Referred To Contact Mammography Diagnoses Increased risk of breast cancer Procedures MAMMO RIGHT POST CLIP OR WIRE Alison Carmona MD [address] [employer] [address] [place] [address] [facility] [address] [place] [address] Referral ID Status Reason Start Date Expiration Date Visits Re quested Visits Authorized [id number] Closed 10/02/2020 10/02/2021 1 1 Reason for Visit * Radiology Services (Routine) - Closed Specialty Diagnoses / Procedures Referred By Contac t Referred To Contact Mammography Diagnoses Increased risk of breast cancer Procedures MAMMO RIGHT POST CLIP OR WIRE Alison Carmona MD [address] [place] [address] [facility] [address] [place] [address] Referral ID Status Reason Start Date Expiration Date Visits Re quested Visits Authorized [id number] Closed 10/02/2020 10/02/2021 1 1 Encounter Details Date Type Department Care Team (Latest Contact Info) Description 10/22/2020 1:26 PM CDT - 10/22/2020 1:29 PM CDT Hospital Encounter [facility] [address] [place] [address] Beryl Lynch MD [address] [place] [address] Discharge Disposition: Home or Self Care Social [...] st Contact Info) Description 03/05/2024 1:00 PM INTERNAL COMBUSTION ENGINE SUBASSEMBLER Office Visit [facility] - Urology [address] [facility], [place] [phone] Joshua Del Angel PA [address] [place] [address] documented as of this encounter Procedures Procedure Name Priority Date/Time Associated Diagnosis Comments MAMMO RIGHT POST CLIP OR WIRE Routine 10/22/2020 3:45 PM CDT Increased risk of breast cancer PATHOLOGY TISSUE Routine 10/22/2020 3:05 PM CDT Increased risk of breast cancer documented in this encounter Results * MAMMO RIGHT POST CLIP OR WIRE [...] was processed and interpreted on the MRI [employer] workstation for biopsy purposes. MRI FINDINGS: Contrast exam again demonstrates a tiny 0.3 cm enhancing focus/lesion in the lower outer quadrant of the right breast, best seen at table position -45.14. This is in the mid to posterior depth. Utilizing the [employer] workstation, the appropriate location on the sideplate [...] also provided to the referring physician via [employer]. This report was electronically signed by CORNELIA [...] no significant hematoma. Through the introducer, a pihl marker clip was placed within the biopsy [...] and performed the entire procedure. Procedure Note Cornelia Neal MD - 10/22/2020 EXAM: MRI GUIDED [...] was electronically signed by CORNELIA NEAL M.D. on10/22/2020 3:33 PM . Alison Carmona MD MAMMO ORDERABLES * PATHOLOGY TISSUE (10/22/2020 3:05 PM CDT) Case Report Surgical Pathology Report ? Case: [id number] ? Authorizing Provider: ??Alison Carmona MD ? Collected: ? 10/22/2020 03:05 PM ? Ordering Location: ? [facility] Received: ?10/23/2020 06:04 AM ? CENTER ? Pathologist: ? Olivia Ojeda MD ? Specimen: ?Breast, Right, CC Dr Cornelia Neal/ 0.3 cm enhancing lesion lower outer quadrant right ? breast on MRI low suspicion of malignancy High risk patient MRI Biopsy last year ? 10/24/2020 11:57 AM CDT [facility] Final Diagnosis Breast, right, lower outer quadrant, core biopsy (A): - Benign breast tissue 10/24/2020 11:57 AM CDT [facility] Microscopic Description and Comment Microscopic examination substantiates the final diagnosis. 10/24/2020 11:57 AM T [facility] Clinical History The patient is a 30 year old woman with an extensive family history of breast cancer presenting with intermittent bilateral nipple discharge for the last 4 years since the of her daughter (intermittent milky and sometimes bloody nipple discharge) with Mammo showing 0.3 cm enhancing focus in the lower outer quadrant of the right breast. 10/24/2020 11:57 AM [facility] Gross Description The requisition [...] ischemia time: 3 minutes 10/24/2020 11:57 AM [facility] Disclaimer The performance characteristics of all immunohistochemical and indirect immunofluorescence stains (if any) cited in this report were determined by the Histopathology Laboratory of [facility]. Some of these tests were developed by [...] attending (teaching) pathologist. 10/24/2020 11:57 AM CDT [facility] Embedded Images 10/24/2020 11:57 AM T [facility] Pathology/Cytolo gy (Breast, Right) 10/22/2020 3:05 PM CDT 10/23/2020 6:04 AM CDT Alison Carmona MD LAB - PATHOLOGY/CYT OLOGY ORDERABLES [facility] [address] [place] [address], [facility] [phone] documented in this encounter Visit Diagnoses Diagnosis Increased risk of breast cancer Other specified personal history presenting hazards to health documented in this encounter Care Teams Senior Technical Support Analyst Relationship Specialty Start Date End Date Beryl Lynch MD [address] [place], [place] [phone] PCP - General 09/06/18 11/01/23 documented as of this encounter
--- OUTSIDE RECORDS SUMMARY | 2024-02-21 01:56 | XMS_ITS | Encounter Summary ---
Author Organization [facility] Address [address] [facility] [place] [address] Care Team Providers Care Athletic Shoe Designer Name Role Phone Beryl Lynch MD Primary Care Provider [phone] Reason for Referral * Radiology Services (Routine) - Closed Specialty Diagnoses / Procedures Referred By Wagner rosado Referred To Contact MRI Diagnoses Family history of breast cancer in mother Procedures MRI BREAST BILAT WWO CONTRAST Alison Carmona MD [address] [facility] [address] [place] [address] [facility] Mri [address] [place] [address] Referral ID Status Reason Start Date Expiration Date Visits Re quested Visits Authorized [id number] Closed 11/13/2021 02/11/2022 1 1 RAME AND POWERPLANT MECHANIC Reason for Visit * Reason Comments Follow-up High risk follow up Encounter Details Date Type Department Care Team (Late st Contact Info) Description 05/11/2021 10:30 AM AIRFRAME AND POWERPLANT MECHANIC Office Visit [facility] General Surgery [address] [place] [address] Alison Carmona MD [address] [facility] [place] [address] Family history of breast cancer in mother [...] COVID-19? No / Unsure 05/11/2021 9:46 AM AIRFRAME AND POWERPLANT MECHANIC documented as of this encounter Last Filed Vital Signs Vital Sign Reading Time Taken Comments Blood Pressure 134/77 05/11/2021 10:28 AM AIRFRAME AND POWERPLANT MECHANIC Pulse 70 05/11/2021 10:28 AM AIRFRAME AND POWERPLANT MECHANIC Temperature - - Respiratory Rate - - Oxygen Saturation 94% 05/11/2021 10:28 AM AIRFRAME AND POWERPLANT MECHANIC Inhaled Oxygen Concentration - - Weight 88.5 kg (195 lb) 05/11/2021 10:28 AM AIRFRAME AND POWERPLANT MECHANIC Height 157.5 cm (5' 2 ) 05/11/2021 10:28 AM AIRFRAME AND POWERPLANT MECHANIC Body Mass Index 35.67 05/11/2021 10:28 AM AIRFRAME AND POWERPLANT MECHANIC documented in this encounter Patient Instructions * Patient Instructions* Tracie Duran RN - 05/11/2021 10:40 AM AIRFRAME AND POWERPLANT MECHANIC Follow up with Dr. Carmona in 6 months with a breast MRI before appointment. Number to schedule with Dr. Cordero--[phone] RAME AND POWERPLANT MECHANIC documented in this encounter Progress Notes * Alison Carmona MD - 05/11/2021 10:30 AM CST Patient Name: Monae Celaya : 1990 CC: Increased lifetime risk and follow up left axillary pain Chief Complaint Patient presents with ??? Follow-up High risk follow up HISTORY OF PRESENT ILLNESS: Monae Celaya is a 30 year old female with elevated lifetime risk of breast cancer (estimated 34%). She underwent right MRI guided biopsy on 10/22/2020 -- this showed benign breast tissue (concordant). Last visit was 04/02/2021 -- she had reported left axillary pain that was bothersome. She was seen 2 months ago for left axillary pain that she thought may be due to an underwire bra --ultrasound showed no suspicious findings. She had not been able to keep a diary of the pain but hadbeen thinking it was more musculoskeletal in nature. She also noted that the pain may be cyclic butis not sure of this. She hasn't noticed a correlation with her bra. She otherwise has no breast masses, nipple discharge, or skin changes. She presents today for clinical exam, mammogram, and high risk surveillance visit. ALLERGIES: No Known Allergies PAST MEDICAL HISTORY: Past Medical History: Diagnosis Date ??? Anxiety ??? Depression ??? Family history of breast cancer in mother PAST SURGICAL HISTORY: Past Surgical History: Procedure Laterality Date ??? BIOPSY BREAST Left 2019 Benign ??? MRI BREAST LEFT BIOPSY Left 10/24/2019 MRI BREAST LEFT BIOPSY 10/24/2019 [facility] MRI ??? MRI BREAST RIGHT BIOPSY Right 10/22/2020 MRI BREAST RIGHT BIOPSY 10/22/2020 [facility] MRI MEDICATIONS: Current Outpatient Medications Medication Sig [...] PHYSICAL EXAM (stable except as noted) BP 134/77 Pulse 70 Ht 5' 2 (1.575 m) Wt 195 lb (88.5 kg) SpO2 94% BMI 35.67 kg/m2 General: alert, cooperative, in no distress [...] lymphadenopathy bilaterally. RADIOLOGY REVIEW: Bilateral screening mammogram 05/11/2021 -- no suspicious [...] suspicious findings on clinical exam -- The etiology of the pain is not clear but she is less bothered by it. She was not able to keep adiary to see if there is a correlation between bras, cyclic nature, or something else -- Mammogram performed today reviewed and shows no suspicious findings -- We discussed continued high risk screening with twice yearly clinical exams and yearly mammograms and breast MRIs. -- Breast MRI due in 6 months -- Return to clinic in 6 months for clinical exam and breast MRI. -- She understands that she can call to return at any time with any other questions or concerns Alison Carmona MD 05/11/2021 2:52 PM RAME AND POWERPLANT MECHANIC documented in this encounter Plan of Treatment Upcoming Encounters Date Type Department Care Team (Late st Contact Info) Description 03/05/2024 1:00 PM AIRFRAME AND POWERPLANT MECHANIC Office Visit [facility] - Urology [address] [facility] [place] [address] Joshua Del Angel PA [address] [place] [address] documented as of this encounter [...] a workstation with 3D post processing and [employer] was utilized. FINDINGS: Parenchymal breast pattern: Scattered [...] breast documented in this encounter Care Teams Athletic Shoe Designer Relationship Specialty Start Date End Date Beryl Lynch MD [address] [place] [address] PCP - General 09/06/18 11/01/23 documented as of this encounter
--- OUTSIDE RECORDS SUMMARY | 2024-02-21 01:56 | XMS_ITS | Encounter Summary ---
Author Organization [facility] Address [address] [facility] [address] Care Team Providers Care Boat Washer Name Role Phone Beryl Lynch MD Primary Care Provider [phone] Encounter Details Date Type Department Care Team (Latest Contact Info) Description 10/01/2019 Travel Social History Tobacco Use Types Packs/Day [...] st Contact Info) Description 03/05/2024 1:00 PM WEB SITE ADMINISTRATOR Office Visit [facility] - Urology [address] [facility] [facility] [place] [address] Joshua Del Angel PA [address] [place] [id number] documented as of this encounter Visit Diagnoses Not on filedocumented in this encounter Care Teams Boat Washer Relationship Specialty Start Date End Date Beryl Lynch MD [address] [place] [address] PCP - General 09/06/18 11/01/23 documented as of this encounter
--- OUTSIDE RECORDS SUMMARY | 2024-02-21 01:56 | XMS_ITS | Encounter Summary ---
Author Organization [facility] Address [address] [place] [address] Care Team Providers Care Beef Boner Name Role Phone Beryl Lynch MD Primary Care Provider [phone] Encounter Details Date Type Department Care Team (Late st Contact Info) Description 01/26/2023 3:00 PM RN REHABILITATION Office Visit [facility] [address] [place] [address] Dionte Mccoy MD Overactive bladder (Primary Dx); Urinary urgency; Urge incontinence; Urinary, incontinence, stress female Social History Tobacco Use Types Packs/Day Years [...] Sign Reading Time Taken Comments Blood Pressure 124/83 01/26/2023 2:34 PM RN REHABILITATION Pulse 80 01/26/2023 2:34 PM RN REHABILITATION Temperature 36.8 ??C (98.2 ??F) 01/26/2023 2:34 PM CS T Respiratory Rate 19 01/26/2023 2:34 PM RN REHABILITATION Oxygen Saturation 98% 01/26/2023 2:34 PM RN REHABILITATION Inhaled Oxygen Concentration - - Weight 81.7 kg (180 lb 3.2 oz) 01/26/2023 2:34 P M RN REHABILITATION Height 162.6 cm (5' 4 ) 01/26/2023 2:34 PM RN REHABILITATION Body Mass Index 30.93 01/26/2023 2:34 PM RN REHABILITATION documented in this encounter Patient Instructions * Patient Instructions* Dionte Mccoy MD - 01/26/2023 3:[address] Mccoy recommends the following kegel exercise regimen to help with your urinary symptoms. These involve squeezing the pelvic floor as if you were stopping your urinary flow. You should do 3 sets of 30 squeezes as outlined below. 10 squeeze/release as fast as possible (to work on speed of use) 10 squeeze and hold for a count of ten (to work on strength) 10 squeeze/release as fast as possible You may repeat this more than 3x/day if you desire. Consider the following dietary/behavioral recommendations to reduce bladder irritants which can worsen symptoms of conditions such as overactive bladder or interstitial cystitis. 1. Reduce intake of caffeine and similar substances (examples - coffee, tea, chocolate) 2. Reduce intake of citrus fruits (examples - alexis, oranges, grapefruit) 3. Reduce intake of carbonated beverages (examples - soda, seltzer water, beer) 4. Avoid excess vitamin C - limit to one serving a day if possible (examples - citrus, broccoli, brussels sprouts) 5. Reduce intake of processed foods such as preserved meats, pickles, etc. 6. Stop smoking if applicable. Consider use of an over the counter fiber supplement to help with any constipation. Dry mouth may also be an issue - over the counter salivary supplements (such as Biotene, which is normally in the toothpaste section of moststores) can be helpful for this. Follow up with Dr. Mccoy in 3 months. REHABILITATION documented in this encounter Progress Notes * Dionte Mccoy MD - 01/26/2023 3:31 PM CST [facility] of Urologic [facility] Dionte Mccoy MD Date of Visit: 01/26/2023 Patient Name: Monae Celaya : 1990 Medical Record: [id number] Contact (home) Age: [age] year old Sex: female Referring Physician: No referring provider defined for this encounter. Chief Complaint: Urinary incontinence History of Present Illness: The patient is a 32 year old female for complaints of urinary incontinence. Primarily associated with large volume leaks, sometimes with urgency, often triggered by laughing. Has been an issue since childhood. Pt does have urgency and frequency (voids about 10x/day). Uses about a pad/day. Pt has not tried regular kegels or PT for her symptoms. Pt has not tried medications for her symptoms. Pt is , all . Pt has not had procedures for these symptoms. Pt has not had associated hematuria. Pt has not had associated dysuria. Pt is not diabetic. Pt does not have a history of neurologic disorders. Pt does not have a history of kidney stones. + smoker. Does have some minor stress incontinence as well, though this is much less bothersome to her. Past Medical History; Past Medical History: Diagnosis Date ??? Anxiety ??? Depression ??? Family history of breast cancer in mother Past Surgical History: Past Surgical History: Procedure Laterality Date ??? BIOPSY BREAST Left 2019 Benign ??? MRI BREAST LEFT BIOPSY Left 10/24/2019 [facility] ??? MRI BREAST RIGHT BIOPSY Right 10/22/2020 MRI BREAST RIGHT BIOPSY 10/22/2020 [facility] MRI Current Medications: Current Outpatient Medications Medication Sig Dispense Refill ??? busPIRone (BUSPAR) 10 MG tablet Take 1 (one) tablet by mouth 2 times daily ??? escitalopram (LEXAPRO) 20 MG tablet Take 1 (one) tablet by mouth once daily ??? levonorgestrel (MIRENA) 20 MCG/24HR IUD 1 (one) device by Intrauterine route as directed ??? mirabegron ER 24hr (Myrbetriq) 50 MG tablet Take 1 (one) tablet by mouth once daily Reasons: Overactive Bladder, Urinary Incontinence, Urinary Urgency 90 tablet 3 ??? ziprasidone (GEODON) 20 MG capsule Take 1 (one) capsule by mouth 2 times daily with morning andevening meal No current facility-administered medications for this visit. Allergies; Keflex [cephalexin] Family History: Family History Problem Relation Name [...] ??? CAD (Coronary Artery Disease) Paternal Uncle noncontributory to this patient complaint Social History: Social History Socioeconomic History ??? [...] Stability: Not on file Review of Systems: General: Negative Skin: Negative Eyes: Negative Ears/nose/mouth: Negative Lungs:Negative Heart:Negative Gastrointestinal: negative Genitourinary: See HPI Musculoskeletal: Negative Nervous system: Negative Reproductive system: Negative Hematologic: Negative Lymphatic: Negative Endocrine: Negative Physical Exam: Vital Signs: BP 124/83 (BP SITE: LEFT ARM, BP POSITION: SITTING, BP Cuff Size: A) Pulse 80 Temp 98.2 ??F (36.8 ??C) (Temporal) Resp 19 Ht 1.626 m (5' 4 ) Wt 81.7 kg (180 lb 3.2 oz) SpO2 98% Gen - WN, WD Female in NAD HEENT - nc/at, eomi Chest - normal respiratory effort/rate CV - RRR Abd - nondistended Ext - no c/c/e Neuro - normal gait, normal speech pattern, A&Ox3 Skin - no rash/erythema, good skin turgor Diagnosis: Mixed incontinence (urge much greater than stress), OAB (urgency/frequency) Recommendations: We discussed the various treatment options for these symptoms to include pelvic floor exercises, dietary/behavioral modification (instructions provided in AVS), medical therapy with anticholinergics or myrbetriq, neuromodulation with tibial nerve stimulation or interstim, and cystoscopy with bladder botox injections. R/B of all of the above explained today. Pt elects to work on kegels and diet, and will start myrbetriq 50 mg daily. Plan f/u with me in 3 months to reassess sx. Patient's questions were answered and patient agrees with plan. Dionte Mccoy MD 01/26/2023 3:31 PM REHABILITATION documented in this encounter Plan of Treatment Upcoming Encounters Date Type Department Care Team (Late st Contact Info) Description 03/05/2024 1:00 PM RN REHABILITATION Office Visit [facility] [address] [facility] [place] [phone] Joshua Del Angel PA [address] [place] [phone] documented as of this encounter Visit Diagnoses Diagnosis Overactive bladder- Primary Hypertonicity of bladder Urinary urgency Urgency of urination Urge incontinence Urinary, incontinence, stress female Female stress incontinence documented in this encounter Care Teams Beef Boner Relationship Specialty Start Date End Date Beryl Lynch MD [address] [place] [address] PCP - General 09/06/18 11/01/23 documented as of this encounter
--- OUTSIDE RECORDS SUMMARY | 2024-02-21 01:56 | XMS_ITS | Encounter Summary ---
Author Organization [facility] Address [address] [place] [address] Care Team Providers Care Solar Process Engineer Name Role Phone Beryl Lynch MD Primary Care Provider [phone] Reason for Referral * Radiology Services (Routine) - Closed Specialty Diagnoses / Procedures Referred By Contac t Referred To Contact Mammography Diagnoses Encounter for screening mammogram for malignant neoplasm of breast Procedures MAMMO BILAT SCREENING W ALANNA MAMMO BILAT SCREENING Alison Carmona MD [address] [place] [address] [facility] [place] [address] [place] [address] Referral ID Status Reason Start Date Expiration Date Visits Re quested Visits Authorized [id number] Closed 10/24/2020 10/24/2021 1 1 ER SOLUTION MIXER Reason for Visit * Radiology Services (Routine) - Closed Specialty Diagnoses / Procedures Referred By Contac t Referred To Contact Mammography Diagnoses Encounter for screening mammogram for malignant neoplasm of breast Procedures MAMMO BILAT SCREENING W ALANNA MAMMO BILAT SCREENING Alison Carmona MD [address] [place] [address] [facility] Op [address] [place] [address] Referral ID Status Reason Start Date Expiration Date Visits Re quested Visits Authorized [id number] Closed 10/24/2020 10/24/2021 1 1 Encounter Details Date Type Department Care Team (Latest Contact Info) Description 05/11/2021 9:30 AM SILVER SOLUTION MIXER - 05/11/2021 11:59 PM SILVER SOLUTION MIXER Hospital Encounter [facility] [address] [place] [address] Alison Carmona MD [address] [place] [address] Discharge Disposition: Home or Self [...] COVID-19? No / Unsure 05/11/2021 9:46 AM SILVER SOLUTION MIXER documented as of this encounter Medications at [...] st Contact Info) Description 03/05/2024 1:00 PM SILVER SOLUTION MIXER Office Visit [facility] - Urology [address] [place] [address], [facility] [place] [phone] Joshua Del Angel PA [address] [place] [address] documented as of this encounter Procedures Procedure Name Priority Date/Time Associated Diagnosis Comments MAMMO BILAT SCREENING W ALANNA Routine 05/11/2021 10:21 AM SILVER SOLUTION MIXER Encounter for screening mammogram for malignant neoplasm of breast documented in this encounter Results * MAMMO BILAT SCREENING W ALANNA (05/11/2021 10:21 AM SILVER SOLUTION MIXER) Anatomical Region Laterality Modality Breast Bilateral Mammography 05/11/2021 10:1 8 AM SILVER SOLUTION MIXER Impressions 05/11/2021 10:27 AM SILVER SOLUTION MIXER IMPRESSION: ??No mammographic evidence of malignancy. No [...] 10:27 AM . Narrative 05/11/2021 10:27 AM SILVER SOLUTION MIXER EXAM: DIGITAL MAMMO BILAT SCREENING ??WITH TOMOSYNTHESIS [...] mammogram documented in this encounter Care Teams Solar Process Engineer Relationship Specialty Start Date End Date Beryl Lynch MD [address] [place] [address] PCP - General 09/06/18 11/01/23 documented as of this encounter
--- OUTSIDE RECORDS SUMMARY | 2024-02-21 01:56 | XMS_ITS | Encounter Summary ---
Author Organization [facility] Address [address] [place] [place] [address] Care Team Providers Care Disease Education Specialist Name Role Phone Beryl Lynch MD Primary Care Provider [phone] Reason for Referral * Radiology Services (Routine) - Closed Specialty Diagnoses / Procedures Referred By Contac t Referred To Contact Mammography Diagnoses Family history of breast cancer in mother Procedures US BREAST BILATERAL COMPLETE Alison Carmona MD [address] [place] [address] [facility] [address] [place] [address] Referral ID Status Reason Start Date Expiration Date Visits Re quested Visits Authorized [id number] Closed 11/20/2019 11/19/2020 1 1 * Radiology Services (Routine) - Closed Specialty Diagnoses / Procedures Referred By Contac t Referred To Contact Mammography Diagnoses Family history of breast cancer in mother Procedures MAMMO BILAT SCREENING Alison Carmona MD [address] [place] [address] [facility] Op [address] [place] [address] Referral ID Status Reason Start Date Expiration Date Visits Re quested Visits Authorized [id number] Closed 11/20/2019 11/19/2020 1 1 Reason for Visit * Reason Comments Breast Problem Encounter Details Date Type Department Care Team (Late st Contact Info) Description 11/20/2019 2:15 PM CDT Office Visit [facility] General Surgery [address] [place] [address] Alison Carmona MD [address] [facility] [place] [address] Family history of breast cancer [...] Sign Reading Time Taken Comments Blood Pressure 122/75 11/20/2019 1:29 PM CDT Pulse 86 11/20/2019 1:29 PM CDT Temperature 37 ??C (98.6 ??F) 11/20/2019 1:29 PM CDT Respiratory Rate - - Oxygen Saturation 98% 11/20/2019 1:29 PM CDT Inhaled Oxygen Concentration - - Weight 78.2 kg (172 lb 6.4 oz) 11/20/2019 1:29 P M CDT Height - - Body Mass Index 31.53 09/18/2019 3:30 PM CDT documented in this encounter Patient Instructions * Patient Instructions* Tracie Duran RN - 11/20/2019 2:[address] Cordero [phone] Please schedule appt with plastic surgery for reconstruction discussion (high risk breast cancer.) Follow up with Dr. Carmona in 6 months with a mammogram and ultrasound before visit. documented in this encounter Progress Notes * Alison Carmona MD - 11/20/2019 2:15 PM CDT Patient Name: Monae Celaya : 1990 Chief Complaint Patient presents with ??? Breast Problem HISTORY OF PRESENT ILLNESS: Monae Celaya is a 29 year old female with elevated lifetime risk of breast cancer (34% based on the tyrer-cuzick model) who presents for follow up after bilateral breast imaging. Imaging is as follows: She underwent a bilateral breast MRI on 09/18/2019 -- on the right, there was a somewhat irregular appearing mass in the outer right breast adjacent to a vascular structure near 10:00 at middle depth and on the left, a segmental non- mass enhancement in the upper central left breast near 12:00 at anterior depth (measuring approximately 3.5x1.5cm). BIRADS-4b A subsequent bilateral diagnostic mammogram was performed on 09/24/2019 -- on the right, there was afocal asymmetry in the upper outer breast with partial fat density and no mammographic correlate for MRI findings on the left (BIRADS-3). A bilateral breast ultrasound was performed on 09/24/2019 -- on the right, there was a mammographic asymmetry in the upper outer right breast with 1cm area of echogenicity that likely represents hematoma (Recommend ultrasound in 6-8 weeks to evaluate for resolution) and no sonographic correlate on the left (BIRADS-3). A left breast MRI guided biopsy was performed on 10/24/2019 that showed benign breast tissue which was concordant. Today she reports having no breast masses. She says she notices a little left outer breast pain following the biopsy. She has had no nipple discharge or overlying skin changes. She has not had genetic testing yet and would like the phone number again. She had a repeat right breast ultrasound today 11/20/2019 which showed resolution of the right breast hematoma (BIRADS-2). She is interested in discussing prophylactic mastectomies today as well. ALLERGIES: No Known Allergies PAST MEDICAL HISTORY: Past Medical History: Diagnosis Date ??? Anxiety ??? Depression ??? Family history of breast cancer in mother PAST SURGICAL HISTORY: Past Surgical History: Procedure Laterality Date ??? MRI BREAST LEFT BIOPSY Left 10/24/2019 MRI BREAST LEFT BIOPSY 10/24/2019 [facility] MRI MEDICATIONS: Current Outpatient Medications Medication [...] OF SYSTEMS See HPI PHYSICAL EXAM BP 122/75 Pulse 86 Temp 98.6 ??F (37 ??C) Wt 172 lb 6.4 oz (78.2 kg) SpO2 98% BMI 31.53 kg/m2 General: alert, cooperative, in no distress Eyes: conjunctiva and lids normal ENT/Mouth: neck supple, no visible oral lesions Respiratory: unlabored respirations CV: regular heart rate Abd: soft, non-tender, non-distended Musculoskeletal: warm with no deformities On breast exam in both the upright and supine positions, she has symmetrical breasts that are of normal contour and shape. No palpable abnormalities in either breast - visible biopsy site in upper left breast. No nipple retraction or discharge. No cervical, supraclavicular or axillary lymphadenopathy bilaterally. RADIOLOGY REVIEW: Bilateral breast MRI 09/18/2019: Right: Somewhat irregular appearing mass in the outer right breast adjacent to a vascular structurenear 10:00 at middle depth Left: Segmental non-mass enhancement in the upper central left breast near 12:00 at anterior depth,measures approximately 3.5x1.5cm BIRADS-4b Bilateral diagnostic mammogram 09/24/2019: Right: Focal asymmetry in the upper outer breast with partial fat density Left: No mammographic correlate for MRI findings BIRADS-3 Bilateral breast ultrasound 09/24/2019: Right: Mammographic asymmetry in the upper outer right breast with 1cm area of echogenicity likely represents hematoma. Recommend ultrasound in 6-8 weeks to evaluate for resolution Left: No sonographic correlate BIRADS-3 Right breast ultrasound 11/20/2019: Resolution of right breast hematoma BIRADS-2 PATHOLOGY: MRI guided biopsy of left breast 10/24/2019: Benign breast tissue (concordant) DIAGNOSIS: 29 year old female with elevated lifetime risk of breast cancer (estimated 34%) who presents for follow up of bilateral breast imaging and left breast biopsy PLAN: -- All pertinent records and reports available to me reviewed and summarized -- She has no concerning findings today on clinical exam -- We reviewed the left breast biopsy result that showed benign breast tissue that was concordant with imaging. -- Right breast ultrasound performed today showed resolution of the right breast hematoma -- Recommended that she see Evelyn Cordero again (found genetic testing results from family but she cannot remember the results today). She will bring these results to the appointment -- We also discussed prophylactic mastectomy and immediate reconstruction. She understands that prophylactic mastectomies provide maximal risk reduction but this risk is never zero. -- We discussed the expected postoperative course and risks of pain, bleeding, and wound healing issues were discussed. She understands that we would need genetic testing results first. She will callme once she has the results -- She would like to see a plastic surgeon to discuss reconstruction options. Referral placed -- Bilateral mammogram and ultrasound due 05/2020 for high risk screening -- Return to clinic in 6 months for clinical exam and breast imaging 30 minutes were spent on today's visit with over half in face to face counseling. Alison Carmona MD 11/20/2019 4:51 PM documented in this encounter Plan of Treatment Upcoming Encounters Date Type Department Care Team (Late st Contact Info) Description 03/05/2024 1:00 PM PLATER PRODUCTION Office Visit [facility] - Urology [address] [facility] [place] [address] Joshua Del Angel PA [address] [place] [address] documented as of this encounter Results * US BREAST BILATERAL [...] Risk 15-19%; High Risk > 20%). The [place] [employer] recommends MRI screening in addition to mammograms for women who are at increased risk. The patient has been notified and given information for the [facility], should she [...] Risk 15-19%; High Risk > 20%). The [place] [employer] recommends MRI screening in addition to mammograms for women who are at increased risk. The patient has been notified and given information for the [facility], should she [...] breast documented in this encounter Care Teams Disease Education Specialist Relationship Specialty Start Date End Date Beryl Lynch MD [address] [place] [address] PCP - General 09/06/18 11/01/23 documented as of this encounter
--- OUTSIDE RECORDS SUMMARY | 2024-02-21 01:56 | XMS_ITS | Encounter Summary ---
Author Organization [facility] Address [address] [place] [address] Care Team Providers Care Metal Hanging Helper Name Role Phone Beryl Lynch MD Primary Care Provider [phone] Encounter Details Date Type Department Care Team (Latest Contact Info) Description 01/26/2023 Travel Social History Tobacco Use Types Packs/Day [...] st Contact Info) Description 03/05/2024 1:00 PM INSTRUCTOR WASTEWATER TREATMENT PLANT Office Visit [facility] - Urology [address] [facility] [place] [address] Joshua Del Angel PA [address] [place] [address] documented as of this encounter Visit Diagnoses Not on filedocumented in this encounter Care Teams Metal Hanging Helper Relationship Specialty Start Date End Date Beryl Lynch MD [address] [place] [address] PCP - General 09/06/18 11/01/23 documented as of this encounter
--- OUTSIDE RECORDS SUMMARY | 2024-02-21 01:56 | XMS_ITS | Encounter Summary ---
Author Organization [facility] Address [address] [place] [address] Care Team Providers Care Cook Railroad Name Role Phone Beryl Lynch MD Primary Care Provider [phone] Reason for Visit * Reason Onset Date Comments Biopsy 10/26/2019 Encounter Details Date Type Department Care Team (Late Contact Info) Description 10/26/2019 Telephone [facility] Breast Care [address] [place] [address] Marilyn Gerber, RN Biopsy Social History Tobacco Use Types [...] Upcoming Encounters Date Type Department Care Team ([facility] Contact Info) Description 03/05/2024 1:00 PM RELIEF MATE Office Visit [facility] - Urology [address] [place] [address] [place] [phone] Joshua Del Angel PA [address] [place] [address] documented as of this encounter Visit Diagnoses Not on filedocumented in this encounter Care Teams Cook Railroad Relationship Specialty Start Date End Date Beryl Lynch MD [address] [place] [address] PCP - General 09/06/18 11/01/23 documented as of this encounter
--- OUTSIDE RECORDS SUMMARY | 2024-02-21 01:56 | XMS_ITS | Encounter Summary ---
Author Organization [facility] Address [address] [facility] [place] [address] Care Team Providers Care Jboss Developer Name Role Phone Beryl Lynch MD Primary Care Provider [phone] Reason for Referral * Radiology Services (Routine) - Closed Specialty Diagnoses / Procedures Referred By Contmaile t Referred To Contact Mammography Diagnoses Family history of breast cancer in mother Procedures MAMMO BILAT SCREENING W Alison Evans MD [address] [place] [address] [facility] Breast [facility] [address] [place] [address] Referral ID Status Reason Start Date Expiration Date Visits Re quested Visits Authorized [id number] Closed 11/23/2021 11/23/2022 1 1 Reason for Visit * Radiology Services (Routine) - Closed Specialty Diagnoses / Procedures Referred By Contac t Referred To Contact Mammography Diagnoses Family history of breast cancer in mother Procedures MAMMO BILAT SCREENING W Alison Evans MD [address] [place] [address] [facility] Op [address] [place] [address] Referral ID Status Reason Start Date Expiration Date Visits Re quested Visits Authorized [id number] Closed 11/23/2021 11/23/2022 1 1 Encounter Details Date Type Department Care Team (Latest Contact Info) Description 06/28/2022 10:00 AM CDT - 06/28/2022 11:59 PM CDT Hospital Encounter [facility] [address] [place] [address] Alison Carmona MD [address] [facility] [place] [address] Discharge Disposition: Home or Self [...] st Contact Info) Description 03/05/2024 1:00 PM COVER MARKER Office Visit [facility] - Urology [address] [place] [address] [place] [phone] Joshua Del Angel PA [address] [place] [phone] documented as of this encounter Procedures Procedure Name Priority Date/Time Associated Diagnosis Comments MAMMO BILAT SCREENING W ALANNA Routine 06/28/2022 10:42 AM CDT Family history of breast cancer [...] Risk 15-19%; High Risk > 20%). The [place] [employer] recommends MRI screening in addition [...] breast documented in this encounter Care Teams Jboss Developer Relationship Specialty Start Date End Date Beryl Lynch MD [address] [place] [address] PCP - General 09/06/18 11/01/23 documented as of this encounter
--- OUTSIDE RECORDS SUMMARY | 2024-02-21 01:56 | XMS_ITS | Encounter Summary ---
Author Organization [facility] Address [address] [facility] [place] [address] Care Team Providers Care Tape Sewing Machine Operator Name Role Phone Beryl Lynch MD Primary Care Provider [phone] Reason for Referral * Radiology Services (Routine) - Closed Specialty Diagnoses / Procedures Referred By Wagner rosado Referred To Contact Mammography Diagnoses Family history of breast cancer in mother Procedures MRI BREAST BILAT SCREENING WWO Alison Carmona MD [address] [place] [address] [facility] Breast Center [address] [place] [address] Referral ID Status Reason Start Date Expiration Date Visits Re quested Visits Authorized [id number] Closed 01/02/2024 06/30/2024 1 1 Reason for Visit * Reason Comments Follow-up Increased lifetime r isk for breast cancer Encounter Details Date Type Department Care Team (Late st Contact Info) Description 06/27/2023 9:30 AM CDT Office Visit [facility] - General Surgery [address] [place] [address] Alison Carmona MD [address] [place] [address] Family history of breast cancer in mother [...] Sign Reading Time Taken Comments Blood Pressure 124/75 06/27/2023 9:27 AM CDT Pulse 75 06/27/2023 9:27 AM CDT Temperature 36.7 ??C (98.1 ??F) 06/27/2023 9:27 AM CD T Respiratory Rate - - Oxygen Saturation 98% 06/27/2023 9:27 AM CDT Inhaled Oxygen Concentration - - Weight 83.3 kg (183 lb 9.6 oz) 06/27/2023 9:27 A M CDT Height 160 cm (5' 3 ) 06/27/2023 9:27 AM CDT Body Mass Index 32.52 06/27/2023 9:27 AM CDT documented in this encounter Patient Instructions * Patient Instructions* Tracie Guthrie RN - 06/27/2023 9:[address] Donte Dewey Follow up with Dr. Carmona in 6 months with a breast MRI before visit. documented in this encounter Progress Notes * Alison Carmona MD - 06/27/2023 9:30 AM CDT Patient Name: Monae Celaya : 1990 CC: Increased lifetime risk of breast cancer Chief Complaint Patient presents with ??? Follow-up Increased lifetime risk for breast cancer HISTORY OF PRESENT ILLNESS: Monae Celaya is a 33 year old female with elevated lifetime risk of breast cancer (estimated 34%). She underwent right MRI guided biopsy on 10/22/2020 -- this showed benign breast tissue (concordant). Last visit was 12/27/2022. Today she has no breast masses, nipple discharge, or skin changes. 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 Underwent hysterectomy/unilateral oophorectomy -- readmitted for infection with positive blood cultures. She presentstoday for clinical exam, mammogram, and high risk surveillance visit. ALLERGIES: Allergies Allergen Reactions ??? Keflex [Cephalexin] Other Causes UTI ??? Bactrim Ds Rash PAST MEDICAL HISTORY: Past Medical History: Diagnosis Date ??? Anxiety ??? Depression ??? Family history of breast cancer in mother PAST SURGICAL HISTORY: Past Surgical History: Procedure Laterality Date ??? BIOPSY BREAST Left 2019 Benign ??? MRI BREAST LEFT BIOPSY Left 10/24/2019 MRI BREAST LEFT BIOPSY 10/24/2019 [facility] MRI ??? MRI BREAST RIGHT BIOPSY Right 10/22/2020 MRI BREAST RIGHT BIOPSY 10/22/2020 [facility] MRI MEDICATIONS: Current Outpatient Medications Medication Sig [...] PHYSICAL EXAM (stable except as noted) BP 124/75 Pulse 75 Temp 98.1 ??F (36.7 ??C) (Temporal) Ht 1.6 m (5' 3 ) Wt 83.3 kg (183 lb 9.6 oz) SpO2 98% General: alert, cooperative, in no distress Eyes: [...] dense tissue in the lateral bilateralbreasts with improved left upper outer tenderness. No nipple retraction or discharge. No cervical, supraclavicular or axillary lymphadenopathy bilaterally. RADIOLOGY REVIEW: Bilateral screening mammogram 06/27/2023 -- no suspicious findings or evidence of malignancy. BIRADS-2 DIAGNOSIS: 33 year old female with increased lifetime risk of breast cancer estimated at 34% PLAN: -- All pertinent records and reports available to me reviewed and summarized -- She has no concerning findings on clinical exam -- Mammogram performed today reviewed and shows no suspicious findings (BIRADS-2) -- Genetic testing performed in February 2023 (negative for BRCA1 and positive for LZTR1-schwannomatosis). Note from Gia Mclaughlin reviewed and recommended referral to Dr Dewey (neurology) - wrote this name down so she can make an appointment -- Underwent hysterectomy/unilateral oophorectomy complicated by infection, now doing well. Told byher marketing and outreach coordinator that she is not in early menopause -- Will continue high risk screening with twice yearly clinical exams and yearly mammograms and breast MRIs. After the hysterectomy, she wants to avoid any surgery unless absolutely necessary -- Return to clinic in 6 months for clinical exam and breast MRI -- She understands that she can call to return at any time with any other questions or concerns Alison Carmona MD 06/27/2023 9:53 AM documented in this encounter Plan of Treatment Upcoming Encounters Date Type Department Care Team (Late st Contact Info) Description 03/05/2024 1:00 PM SECONDARY HISTORY TEACHER Office Visit [facility] - Urology [address] [facility] [place] [address] Joshua Del Angel PA [address] [place] [address] documented as of this encounter Results * MRI BREAST BILAT SCREENING WWO (01/09/2024 9:03 AM SECONDARY HISTORY TEACHER) Anatomical Region Laterality Modality Breast Bilateral Magnetic Resonan ce 01/09/2024 9:38 AM SECONDARY HISTORY TEACHER Impressions 01/09/2024 9:56 AM SECONDARY HISTORY TEACHER IMPRESSION: No bilateral breast MRI evidence of [...] 01/09/2024 9:56 AM Narrative 01/09/2024 9:56 AM SECONDARY HISTORY TEACHER EXAM: ??BILATERAL SCREENING BREAST MRI WITH AND WITHOUT CONTRAST WITH DYNACAD ANALYSIS LOCATION: [facility] EXAM DATE: ??01/09/2024 HISTORY: High-risk screening. [...] breast documented in this encounter Care Teams Tape Sewing Machine Operator Relationship Specialty Start Date End Date Beryl Lynch MD [address] [place] [address] PCP - General 09/06/18 11/01/23 documented as of this encounter
--- OUTSIDE RECORDS SUMMARY | 2024-02-21 01:56 | XMS_ITS | Encounter Summary ---
Author Organization [facility] Address [address] [facility] [place] [address] Care Team Providers Care Foreman Or Supervisor And Operator Name Role Phone Beryl Lynch MD Primary Care Provider [phone] Reason for Referral * Radiology Services (Routine) - Closed Specialty Diagnoses / Procedures Referred By Wagner t Referred To Contact MRI Diagnoses Family history of breast cancer in mother Procedures MRI BREAST BILAT SCREENING WWO MRI BREAST BILAT WWO CONTRAST Alison Carmona MD [address] [place] [address] [facility] [address] [place] [address] Referral ID Status Reason Start Date Expiration Date Visits Re quested Visits Authorized [id number] Closed 12/17/2022 03/17/2023 1 1 Reason for Visit * Radiology Services (Routine) - Closed Specialty Diagnoses / Procedures Referred By Wagner rosado Referred To Contact MRI Diagnoses Family history of breast cancer in mother Procedures MRI BREAST BILAT SCREENING WWO MRI BREAST BILAT WWO CONTRAST Alison Carmona MD [address] [place] [address] [facility] M[facility] [address] [place] [address] Referral ID Status Reason Start Date Expiration Date Visits Re quested Visits Authorized [id number] Closed 12/17/2022 03/17/2023 1 1 Encounter Details Date Type Department Care Team (Latest Contact Info) Description 12/27/2022 7:20 AM CDT - 12/27/2022 11:59 PM CDT Hospital Encounter [facility] MRI [address] [place] [phone] Alison Carmona MD [address] [facility] [address] Discharge Disposition: Home or Self [...] st Contact Info) Description 03/05/2024 1:00 PM JOURNEYMAN POWER PLANT OPERATOR Office Visit [facility] - U[facility] [address] [facility] [place] [address] Joshua Del Angel PA [address] [place] [address] documented as of this encounter Procedures Procedure Name Priority Date/Time Associated Diagnosis Comments MRI BREAST BILAT SCREENING WWO Routine 12/27/2022 8:10 AM CDT Family history of breast cancer in mother CREATININE - POCT INTERFACED Routine 12/27/2022 7:32 AM CDT documented in this encounter Results [...] AND WITHOUT CONTRAST WITH DYNACAD ANALYSIS LOCATION: [facility] EXAM DATE: ??12/27/2022 HISTORY: ?This is a [...] a workstation with 3D post processing and Health: [employer] was utilized. FINDINGS: Parenchymal breast pattern: Scattered [...] MR ORDERABLES * CREATININE - POCT INTERFACED (12/27/2022 7:32 AM CDT) Creatinine POCT 0.69 0.30 - 1.30 mg/dL 12/27/2022 7:34 AM CDT [facility] eGFR >90 >90 mL/min/1.7 3 m2 12/27/2022 7:34 AM CDT [facility] Blood BLOOD SPECIMEN / Unknown 12/27/2022 7:32 AM CDT 12/27/2022 7:34 AM CDT Alison Carmona MD LAB - POINT OF CARE ORDERABLES [facility] [address] [place] [address], [facility] [phone] documented in this encounter Visit Diagnoses Diagnosis Family history of breast cancer in mother Family history of malignant neoplasm of breast documented in this encounter Administered Medications Inactive Administered Medications - up to 3 most recent administrations Medication Order MAR Action Action Date Dose Rate Site gadoterate meglumine (Dotarem/Clariscan) injection Intravenous, CONTRAST ONCE, Starting on Tue12/27/22 at 0758, Until Tue12/28/22 at 0122 $ Given - Contrast 12/27/2022 7:58 AM CDT 16 mL documented in this encounter Care Teams Foreman Or Supervisor And Operator Relationship Specialty Start Date End Date Beryl Lynch MD [address] [place], [place] [id number] PCP - General 09/06/18 11/01/23 documented as of this encounter
--- OUTSIDE RECORDS SUMMARY | 2024-02-21 01:56 | XMS_ITS | Encounter Summary ---
Author Organization [facility] Address [address] [place] [address] Care Team Providers Care Digital Media Planner Name Role Phone Beryl Lynch MD Primary Care Provider [phone] Reason for Referral * Radiology Services (Routine) - Closed Specialty Diagnoses / Procedures Referred By Contmaile t Referred To Contact Mammography Diagnoses Family history of breast cancer in mother Procedures MAMMO BILAT SCREENING W Alison Evans MD [address] [place] [address] [facility] [address] [place] [address] Referral ID Status Reason Start Date Expiration Date Visits Re quested Visits Authorized [id number] Closed 12/27/2022 12/27/2023 1 1 Reason for Visit * Radiology Services (Routine) - Closed Specialty Diagnoses / Procedures Referred By Contac t Referred To Contact Mammography Diagnoses Family history of breast cancer in mother Procedures MAMMO BILAT SCREENING W Alison Evans MD [address] [place] [address] [facility] Op [address] [place] [address] Referral ID Status Reason Start Date Expiration Date Visits Re quested Visits Authorized [id number] Closed 12/27/2022 12/27/2023 1 1 Encounter Details Date Type Department Care Team (Latest Contact Info) Description 06/27/2023 8:45 AM CDT - 06/27/2023 11:59 PM CDT Hospital Encounter [facility] [address] [place] [address] Alison Carmona MD [address] [place] [address] Discharge Disposition: Home or Self Care Social [...] Sign Reading Time Taken Comments Blood Pressure - - Pulse - - Temperature - - Respiratory Rate - - Oxygen Saturation - - Inhaled Oxygen Concentration - - Weight 81.8 kg (180 lb 5.4 oz) 06/27/2023 9:00 A M CDT Height 160 cm (5' 2.99 ) 06/27/2023 9:00 AM CDT Body Mass Index 31.95 06/27/2023 9:00 AM CDT documented in this encounter Medications at Time [...] daily with morning and evening meal 08/31/2018 oxyBUTYnin CR 24hr (Ditropan-XL) 10 MG tablet Take 1 (one) tablet by mouth once daily 90 tablet 3 04/27/2023 07/27/2023 documented as of this encounter Plan of Treatment Upcoming Encounters Date Type Department Care Team (Late st Contact Info) Description 03/05/2024 1:00 PM SHREDDED FILLER MACHINE WRAPPER LAYER Office Visit [facility] - Urology [address] [facility] [place] [phone] Joshua Del Angel PA [address] [place] [address] documented as of this encounter Procedures Procedure Name Priority Date/Time Associated Diagnosis Comments MAMMO BILAT SCREENING W ALANNA Routine 06/27/2023 9:15 AM CDT Family history of breast cancer [...] of greater than 20%, according to the [place] [employer] guidelines. Her next exam is due in December 2023. Patient notified of results at time of exam and has an appointment with Dr. Carmona in the breast clinic today. OVERALL ASSESSMENT: BI-RADS CATEGORY 2: BENIGN. This study was dictated by residential field manager Eric Barkley MD and reviewed and edited by the attending. Joey Dickson DO (resident) participated in interpretation of this study. I, Sneha Buckley MD have personally reviewed and interpreted this examination/study. > Interpreting Provider: Sneha Buckley MD on 06/27/2023 9:32 AM Narrative 06/27/2023 9:32 AM CDT EXAMINATIONS: ??BILATERAL DIGITAL SCREENING MAMMOGRAM AND BILATERAL BREAST TOMOSYNTHESIS WITH CAD LOCATION: [facility] EXAM DATE: ??06/27/2023 HISTORY: ??Screening. Patient has [...] cancer greater than 20%, consultation in the [facility] Breast Surgery High Risk Clinic is recommended. Should she wish to schedule an appointment, the phone number [phone]. The [place] [employer] recommends annual screening breast MRI [...] breast documented in this encounter Care Teams Digital Media Planner Relationship Specialty Start Date End Date Beryl Lynch MD [address] [place] [address] PCP - General 09/06/18 11/01/23 documented as of this encounter
--- OUTSIDE RECORDS SUMMARY | 2024-02-21 01:56 | XMS_ITS | Encounter Summary ---
Author Organization [facility] Address [address] [facility] [place] [address] Care Team Providers Care Divinity Teacher Name Role Phone Beryl Lynch MD Primary Care Provider [phone] Reason for Referral * Radiology Services (Routine) - Closed Specialty Diagnoses / Procedures Referred By Contac t Referred To Contact Diagnoses Abnormal mammogram Procedures TRACI DIAG DIRECT DIG IMAGE UNI LEFT [id number] Tabatha Virgen MD [address] [place] [address] Referral ID Status Reason Start Date Expiration Date Visits Re quested Visits Authorized [id number] Closed 10/24/2019 10/23/2020 1 1 Reason for Visit * Radiology Services (Routine) - Closed Specialty Diagnoses / Procedures Referred By Wagner rosado Referred To Contact MRI Diagnoses Increased risk of breast cancer Lump or mass in breast Procedures MRI BREAST LEFT BIOPSY Alison Carmona MD [address] [place] [address] Referral ID Status Reason Start Date Expiration Date Visits Re quested Visits Authorized [id number] Closed 09/28/2019 09/27/2020 2 2 Encounter Details Date Type Department Care Team (Latest Contact Info) Description 10/24/2019 9:56 AM CDT - 10/24/2019 11:59 PM CDT Hospital Encounter [facility] Breast Care [address] [facility] [address] [place] [address] Alison Carmona MD [address] [facility] [place] [address] Discharge Disposition: Home or Self Care Social [...] st Contact Info) Description 03/05/2024 1:00 PM FABRIC SEPARATOR OPERATOR Office Visit [facility] - Urology [address] [facility] [place] [address] Joshua Del Angel PA [address] [place] [phone] documented as of this encounter Procedures Procedure Name Priority Date/Time Associated Diagnosis Comments MAMMO LEFT DIAGNOSTIC Routine 10/24/2019 10:03 AM CDT Abnormal mammogram documented in this encounter Results * TRACI DIAG DIRECT DIG IMAGE UNI LEFT [id number] (10/24/2019 10:03 AM CDT) Anatomical Region Laterality [...] recommended for diagnostic mammogram and ultrasound report [facility] 09/24/2019. Patient was informed of these findings [...] most recently bilateral diagnostic mammogram and ultrasound [facility] breast Center 09/24/2019 and [facility] breast MRI 09/18/2019 TECHNIQUE: ??Sagittal T1 weighted [...] most recently bilateral diagnostic mammogram and ultrasound [facility] breast Center 09/24/2019 and [facility] breast MRI 09/18/2019 TECHNIQUE: Sagittal T1 weighted [...] 11:05 AM Tabatha Virgen MD MAMMO ORDERABLES documented in this encounter Visit Diagnoses Diagnosis Abnormal mammogram Abnormal mammogram, unspecified documented in this encounter Care Teams Divinity Teacher Relationship Specialty Start Date End Date Beryl Lynch MD [address] [place] [address] PCP - General 09/06/18 11/01/23 documented as of this encounter
--- OUTSIDE RECORDS SUMMARY | 2024-02-21 01:57 | XMS_ITS | Encounter Summary ---
Author Organization [facility] Address [address] [place] [address] Care Team Providers Care Senior Systems Developer Name Role Phone Beryl Lynch MD Primary Care Provider [phone] Reason for Referral * Radiology Services (Routine) - Closed Specialty Diagnoses / Procedures Referred By Wagner rosado Referred To Contact Mammography Diagnoses Bloody discharge from nipple Procedures MAMMO BILAT DIAGNOSTIC Alison Carmona MD [address] [place] [address] [facility] [place] [address] [place] [address] Referral ID Status Reason Start Date Expiration Date Visits Re quested Visits Authorized [id number] Closed 09/06/2018 03/05/2019 1 1 Reason for Visit * Radiology Services (Routine) - Closed Specialty Diagnoses / Procedures Referred By Contac t Referred To Contact Mammography Diagnoses Bloody discharge from nipple Procedures MAMMO BILAT DIAGNOSTIC Alison Carmona MD [address] [place] [address] [facility] Breast [facility] [address] [place] [address] Referral ID Status Reason Start Date Expiration Date Visits Re quested Visits Authorized [id number] Closed 09/06/2018 03/05/2019 1 1 Encounter Details Date Type Department Care Team (Latest Contact Info) Description 09/06/2018 12:30 PM CDT - 09/06/2018 12:39 PM CDT Hospital Encounter [facility] [address] [place] [address] Alison Carmona MD [address] [facility] [place] [address] Radiology Diagnostic Discharge Disposition: Home or Self [...] tablet by mouth 2 times daily 08/28/2018 ziprasidone (GEODON) 20 MG capsule Take 1 (one) capsule by mouth 2 times daily with morning and evening meal 08/31/2018 escitalopram (LEXAPRO) 20 MG tablet Take 20 mg by mouth 2 times daily 08/30/2018 03/21/2019 documented as of this encounter Plan of Treatment Upcoming Encounters Date Type Department Care Team (Late st Contact Info) Description 03/05/2024 1:00 PM CARBON CAPTURE POWER PLANT ENGINEER Office Visit [facility] - Urology [address] [facility] [place] [address] Joshua Del Angel PA [address] [place] [phone] documented as of this encounter Procedures Procedure Name Priority Date/Time Associated Diagnosis Comments MAMMO BILAT DIAGNOSTIC Routine 09/06/2018 1:13 PM CDT Bloody discharge from nipple documented in this encounter Results * MAMMO BILAT DIAGNOSTIC (09/06/2018 1:13 PM CDT) Anatomical Region Laterality Modality Breast Bilateral Mammography 09/06/2018 2:01 PM CDT Impressions 09/06/2018 2:28 PM CDT IMPRESSION: No evidence of malignancy ASSESSMENT: BIRADS Category 2: ?? Benign finding(s). RECOMMENDATION: Clinical follow-up for bilateral bloody nipple discharge Patient is under the care of Dr. Carmona who will order breast MRI. Findings and recommendations were discussed with the patient by Dr. Arriaga. I, Dr. TAHIR ARRIAGA M.D. have personally reviewed and interpreted this examination/study. This report was electronically signed by TAHIR ARRIAGA M.D. ??on 09/06/2018 2:28 PM . Narrative 09/06/2018 2:28 PM CDT EXAMINATION: BILATERAL DIAGNOSTIC MAMMOGRAM BILATERAL TARGETED BREAST ULTRASOUND TECHNIQUE: Images were performed using 3D tomosynthesis images with reconstructed/synthetic 2D images and CAD analysis. DATE: 09/06/2018. HISTORY: 28-year-old female with bilateral bloody discharge which is been present for a few years, strong family history of breast cancer COMPARISON: Ultrasound from [facility] dated on 07/25/2015 BREAST COMPOSITION: There are scattered areas of fibroglandular density. FINDINGS: There is no suspicious mass, clustered microcalcification or architectural distortion in either breast on 2-D or 3-D images. Targeted bilateral retroareolar ultrasound demonstrated mild ductal ectasia without intraductal mass or debris. There is no suspicious mass. Alison Carmona MD MAMMO ORDERABLES documented in this encounter Visit Diagnoses Diagnosis Bloody discharge from nipple Other sign and symptom in breast documented in this encounter Care Teams Senior Systems Developer Relationship Specialty Start Date End Date Beryl Lynch MD [address] [place], [place] [id number] PCP - General 09/06/18 11/01/23 documented as of this encounter
--- OUTSIDE RECORDS SUMMARY | 2024-02-21 01:57 | XMS_ITS | Encounter Summary ---
Author Organization [facility] Address [address] [facility] [place] [address] Care Team Providers Care Copy Worker Name Role Phone Beryl Lynch MD Primary Care Provider [phone] Reason for Referral * Radiology Services (Routine) - Closed Specialty Diagnoses / Procedures Referred By Wagner t Referred To Contact Mammography Diagnoses Increased risk of breast cancer Procedures MAMMO BILAT DIAGNOSTIC Alison Carmona MD [address] [place] [address] [facility] [place] [address] [place] [address] Referral ID Status Reason Start Date Expiration Date Visits Re quested Visits Authorized [id number] Closed 09/25/2018 03/24/2019 1 1 MOBILES SALESPERSON Reason for Visit * Radiology Services (Routine) - Closed Specialty Diagnoses / Procedures Referred By Contac t Referred To Contact Mammography Diagnoses Increased risk of breast cancer Procedures MAMMO BILAT DIAGNOSTIC Alison Carmona MD [address] [place] [address] [facility] Op [address] [place] [address] Referral ID Status Reason Start Date Expiration Date Visits Re quested Visits Authorized [id number] Closed 09/25/2018 03/24/2019 1 1 Encounter Details Date Type Department Care Team (Latest Contact Info) Description 03/21/2019 10:00 AM AUTOMOBILES SALESPERSON - 03/21/2019 10:14 AM AUTOMOBILES SALESPERSON Hospital Encounter [facility] [address] [place] [address] Alison Carmona MD [address] [place] [address] Discharge Disposition: Home or Self Care Social [...] (one) tablet by mouth once daily 02/24/2019 ziprasidone (GEODON) 20 MG capsule Take 1 (one) capsule by mouth 2 times daily with morning and evening meal 08/31/2018 documented as of this encounter Plan of Treatment Upcoming Encounters Date Type Department Care Team (Late st Contact Info) Description 03/05/2024 1:00 PM AUTOMOBILES SALESPERSON Office Visit [facility] - Urology [address] [facility] [place] [phone] Joshua Del Angel PA [address] [place] [phone] documented as of this encounter Procedures Procedure Name Priority Date/Time Associated Diagnosis Comments MAMMO BILAT DIAGNOSTIC Routine 03/21/2019 10:30 AM AUTOMOBILES SALESPERSON Increased risk of breast cancer documented in this encounter Results * MAMMO BILAT DIAGNOSTIC (03/21/2019 10:30 AM AUTOMOBILES SALESPERSON) Anatomical Region Laterality Modality Breast Bilateral Mammography 03/21/2019 10:2 0 AM AUTOMOBILES SALESPERSON Impressions 03/21/2019 10:29 AM AUTOMOBILES SALESPERSON IMPRESSION: No evidence of malignancy in either breast. ASSESSMENT: BI-RADS Category 1: Negative mammogram. RECOMMENDATION: Annual breast MRI in September,. Annual mammography. Findings discussed with the patient by Dr. Croft. ??Result letter given to the patient. This report was electronically signed by ELIO CROFT M.D. ??on 03/21/2019 10:29 AM . Narrative 03/21/2019 10:29 AM AUTOMOBILES SALESPERSON BILATERAL DIAGNOSTIC MAMMOGRAM TECHNIQUE: Images were performed using 3D tomosynthesis images with reconstructed/synthetic 2D images. ??CAD analysis was performed. DATE: 03/21/2019. HISTORY: 28-year-old referred for annual mammography. She has not had an episode of bloody nipple discharge since the MRI in September,. She has a strong family history of breast cancer. COMPARISON: Mammography 09/06/2018. Breast MRI 09/21/2018. BREAST COMPOSITION: The breasts are heterogeneously dense, which may obscure small masses. FINDINGS: No suspicious mass, architectural distortion, or calcifications in either breast. No significant change compared to the prior study. Alison Carmona MD MAMMO ORDERABLES documented in this encounter Visit Diagnoses Diagnosis Increased risk of breast cancer Other specified personal history presenting hazards to health documented in this encounter Care Teams Copy Worker Relationship Specialty Start Date End Date Beryl Lynch MD [address] [place] [address] PCP - General 09/06/18 11/01/23 documented as of this encounter
--- OUTSIDE RECORDS SUMMARY | 2024-02-21 01:57 | XMS_ITS | Encounter Summary ---
Author Organization [facility] Address [address] [place] [address] Care Team Providers Care Manager Of Radiology Name Role Phone Beryl Lynch MD Primary Care Provider [phone] Reason for Referral * Radiology Services (Routine) - Closed Specialty Diagnoses / Procedures Referred By Wagner rosado Referred To Contact Mammography Diagnoses Abnormal MRI, breast Procedures MAMMO BILAT DIAGNOSTIC Alison Carmona MD [address] [place] [address] [facility] Op [address] [place] [address] Referral ID Status Reason Start Date Expiration Date Visits Re quested Visits Authorized [id number] Closed 09/18/2019 09/17/2020 1 1 Reason for Visit * Reason Comments Follow-up high risk Encounter Details Date Type Department Care Team (Late st Contact Info) Description 09/18/2019 3:15 PM CDT Office Visit [facility] General Surgery [address] [place] [address] Alison Carmona MD [address] [place] [address] Abnormal MRI, breast (Primary Dx) Social History Tobacco Use Types [...] Sign Reading Time Taken Comments Blood Pressure 121/71 09/18/2019 3:30 PM CDT Pulse 73 09/18/2019 3:30 PM CDT Temperature 36.9 ??C (98.4 ??F) 09/18/2019 3:30 PM CD T Respiratory Rate - - Oxygen Saturation 98% 09/18/2019 3:30 PM CDT Inhaled Oxygen Concentration - - Weight 79.8 kg (176 lb) 09/18/2019 3:30 PM CDT Height 157.5 cm (5' 2 ) 09/18/2019 3:30 PM CDT Body Mass Index 32.19 09/18/2019 3:30 PM CDT documented in this encounter Patient Instructions * Patient Instructions* Tracie Duran RN - 09/18/2019 3:49 PM CDT Tracie will notify you with follow up imaging and biopsy scheduling. [phone]. Dr. Cordero--[phone]. documented in this encounter Progress Notes * Alison Carmona MD - 09/18/2019 3:15 PM CDT Patient Name: Monae Celaya : 1990 Chief Complaint Patient presents with ??? Follow-up high risk HISTORY OF PRESENT ILLNESS: Monae Celaya is a 29 year old female with increased lifetime risk of breast cancer (34% based ontyrer-cuzick model) who presents for 6 month follow up. She has no breast masses or overlying skin changes. She has had no nipple discharge. She has seen Evelyn Cordero but has not had genetic testing completed yet. She is interested in going back now since she obtained life insurance but lost her phone number. She presents today for bilateral screening breast MRI and clinical exam. ALLERGIES: No Known Allergies PAST MEDICAL HISTORY: Past Medical History: Diagnosis Date ??? Anxiety ??? Depression ??? Family history of breast cancer in mother PAST SURGICAL HISTORY: No past surgical history on file. MEDICATIONS: Current Outpatient Medications Medication Sig Dispense [...] Drug use: No GYNECOLOGIC HISTORY: Menarche at age 11 Menopause at age - premenopausal with first delivery at age 23 History of ? Yes for 3.5 months History of OCP use? Yes from age [age], then used NuvaRing from age [age]. Now with IUD after birthof daughter. History of HRT use? no REVIEW OF SYSTEMS See HPI PHYSICAL EXAM BP 121/71 Pulse 73 Temp 98.4 ??F (36.9 ??C) (Temporal) Ht 5' 2 (1.575 m) Wt 176 lb (79.8 kg) SpO2 98% BMI 32.19 kg/m2 General: alert, cooperative, in no distress Eyes: conjunctiva and lids normal ENT/Mouth: neck supple, no visible oral lesions Respiratory: unlabored respirations CV: regular heart rate Abd: soft, non-tender, non-distended Musculoskeletal: warm with no deformities On breast exam in both the upright and supine positions, she has symmetrical breasts that are of normal contour and shape. No dominant masses in either breast - dense tissue palpated in the outer left breast. No nipple retraction or discharge. No cervical, supraclavicular or axillary lymphadenopathy bilaterally. RADIOLOGY REVIEW: Bilateral breast MRI 09/18/2019: Right: A somewhat irregular mass is noted in the upper outer right breast adjacent to a vascular structure at the 10:00 position. No additional mass or non-mass enhancement Left: Segmental non-mass enhancement in the upper central left breast at 12:00 anterior depth (measures 3.5x1.5cm). No additional mass or non-mass enhancement. BIRADS-4 DIAGNOSIS: 29 year old female with elevated lifetime risk of breast cancer who presents for breast cancer screening visit and MRI PLAN: -- All pertinent records and reports available to me reviewed and summarized -- She has no concerning findings today on clinical exam -- Bilateral breast MRI from today reviewed with the radiologist -- findings in the bilateral breast require bilateral diagnostic mammogram and ultrasound. She understands that she may require image guided biopsy depending on the mammogram and ultrasound results. I will call her following these imaging studies (scheduled for Tuesday09/24/2019) -- Provided patient with the contact information for Evelyn Cordero so she can have genetic testing performed -- Will arrange follow up depending on upcoming breast imaging and possible biopsies -- All questions answered Over 25 minutes spent in today's visit, with over half in face to face counseling. Alison Carmona MD Date of service: 09/18/2019 documented in this encounter Plan of Treatment Upcoming Encounters Date Type Department Care Team (Late st Contact Info) Description 03/05/2024 1:00 PM RELATIONSHIP ASSOC Office Visit [facility] - Urology [address] [facility] [place] [address] Joshua Del Angel PA [address] [place] [address] documented as of this encounter Results * (ABNORMAL) MAMMO BILAT DIAGNOSTIC (09/24/2019 1:45 PM CDT) Anatomical Region Laterality Modality Breast [...] Dr. Raymundo. Dictated by Emili Lopes MD (resident buyer). I, Dr. MARIE RAYMUNDO M.D. have personally reviewed and interpreted this examination/study. This report was electronically signed by MARIE RAYMUNDO M.D. ??on 09/24/2019 2:21 PM . Narrative 09/24/2019 2:21 PM CDT BILATERALLY DIAGNOSTIC MAMMOGRAM BILATERAL LIMITED BREAST ULTRASOUND TECHNIQUE: Images were performed using 3D tomosynthesis images with reconstructed/synthetic 2D images. ??CAD analysis was performed. The registered radiologic technologist performed limited sonographic evaluation of the [...] seen on spot compressed craniocaudal 3-D slice 17/ and spot compressed mediolateral oblique 3-D slice [...] left breast. Alison Carmona MD MAMMO ORDERABLES documented in this encounter Visit Diagnoses Diagnosis Abnormal MRI, breast- Primary Other (abnormal) findings on radiological examination of breast Abnormal MRI, breast Other (abnormal) findings on radiological examination of breast documented in this encounter Care Teams Manager Of Radiology Relationship Specialty Start Date End Date Beryl Lynch MD [address] [place], [place] [phone] PCP - General 09/06/18 11/01/23 documented as of this encounter
--- OUTSIDE RECORDS SUMMARY | 2024-02-21 01:57 | XMS_ITS | Encounter Summary ---
Author Organization [facility] Address [address] [facility] [place] [address] Care Team Providers Care Registered Nursing Professor Name Role Phone Beryl Lynch MD Primary Care Provider [phone] Reason for Referral * Radiology Services (Routine) - Closed Specialty Diagnoses / Procedures Referred By Wagner rosado Referred To Contact MRI Diagnoses Bilateral nipple discharge Procedures MRI BREAST BILAT WWO CONTRAST Alison Carmona MD [address] [place] [address] [facility] Mri [address] [place] [address] Referral ID Status Reason Start Date Expiration Date Visits Re quested Visits Authorized [id number] Closed 09/13/2019 03/11/2020 1 1 L CASHIER Reason for Visit * Reason Comments Breast Problem Encounter Details Date Type Department Care Team (Late st Contact Info) Description 03/21/2019 1:30 PM LEGAL CASHIER Office Visit [facility] General Surgery [address] [place] [address] Alison Carmona MD [address] [place] [address] Bilateral nipple discharge (Primary Dx) Social History Tobacco Use Types [...] Sign Reading Time Taken Comments Blood Pressure 124/79 03/21/2019 1:28 PM LEGAL CASHIER Pulse 77 03/21/2019 1:28 PM LEGAL CASHIER Temperature 36.4 ??C (97.6 ??F) 03/21/2019 1:28 PM CS T Respiratory Rate 18 03/21/2019 1:28 PM LEGAL CASHIER Oxygen Saturation 96% 03/21/2019 1:28 PM LEGAL CASHIER Inhaled Oxygen Concentration - - Weight 79.9 kg (176 lb 3.2 oz) 03/21/2019 1:28 P M LEGAL CASHIER Height 157.5 cm (5' 2 ) 03/21/2019 1:28 PM LEGAL CASHIER Body Mass Index 32.23 03/21/2019 1:28 PM LEGAL CASHIER documented in this encounter Patient Instructions * Patient Instructions* Angelita Lopez RN - 03/21/2019 1:49 PM LEGAL CASHIER PLease follow up in 6 months with a breast MRI prior to the appointment L CASHIER documented in this encounter Progress Notes * Alison Carmona MD - 03/21/2019 1:49 PM CST Patient Name: Monae Celaya : 1990 Chief Complaint Patient presents with ??? Breast Problem HISTORY OF PRESENT ILLNESS: Monae Celaya is a 28 year old female with increased lifetime risk of breast cancer (34% based ontyrer-cuzick model) who presents for 6 month follow up. She was initially evaluated for intermittent blood nipple discharge. She underwent a bilateral breast MRI on 09/21/2018 which was negative for any suspicious findings (BIRADS-1). Since then, she states that her nipple discharge as completely resolved. She has no breast masses or overlying skin changes. She was referred to Ev[facility] Cordero for genetic counseling given her extensive family history, yaima has not had genetic testing yet as she is waiting until she obtains life insurance. She underwent a bilateral diagnostic mammogram today 03/21/2019 which was negative (BIRADS-1). She presents today for follow up ALLERGIES: No Known Allergies PAST MEDICAL HISTORY: [...] mastectomies 2017 ??? Alcohol abuse Mother ??? Coronary Artery Disease Father ??? Hypertension Father ??? Cancer - Breast Maternal Grandmother 50 ??? Cancer - Lung Maternal Grandfather ??? Coronary Artery Disease Paternal Grandfather ??? Cancer - Breast Other [...] no cancer, carrier of BRCA gene ??? Coronary Artery Disease Paternal Uncle SOCIAL HISTORY: Social History Tobacco [...] OF SYSTEMS See HPI PHYSICAL EXAM BP 124/79 (BP SITE: LEFT ARM) Pulse 77 Temp 97.6 ??F (36.4 ??C) (Oral) Resp 18 Ht 5' 2 (1.575 m) Wt 176 lb 3.2 oz (79.9 kg) SpO2 96% BMI 32.23 kg/m2 General: alert, cooperative, in no distress Eyes: conjunctiva and lids normal ENT/Mouth: neck supple, no visible oral lesions Respiratory: unlabored respirations CV: regular heart rate Abd: soft, non-tender, non-distended Musculoskeletal: warm with no deformities On breast exam in both the upright and supine positions, she has symmetrical breasts that are of normal contour and shape. No palpable abnormalities in either breast. No nipple retraction or discharge. No cervical, supraclavicular or axillary lymphadenopathy bilaterally. RADIOLOGY REVIEW: Bilateral diagnostic mammogram 03/21/2019: No suspicious mass, architectural distortion, or calcifications in either breast BIRADS-1 DIAGNOSIS: 28 year old female with elevated lifetime risk of breast cancer who presents for follow up PLAN: -- All pertinent records and reports available to me reviewed and summarized -- Bilateral diagnostic mammogram performed today showed no suspicious findings (BIRADS-1) -- No concerning findings today on clinical exam -- Her previous bloody nipple discharge as resolved -- She plans to make her appointment for genetic counseling with Evelyn Cordero after she obtains life insurance (they previously reached out to her after her last appointment and she has their contact information). -- Bilateral screening breast MRI in 6 months -- Return in 6 months for clinical exam. She understands to return sooner if she notices any changes to her physical exam or with any questions or concerns Over 25 minutes spent in today's visit, with over half in face to face counseling. Alison Carmona MD Date of service: 03/21/2019 L CASHIER documented in this encounter Plan of Treatment Upcoming Encounters Date Type Department Care Team (Helena mcclendon Contact Info) Description 03/05/2024 1:00 PM LEGAL CASHIER Office Visit [facility] - Urology [address] [facility] [place] [address] Joshua Del Angel PA [address] [place] [address] documented as of this encounter Results * (ABNORMAL) MRI BREAST BILAT WWO CONTRAST (09/18/2019 3:22 PM CDT) Anatomical Region Laterality Modality Breast Bilateral Magnetic Resonan ce 09/18/2019 3:38 PM CDT Impressions 09/18/2019 3:59 PM CDT IMPRESSION: Possible irregular mass versus serpiginous vascular structure in the outer right breast. Segmental nonmass enhancement in the upper left breast, indeterminate. BI-RADS category 4: Suspicious finding - biopsy should be considered. Subcategory 4b: moderate suspicion for malignancy. RECOMMENDATION: ??Bilateral diagnostic mammograms and possible targeted bilateral breast ultrasound is recommended. This will guide management and possible further biopsy, and MRI guided biopsy may be needed, in particular for the left breast findings. This report was electronically signed by MARIE STRAUSS M.D. ??on 09/18/2019 3:59 PM . Narrative 09/18/2019 3:59 PM CDT MRI of the breasts with and without contrast COMPARISON: Prior breast MRI performed 09/21/2018, bilateral diagnostic mammograms on 03/21/2019 and 09/06/2018, as well as breast ultrasound performed 09/06/2018 and 07/25/2015. HISTORY: The patient is a 29-year-old female with a strong family history of breast cancer. She had history of bilateral bloody nipple discharge, but has no current breast complaints. She is undergoing high risk screening breast MRI. TECHNIQUE: Multiplanar multisequence MR imaging of both breasts before and following the administration of intravenous gadolinium contrast. Dynamic phase imaging was performed in the axialplane. Exam processed by and interpreted on a [employer] career transition specialist including 3-D volume rendering, subtraction image processing and contrast kinetic analysis. 7 cc of Gadovist intravenous. GFR: ??Greater than 60. FINDINGS: Degree of postcontrast parenchymal enhancement: Mild to moderate and asymmetric. Amount of fibroglandular tissue: ??Scattered fibroglandular tissue. RIGHT: A somewhat irregular appearing mass is noted in the outer right breast adjacent to a vascular structure, located near 10:00 at middle depth (image 72 series 6 and image 135 series 18). No additional mass or nonmass enhancement is seen within the right breast. The skin, nipple and chest wall enhanced to a normal degree. Right axillary lymph nodes are not enlarged. LEFT: Segmental nonmass enhancement is noted in the upper central left breast, near 12:00 at anterior depth (image 58 series 7). This appears new from the prior examination and is indeterminate. This measures approximately 3.5 cm AP by 1.5 cm transverse. No additional mass or nonmass enhancement is seen within the left breast. The skin, nipple and chest wall enhanced to a normal degree. Left axillary lymph nodes are not enlarged. Extramammary findings: No significant findings other than mild dependent atelectasis. Alison Carmona MD MR ORDERABLES documented in this encounter Visit Diagnoses Diagnosis Bilateral nipple discharge- Primary Bilateral nipple discharge documented in this encounter Care Teams Registered Nursing Professor Relationship Specialty Start Date End Date Beryl Lynch MD [address] [place] [address] PCP - General 09/06/18 11/01/23 documented as of this encounter
--- OUTSIDE RECORDS SUMMARY | 2024-02-21 01:57 | XMS_ITS | Encounter Summary ---
Author Organization [facility] Address [address] [place] [address] Care Team Providers Care Aboriginal Education Worker Coordinator Name Role Phone Beryl Lynch MD Primary Care Provider [phone] Reason for Referral * Radiology Services (Routine) - Closed Specialty Diagnoses / Procedures Referred By Contac t Referred To Contact MRI Diagnoses Bilateral nipple discharge Procedures MRI BREAST BILAT WWO CONTRAST Alison Carmona MD [address] [place] [address] [address] Referral ID Status Reason Start Date Expiration Date Visits Re quested Visits Authorized [id number] Closed 09/13/2019 03/11/2020 1 1 Reason for Visit * Radiology Services (Routine) - Closed Specialty Diagnoses / Procedures Referred By Contac t Referred To Contact MRI Diagnoses Bilateral nipple discharge Procedures MRI BREAST BILAT WWO CONTRAST Alison Carmona MD [address] [place] [address] [facility] Mri [address] [place] [address] Referral ID Status Reason Start Date Expiration Date Visits Re quested Visits Authorized [id number] Closed 09/13/2019 03/11/2020 1 1 Encounter Details Date Type Department Care Team (Latest Contact Info) Description 09/18/2019 1:56 PM CDT - 09/18/2019 11:59 PM CDT Hospital Encounter [facility] MRI [address] [place] [phone] Alison Carmona MD [address] [facility] [place] [address] Discharge Disposition: Home or Self [...] st Contact Info) Description 03/05/2024 1:00 PM TELEMETRY TECH Office Visit [facility] - Urology [address] [facility] [place] [address] Joshua Del Angel PA [address] [place] [phone] documented as of this encounter Procedures Procedure Name Priority Date/Time Associated Diagnosis Comments MRI BREAST BILAT WWO CONTRAST Routine 09/18/2019 3:22 PM CDT Bilateral nipple discharge CREATININE - POCT INTERFACED Routine 09/18/2019 2:29 PM CDT documented in this encounter Results * [...] Exam processed by and interpreted on a [employer] traffic observer including 3-D volume rendering, subtraction image processing [...] dependent atelectasis. Alison Carmona MD MR ORDERABLES * CREATININE - POCT INTERFACED (09/18/2019 2:29 PM CDT) Creatinine POCT 0.51 0.30 - 1.30 mg/dL 09/18/2019 2:30 PM CDT [facility] eGFR >60 >60 mL/min/1.7 3 m2 09/18/2019 2:30 PM CDT [facility] Blood BLOOD SPECIMEN / Unknown 09/18/2019 2:29 PM CDT 09/18/2019 2:30 PM CDT Alison Carmona MD LAB - POINT OF CARE ORDERABLES [facility] [address] [address] [phone] documented in this encounter Visit Diagnoses Diagnosis Bilateral nipple discharge documented in this encounter Administered Medications Inactive Administered Medications - up to 3 most recent administrations Medication Order MAR Action Action Date Dose Rate Site gadobutrol (GADAVIST) injection Intravenous, CONTRAST ONCE, Starting on Tue09/18/19 at 1431, Until Tue09/19/19 at 0120 $ Given - Contrast 09/18/2019 2:31 PM CDT 7 mL documented in this encounter Care Teams Aboriginal Education Worker Coordinator Relationship Specialty Start Date End Date Beryl Lynch MD [address] [place] [address] PCP - General 09/06/18 11/01/23 documented as of this encounter
--- OUTSIDE RECORDS SUMMARY | 2024-02-21 01:57 | XMS_ITS | Encounter Summary ---
Author Organization [facility] Address [address] [place] [address] Care Team Providers Care Bankruptcy Legal Assistant Name Role Phone Beryl Lynch MD Primary Care Provider [phone] Reason for Visit * Radiology Services (Routine) - Closed Specialty Diagnoses / Procedures Referred By Wagner rosado Referred To Contact MRI Diagnoses Bloody discharge from nipple Bilateral nipple discharge Procedures MRI BREAST BILAT WWO CONTRAST Alison Carmona MD [address] [place] [address] [facility] Mri [address] [place] [address] Referral ID Status Reason Start Date Expiration Date Visits Re quested Visits Authorized [id number] Closed 09/06/2018 03/05/2019 1 1 Encounter Details Date Type Department Care Team (Latest Contact Info) Description 09/21/2018 4:00 PM CDT - 09/21/2018 11:59 PM CDT Hospital Encounter [facility] MRI [address] [place] [phone] Alison Carmona MD [address] [place] [address] Radiology Diagnostic Discharge Disposition: Home or Self [...] st Contact Info) Description 03/05/2024 1:00 PM DAIRY TESTER Office Visit [facility] - Urology [address] [facility] [place] [phone] Joshua Del Angel PA [address] [place] [phone] documented as of this encounter Procedures Procedure Name Priority Date/Time Associated Diagnosis Comments MRI BREAST BILAT WWO CONTRAST Routine 09/21/2018 6:16 PM CDT Bloody discharge from nipple Bilateral nipple discharge CREATININE BLOOD - POCT (IP) [facility] Routine 09/21/2018 5:17 PM CDT Bloody discharge from nipple documented in this encounter Results * MRI BREAST BILAT WWO CONTRAST (09/21/2018 6:16 PM CDT) Anatomical Region Laterality Modality Breast Bilateral Magnetic Resonan ce 09/25/2018 3:43 PM CDT Impressions 09/25/2018 3:53 PM CDT IMPRESSION: No MR evidence of malignancy in either breast. No MR abnormality to explain nipple discharge. ASSESSMENT: BI-RADS Category 1: Negative. RECOMMENDATION: 1.Clinical follow-up for nipple discharge. Patient is under the care of Dr. Carmona. 2.Screening protocol based on family history of breast cancer per Dr. Carmona. This report was electronically signed by SIERRA DICKEY M.D. ??on 09/25/2018 3:53 PM . Narrative 09/25/2018 3:53 PM CDT BILATERAL BREAST MRI HISTORY: ??28-year-old female with bilateral bloody nipple discharge and family history of breast cancer. COMPARISON: Comparison was made to previous mammogram and ultrasound on 09/06/2018. TECHNIQUE: Multiplanar multisequence MR imaging of both breasts before and following the administration of seven cc of Gadavist. Dynamic phase imaging was performed in the axial plane. Exam was processed by and interpreted on a [employer] mobile cafeteria food server including 3-D volume rendering, subtraction image processing and contrast kinetic analysis. FINDINGS: Background tissue pattern: Scattered fibroglandular tissue. Degree of background parenchymal enhancement: Mild, symmetric. RIGHT BREAST: There is no suspicious mass or area of abnormal enhancement in the right breast. There is no abnormality of the right axilla, chest wall, or nipple areolar complex. LEFT BREAST: There is no suspicious mass or area of abnormal enhancement in the left breast. There is no abnormality of the left axilla, chest wall, or nipple areolar complex. Alison Carmona MD MR ORDERABLES * CREATININE BLOOD - POCT (IP) [facility] (09/21/2018 5:17 PM CDT) Creatinine POCT 1.04 0.3 - 1.3 mg/dL [facility] POCT TESTING eGFR POCT 60 60 ml/min [facility] POCT TESTING Blood BLOOD SPECIMEN / Unknown 09/21/2018 5:17 PM CDT Alison Carmona MD LAB - POINT OF CARE ORDERABLES [facility] POCT TESTING [address] [phone] documented in this encounter Visit Diagnoses Diagnosis Bloody discharge from nipple Other sign and symptom in breast Bilateral nipple discharge documented in this encounter Administered Medications Inactive Administered Medications - up to 3 most recent administrations Medication Order MAR Action Action Date Dose Rate Site gadobutrol (GADAVIST) injection Intravenous, CONTRAST ONCE, Starting on Noy 09/21/18 at 1716, Until Tue09/22/18 at 0158 $ Given - Contrast 09/21/2018 5:57 PM CDT 7 mL documented in this encounter Care Teams Bankruptcy Legal Assistant Relationship Specialty Start Date End Date Beryl Lynch MD [address] [place] [address] PCP - General 09/06/18 11/01/23 documented as of this encounter
--- OUTSIDE RECORDS SUMMARY | 2024-02-21 01:57 | XMS_ITS | Encounter Summary ---
Author Organization [facility] Address [address] [facility] [place] [address] Care Team Providers Care Facilities Supervisor Name Role Phone Beryl Lynch MD Primary Care Provider [phone] Encounter Details Date Type Department Care Team (Latest Contact Info) Description 09/19/2019 Travel Social History Tobacco Use Types Packs/Day [...] st Contact Info) Description 03/05/2024 1:00 PM DEAN FOR STUDENT AFFAIRS Office Visit [facility] [address] [facility] [facility] [place] [phone] Joshua Del Angel PA [address] [place] [phone] documented as of this encounter Visit Diagnoses Not on filedocumented in this encounter Care Teams Facilities Supervisor Relationship Specialty Start Date End Date Beryl Lynch MD [address] [place] [address] PCP - General 09/06/18 11/01/23 documented as of this encounter
--- OUTSIDE RECORDS SUMMARY | 2024-02-21 01:57 | XMS_ITS | Encounter Summary ---
Author Organization [facility] Address [address] [facility] [place] [address] Care Team Providers Care Proposal Consultant Name Role Phone Beryl Lynch MD Primary Care Provider [phone] Reason for Referral * Radiology Services (Routine) - Closed Specialty Diagnoses / Procedures Referred By Wagner t Referred To Contact Mammography Diagnoses Bloody discharge from nipple Procedures US BREAST BILATERAL LTD Alison Carmona MD [address] [place] [address] [facility] [place] [address] [place] [address] Referral ID Status Reason Start Date Expiration Date Visits Re quested Visits Authorized [id number] Closed 09/06/2018 03/05/2019 1 1 Reason for Visit * Radiology Services (Routine) - Closed Specialty Diagnoses / Procedures Referred By Contac t Referred To Contact Mammography Diagnoses Bloody discharge from nipple Procedures US BREAST BILATERAL LTD Alison Carmona MD [address] [place] [address] [facility] Op [address] [place] [address] Referral ID Status Reason Start Date Expiration Date Visits Re quested Visits Authorized [id number] Closed 09/06/2018 03/05/2019 1 1 Encounter Details Date Type Department Care Team (Latest Contact Info) Description 09/06/2018 12:40 PM CDT - 09/06/2018 11:59 PM CDT Hospital Encounter [facility] [address] [place] [address] Alison Carmona MD [address] [facility] [place] [address] Discharge Disposition: Home or Self Care Social [...] st Contact Info) Description 03/05/2024 1:00 PM TACK COVERER Office Visit [facility] - Urology [address] [facility] [place] [address] Joshua Del Angel PA [address] [place] [address] documented as of this encounter Procedures Procedure Name Priority Date/Time Associated Diagnosis Comments US BREAST BILATERAL LTD Routine 09/06/2018 2:29 PM CDT Bloody discharge from nipple documented in this encounter Results * US BREAST BILATERAL LTD (09/06/2018 2:29 PM CDT) Anatomical Region Laterality Modality Bilateral Mammography 09/06/2018 2:01 PM CDT Impressions [...] history of breast cancer COMPARISON: Ultrasound from [facility] dated on 07/25/2015 BREAST COMPOSITION: There are scattered areas of fibroglandular density. FINDINGS: There is no suspicious mass, clustered microcalcification or architectural distortion in either breast on 2-D or 3-D images. Targeted bilateral retroareolar ultrasound demonstrated mild ductal ectasia without intraductal mass or debris. There is no suspicious mass. Procedure Note Thair Arriaga MD - 09/06/2018 EXAMINATION: BILATERAL DIAGNOSTIC MAMMOGRAM BILATERAL TARGETED BREAST ULTRASOUND TECHNIQUE: Images were performed using 3D tomosynthesis images with reconstructed/synthetic 2D images and CAD analysis. DATE: 09/06/2018. HISTORY: 28-year-old female with bilateral bloody discharge which isbeen present for a few years, strong family history of breast cancer COMPARISON: Ultrasound from [facility] dated on 07/25/2015 BREAST COMPOSITION: There are scattered areas of fibroglandular density. FINDINGS: There is no suspicious mass, clustered microcalcification orarchitectural distortion in either breast on 2-D or 3-D images. Targeted bilateral retroareolar ultrasound demonstrated mild ductal ectasia without intraductal mass or debris. There is no suspicious mass. IMPRESSION: No evidence of malignancy ASSESSMENT: BIRADS Category 2: Benign finding(s). RECOMMENDATION: Clinical follow-up for bilateral bloody nipple discharge Patient is under the care of Dr. Carmona who will order breast MRI. Findings and recommendations were discussed with the patient by Dr. Arriaga. I, . TAHIR ARRIAGA M.D. have personally reviewed and interpreted this examination/study. This report was electronically signed by TAHIR ARRIAGA M.D. on 09/06/2018 2:28 PM . Alison Carmona MD ORDERABLES documented in this encounter Visit Diagnoses Diagnosis Bloody discharge from nipple Other sign and symptom in breast documented in this encounter Care Teams Proposal Consultant Relationship Specialty Start Date End Date Beryl Lynch MD [address] [place], [place] [phone] PCP - General 09/06/18 11/01/23 documented as of this encounter
--- OUTSIDE RECORDS SUMMARY | 2024-02-21 01:57 | XMS_ITS | Encounter Summary ---
Author Organization [facility] Address [address] [place] [address] Care Team Providers Care Manager Of Tax Name Role Phone Beryl Lynch MD Primary Care Provider [phone] Reason for Visit * Reason Onset Date Comments Appointment 10/03/2018 Encounter Details Date Type Department Care Team (Late st Contact Info) Description 10/03/2018 Telephone [facility] General Surgery [address] [place] [address] Angelita Lopez, TAMMY Appointment Social History Tobacco Use Types Packs/Day [...] encounter Miscellaneous Notes * Telephone Encounter - Angelita Lopez RN - 10/03/2018 8:49 AM CDT Called patient at Dr. Carmona's request about setting patient up for her 6 month imaging and appointment. These are set for March 21, 2019 at 1000 am for a diagnostic mammogram, 1030 am for a bilateral US, and 1330 pm for appointment. Patient stated an understanding. documented in this encounter Plan of Treatment Upcoming Encounters Date Type Department Care Team (Late st Contact Info) Description 03/05/2024 1:00 PM SURVEY ANALYST Office Visit [facility] [address] [facility] [place] [phone] Joshua Del Angel PA [address] [place] [phone] documented as of this encounter Visit Diagnoses Not on filedocumented in this encounter Care Teams Manager Of Tax Relationship Specialty Start Date End Date Beryl Lynch MD [address] [place] [address] PCP - General 09/06/18 11/01/23 documented as of this encounter
--- OUTSIDE RECORDS SUMMARY | 2024-02-21 01:57 | XMS_ITS | Encounter Summary ---
Author Organization [facility] Address [address] [facility] [place] [address] Care Team Providers Care Postdoctoral Research Fellow Name Role Phone Beryl Lynch MD Primary Care Provider [phone] Reason for Referral * Radiology Services (Routine) - Closed Specialty Diagnoses / Procedures Referred By Wagner rosado Referred To Contact Mammography Diagnoses Abnormal MRI, breast Procedures MAMMO BILAT DIAGNOSTIC Alison Carmona MD [address] [place] [address] [facility] [place] [address] [place] [address] Referral ID Status Reason Start Date Expiration Date Visits Re quested Visits Authorized [id number] Closed 09/18/2019 09/17/2020 1 1 Reason for Visit * Radiology Services (Routine) - Closed Specialty Diagnoses / Procedures Referred By Contmaile t Referred To Contact Mammography Diagnoses Abnormal MRI, breast Procedures MAMMO BILAT DIAGNOSTIC Alison Carmona MD [address] [address] [facility] Op [address] [place] [address] Referral ID Status Reason Start Date Expiration Date Visits Re quested Visits Authorized [id number] Closed 09/18/2019 09/17/2020 1 1 Encounter Details Date Type Department Care Team (Latest Contact Info) Description 09/24/2019 1:00 PM CDT Hospital Encounter [facility] [address] [place] [address] Alison Carmona MD [address] [facility] [place] [address] Discharge Disposition: Home or Self [...] st Contact Info) Description 03/05/2024 1:00 PM DIRECT MARKETING REPRESENTATIVE Office Visit [facility] - Urology [address] [facility] [place] [address] Joshau Del Angel PA [address] [place] [address] documented as of this encounter Procedures Procedure Name Priority Date/Time Associated Diagnosis Comments MAMMO BILAT DIAGNOSTIC Routine 09/24/2019 1:45 PM CDT Abnormal MRI, breast documented in this encounter Results * (ABNORMAL) MAMMO BILAT [...] Dr. Raymundo. Dictated by Emili Lopes MD (student life vice president). I, Dr. MARIE RAYMUNDO M.D. have personally reviewed and interpreted this examination/study. This report was electronically signed by MARIE RAYMUNDO M.D. ??on 09/24/2019 2:21 PM . Narrative 09/24/2019 2:21 PM CDT BILATERALLY DIAGNOSTIC MAMMOGRAM BILATERAL LIMITED BREAST ULTRASOUND TECHNIQUE: Images were performed using 3D tomosynthesis images with reconstructed/synthetic 2D images. ??CAD analysis was performed. The apparatus engineering technologist performed limited sonographic evaluation of the [...] seen on spot compressed craniocaudal 3-D slice 17/71 and spot compressed mediolateral oblique 3-D slice 11/70. Otherwise there is no suspicious mass, clustered [...] breast documented in this encounter Care Teams Postdoctoral Research Fellow Relationship Specialty Start Date End Date Beryl Lynch MD [address] [place], [place] [id number] PCP - General 09/06/18 11/01/23 documented as of this encounter
--- OUTSIDE RECORDS SUMMARY | 2024-02-21 01:57 | XMS_ITS | Encounter Summary ---
Author Organization [facility] Address [address] [place] [address] Care Team Providers Care Laborer Salvage Name Role Phone Beryl Lynch MD Primary Care Provider [phone] Reason for Referral * Radiology Services (Routine) - Closed Specialty Diagnoses / Procedures Referred By Contac t Referred To Contact MRI Diagnoses Bloody discharge from nipple Bilateral nipple discharge Procedures MRI BREAST BILAT WWO CONTRAST Alison Carmona MD [address] [place] [address] [facility] Mri [address] [place] [address] Referral ID Status Reason Start Date Expiration Date Visits Re quested Visits Authorized [id number] Closed 09/06/2018 03/05/2019 1 1 * Radiology Services (Routine) - Closed Specialty Diagnoses / Procedures Referred By Contac t Referred To Contact Mammography Diagnoses Bloody discharge from nipple Procedures US BREAST BILATERAL LTD Alison Carmona MD [address] [place] [address] [facility] [address] [place] [address] Referral ID Status Reason Start Date Expiration Date Visits Re quested Visits Authorized [id number] Closed 09/06/2018 03/05/2019 1 1 * Radiology Services (Routine) - Closed Specialty Diagnoses / Procedures Referred By Contac t Referred To Contact Mammography Diagnoses Bloody discharge from nipple Procedures MAMMO BILAT DIAGNOSTIC Alison Carmona MD [address] [place] [address] [facility] Op [address] [place] [address] Referral ID Status Reason Start Date Expiration Date Visits Re quested Visits Authorized [id number] Closed 09/06/2018 03/05/2019 1 1 Reason for Visit * Reason Comments Breast Problem Extensive Family his tory of breast cancer/ bloody nipple discharge Encounter Details Date Type Department Care Team (Late st Contact Info) Description 09/06/2018 12:00 PM CDT Office Visit [facility] General Surgery [address] [place] [address] Alison Carmona MD [address] [place] [address] Bloody discharge from nipple (Primary Dx); Bilateral nipple discharge Social History Tobacco Use Types Packs/Day Years Used Date Smoking Tobacco: Every Day Cigarettes 1 11 Smokeless Tobacco: Never Tobacco Cessation:Ready to Q uit: No; Counseling Given: Yes Alcohol Use Standard Drinks/Week Comments Yes 5 (1 standard drink = 0.6 oz pur e alcohol) denies daily drinking Sex and Gender Information Value Date Recorded Sex Assigned at Not on file Gender Identity Not on file Sexual Orientation Not on file documented as of this encounter Last Filed Vital Signs Vital Sign Reading Time Taken Comments Blood Pressure 115/73 09/06/2018 12:01 PM CDT Pulse 78 09/06/2018 12:01 PM CDT Temperature - - Respiratory Rate 18 09/06/2018 12:01 PM CDT Oxygen Saturation 98% 09/06/2018 12:01 PM CDT Inhaled Oxygen Concentration - - Weight 76.7 kg (169 lb) 09/06/2018 12:01 PM CDT Height 160 cm (5' 3 ) 09/06/2018 12:01 PM CDT Body Mass Index 29.94 09/06/2018 12:01 PM CDT documented in this encounter Progress Notes * Angelita Lopez RN - 09/06/2018 2:32 PM CDT Spoke with patient regarding her breast MRI. It is scheduled for 09/21/18 at 4 pm with a 330 pm arrival. Patient stated an understanding. This will be done at the [facility] documented in this encounter H&P Notes * Maria D Woodard MD - 09/06/2018 1:20 PM CDT Patient Name: Monae Celaya : 1990 Chief Complaint Patient presents with ??? Breast Problem Extensive Family history of breast cancer/ bloody nipple discharge HISTORY OF PRESENT ILLNESS: Monae Celaya is a 28 year old female with PMHx of anxiety and depression and significant family history of breast cancer presenting to the breast surgery clinic today for evaluation of spontaneous nipple discharge. Patient reports that since the of her daughter (now 4 years old) she has had intermittent bilateral spontaneous nipple discharge that is at times bloody. She breast fed her daughter for about 3.5 months after . She reports increased drainage during sexual intercourse.She also reports intermittent spotting of blood about twice a month, noticing it as a stain in her bra. Reports able to express white milky fluid intermittently as well. No prior breast biopsies, no prior surgical procedures. Ultrasound in 2016 negative and showed leftover milk per patient. Of note her mother was diagnosed with invasive ductal cancer last year and underwent bilateral mastectomies. ALLERGIES: No Known Allergies PAST MEDICAL HISTORY: Past Medical History: Diagnosis Date ??? Anxiety ??? Depression ??? Family history of breast cancer in mother PAST SURGICAL HISTORY: No past surgical history on file. MEDICATIONS: Current Outpatient Prescriptions Medication ??? busPIRone (BUSPAR) 10 MG tablet ??? escitalopram (LEXAPRO) 20 MG tablet ??? ziprasidone (GEODON) 20 MG capsule No current facility-administered medications for this visit. FAMILY HISTORY: Family History Problem Relation Age of Onset ??? Cancer - Breast [...] Disease Paternal Uncle SOCIAL HISTORY: Social History Substance Use Topics ??? Smoking status: Current Every Day Smoker Packs/day: 1.00 Years: 11.00 Types: Cigarettes ??? Smokeless tobacco: Never Used ??? Alcohol use 3.0 oz/week 5 Cans of beer per week Comment: denies daily drinking GYNECOLOGIC HISTORY: Menarche at age 11 Menopause at age - premenopausal with first delivery at age 23 History of ? Yes for 3.5 months History of OCP use? Yes from age [age], then used NuvaRing from age [age]. Now with IUD after birthof daughter. History of HRT use? no REVIEW OF SYSTEMS Constitutional: no fevers, chills, fatigue or hot flashes Eyes: no cataracts, no glasses/contacts ENMT: no hearing loss, no hearing aid, no swallowing difficulties or sore throat Cardiovascular: no chest pain, no history of heart problems Respiratory: no shortness of breath, no cough GI: no abdominal pain, no nausea, no diarrhea or constipation Musculoskeletal: no arthritis, no back pain Neurological: no headaches Psychiatric: no anxiety, no depression : no change in libido, no dyspareunia, no vaginal dryness PHYSICAL EXAM BP 115/73 Pulse 78 Resp 18 Ht 5' 3 (1.6 m) Wt 169 lb (76.7 kg) SpO2 98% BMI 29.94 kg/m2 General: alert, cooperative, in no distress Eyes: conjunctiva and lids normal ENT/Mouth: neck supple, no visible oral lesions Respiratory: unlabored respirations, CTAB CV: regular heart rate, skin WWP Abd: soft, non-tender, non-distended Musculoskeletal: warm with no deformities On breast exam in both the upright and supine positions, she has symmetrical breasts that are of normal contour and shape. No palpable abnormalities in either breast. No nipple retraction or expressible discharge. No cervical, supraclavicular or axillary lymphadenopathy bilaterally. RADIOLOGY REVIEW: Will send for imaging today DIAGNOSIS: bilateral bloody nipple discharge, high risk of breast cancer PLAN: Monae Celaya is a 28 year old female with extensive family history of breast cancer and intermittent spontaneous bloody nipple discharge. She is at higher risk (34.5% lifetime risk) for breast cancer development given her personal and family history. Recommend starting screening for breast cancer at this time. -- Bilateral screening mammograms and bilateral breast ultrasound today -- Breast MRI for screening given high risk -- Will refer patient to genetic counselor given increased risk of developing cancer given significant family history -- Follow up in clinic after Breast MRI to discuss results and next step in management Maria D Woodard MD 09/06/2018 1:28 PM Associated attestation - Alison Carmona MD - 09/08/2018 9:51 AM CDT Attending Attestation: Patient seen and examined with Dr. Woodard on 09/06/18. See her note for further details. History of Present Illness: Monae Celaya is a 28 year old female who presents for evaluation of intermittent bilateral nipple discharge as well as an extensive family history of breast cancer. It has been occurring for the last 4 years since the of her daughter. The patient reports bilateral intermittent milky and sometimes bloody nipple discharge. The discharge is spontaneous and occurs every 2 weeks or so. She notices the discharge in her bra. Multiple times she has noticed the bloody discharge during sexual intercourse. She feels no masses in either breast and has no breast pain or overlying skin changes. She had a breast ultrasound at the onset of her symptoms years ago, and she reports that this was negative. She also has an extensive family history of cancer - bilateral breast cancer in her mother (diagnosed at age 62), breast cancer in two maternal great aunts, two maternal second cousins, and in two paternal aunts and ovarian cancer in one paternal aunt. One paternal aunt that was diagnosed with the BRCA mutation (she does not know which one), and one paternal cousin carries the mutation but has not been diagnosed with cancer. She herself has not undergone any genetic testing. Exam: On breast exam in the upright and supine positions, she has symmetrical breasts that are of normal contour and shape. No palpable abnormalities in either breast. No nipple retraction and no nipple discharge expressed on exam today. No cervical, supraclavicular, or axillary lymphadenopathy bilaterally. Imaging: Bilateral diagnostic mammogram 09/06/18: No suspicious mass, clustered microcalcifications, or architectural distortion in either breast. Bilateral breast ultrasound 09/06/18: Mild duct ectasia without intraductal mass or debris, no suspicious mass BIRADS-2 -- We reviewed her bilateral diagnostic mammogram and ultrasound performed today following her visit showing no suspicious findings (BIRADS-2) -- She has no concerning findings on clinical exam -- Given her extensive family history as well as her family history of a BRCA mutation, we have referred her to genetic counseling. I discussed that she should attempt to contact her family regardingtheir specific genetic mutation -- Her information was put in the Tyrer-Cuzick risk calculator, which demonstrated a 34.5% lifetimerisk -- As her mammogram and ultrasound were negative, a bilateral breast MRI was ordered to evaluate the bloody nipple discharge. -- We discussed that I would recommend increased screening following the workup for her current discharge with yearly breast MRI and mammogram and ultrasound (staggered every 6 months) as well as yearly clinical exams -- Will contact Mnoae following breast MRI to discuss results and plan follow up -- All questions were answered 45 minutes were spent on today's visit with over half in face to face counseling. Alison Carmona MD documented in this encounter Plan of Treatment Upcoming Encounters Date Type Department Care Team (Late st Contact Info) Description 03/05/2024 1:00 PM PHARMACY SALESPERSON Office Visit [facility] [address] [facility] [place] [address] Joshua Del Angel PA [address] [place] [address] documented as of this encounter [...] was processed by and interpreted on a [employer] room service server including 3-D volume rendering, subtraction image [...] complex. Alison Carmona MD MR ORDERABLES * US BREAST BILATERAL LTD (09/06/2018 2:29 [...] history of breast cancer COMPARISON: Ultrasound from [facility] dated on 07/25/2015 BREAST COMPOSITION: There are scattered areas of fibroglandular density. FINDINGS: There is no suspicious mass, clustered microcalcification or architectural distortion in either breast on 2-D or 3-D images. Targeted bilateral retroareolar ultrasound demonstrated mild ductal ectasia without intraductal mass or debris. There is no suspicious mass. Procedure Note Tahir Arriaga MD - 09/06/2018 EXAMINATION: BILATERAL DIAGNOSTIC MAMMOGRAM BILATERAL TARGETED BREAST ULTRASOUND TECHNIQUE: Images were performed using 3D tomosynthesis images with reconstructed/synthetic 2D images and CAD analysis. DATE: 09/06/2018. HISTORY: 28-year-old female with bilateral bloody discharge which isbeen present for a few years, strong family history of breast cancer COMPARISON: Ultrasound from [facility] dated on 07/25/2015 BREAST COMPOSITION: There are [...] discussed with the patient by Dr. Arriaga. Dr. TAHIR Williamson M.D. have personally reviewed and interpreted this examination/study. This report was electronically signed by TAHIR ARRIAGA M.D. on 09/06/2018 2:28 PM . Alison Carmona MD US ORDERABLES * MAMMO BILAT DIAGNOSTIC (09/06/2018 1:13 PM [...] discussed with the patient by Dr. Arriaga. Teri, Dr. TAHIR ARRIAGA M.D. have personally reviewed [...] history of breast cancer COMPARISON: Ultrasound from [facility] dated on 07/25/2015 BREAST COMPOSITION: There are [...] encounter Visit Diagnoses Diagnosis Bloody discharge from nipple- Primary Other sign and symptom in breast Bilateral nipple discharge Bloody discharge from nipple Other sign and symptom in breast Bloody discharge from nipple Other sign and symptom in breast Bloody discharge from nipple Other sign and symptom in breast Bilateral nipple discharge documented in this encounter Care Teams Laborer Salvage Relationship Specialty Start Date End Date Beryl Lynch MD [address] [place], [place] [id number] PCP - General 09/06/18 11/01/23 documented as of this encounter
== END 2024-02-17 16:31 | disposition home or self-care (01) ==
PROVIDERS: Emergency Provider Emergency Medicine; PCP Family Medicine
DX: R10.2 Pelvic and perineal pain (principal); F41.9 Anxiety disorder, unspecified; F32.A Depression, unspecified; Z90.79 Acquired absence of other genital organ(s); Z90.710 Acquired absence of both cervix and uterus; Z90.721 Acquired absence of ovaries, unilateral; F17.210 Nicotine dependence, cigarettes, uncomplicated; K76.0 Fatty (change of) liver, not elsewhere classified
CPT/HCPCS: 36415; 74177; 80053; 81001; 85025; 99284; Q9967

== ENCOUNTER 2024-02-22 10:30 | Outpatient (RCR) | payer OTHER, SELFPAY ==
--- NOTE | 2024-01-11 09:51 | OPREHPOC ---
Outpatient Therapy Plan of Care This is a Multidisciplinary Plan of Care that may contain components documented by all disciplines (PT, OT, and ST.) PT Problem 1 PT Problem #1 Knowledge Deficit PT Goal 1 Goal / Goal Update 1. Patient will perform independent HEP 2. Patient will verbalize urge suppression strategies Target Visit 3 PT Problem 2 PT Problem #2 Pain PT Goal 1 Goal / Goal Update 1. No pelvic pain on exam 2. Pain no higher than 2/10 with typical activities Target Visit 6 PT Problem 3 PT Problem #3 Impaired Strength PT Goal 1 Goal / Goal Update 1. Patient able to contract abdominal muscles and hold with march 2. Improve pelvic floor strength to 4/5 to reduce incontinence 3. Improve pelvic floor endurance to 10 seconds to reduce incontinence Target Visit 6 PT Problem 4 PT Problem #4 Impaired Functional ADLs PT Goal 1 Goal / Goal Update 1. Patient will report incontinence no more than 1 time per month 2. Patient able to hold urge to void or BM at least 30 minutes to allow for work function Target Visit 6
--- NOTE | 2024-01-11 09:51 | PTOPEVAL1 ---
Assessment and note entered by Precious Gomez DPT Evaluation Information Assessment Status Evaluation ICD-10 Condition Codes (PT) Weakness R53.1,R10.2,Stress incontinence N39.3 Subjective Information Pt reports pelvic pain and incontinence. Pain started before her hysterectomy, has had recent ultrasounds to confirm no cysts. Hysterectomy March 2023. Developed sepsis from hysterectomy and stayed in hospital 6 days. Highest pain recently 8/10 and lowest 1/10. Unable to correlate with what increases pain all the time, sometimes it seems random and sometimes with intercourse. Incontinence started around the same time (a few months before hysterectomy). Incontinence occurs with coughing and laughing. Occurred twice in the last week and is the entire amount of her bladder. Voids 6 times a day and does not wake up at night . Can hold urge to void 10 minutes. Denies pain with urination. Feels like she does not completely empty her bladder but did have ultrasound done and there wasn't many cc's yet. BM anywhere from 0-5 times a day, but typically does have at least 1 BM per day. Reports some fecal urgency and is having a colonoscopy next week. Has noticed fecal smear very intermittently. Pt has had 1 vaginal delivery, some stitching. 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 Reports concerns about working due to her fecal and urinary urgency, states it is an issue when she drives for awhile. Patient goal: be able to control bladder and bowel movements, get rid of pain No return to referring MD recently. Reported Pain Level Pain Score 4: Self Report Assessment PT Clinical Summary The patient is presenting to skilled therapy with a history of pelvic pain and urinary incontinence. She presents with decreased core and pelvic floor muscle strength and endurance, as well as increased pelvic floor muscle tone. These impairments are contributing to her pain, incontinence, and urgency, and therefore difficulty with work tasks. She will highly benefit from therapy to restore full function. Plan of Care Interventions Electrical Stimulation,Hot Pack/Cold Pack,Manual Therapy,Neuro Re-education,Patient/Caregiver Education,Therapeutic Activities,Therapeutic Exercise PT Services Indicated Yes Treatment Frequency and 1 time a week for 6 visits Duration These treatments will address the objective and functional deficits as defined above. The patient will be advanced safely and appropriately in order for the patient to progress towards his/her prior level of function. Additional exercises will be introduced and as well as a comprehensive home exercise program upon discharge, if needed, ?to ensure carryover of functional gains achieved in the clinic. This treatment plan has been reviewed and agreement upon by the patient.
--- NOTE | 2024-01-30 09:24 | PCPTNOTE ---
Patient called to cancel appointment 01/30/24 due to car trouble.
--- NOTE | 2024-02-08 09:28 | PCPTNOTE ---
Patient did not show up for appointment 02/08/24. When called, patient stated she forgot due to being sick. Rescheduled to this Tuesday.
--- NOTE | 2024-02-10 13:42 | OPREHPOC ---
Outpatient Therapy Plan of Care This is a Multidisciplinary Plan of Care that may contain components documented by all disciplines (PT, OT, and ST.) PT Problem 1 PT Problem #1 Knowledge Deficit PT Goal 1 Goal / Goal Update 1. Patient will perform independent HEP 2. Patient will verbalize urge suppression strategies Target Visit 3 PT Problem 2 PT Problem #2 Pain PT Goal 1 Goal / Goal Update 1. No pelvic pain on exam 2. Pain no higher than 2/10 with typical activities NEW GOAL 02/10/24 3. Shoulder pain no higher than 1/10 with cooking or cleaning Target Visit 6 PT Problem 3 PT Problem #3 Impaired Strength PT Goal 1 Goal / Goal Update 1. Patient able to contract abdominal muscles and hold with march 2. Improve pelvic floor strength to 4/5 to reduce incontinence 3. Improve pelvic floor endurance to 10 seconds to reduce incontinence Target Visit 6 PT Problem 4 PT Problem #4 Impaired Functional ADLs PT Goal 1 Goal / Goal Update 1. Patient will report incontinence no more than 1 time per month 2. Patient able to hold urge to void or BM at least 30 minutes to allow for work function NEW GOAL 02/10/24 3. Patient will be able to do all household tasks without limitation from shoulder Target Visit 6
--- NOTE | 2024-02-10 13:42 | PTOPREEVAL ---
Assessment and note entered by Precious Gomez DPT Evaluation Information Assessment Status Re-evaluation ICD-10 Condition Codes (PT) M25.512 Subjective Information Pt getting pelvic MRI next week. Also will be getting x-ray for shoulder and spine. Pt also presenting to therapy with orders for L shoulder pain. Highest shoulder pain 4/10 and lowest 1/10 recently. Gets pins and needles from elbow to fingers especially while sleeping on it. Pt has had shoulder pain since an injury at age 20 but it has gotten worse over time. Pt is R hand dominant. Pain with cooking, cleaning, doing dishes. Relies on her R hand more than normally would. Also thinks she drops things a lot with her L hand due to the tingling. Patient goal: relieve some pain and pressure, get rid of the tingling Reported Pain Level Pain Score 3,3: Self Report Assessment PT Clinical Summary The patient is presenting to skilled therapy with L shoulder pain in addition to previous diagnosis of pelvic pain. She presents with some range of motion limitations, pain with muscle testing, pain with palpation, and signs of neural tension. These impairments are contributing to difficulty performing tasks like cooking or cleaning. She will benefit from continued therapy to also address shoulder pain in order to reduce pain and improve function. Plan of Care Interventions Electrical Stimulation,Hot Pack/Cold Pack,Manual Therapy,Neuro Re-education,Patient/Caregiver Education,Therapeutic Activities,Therapeutic Exercise PT Services Indicated Yes Treatment Frequency and 1-2 times a week for 8 visits Duration These treatments will address the objective and functional deficits as defined above. The patient will be advanced safely and appropriately in order for the patient to progress towards his/her prior level of function. Additional exercises will be introduced and as well as a comprehensive home exercise program upon discharge, if needed, ?to ensure carryover of functional gains achieved in the clinic. This treatment plan has been reviewed and agreement upon by the patient.
--- NOTE | 2024-02-22 10:55 | PCPTNOTE ---
Patient was a no call/no show for appointment 02/22/24.
--- NOTE | 2024-03-27 11:32 | PTOPDC ---
Assessment and note entered by Precious Gomez DPT Evaluation Information Assessment Status Discharge - Pt Not Present ICD-10 Condition Codes (PT) Pain in left shoulder M25.512 Subjective Information - Assessment PT Clinical Summary Patient has not attended therapy since 02/15/24. Her case will be discharged this date and she will require a new script to resume in the future. Plan of Care PT Services Indicated No
== END 2024-03-27 14:52 | disposition home or self-care (01) ==
LOC: ANHGOSHPT 10:30
PROVIDERS: PCP Family Medicine; Visit Provider Obstetrics & Gynecology
DX: R10.2 Pelvic and perineal pain (principal); R53.1 Weakness; N39.3 Stress incontinence (female) (male)
CPT/HCPCS: 97110; 97112; 97140; 97161; 97530

== ENCOUNTER 2024-03-19 09:37 | Outpatient (CLI) | payer OTHER, SELFPAY ==
[2024-03-19 14:09] LABS: Erythrocyte Sedimentation Rate 22 mm/hr (0-20)
[2024-03-19 14:59] LABS: CRP 0.5 mg/dL (<1.0); Rheumatoid Factor < 12.0 IU/ML (<12)
[2024-03-19 15:05] LABS: LDL Cholesterol Direct 127 mg/dL
[2024-03-19 15:21] LABS: Anion Gap 5 mmol/L (4-12); Blood Urea Nitrogen 10 mg/dL (7-17); Calcium 9.5 mg/dL (8.4-10.2); Carbon Dioxide 29 mmol/L (22-30); Chloride 102 mmol/L (98-107); Cholesterol 272 mg/dL (0-200); Estimated Glomerular Filt Rate > 60; Glucose 82 mg/dL (65-110); HDL Direct 29 mg/dL; Potassium 4.1 mmol/L (3.4-5.0); Sodium 136 mmol/L (137-145)
[2024-03-19 15:30] LABS: Triglycerides 599 mg/dL (<150)
[2024-03-19 15:43] LABS: Hemoglobin A1C 5.5 % (<5.7)
== END 2024-03-19 09:38 | disposition home or self-care (01) ==
PROVIDERS: PCP Family Medicine; Visit Provider Nurse Practitioner Family
DX: R07.89 Other chest pain (principal); R10.2 Pelvic and perineal pain
CPT/HCPCS: 36415; 80048; 80061; 83036; 84443; 85652; 86038; 86039; 86140; 86430

== ENCOUNTER 2024-10-18 01:20 | Day surgery (SDC) | payer OTHER, SELFPAY ==
[2024-10-09 09:47] VITALS: BMI 34.2
--- OUTSIDE RECORDS SUMMARY | 2024-10-18 01:22 | XMS_ITS | Continuity of Care Document ---
Author Organization [facility] Address [address] [place] [address] [address] [place] [address] Phone Care Team Providers Care Bander And Cellophaner Helper Machine Name Role Phone Loera OD, John Unavailable Unavailable Procedures Procedure Date Office/outpatient Visit, Est Eye Exam Established Pt Advance Directives Directive Yes / No Effective Date File Name No Information Encounters Encounter Description Practice Location Reason(s) For Visit Diagnoses Date Provider Providers Copied on Encounter Office/outpat ient Visit, Est [facility], [address], [place], [place], [id number], [place] tel:[phone] [facility] No Information 6-200 7 Loera OD John. [address] , [address], [place], [address], [place]. tel:[phone] [facility], [address] [place] [address] [address], [place], [place], [id number], [place] tel:[phone] [facility] No Information 0-200 7 Loera OD John. [address] , [address], [place], [address], [place]. tel:[phone] Family History Family Member Type Diagnosis Age At Onset No Information Payers Payer name Insurance type Covered alliance party ID Authoriza tion(s) No Information Social [...]
--- OUTSIDE RECORDS SUMMARY | 2024-10-18 01:22 | XMS_ITS | Clinical Summary ---
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 This disclosure is being madepursuant to the Care Everywhere program and may not contain all information available regarding this patient. Last updated 17.[facility] [address] Power Allergies Active Allergy Reactions Criticality Noted Date Comments Bactrim Ds Rash Medium 04/27/2023 Cephalexin Other 06/28/2022 Causes UTI Medications * Be aware that medications may not be up to date on this document. Alwaysverify current medications with the patient. escitalopram (LEXAPRO) 20 MG tablet Take 1 (one) tablet by mouth once daily 9 Active traMADol (Ultram) 50 MG tablet Take 1 (one) tablet by mouth every 6 hours as needed for Pain Active oxyBUTYnin CR 24hr (Ditropan-XL) 10 MG tablet Take 1 (one) tablet by mouth once daily 90 tablet 3 5 Active busPIRone (Buspar) 30 MG tablet Active dicyclomine (Bentyl) 20 MG tablet TAKE 1 TABLET BY MOUTH FOUR TIMES DAILY NEEDED FOR ABDOMINAL PAIN 5 Active gabapentin (Neurontin) 300 MG capsule Take 1 (one) capsule by mouth 3 times daily 5 Active HYDROcodone-malachi taminophen (Larimore) 5-325 MG tablet Take 1 (one) tablet by mouth every 8 hours as needed For pain. 5 Active omeprazole (PriLOSEC) 40 MG capsule Take 1 (one) capsule by mouth once daily 4 Active ziprasidone (Geodon) 60 MG capsule Take 1 (one) capsule by mouth 2 times daily 5 Active busPIRone (BUSPAR) 10 MG tablet Take 1 (one) tablet by mouth 2 times daily 9 10/09/19 25 Discontinu ed(Tx Complete) ziprasidone (GEODON) 20 MG capsule Take 1 (one) capsule by mouth 2 times daily with morning and evening meal 9 10/09/19 25 Discontinu ed(Tx Complete) Active Problems Problem Noted Date Diagnosed Date Anxiety 09/06/2018 Depressive disorder 09/06/2018 Bilateral nipple discharge 09/06/2018 Family history of breast cancer in mother Encounters Date Type Department Care Team Description 10/08/2024 10:00 AM CDT Office Visit [facility] - General Surgery [address] [place] [address] Alison Carmona MD Increased risk of breast cancer (Primary Dx); Breast cancer screening, high risk patient; Family history of breast cancer in mother 10/08/2024 8:59 AM CDT - 10/08/2024 11:59 PM CDT Hospital Encounter [facility] [address] [place] [id number] Alison Carmona MD Discharge Disposition: Home or Self Care 10/08/2024 Travel 08/07/2024 Orders Only [facility] - Urology [address] [place] [address], [place] [address] Zuleima Goodrich RN from Last 3 Months Family History Medical History Relation Name Comments Other - Genetic Cousin Paternal cou sin, no cancer, carrier of BRCA gene CAD (Coronary Artery Disease) Father Hypertension Father Cancer - Breast Maternal Aunt Cancer - Lung Maternal Grandfather Additional onset of Breast Cancer Maternal Grandmother Cancer - Breast Maternal Grandmother Alcohol abuse Mother Cancer - Breast Mother Bilateral br east cancer, underwent bilateral mastectomies 2018 Cancer - Breast Other Breast cance r [...] Tobacco: Never Tobacco Cessation:Ready to Q uit: Yes; Counseling Given: Yes Alcohol Use Standard Drinks/Week Comments Yes 5 (1 standard drink = 0.6 oz pur e alcohol) socially Comments No Sex and Gender Information Value Date Recorded Sex Assigned at Not on file 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 Gender Identity Not on file Sexual Orientation Not on file Last Filed Vital Signs Vital Sign Reading Time Taken Comments Blood Pressure 135/79 10/08/2024 9:45 AM CDT Pulse 79 10/08/2024 9:45 AM CDT Temperature 37.1 C (98.7 F) 10/08/2024 9:45 AM CDT Respiratory Rate 18 03/05/2024 12:51 PM 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 [address] [place] [address] Alison Carmona MD [address] [facility] [address] [place] [id number] 10/09/2025 9:00 AM CDT Appointment [facility] [address] [place] [address] Alison Carmona MD [address] [facility] [address] [place] [address] 10/10/2025 9:30 AM CDT Office Visit [facility] - General Surgery [address] [place] [phone] Alison Carmona MD [address] [facility] [address] [place] [address] Health Maintenance Due Date Last Done Comments HIV SCREENING 2004 HEPATITIS C SCREENING 06/13/2007 DTAP/TDAP/TD VACCINES (1 - Tdap) 2008 HEPATITIS B VACCINE (1 of 3 - 19+ 3-dose series) 2008 PNEUMOCOCCAL VACCINE (1 of 2 - PCV) 2008 PAP SMEAR 2010 HPV VACCINE (1 - 3-dose SCDM series) 2016 COVID-19 VACCINE (1 - 2023-2 5 season) 2023 DEPRESSION SCREENING 03/07/2024 INFLUENZA VACCINE (#1) 2024 ZOSTER VACCINE (1 of 2) 06/18/2039 HIB VACCINE Aged Out No longer eligi ble based on patient's age to complete this topic MENINGOCOCCAL (Group B) VACC INE SHARED DECISION-MAKING Aged Out No longer eligibl e based on patient's age to complete this topic MENINGOCOCCAL GROUPS A/C/Y/W VACCINE Aged Out No longer eligible b ased on patient's age to complete this topic Medical Devices Implanted Type Area 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 Device Identifier Shelf Expiration Date Model / Serial / Lot Mrkr Mri Gd Rgd Trimark Brstbio Cork Ti Implanted:Qty: 1 on 10/22/2020 by Sneha Buckley MD at [facility] Right: Breast [employer] 11/12/2021 TRIMARK TD 13MR / / [id number] Procedures Procedure Name Priority Date/Time Associated Diagnosis Comments MAMMO BILAT SCREENING W DANIEL Routine 10/08/2024 9:24 AM CDT Family history of breast cancer from Last 3 Months Results * Mammo Bilat Screening W Daniel (10/08/2024 9:24 AM CDT) Anatomical Region Laterality Modality Breast Bilateral Mammography 10/08/2024 9:34 AM CDT Impressions 10/08/2024 9:41 AM CDT IMPRESSION: Benign mammogram, without evidence of malignancy. RECOMMENDATION: 1. Screening mammography in one year, pending no interval breast concerns. 2. Annual screening breast MRI is recommended, given the elevated lifetime risk of breast cancer of greater than 20%, according to the [place] [employer] guidelines. Her next exam is due in January,. Patient was notified of the examination results at the time of the study and will see Dr. Carmona in the breast clinic today. Patient will also receive examination results by lay letter. OVERALL ASSESSMENT: BI-RADS CATEGORY 2: BENIGN. Report dictated by Kedar Lacey MD(vice president of compliance). > Dictated by Clinical Fellow I, Sneha Buckley MD, FACR have personally reviewed and interpreted this examination/study. > Interpreting Provider: Sneha Buckley MD, FACR on 10/08/2024 9:41 AM Narrative 10/08/2024 9:41 AM CDT EXAMINATIONS: BILATERAL DIGITAL SCREENING MAMMOGRAM AND BILATERAL BREAST TOMOSYNTHESIS LOCATION: [facility] EXAM DATE: 10/08/2024 HISTORY: Screening. Family history of breast cancer in mother at age 61, breast cancer in maternal aunt at age 40, breast cancer in paternal aunt at age 50, breast cancer in 2 maternal great aunts, 2 maternal second cousin's, paternal great aunts. Family history of ovarian cancer in paternal aunt. History of prior benign bilateral breast biopsies. RISK ASSESSMENT CALCULATION: Patient completed a breast cancer risk assessment during their appointment 10/08/2024. Based upon the information provided and the mammographic breast density, their calculated lifetime risk of developing breast cancer is 36 % (Average Risk <15%; Intermediate / Moderate Risk 15-19%; High Risk > 20%). The [place] [employer] recommends annual supplemental screening breast MRI in addition to annual screening mammography for women who have a 20% or greater lifetime risk of developing breast cancer. This can be managed through the high risk breast clinic. Risk assessment based upon the Tyrer-Cuzick v8 model. COMPARISON: Compare with prior breast imaging studies back to 09/06/2018, with the most recent dated 01/09/2024. TECHNIQUE: Tomosynthesis (3D) and reconstructed synthetic 2-D images acquired and reviewed in the bilateral craniocaudal and mediolateral oblique projections. A total of 4 images obtained. Transpara AI was utilized in the interpretation. BREAST PARENCHYMAL COMPOSITION: Category B: There are scattered areas of fibroglandular density. FINDINGS: There are no suspicious findings or evidence of malignancy on mammography. Tissue markers are noted in both breasts. There is no significant change from the prior. us Alison Carmona MD MAMMO ORDERABLES Final Resu lt from Last [address] [place] [id number] [facility] [place] [place] [phone] [facility] SELF PAY NO INSURANCE Member Subscriber Plan / Payer (Ef fective for All Dates) Name:Monae Celaya Member ID:Not on file Relation to Subscriber:Not on file Name:MONAE CELAYA Subscriber ID:Not on file (Home) Address: [address] [place] [place] [address] Payer ID:Not on file Group ID:Not on file Type:Self Pay Address: [place], [place] [facility] SELF PAY NO INSURANCE Member Subscriber Plan / Payer (Ef fective for All Dates) Name:Monae Celaya Member ID:Not on file Relation to Subscriber:Not on file Name:MONAE CELAYA Subscriber ID:Not on file Address: [address] [place] [place] [phone] Payer ID:Not on file Group ID:Not on file Type:Self Pay Address: [place], [place] Care Teams Horse Groomer Relationship Specialty Start Date End Date Gilberto Gupta MD [facility] [place] [address] PCP - General Family Medicine 11/02/23
--- NOTE | 2024-10-18 10:36 | WPDANESEPPF ---
Anes - Initial Pre Proc Eval Procedure: Operation Date: 10/18/24 12:30 Proposed Procedures p Esophagogastroduodenoscopy - Jc Gibson MD Date/Time: 10/18/24 10:36 Surgeon: Jc Gibson MD Pre Op Diagnosis: Gastro-esophageal reflux disease with esophagitis, Patient Data Age: 34 Gender: F Height: 1.57 m Weight: 85 kg Allergies Allergy/AdvReac Type Severity Reaction Status Date / Time adhesive tape Allergy Severe Other Verified 10/18/24 10:43 sulfamethoxazole (From Allergy Severe Other Verified 10/18/24 10:43 Bactrim) trimethoprim (From Bactrim) Allergy Severe Other Verified 10/18/24 10:43 cephalexin AdvReac Severe Other Verified 10/18/24 10:43 Home Medications ?Medication ?Instructions ?Recorded ?Confirmed ?Type oxybutynin chloride 10 mg 10 mg PO HS 02/15/23 10/18/24 History tablet,extended release 24 hr buspirone 10 mg tablet 10 mg PO BID 03/22/23 10/09/24 History escitalopram oxalate 20 mg tablet 20 mg PO HS 03/22/23 10/18/24 History (Lexapro) ziprasidone HCl 60 mg capsule 60 mg PO DAILY 12/08/23 10/18/24 History fluticasone propionate 50 2 spray intranasal DAILY PRN 01/02/24 10/18/24 History mcg/actuation nasal Allergy Symptoms spray,suspension (Flonase Allergy Relief) dicyclomine 20 mg tablet 20 mg PO QID PRN abdominal pain 1 03/22/24 10/09/24 Rx month #120 tabs omeprazole 40 mg capsule,delayed 40 mg PO BID #180 caps 08/31/24 10/18/24 Rx release gabapentin 300 mg capsule 300 mg PO TID #90 caps 09/18/24 10/18/24 Rx tramadol 50 mg tablet 50 mg PO Q6H PRN pain #120 tabs 10/02/24 10/18/24 Rx buspirone 30 mg tablet 30 mg PO BID 10/09/24 10/18/24 History hydrocodone 5 mg-acetaminophen 325 1 tablet PO Q8H PRN pain #60 tabs 10/09/24 10/18/24 Rx mg tablet naproxen 250 mg tablet 250 mg PO BID PRN pain 10/09/24 10/18/24 History Patient hx anesthesia problems: none Family hx anesthesia problems: none Results Review: All pre-operative results and documents have been reviewed as part of the pre-operative evaluation. FOR[facility]LY [facility], [facility] Past Medical History Medical History Tobacco abuse Rectal pain Abdominal pain Change in bowel habits Hematuria, unspecified LZTR1-related schwannomatosis (~2021) BRCA negative BRCA 1& 2 negative Polyp at cervical os Encounter for IUD removal 10/10/19 Mirena removal/reinsertion Encounter for IUD insertion 08/21/14 Mirena insertion 10/10/19 Mirena removal/reinsertion HPV in female Abnormal Pap smear of cervix 08/08/2017 HGSIL +HPV; 08/15/2018 Lgsil +hpv 08-26-2020 Ascus hpv neg rpt pap in 1 year @ [facility] Anxiety and depression Surgical History Surgical History History of robot-assisted laparoscopic hysterectomy (03/31/23) robotic hysterectomy with R salpingectomy 2. L salpingoophorectomy History of left salpingo-oophorectomy (03/31/23) History of breast biopsy 10/24/19 MRI guided left breast biopsy--benign History of colposcopy with cervical biopsy 08/24/17 benign 09/13/18 benign History of wisdom tooth extraction, class I edentulism Family History Family History Mother Depression Family history of malignant neoplasm of breast Alcoholism Father Acute myocardial infarction, Onset Age: 50 Family history of cardiovascular disease Hypertension Grandparent Family history of malignant neoplasm of breast maternal grandmother Family history of cardiovascular disease paternal grandfather Malignant neoplasm of lung maternal grandfather Other Diabetes mellitus paternal aunt Hypertension paternal aunt Family history of cardiovascular disease paternal uncle Malignant tumor of ovary paternal aunt Family history of malignant neoplasm of breast paternal aunt maternal aunt Social History Social History Smoking packs per day: 0.25 Smoking cigarettes per day: 5.0 Years smoked: 20 Smoking pack-years: 5.00 Smoking status: Current every day smoker Tobacco type: cigarettes and e-cigarettes/vaping Second hand tobacco smoke exposure: No Additional smoking assessment comments: 1 pack were week Alcohol intake: current Alcohol use details: socially Substance use: current Substance use type: marijuana Other substance usage details: Social Last use: last weekend, socially Do You Feel Safe in your Home?: Yes Lack of Transportation: No Lack of Food: Never True Current Housing: I Have Housing Concerned About Future Housing: No Difficulty Paying Gas/Electric Bills: No Difficulty Paying for Meds: No Currently Unemployed: No Education: Don't Know Difficulty w/ Childcare or Family Care: No Living arrangements: with family Additional living arrangements comments: single Occupation/Education: occupation Additional occupation/education comments: [employer] Gender identity (if verbalized by the patient): Female Sexual Orientation (if Verbalized by the Patient): Straight or Heterosexual Spiritual care concerns: No Anes - Eval Final PreProcedure Day of Procedure 10/18/24 10:36 Patient weight: obese Heart: regular rate and rhythm Lungs: clear to auscultation Airway: Mallampati scale class II Neurological: alert and oriented Last oral intake: >/= 8 hours ASA classification: II Emergent: no Anesthetic plan: proceed Anesthesia type and monitoring: general GIVS and standard monitoring Results Review: All pre-operative results and documents have been reviewed as part of the pre-operative evaluation. Informed Consent: The patient's anesthetic plan and its attendant risks and benefits were discussed with the patient/family/POA. Questions were solicited and answers provided to the satisfaction of the patient/family/POA.
[2024-10-18] MEDS: SIMETHICONE ORAL SUSPENSION 20 MG/0.3 ML 30 ML BOTTLE 1.8 ML PO (10:47)
[2024-10-18 10:49] VITALS: BP 119/69; PULSE 65; RESP 16; TEMP 36; O2SAT 98
[2024-10-18] MEDS: LACTATED RINGERS 1,000 ML 150 ML IV CONT (10:57)
--- NOTE | 2024-10-18 11:13 | PM.IMHP ---
H&P: HPI History of Present Illness Date/Time: 10/18/24 11:13 Chief Complaint: Heartburn Narrative: this patient has been suffering from heartburn for the past 2 years, not being controlled with omeprazole 40 mg once a day. She has recently been advised to increase the dose to 40 mg twice a day, however an EGD was ordered to rule out other disorders such as eosinophilic esophagitis. Review of Systems Review of Systems: All systems reviewed & are unremarkable except as noted in HPI and below PMFSH Past Medical History Medical History Tobacco abuse Rectal pain Abdominal pain Change in bowel habits Hematuria, unspecified LZTR1-related schwannomatosis (~2021) BRCA negative BRCA 1& 2 negative Polyp at cervical os Encounter for IUD removal 10/10/19 Mirena removal/reinsertion Encounter for IUD insertion 08/21/14 Mirena insertion 10/10/19 Mirena removal/reinsertion HPV in female Abnormal Pap smear of cervix 08/08/2017 HGSIL +HPV; 08/15/2018 Lgsil +hpv 08-26-2020 Ascus hpv neg rpt pap in 1 year @ [facility] Anxiety and depression Surgical History Surgical History History of robot-assisted laparoscopic hysterectomy (03/31/23) robotic hysterectomy with R salpingectomy 2. L salpingoophorectomy History of left salpingo-oophorectomy (03/31/23) History of breast biopsy 10/24/19 MRI guided left breast biopsy--benign History of colposcopy with cervical biopsy 08/24/17 benign 09/13/18 benign History of wisdom tooth extraction, class I edentulism Family History Family History Mother Depression Family history of malignant neoplasm of breast Alcoholism Father Acute myocardial infarction, Onset Age: 50 Family history of cardiovascular disease Hypertension Grandparent Family history of malignant neoplasm of breast maternal grandmother Family history of cardiovascular disease paternal grandfather Malignant neoplasm of lung maternal grandfather Other Diabetes mellitus paternal aunt Hypertension paternal aunt Family history of cardiovascular disease paternal uncle Malignant tumor of ovary paternal aunt Family history of malignant neoplasm of breast paternal aunt maternal aunt Social History Social History Smoking packs per day: 0.25 Smoking cigarettes per day: 5.0 Years smoked: 20 Smoking pack-years: 5.00 Smoking status: Current every day smoker Tobacco type: cigarettes and e-cigarettes/vaping Second hand tobacco smoke exposure: No Additional smoking assessment comments: 1 pack were week Alcohol intake: current Alcohol use details: socially Substance use: current Substance use type: marijuana Other substance usage details: Social Last use: last weekend, socially Do You Feel Safe in your Home?: Yes Lack of Transportation: No Lack of Food: Never True Current Housing: I Have Housing Concerned About Future Housing: No Difficulty Paying Gas/Electric Bills: No Difficulty Paying for Meds: No Currently Unemployed: No Education: Don't Know Difficulty w/ Childcare or Family Care: No Living arrangements: with family Additional living arrangements comments: single Occupation/Education: occupation Additional occupation/education comments: [employer] Gender identity (if verbalized by the patient): Female Sexual Orientation (if Verbalized by the Patient): Straight or Heterosexual Spiritual care concerns: No Meds Home Medications and Allergies Home Medications ?Medication ?Instructions ?Recorded ?Confirmed ?Type oxybutynin chloride 10 mg 10 mg PO HS 02/15/23 10/18/24 History tablet,extended release 24 hr buspirone 10 mg tablet 10 mg PO BID 03/22/23 10/09/24 History escitalopram oxalate 20 mg tablet 20 mg PO HS 03/22/23 10/18/24 History (Lexapro) ziprasidone HCl 60 mg capsule 60 mg PO DAILY 12/08/23 10/18/24 History fluticasone propionate 50 2 spray intranasal DAILY PRN 01/02/24 10/18/24 History mcg/actuation nasal Allergy Symptoms spray,suspension (Flonase Allergy Relief) dicyclomine 20 mg tablet 20 mg PO QID PRN abdominal pain 1 03/22/24 10/09/24 Rx month #120 tabs omeprazole 40 mg capsule,delayed 40 mg PO BID #180 caps 08/31/24 10/18/24 Rx release gabapentin 300 mg capsule 300 mg PO TID #90 caps 09/18/24 10/18/24 Rx tramadol 50 mg tablet 50 mg PO Q6H PRN pain #120 tabs 10/02/24 10/18/24 Rx buspirone 30 mg tablet 30 mg PO BID 10/09/24 10/18/24 History hydrocodone 5 mg-acetaminophen 325 1 tablet PO Q8H PRN pain #60 tabs 10/09/24 10/18/24 Rx mg tablet naproxen 250 mg tablet 250 mg PO BID PRN pain 10/09/24 10/18/24 History Allergies Allergy/AdvReac Type Severity Reaction Status Date / Time adhesive tape Allergy Severe Other Verified 10/18/24 10:43 sulfamethoxazole (From Allergy Severe Other Verified 10/18/24 10:43 Bactrim) trimethoprim (From Bactrim) Allergy Severe Other Verified 10/18/24 10:43 cephalexin AdvReac Severe Other Verified 10/18/24 10:43 Vital Signs Vital Signs - 24 hr 10/18/24 10:49 Temperature 96.8 F L Pulse Rate 65 Respiratory Rate 16 Blood Pressure 119/69 Pulse Oximetry 98 Oxygen Delivery Room Air Exam Const: General: cooperative and healthy appearing Resp: Effort & Inspection: normal respiratory effort and able to speak in complete sentences Auscultation: clear to auscultation bilaterally Cardio: Rate: regular rate Rhythm: regular rhythm GI: Inspection: normal to inspection GI Palp: No No hepatosplenomegaly present Auscultation: normal bowel sounds Rectal Exam: deferred Skin: General skin exam: normal color Psych: Appearance: grossly normal Mental Status: mental status grossly normal Assessment and Plan Assessment and plan (1) GERD with esophagitis: Qualifiers: Esophagitis bleeding: without hemorrhage Qualified Code(s): K21.00 - Gastro-esophageal reflux disease with esophagitis, without bleeding Code(s): K21.00 - Gastro-esophageal reflux disease with esophagitis, without bleeding Status: Acute Assessment and Plan: The patient is deemed a good candidate for the procedure. Consent signed. Will proceed.
--- NOTE | 2024-10-18 11:32 | S_PTH ---
PATIENT: Monae Celaya LOC: [facility] #:[id number] AGE/SX: 34/F ROOM: RE10/18/[address]: Jc Gibson MD : 1990 BED: DIS: 10/18/2024 SPEC #: [id number] RECD: 10/18/24 13:39 STATUS: NEHA REQ #: [id number] JULIAN: 10/18/24 11:[address]: Jc Gibson DEPT: [facility] Surgical RECD BY: Diana Fernando ENTERED: 10/18/24 13:40 SP TYPE: Surgical OTHR DR: Gilberto Gupta MD Tissues: A - Gastric Biopsy B - Gastric Biopsy C - Esophageal Biopsy Procedures: Hematoxylin and Eosin Stain Gross and Microscopic Level 4
[2024-10-18 11:33] VITALS: BP 97/63; PULSE 63; RESP 18; O2SAT 98
[2024-10-18 11:43] VITALS: BP 99/60; PULSE 62; RESP 20; O2SAT 99
[2024-10-18 11:53] VITALS: BP 118/78; PULSE 64; RESP 22; O2SAT 97
== END 2024-10-18 12:05 | disposition home or self-care (01) ==
PROVIDERS: PCP Family Medicine; Referring Provider Nurse Practitioner Family; Visit Provider Internal Medicine Gastroenterology
PROC: 0DJ08ZZ Inspection of Upper Intestinal Tract, Via Natural or Artificial Opening Endoscopic (ICD-10-PCS; CPT 43239; principal; 2024-10-18 12:30)
DX: K21.00 Gastro-esophageal reflux disease with esophagitis, without bleeding (principal); K31.89 Other diseases of stomach and duodenum; F41.8 Other specified anxiety disorders; F17.210 Nicotine dependence, cigarettes, uncomplicated; F17.290 Nicotine dependence, other tobacco product, uncomplicated; E66.9 Obesity, unspecified; Z68.35 Body mass index [BMI] 35.0-35.9, adult; Z79.891 Long term (current) use of opiate analgesic; Z79.1 Long term (current) use of non-steroidal anti-inflammatories (NSAID); Z98.890 Other specified postprocedural states; Z87.42 Personal history of other diseases of the female genital tract; Z80.3 Family history of malignant neoplasm of breast; Z80.1 Family history of malignant neoplasm of trachea, bronchus and lung; Z80.41 Family history of malignant neoplasm of ovary; Z82.49 Family history of ischemic heart disease and other diseases of the circulatory system
CPT/HCPCS: 43239; 88305; J2003; J2704; J7120

== ENCOUNTER 2024-10-23 20:28 | Emergency (ER) | payer OTHER, SELFPAY ==
--- NOTE | ~2024-10-23 | CT_ITS ---
CT of the Abdomen and Pelvis: Indication: Abdominal pain Technique: 2.5 mm axial scans were obtained through the abdomen and pelvis following intravenous administration of 100 cc of Omnipaque 350. Dose reduction technique was used on this scan by utilizing automated exposure control and iterative reconstruction technique. The dose-length product (DLP) was 597.97 mGy-cm. COMPARISON: 02/17/2024 Findings: Scans through the lung bases are unremarkable. There is diffuse hepatic steatosis. The spleen, pancreas, gallbladder, adrenals and kidneys are within normal limits. No evidence of aortic aneurysm. No lymphadenopathy. No bowel obstruction or bowel wall thickening. There is no evidence to suggest acute appendicitis. Images through the pelvis were performed. Urinary bladder unremarkable. No pelvic mass seen. No ascites. Impression: Diffuse hepatic steatosis. Reviewed, dictated and finalized at [facility]. Impression: Diffuse hepatic steatosis.
--- NOTE | ~2024-10-23 | XR_ITS ---
Clinical Indication: Dizziness PA and lateral views of the chest: Comparison: 09/03/2023 Findings: The lungs are clear, without evidence of focal consolidation or pleural effusion. Cardiomediastinal silhouette is within normal limits. Bones and soft tissues are unremarkable. Impression: Normal chest. Reviewed, dictated and finalized at location . Impression: Normal chest.
[2024-10-23 20:30] VITALS: BP 143/87; PULSE 81; RESP 16; TEMP 36.4; O2SAT 97
[2024-10-23 22:45] VITALS: BP 127/74; PULSE 67; RESP 18; O2SAT 100
[2024-10-23 22:47] VITALS: BP 119/79; PULSE 71; RESP 13; O2SAT 100
[2024-10-23 23:01] VITALS: BP 116/68; PULSE 69; RESP 16; O2SAT 96
[2024-10-23] MEDS: SODIUM CHLORIDE 0.9% IV 1,000 ML 999 ML IV CONT (23:13)
[2024-10-23 23:20] VITALS: BP 116/68; PULSE 65; RESP 21; O2SAT 95
[2024-10-23 23:22] LABS: Add Urine Microscopic? NO; Appearance Urine Clear (Clear); Glucose Urine UA Negative (Negative); Leukocyte Esterase Ur Negative LEU/UL (Negative); Nitrate Urine Negative (Negative); Specific Grav Ur 1.013 (1.001-1.035)
[2024-10-23 23:26] LABS: Hematocrit 40.2 % (37.0-47.0); Hemoglobin 13.4 g/dL (12.0-15.0); Immature Granulocyte Percent A 0.2 % (0-0.5); Lymphocytes Absolute Auto 3.45 K/mm3 (0.9-3.2); Mean Corpuscular HGB Conc 33.3 g/dl (32-36); Mean Corpuscular Hemoglobin 31.3 pg (26-34); Mean Corpuscular Volume 93.9 fl (80-100); Nucleated Red Blood Cells Absolute Auto 0.000 K/mm3 (0.0-0.012); Nucleated Red Blood Cells Perc 0.0 % (0.0-0.2); Platelet Count Result 225 k/mm3 (150-375); Red Blood Count 4.28 M/mm3 (4.2-5.4); White Blood Count 9.9 K/mm3 (4.5-10.0)
[2024-10-23 23:32] VITALS: BP 127/71; PULSE 63; RESP 22; O2SAT 96
[2024-10-23 23:33] LABS: Alanine Aminotransferase 51 U/L (6-35); Albumin Level 4.2 g/dL (3.5-5.1); Alkaline Phosphatase 69 U/L (38-126); Anion Gap 8 mmol/L (4-12); Aspartate Amino Transferase 36 U/L (14-36); Bilirubin,Total 0.3 mg/dL (0.2-1.3); Blood Urea Nitrogen 9 mg/dL (7-17); Calcium 9.5 mg/dL (8.4-10.2); Carbon Dioxide 23 mmol/L (22-30); Chloride 103 mmol/L (98-107); Estimated CRCL calculation 88 ml/min; Estimated Glomerular Filt Rate > 60; Glucose 99 mg/dL (65-110); Lipase 47 U/L (23-300); Potassium 4.0 mmol/L (3.4-5.0); Sodium 134 mmol/L (137-145); Total Protein 7.1 g/dL (6.3-8.2)
--- NOTE | 2024-10-23 23:57 | ECG_ITS ---
Test Date: 2024-10-24 01:26:18 Measurements Intervals [place] Rate: 56 P: 7 MI: 160 QRS: 49 QRSD: 91 T: 23 QT: 421 QTc: 408 Interpretive Statements SINUS BRADYCARDIA LOW QRS VOLTAGE IN PRECORDIAL LEADS BORDERLINE ECG Compared to ECG 09/03/2023 23:44:51 Low QRS voltage now present Electronically Signed On 10-24-2024 08:12:40 CDT by Elbert Davalos D.O.
--- NOTE | 2024-10-24 00:22 | ED_ITS ---
HPI - Nausea/Vomiting/Diarrhea General Chief complaint: Nausea/Vomiting/Diarrhea <ALEA Lindsey Last Filed: 10/24/24 03:20> Stated complaint: nausea, dizzy <ALEA Lindsey Last Filed: 10/24/24 03:20> Time Seen by Provider: 10/23/24 22:57 <ALEA Lindsey Last Filed: 10/24/24 03:20> Source: patient <ALEA Lindsey Last Filed: 10/24/24 03:20> Mode of arrival: ambulatory <ALEA Lindsey Last Filed: 10/24/24 03:20> Limitations: no limitations <ALEA Lindsey Last Filed: 10/24/24 03:20> History of Present Illness HPI Narrative: Patient is a 34-year-old female who presents the ED with report of abdominal pain. Patient reports she has not felt well since Tuesday. Reports having diffuse pain throughout her lower abdomen, worse throughout her left lower abdomen. Reports nausea, diarrhea a few days ago with subsequent hard bowel movements. Reports dizziness, lightheadedness, decreased p.o. intake. Denies fevers. Denies sick contacts. Denies rectal bleeding or melena. <ALEA Lindsey Last Filed: 10/24/24 03:20> Related Data Home medications: Home Medications ?Medication ?Instructions ?Recorded ?Confirmed ?Last Taken ?Type oxybutynin chloride 10 mg 10 mg PO HS 02/15/23 5 10/17/24 History tablet,extended release 24 hr buspirone 10 mg tablet 10 mg PO BID 03/22/2301/18/24 History escitalopram oxalate 20 mg tablet 20 mg PO HS 03/22/23 10/18/24 10/17/24 History (Lexapro) ziprasidone HCl 60 mg capsule 60 mg PO DAILY 12/08/23 10/18/24 10/17/24 History fluticasone propionate 50 2 spray intranasal DAILY PRN 01/02/24 10/18/24 10/17/24 History mcg/actuation nasal Allergy Symptoms spray,suspension (Flonase Allergy Relief) buspirone 30 mg tablet 30 mg PO BID 10/09/2410/18/24 History naproxen 250 mg tablet 250 mg PO BID PRN pain 10/0910/18/24 10/17/24 History <Giselle Gottlieb PA-C - Last Filed: 10/24/24 03:20> Allergies/Adverse reactions: Allergies Allergy/AdvReac Type Severity Reaction Status Date / Time adhesive tape Allergy Severe Other Verified 10/23/24 20:34 sulfamethoxazole (From Allergy Severe Other Verified 10/23/24 20:34 Bactrim) trimethoprim (From Bactrim) Allergy Severe Other Verified 10/23/24 20:34 cephalexin AdvReac Severe Other Verified 10/23/24 20:34 <Giselle Gottlieb PA-C - Last Filed: 10/24/24 03:20> Review of Systems 2 Review of Systems: All systems reviewed & are unremarkable except as noted in HPI. <Giselle Gottlieb PA-C - Last Filed: 10/24/24 03:20> All systems reviewed & are unremarkable except as noted in HPI and below < Giselle Gottlieb PA-C - Last Filed: 10/24/24 03:20> [facility], [facility] Past Medical History Medical History: Medical History Tobacco abuse Rectal pain Abdominal pain Change in bowel habits Hematuria, unspecified LZTR1-related schwannomatosis (~2021) BRCA negative BRCA 1& 2 negative Polyp at cervical os Encounter for IUD removal 10/10/19 Mirena removal/reinsertion Encounter for IUD insertion 08/21/14 Mirena insertion 10/10/19 Mirena removal/reinsertion HPV in female Abnormal Pap smear of cervix 08/08/2017 HGSIL +HPV; 08/15/2018 Lgsil +hpv 08-26-2020 Ascus hpv neg rpt pap in 1 year @ [facility] Anxiety and depression <ALEA Lindsey Last Filed: 10/24/24 03:20> Surgical History Surgical History: Surgical History History of robot-assisted laparoscopic hysterectomy (03/31/23) robotic hysterectomy with R salpingectomy 2. L salpingoophorectomy History of left salpingo-oophorectomy (03/31/23) History of breast biopsy 10/24/19 MRI guided left breast biopsy--benign History of colposcopy with cervical biopsy 08/24/17 benign 09/13/18 benign History of wisdom tooth extraction, class I edentulism <Giselle Gottlieb PA-C - Last Filed: 10/24/24 03:20> Family History Family History: Family History Mother Depression Family history of malignant neoplasm of breast Alcoholism Father Acute myocardial infarction, Onset Age: 50 Family history of cardiovascular disease Hypertension Grandparent Family history of malignant neoplasm of breast maternal grandmother Family history of cardiovascular disease paternal grandfather Malignant neoplasm of lung maternal grandfather Other Diabetes mellitus paternal aunt Hypertension paternal aunt Family history of cardiovascular disease paternal uncle Malignant tumor of ovary paternal aunt Family history of malignant neoplasm of breast paternal aunt maternal aunt <Giselle Gottlieb PA-C - Last Filed: 10/24/24 03:20> Social History Social History: Social History Smoking packs per day: 0.25 Smoking cigarettes per day: 5.0 Years smoked: 20 Smoking pack-years: 5.00 Smoking status: Current every day smoker Tobacco type: cigarettes and e-cigarettes/vaping Second hand tobacco smoke exposure: No Additional smoking assessment comments: 1 pack were week Alcohol intake: current Alcohol use details: socially Substance use: current Substance use type: marijuana Other substance usage details: Social Last use: last weekend, socially Do You Feel Safe in your Home?: Yes Lack of Transportation: No Lack of Food: Never True Current Housing: I Have Housing Concerned About Future Housing: No Difficulty Paying Gas/Electric Bills: No Difficulty Paying for Meds: No Currently Unemployed: No Education: Don't Know Difficulty w/ Childcare or Family Care: No Living arrangements: with family Additional living arrangements comments: single Occupation/Education: occupation Additional occupation/education comments: [employer] Gender identity (if verbalized by the patient): Female Sexual Orientation (if Verbalized by the Patient): Straight or Heterosexual Spiritual care concerns: No <Giselle Gottlieb PA-C - Last Filed: 10/24/24 03:20> Exam 2 Narrative: GENERAL: Well appearing, obese with BMI of 34.6, non-toxic, in no acute distress. HEAD: Normocephalic, atraumatic. RESPIRATORY: Airway patent, respirations nonlabored. Clear to auscultation bilaterally, no rales, rhonchi, wheezing. CARDIOVASCULAR: Regular rate and rhythm without murmurs, rubs, or gallops. ABDOMINAL: Soft, mild diffuse tenderness throughout lower abdomen, left lower quadrant, no rebound, nondistended. Normoactive BS. MUSCULOSKELETAL: Moves all extremities. No gross deformities. SKIN: Warm, dry, normal color. NEURO: A&O X3. Speech clear. No ataxic movements. PSYCHIATRIC: Appropriate mood and affect. Normal interaction. <Giselle Gottlieb PA-C - Last Filed: 10/24/24 03:20> Course MEDICAL LAB ASSISTANT/PA Physician Supervision This visit was performed by both a physician and an APC. I performed all aspects of the MDM as documented. <Miguel Florez MD - Last Filed: 10/24/24 05:40> Vital Signs Vital signs: Vital Signs Temperature 97.6 F 10/23/24 20:30 Pulse Rate 81 10/23/24 20:30 Respiratory Rate 16 10/23/24 20:30 Blood Pressure 143/87 H 10/23/24 20:30 Pulse Oximetry 97 10/23/24 20:30 Oxygen Delivery Room Air 10/23/24 20:30 Temperature 97.6 F 10/23/24 20:30 Pulse Rate 57 L 10/24/24 04:58 Respiratory Rate 13 10/24/24 04:58 Blood Pressure 106/61 10/24/24 04:58 Pulse Oximetry 99 10/24/24 04:58 Oxygen Delivery Room Air 10/23/24 23:20 <Gsielle Gottlieb PA-C - Last Filed: 10/24/24 03:20> Vital Signs Temperature 97.6 F 10/23/24 20:30 Pulse Rate 81 10/23/24 20:30 Respiratory Rate 16 10/23/24 20:30 Blood Pressure 143/87 H 10/23/24 20:30 Pulse Oximetry 97 10/23/24 20:30 Oxygen Delivery Room Air 10/23/24 20:30 Temperature 97.6 F 10/23/24 20:30 Pulse Rate 57 L 10/24/24 04:58 Respiratory Rate 13 10/24/24 04:58 Blood Pressure 106/61 10/24/24 04:58 Pulse Oximetry 99 10/24/24 04:58 Oxygen Delivery Room Air 10/23/24 23:20 <Miguel Florez MD - Last Filed: 10/24/24 05:40> MDM - Nausea/Vomiting/Diarrhea MDM Narrative Medical decision making narrative: Patient presented to ED with lower abdominal pain, nausea, bowel changes, dizziness/lightheadedness. Vital signs are stable upon arrival. Patient in no acute distress. Cbc with WBC count of 9.9. Stable H&H. Stable electrolytes. Stable kidney function. Troponin undetectable. Urinalysis is clear. Chest x-ray interpreted by myself without evidence infiltrate or other findings. CT abd/pelvis obtained. Care signed out to Dr. Florez at shift change pending STAT RAD imaging results <Giselle Gottlieb PA-C - Last Filed: 10/24/24 03:20> Patient presented to ED with lower abdominal pain, nausea, bowel changes, dizziness/lightheadedness. Vital signs are stable upon arrival. Patient in no acute distress. Cbc with WBC count of 9.9. Stable H&H. Stable electrolytes. Stable kidney function. Troponin undetectable. Urinalysis is clear. Chest x-ray interpreted by myself without evidence infiltrate or other findings. CT abd/pelvis obtained. Care signed out to Dr. Florez at shift change pending STAT RAD imaging results This visit was performed by both a physician and an APC. I performed all aspects of the MDM as documented. <Miguel Florez MD - Last Filed: 10/24/24 05:40> Medical Records Attestation: I reviewed the patient's medical records. <Giselle Gottlieb PA-C - Last Filed: 10/24/24 03:20> Lab Data Attestation: I reviewed the patient's lab results. <Giselle Gottlieb PA-C - Last Filed: 10/24/24 03:20> Result diagrams: 10/23/24 23:14 10/23/24 23:14 <Giselle Gottlieb PA-C - Last Filed: 10/24/24 03:20> Labs: Lab Results 10/23/24 10/23/24 Range/Units 23:13 23:14 WBC 9.9 (4.5-10.0) K/mm3 RBC 4.28 (4.2-5.4) M/mm3 Hgb 13.4 (12.0-15.0) g/dL Hct 40.2 (37.0-47.0) % MCV 93.9 (80-100) fl MCH 31.3 (26-34) pg MCHC 33.3 (32-36) g/dl RDW 12.7 (11.5-14.5) % Plt Count 225 (150-375) k/mm3 MPV 10.5 H (7.4-10.4) fl Immature Gran % (Auto) 0.2 (0-0.5) % Neut % (Auto) 57.8 (45.5-73.1) % Lymph % (Auto) 34.9 (18.3-44.2) % Cottle % (Auto) 5.2 (2.6-8.5) % Eos % (Auto) 1.5 (0-4.4) % Baso % (Auto) 0.4 (0.2-1.2) % Lymph # (Auto) 3.45 H (0.9-3.2) K/mm3 Cottle # (Auto) 0.5 (0.1-0.6) K/mm3 Eos # (Auto) 0.2 (0-0.3) K/mm3 Baso # (Auto) 0.0 (0.0-0.1) K/mm3 Abs Immat Gran (auto) 0.02 (0.00-0.031) K/mm3 Absolute Neuts (auto) 5.7 (1.3-6.7) K/mm3 Absolute Nucleated RBC 0.000 (0.0-0.012) K/mm3 Nucleated RBC % 0.0 (0.0-0.2) % Sodium 134 L (137-145) mmol/L Potassium 4.0 (3.4-5.0) mmol/L Chloride 103 (98-107) mmol/L Carbon Dioxide 23 (22-30) mmol/L Anion Gap 8 (4-12) mmol/L BUN 9 (7-17) mg/dL Creatinine 0.79 (0.7-1.0) mg/dL Estim Creat Clear Calc 88 ml/min Estimated GFR > 60 (59 - ) Glucose 99 (65-110) mg/dL Calcium 9.5 (8.4-10.2) mg/dL Total Bilirubin 0.3 (0.2-1.3) mg/dL AST 36 (14-36) U/L ALT 51 H (6-35) U/L Alkaline Phosphatase 69 (38-126) U/L Troponin I < 0.012 (0.000-0.034) ng/mL Total Protein 7.1 (6.3-8.2) g/dL Albumin 4.2 (3.5-5.1) g/dL Lipase 47 (23-300) U/L Urine Color Yellow (Yellow) Urine Appearance Clear (Clear) Urine pH 7.0 (5.0-9.0) Ur Specific [place] 1.013 (1.001-1.035) Urine Protein Negative (Negative) mg/dL Urine Glucose (UA) Negative (Negative) mg/dL Urine Ketones Negative (Negative) mg/dL Ur Blood (Man) Negative (Negative) Urine Nitrate Negative (Negative) Urine Bilirubin Negative (Negative) Urine Urobilinogen 0.2 (<2.0) mg/dL Leukocyte Esterase Rfl Negative (Negative) REBECA/UL <Giselle Gottlieb PA-C - Last Filed: 10/24/24 03:20> Lab Results 10/23/24 10/23/24 Range/Units 23:13 23:14 WBC 9.9 (4.5-10.0) K/mm3 RBC 4.28 (4.2-5.4) M/mm3 Hgb 13.4 (12.0-15.0) g/dL Hct 40.2 (37.0-47.0) % MCV 93.9 (80-100) fl MCH 31.3 (26-34) pg MCHC 33.3 (32-36) g/dl RDW 12.7 (11.5-14.5) % Plt Count 225 (150-375) k/mm3 MPV 10.5 H (7.4-10.4) fl Immature Gran % (Auto) 0.2 (0-0.5) % Neut % (Auto) 57.8 (45.5-73.1) % Lymph % (Auto) 34.9 (18.3-44.2) % Cottle % (Auto) 5.2 (2.6-8.5) % Eos % (Auto) 1.5 (0-4.4) % Baso % (Auto) 0.4 (0.2-1.2) % Lymph # (Auto) 3.45 H (0.9-3.2) K/mm3 Cottle # (Auto) 0.5 (0.1-0.6) K/mm3 Eos # (Auto) 0.2 (0-0.3) K/mm3 Baso # (Auto) 0.0 (0.0-0.1) K/mm3 Abs Immat Gran (auto) 0.02 (0.00-0.031) K/mm3 Absolute Neuts (auto) 5.7 (1.3-6.7) K/mm3 Absolute Nucleated RBC 0.000 (0.0-0.012) K/mm3 Nucleated RBC % 0.0 (0.0-0.2) % Sodium 134 L (137-145) mmol/L Potassium 4.0 (3.4-5.0) mmol/L Chloride 103 (98-107) mmol/L Carbon Dioxide 23 (22-30) mmol/L Anion Gap 8 (4-12) mmol/L BUN 9 (7-17) mg/dL Creatinine 0.79 (0.7-1.0) mg/dL Estim Creat Clear Calc 88 ml/min Estimated GFR > 60 (59 - ) Glucose 99 (65-110) mg/dL Calcium 9.5 (8.4-10.2) mg/dL Total Bilirubin 0.3 (0.2-1.3) mg/dL AST 36 (14-36) U/L ALT 51 H (6-35) U/L Alkaline Phosphatase 69 (38-126) U/L Troponin I < 0.012 (0.000-0.034) ng/mL Total Protein 7.1 (6.3-8.2) g/dL Albumin 4.2 (3.5-5.1) g/dL Lipase 47 (23-300) U/L Urine Color Yellow (Yellow) Urine Appearance Clear (Clear) Urine pH 7.0 (5.0-9.0) Ur Specific [place] 1.013 (1.001-1.035) Urine Protein Negative (Negative) mg/dL Urine Glucose (UA) Negative (Negative) mg/dL Urine Ketones Negative (Negative) mg/dL Ur Blood (Man) Negative (Negative) Urine Nitrate Negative (Negative) Urine Bilirubin Negative (Negative) Urine Urobilinogen 0.2 (<2.0) mg/dL Leukocyte Esterase Rfl Negative (Negative) REBECA/UL <Miguel Florez MD - Last Filed: 10/24/24 05:40> Imaging Data Attestation: I personally reviewed and interpreted this imaging study as follows: < Giselle Gottlieb PA-C - Last Filed: 10/24/24 03:20> Radiologist's impression: overnight Read CT abdomen pelvis with contrast impression: Suspect fatty infiltration of the liver. The remaining solid organs are within normal limits. No bowel obstruction. Normal appendix. No fracture. <Miguel Florez MD - Last Filed: 10/24/24 05:40> Discharge Plan Discharge Clinical Impression: Intermittent lower abdominal pain, Lightheadedness, Nausea <Giselle Gottlieb PA-C - Last Filed: 10/24/24 03:20> Patient Disposition: Home <Giselle Gottlieb PA-C - Last Filed: 10/24/24 03:20> Condition: Stable <Giselle Gottlieb PA-C - Last Filed: 10/24/24 03:20> Instructions: Antibiotic Form, Dehydration (ED), Acute Nausea and Vomiting (ED), Abdominal Pain (ED) <ALEA Lindsey Last Filed: 10/24/24 03:20> Additional Instructions: Utilize zofran as needed for further nausea. Recommend Bentyl, Tylenol as needed for further abdominal discomfort. Increase fluid intake. Recommend electrolyte rich fluids, gatorade, pedialyte, body armour. Recommend clear liquids or bland diet until symptoms improve, such as bananas, rice, applesauce, toast, or crackers. Follow up with your primary care doctor for further evaluation. Return to the ED if you experience worsening or severe symptoms, unable to keep down food or drink, severe pain, fevers, rectal bleeding, vomiting blood, or any other symptoms of concern. <ALEA Lindsey Last Filed: 10/24/24 03:20> Patient Language: Malaysian <ALEA Lindsey Last Filed: 10/24/24 03:20> Prescriptions: New dicyclomine 20 mg tablet 20 mg PO TID PRN (Reason: Abdominal Discomfort) Qty: 15 0RF No Action oxybutynin chloride 10 mg tablet extended release 24hr 10 mg PO HS ziprasidone HCl 60 mg capsule 60 mg PO DAILY dicyclomine 20 mg tablet 20 mg PO QID PRN (Reason: abdominal pain) 30 Days Qty: 120 5RF buspirone 10 mg tablet 10 mg PO BID escitalopram oxalate [Lexapro] 20 mg tablet 20 mg PO HS buspirone 30 mg tablet 30 mg PO BID naproxen 250 mg tablet 250 mg PO BID PRN (Reason: pain) omeprazole 40 mg capsule,delayed release(DR/EC) 40 mg PO BID Qty: 180 1RF gabapentin 300 mg capsule 300 mg PO TID Qty: 90 2RF tramadol 50 mg tablet 50 mg PO Q6H PRN (Reason: pain) Qty: 120 0RF hydrocodone-acetaminophen 5-325 mg tablet 1 tablet PO Q8H PRN (Reason: pain) Qty: 60 0RF ondansetron 4 mg tablet,disintegrating 4 mg PO Q8H PRN (Reason: nausea and vomiting) Qty: 30 0RF fluticasone propionate [Flonase Allergy Relief] 50 mcg/actuation spray,suspension 2 spray intranasal DAILY PRN (Reason: Allergy Symptoms) Rx Instructions: administer into each nostril <ALEA Lindsey Last Filed: 10/24/24 03:20> Follow-up/Referrals: Gilberto Gupta MD [Primary Care Provider, Family Practice] <ALEA Lindsey Last Filed: 10/24/24 03:20>
[2024-10-24 00:52] LABS: Troponin I < 0.012 ng/mL (0.000-0.034)
[2024-10-24] MEDS: MORPHINE SULFATE (*CRX) 4 MG/ML INJ IV PUSH (00:59)
[2024-10-24] MEDS: ONDANSETRON INJ 4 MG/2 ML VIAL IV PUSH (00:59)
[2024-10-24] MEDS: SODIUM CHLORIDE 0.9% IV 1,000 ML 999 ML IV CONT (01:00)
[2024-10-24 02:45] VITALS: PULSE 64; RESP 13; O2SAT 98
[2024-10-24 03:00] VITALS: PULSE 63; RESP 15; O2SAT 95
[2024-10-24 03:27] VITALS: BP 106/61; PULSE 62; RESP 17; O2SAT 95
[2024-10-24] MEDS: METOCLOPRAMIDE HCL INJ 10 MG/2 ML VIAL IV PUSH (03:27)
[2024-10-24 04:58] VITALS: BP 106/61; PULSE 57; RESP 13; O2SAT 99
== END 2024-10-24 04:58 | disposition home or self-care (01) ==
PROVIDERS: Emergency Provider Physician Assistant; PCP Family Medicine
DX: R10.30 Lower abdominal pain, unspecified (principal); R42 Dizziness and giddiness; R11.0 Nausea; F17.290 Nicotine dependence, other tobacco product, uncomplicated
CPT/HCPCS: 36415; 71046; 74177; 80053; 81003; 83690; 84484; 85025; 93005; 96361; 96374; 96375; 99284; J1200; J2270; J2405; J2765; J7030; Q9967